=== PATIENT | male | born 1970 | race Caucasian/White ===

== ENCOUNTER 2020-02-01 10:37 | Outpatient (REF) | payer OTHER, SELFPAY ==
--- NOTE | 2020-02-01 10:41 | XR_ITS ---
EXAMINATION: XR CERVICAL SPINE CLINICAL INFORMATION: Neck pain COMPARISON: None TECHNIQUE: 3 views of the cervical spine were obtained. FINDINGS: Bone alignment is normal. No fracture or dislocation is seen. There is degenerative spondylosis from C4-C5 to C6-C7. Disc spaces are normal. Prevertebral soft tissues are normal. There is soft tissue calcification posterior to the C4 and C5 spinous processes suggestive of old trauma. XR/XR cervical spine 3V IMPRESSION: Degenerative changes.
== END 2020-02-01 10:38 | disposition home or self-care (01) ==
LOC: HO.HMGCX 10:37
PROVIDERS: PCP Nurse Practitioner Family; Visit Provider Nurse Practitioner Family
DX: M54.2 Cervicalgia (principal)
CPT/HCPCS: 72040

== ENCOUNTER 2020-03-21 15:00 | Outpatient (RCR) | payer OTHER, SELFPAY ==
--- NOTE | 2020-02-16 16:27 | MHC.PT.EP ---
[facility] [place] Office [place] Office [place] Office [address] Heidi Sears [address] [phone] F: [phone] F: [phone] F: [phone] F: [phone] Physical Therapy Plan of Care Date of Evaluation: 02/16/20 Date of Surgery: Diagnosis: This is a 49 yo RHD male presenting to skilled PT with a script for cervicalgia. Assessment: This is a 49 yo RHD male presenting to skilled PT with a script for cervicalgia. His pain began about 3 weeks ago when he woke up with symptoms (no injury noted). Since then the patient has had an increase in HAYES's (located posteriorly) and these occur daily. His pain is described as achy and is constant. His pain is located at the base of the occipitals and into the paraspinals B throughout the c-spine. His big complaints are sleeping, turning his neck and constant pain. He is able to perform all ADLs on own but is limited due to pain and ROM. Assessment demos pain up to an 8/10 and is consistent. He demos poor cervical joint mobility, cervical ROM and decreased cervical strength. He has forward head posture and rounded shoulders. Functionally, he is limited in rotating his neck and sleeping. He has very stiff posturing and is tender throughout the c-spine paraspinals, with ? cervical rotation at C3/4. He is a good candidate for skilled PT 2x/wk for 6wks based on functional limitations, age, PMHx and normal ADL Frequency and Duration: The patient will be seen 2x/wk for 6wks Short Term Goals: I in HEP Improve cervical ROM by 10 degs in all motions Fci Goals: Patient will report sleeping through the night Demos normal cervical AROM and MMT Pain improves to no more than 2/10 at the worst No TTP and good cervical joint mobility Treatment Plan: Modalities to reduce pain, spasms and effusion. Manual therapy to restore motion and function. Therapeutic exercise to improve strength and flexibility. Neuromuscular re-education for posture and balance. Therapeutic activities to return to functional activities of daily living. Please sign and return to therapist. Thank you for your referral.
--- NOTE | 2020-04-22 12:42 | MHC.PT.DC ---
[facility] [place] Office [place] Office [place] Office [address] Heidi Sears [address] [phone] F: [phone] F: [phone] F: [phone] F: [phone] Physical Therapy Discharge Report Diagnosis: This is a 49 yo RHD male presenting to skilled PT with a script for cervicalgia. Date of Surgery: Date of Evaluation: 02/16/20 Date of Discharge: 04/22/20 Treatments to Date: 6 Cancellations to Date: 0 No Shows to Date: 0 Discharge Status: Independent with HEP Discharge Summary: Patient was treated for 6 visits, he went away on vacation and did not return to therapy after this. Plan was to perform ROM measurements next session before he leaves to assess response to therapy however patient cancelled. He was educated to call our dept after he returns to continue PT however he did not. PT kept chart open for 30 days prior to DC. DC to HEP at this time. Electronically signed by: Medina Candelario, PT Please sign and return to therapist. Thank you for your referral.
== END 2020-04-22 12:43 | disposition home or self-care (01) ==
LOC: HO.PTCHIC 15:00
PROVIDERS: PCP Nurse Practitioner Family; Visit Provider Nurse Practitioner Family
DX: M54.2 Cervicalgia (principal)
CPT/HCPCS: 97012; 97014; 97110; 97140; 97161

== ENCOUNTER 2020-08-04 08:03 | Outpatient (REF) | payer OTHER, SELFPAY ==
[2020-08-04 11:15] LABS: MANUAL DIFF FLAG NO
[2020-08-04 12:03] LABS: Basophils Percent Auto 0.3 % (0-2); Eosinophils Absolute Auto 0.2 X10*3/uL (0.0-0.4); Eosinophils Percent Auto 2.9 % (0-4); Hematocrit 42.3 % (42-52); Hemoglobin 13.8 g/dl (14.0-18.0); Imm Gran Abs Auto 0.03 X10*3/uL (0.00-0.03); Imm Gran Pct Auto 0.4 % (0.0-0.4); Lymphocytes Absolute Auto 1.7 X10*3/uL (1.2-4.9); Lymphocytes Percent Auto 23.3 % (20-40); Mean Corpuscular HGB Conc 32.6 g/dl (31.0-36.0); Mean Corpuscular Hemoglobin 30.5 pg (27.0-33.0); Mean Corpuscular Volume 93.6 fL (80-98); Monocytes Absolute Auto 0.8 X10*3/uL (0.1-1.2); Monocytes Percent Auto 11.5 % (2-11); Neutrophils Absolute Auto 4.4 X10*3/uL (2.0-8.3); Neutrophils Percent Auto 61.6 % (45-73); Platelet Count 267 X10*3/uL (160-400); Red Blood Count 4.52 X10*6/uL (4.60-5.80); Red Cell Distribution Width 12.9 % (11.0-16.0); White Blood Count 7.2 X10*3/uL (4.8-10.8)
[2020-08-04 12:08] LABS: Alanine Aminotransferase 34 U/L (0-40); Albumin Level 4.3 g/dL (3.5-5.0); Alkaline Phosphatase 110 U/L (39-117); Anion Gap 12 (12-20); Aspartate Amino Transferase 17 U/L (5-37); Bilirubin Total 0.7 mg/dL (0.0-1.0); Blood Urea Nitrogen 18 mg/dL (9-16); Calcium 9.5 mg/dL (8.4-10.2); Carbon Dioxide 27 mmol/L (22-29); Chloride 108 mmol/L (96-108); Estimated Glomerular Filt Rate > 60; Glucose Fasting 81 mg/dL (60-99); Iron 78 mcg/dL (45-160); Percent Iron Saturation 28 % (15-50); Potassium 4.7 mmol/L (3.3-5.1); Sodium 142 mmol/L (135-145); Total Iron Binding Capacity 282 mcg/dL (228-428); Total Protein 6.5 g/dL (6.5-8.0); Unsaturated Iron Binding 204 ug/dL
[2020-08-04 12:10] LABS: Vitamin B12 876 pg/mL (200-900)
[2020-08-04 12:31] LABS: TSH reflex Free T4 0.54 uIU/mL (0.32-4.0)
[2020-08-04 13:42] LABS: Ferritin 202 ng/mL (20-250)
== END 2020-08-04 08:04 | disposition home or self-care (01) ==
LOC: HO.HMGCLDS 08:03
PROVIDERS: PCP Nurse Practitioner Family; Visit Provider Nurse Practitioner Family
DX: R53.83 Other fatigue (principal)
CPT/HCPCS: 36415; 80053; 82607; 82728; 83540; 84443; 85025

== ENCOUNTER 2020-08-17 12:51 | Outpatient (REF) | payer OTHER, SELFPAY ==
--- NOTE | ~2020-08-17 | MR_ITS ---
EXAMINATION: MR SHOULDER WITHOUT CONTRAST, RIGHT CLINICAL INFORMATION: Pain in right shoulder. Patient reports chronic right shoulder pain, decreased range of motion, no recent injury, and no previous surgery. COMPARISON: None. TECHNIQUE: MRI of the shoulder without contrast was performed on a high-field scanner. FINDINGS: ROTATOR CUFF: There is a small 3 mm calcification noted in the distal supraspinatus tendon, corresponding to the plain film finding. There is minor distal supraspinatus tendinosis. There may be a small focal area of mild bursal surface fraying. There is minor distal infraspinatus tendinosis. There is mild distal subscapularis tendinosis. No tears are identified. The teres minor tendon is intact. There is mild edema/trace fluid in the subacromial-subdeltoid bursa. No muscle atrophy or fatty infiltration. BICEPS: Normal. CORACOACROMIAL ARCH: The undersurface of the acromion is mildly curved, mildly laterally downsloping, with a small broad-based subacromial osteophyte. There is mild hypertrophic osteoarthritis of the acromioclavicular joint. LABRUM/CAPSULE: Normal. GLENOHUMERAL JOINT/MARROW: Normal. MR/MR shoulder RT wo con IMPRESSION: 1. Mild distal supraspinatus calcific tendinosis. Minor bursal surface fraying. Minor distal infraspinatus tendinosis and mild distal subscapularis tendinosis. No evidence of rotator cuff tear. 2. Mild subacromial-subdeltoid bursitis. 3. Mildly laterally downsloping acromion process with small broad-based subacromial osteophyte. 4. 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
== END 2020-08-17 12:52 | disposition home or self-care (01) ==
LOC: HO.MRI 12:51
PROVIDERS: Visit Provider Nurse Practitioner Family
DX: M25.511 Pain in right shoulder (principal)
CPT/HCPCS: 73221

== ENCOUNTER 2020-11-11 08:12 | Outpatient (REF) | payer OTHER, SELFPAY ==
[2020-11-11 11:06] LABS: MANUAL DIFF FLAG NO
[2020-11-11 11:12] LABS: Basophils Percent Auto 0.4 % (0-2); Eosinophils Absolute Auto 0.2 X10*3/uL (0.0-0.4); Eosinophils Percent Auto 2.5 % (0-4); Glucose Urine UA NEG (NEG); Hematocrit 44.2 % (42-52); Hemoglobin 14.3 g/dl (14.0-18.0); Imm Gran Abs Auto 0.04 X10*3/uL (0.00-0.03); Imm Gran Pct Auto 0.5 % (0.0-0.4); Leukocyte Esterase Urine NEG (NEG); Lymphocytes Percent Auto 26.4 % (20-40); Mean Corpuscular HGB Conc 32.4 g/dl (31.0-36.0); Mean Corpuscular Hemoglobin 30.8 pg (27.0-33.0); Mean Corpuscular Volume 95.3 fL (80-98); Mean Platelet Volume 11.1 fL (9.4-12.4); Monocytes Absolute Auto 0.9 X10*3/uL (0.1-1.2); Monocytes Percent Auto 12.5 % (2-11); Neutrophils Absolute Auto 4.3 X10*3/uL (2.0-8.3); Neutrophils Percent Auto 57.7 % (45-73); Nitrite Urine NEG (NEG); Platelet Count 237 X10*3/uL (160-400); Red Blood Count 4.64 X10*6/uL (4.60-5.80); UACC Culture Trigger NO; Urine Blood TRACE (NEG); Urine Ketones NEG (NEG); Urine Protein NEG (NEG-TRACE); White Blood Count 7.5 X10*3/uL (4.8-10.8)
[2020-11-11 11:13] LABS: Appearance Urine CLEAR; Color Urine YELLOW
[2020-11-11 11:24] LABS: RBC Urine 0-2 /HPF (0); WBC Urine 0 /HPF (0-4)
[2020-11-11 11:33] LABS: Alanine Aminotransferase 20 U/L (0-40); Albumin Level 4.3 g/dL (3.5-5.0); Alkaline Phosphatase 113 U/L (39-117); Anion Gap 13 (12-20); Aspartate Amino Transferase 15 U/L (5-37); Bilirubin Total 0.7 mg/dL (0.0-1.0); Blood Urea Nitrogen 14 mg/dL (9-16); Calcium 9.4 mg/dL (8.4-10.2); Carbon Dioxide 29 mmol/L (22-29); Chloride 106 mmol/L (96-108); Cholesterol 153 mg/dL; Estimated Glomerular Filt Rate > 60; Glucose Fasting 102 mg/dL (60-99); HDL Cholesterol 44 mg/dL; LDL Cholesterol Calculated 94 mg/dl; Potassium 4.8 mmol/L (3.3-5.1); Sodium 143 mmol/L (135-145); Total Protein 6.7 g/dL (6.5-8.0); Triglycerides 77 mg/dL
[2020-11-11 11:58] LABS: Prostate Specific Antigen Scr 0.34 ng/mL (<0.05-4.0); TSH reflex Free T4 0.84 uIU/mL (0.32-4.0)
[2020-11-17 17:15] LABS: Testosterone, Free 79.9 pg/mL (35.0-155.0); Testosterone, Total 506 ng/dL (250-1100)
== END 2020-11-11 08:13 | disposition home or self-care (01) ==
LOC: HO.HMGCLDS 08:12
PROVIDERS: PCP Nurse Practitioner Family; Visit Provider Nurse Practitioner Family
DX: Z00.00 Encounter for general adult medical examination without abnormal findings (principal); Z12.5 Encounter for screening for malignant neoplasm of prostate; R53.83 Other fatigue; R68.82 Decreased libido
CPT/HCPCS: 36415; 80053; 80061; 81001; 84153; 84402; 84403; 84443; 85025

== ENCOUNTER 2020-12-06 15:00 | Outpatient (RCR) | payer OTHER, SELFPAY ==
--- NOTE | 2020-10-18 19:03 | MHC.PT.EP ---
[facility] [place] [facility] [place] Office [place] Office [address] Heidi Sears [address] [phone] F: [phone] F: [phone] F: [phone] F: [phone] Physical Therapy Plan of Care Date of Evaluation: Date of Surgery: Diagnosis: R shoulder Pain Assessment: Pt is a 50 y/o male referred to PT for eval and treat of R shoulder pain who presents with signs and Sx consistent with R impingement and dysfunction resulting in decreased tolerance to perform UE fitness activities, reaching high shelves, reaching his back for hygiene and dressing, dressing pullovers, lifting and carrying objects of weight as well as inability to lie on R side secondary to decreased R shoulder AROM and strength, TTP of R anterior shoulder and biceps tendon, + impingement tests, decreased scapular posture and pain. Pt is deemed an appropriate candidate to receive skilled PT in order to address his physical limitations to improve his functional ability. Frequency and Duration: The patient will be seen 2 x/wk x 5 wks. Short Term Goals: Improve TTP of anterior R shoulder to < 2+; initial 3+ (considerable). Initiate HEP with evidence of compliance. Skilled Nursing Goals: I with HEP. Pt will be able to reach objects on high shelves with managed Sx; initial unable. Improve R shoulder flexion MMT to > 4+/5; initial 4/5 and painful. Treatment Plan: Modalities to reduce pain, spasms and effusion. Manual therapy to restore motion and function. Therapeutic exercise to improve strength and flexibility. Neuromuscular re-education for posture and balance. Therapeutic activities to return to functional activities of daily living. Electronically signed by: Homer Vasquez PT. Please sign and return to therapist. Thank you for your referral.
--- NOTE | 2020-12-08 12:01 | MHC.PT.DC ---
[facility] [place] Office [place] Office [place] Office [address] Heidi Sears 140 [facility] [phone] F: [phone] F: [phone] F: [phone] F: [phone] Physical Therapy Discharge Report Diagnosis: R shoulder Pain Date of Surgery: Date of Evaluation: 10/18/20 Date of Discharge: 12/08/20 Treatments to Date: 7 Cancellations to Date: No Shows to Date: Discharge Status: Achieved Goals Improved Function Independent with HEP Discharge Summary: Pt called to Self DC; reports he has been feeling much better, he has met his goals and has a plan for self management. Electronically signed by: Homer Vasquez PT. Please sign and return to therapist. Thank you for your referral.
== END 2020-12-08 12:02 | disposition home or self-care (01) ==
LOC: HO.PTCHIC 15:00
PROVIDERS: PCP Nurse Practitioner Family; Visit Provider Nurse Practitioner Family
DX: M25.511 Pain in right shoulder (principal)
CPT/HCPCS: 97110; 97140; 97161

== ENCOUNTER 2020-12-20 12:21 | Outpatient (REF) | payer OTHER, SELFPAY ==
[2020-12-20 13:59] LABS: Urine Cytology See Pathology rpt
[2020-12-20 14:11] LABS: Appearance Urine CLEAR; Color Urine YELLOW; Glucose Urine UA NEG (NEG); Leukocyte Esterase Urine NEG (NEG); Nitrite Urine NEG (NEG); PH 7.5 (5.0-8.0); Specific Gravity - Urine 1.015 (1.005-1.025); Urine Blood NEG (NEG); Urine Ketones NEG (NEG); Urine Protein NEG (NEG-TRACE)
[2020-12-20 14:46] LABS: RBC Urine 0 /HPF (0); Squamous Epithelial Cell Urine TRACE /LPF; WBC Urine 0 /HPF (0-4)
== END 2020-12-20 12:22 | disposition home or self-care (01) ==
LOC: HO.HMGCLDS 12:21
PROVIDERS: PCP Nurse Practitioner Family; Visit Provider Nurse Practitioner Family
DX: R31.29 Other microscopic hematuria (principal)
CPT/HCPCS: 81001; 81003; 87086; 88112

== ENCOUNTER 2021-01-19 14:47 | Outpatient (REF) | payer OTHER, SELFPAY ==
--- NOTE | ~2021-01-19 | CT_ITS ---
EXAMINATION: CT ABDOMEN AND PELVIS WITHOUT CONTRAST CLINICAL INFORMATION: Left lower quadrant pain. COMPARISON: None TECHNIQUE: Multidetector volumetric imaging was performed from the superior aspect of the liver through the pubic symphysis. Sagittal and coronal reformatted images were obtained on the technologist's workstation. This CT examination was performed using dose optimization techniques as appropriate, variously including the following: *Automated exposure control *Adjustment of mA and/or kV according to patient size (this includes techniques or standardized protocols for targeted exams where dose is matched to indication/reason for exam; i.e. extremities or head) *Use of iterative reconstruction technique DLP: 574 mGy-cm FINDINGS: LUNG BASES: The visualized lung bases are unremarkable. LIVER, GALLBLADDER, AND BILIARY TREE: The liver is normal in size, shape, and attenuation. There is a 4 mm hypodensity segment 4A close the diaphragm centrally on axial image 12/19. It is too small to correctly characterize. No additional liver lesions seen. There is no intrahepatic ductal dilatation. The gallbladder is unremarkable with no evidence of radiopaque gallstones, gallbladder wall thickening, or obvious pericholecystic inflammatory changes. PANCREAS: Unremarkable. SPLEEN: Unremarkable. ADRENAL GLANDS: Unremarkable. KIDNEYS AND URETERS: The kidneys are normal in size, shape, and attenuation. No hydronephrosis, hydroureter, or calculi seen. No perinephric stranding. There is a 1.4 cm cyst upper pole right kidney. BLADDER: Unremarkable. GASTROINTESTINAL TRACT: There is diffuse sigmoid and scattered rest of the colon diverticulosis and moderate stool. No colonic distention. The small bowel loops are normal caliber. Appendix is normal caliber. No inflammatory process of free fluid seen. The stomach appears unremarkable with recently ingested food. ABDOMINAL WALL: No significant hernia is appreciated. LYMPH NODES: There are scattered lymph nodes. VASCULAR: Unremarkable. PELVIC VISCERA: The prostate gland is normal size. No abnormal pelvic lymph nodes or inguinal hernia seen. OSSEOUS STRUCTURES: No lytic or sclerotic process seen. There are mild degenerative disc changes with vacuum disc phenomena at L5-S1 and L3-L4 disc levels with moderate ventral spondylosis. CT/CT abdomen pelvis wo con IMPRESSION: Diffuse sigmoid diverticulosis and scattered rest the colon diverticulosis with no diverticulitis.
== END 2021-01-19 14:48 | disposition home or self-care (01) ==
LOC: HO.CT 14:47
PROVIDERS: PCP Nurse Practitioner Family; Visit Provider Nurse Practitioner Family
DX: R10.32 Left lower quadrant pain (principal); R31.29 Other microscopic hematuria
CPT/HCPCS: 74176

== ENCOUNTER 2023-03-28 15:30 | Outpatient (AMB) | payer OTHER, SELFPAY ==
--- NOTE | 2023-03-28 15:35 | A.OFFPC_ITS ---
Vital Signs 03/28/23 15:38 Height 5 ft 8 in Weight 196 lb BMI 29.8 BP 140/82 H Blood Pressure Location Rt brachial Position Sitting Pulse 85 Pulse Source Pulse Oximeter Pulse Oximetry (%) 98 Oxygen Delivery Method Room Air Intake Visit Reasons: 6 month follow up Intake Note: Patient here to follow up on low back pain and sciatic nerve pain on left side. Allergies N.K.D.A Allergy (Unknown, Uncoded 03/28/23 15:39) none Medication List - Last Reconciled 03/28/23 by FRANKIE Fowler oxycodone 10 mg PO BID PRN 10 days Tobacco use date assessed: 10/01/22 Dental Screening Dental Screen Date: 03/28/23 Did you have a dental visit in the last 12 months?: Yes Did you have a dental problem in the last 6 months where you did not have access to dental care?: No Was dental information given to patient?: Patient has dentist HPI 6 month follow up HPI Details Pt c/o ongoing lower back pain with radicular symptoms down his left leg. Pt reports falling off a ladder last week and landing on his buttocks which made the pain worse (radicular symptoms worse down LLE). He had an MRI in July of 2020 which showed chronic L5-S1 level partial left laminectomy sequela with multilevel degenerative changes with L3-L4 level inferior extruded central disc herniation and L5-S1 level broad-based left paracentral disc herniation with central canal stenosis and neural foraminal narrowing. Pt has seen neurosurgery for this in the past but was not a surgical candidate. Will repeat MRI. Will also send prednisone and short duration of oxycodone. Educated pt on risk of addiction, this is not a long-term med. Pt understands that they can not drive while taking this med, share this med, and to only take as prescribed. Denies any signs of cauda equina. Pt c/o ongoing low libido and ED. He reports that he is not able to get an erection at all. Labs have been ordered to assess this, encouraged pt to have these drawn. Pt has been smoking at least a pack per day since age 13. Will refer for low-dose CT. [facility] Medical History (Updated 03/28/23 @ 16:06 by FRANKIE Fowler) Nerve root compression Chronic radicular pain of lower back Lung mass Surgical History History of lumbar discectomy Family History Father Cancer Mother HTN (hypertension) Social History Housing: House Patient Tobacco Use Status: Current everyday Tobacco user Cigarettes Per Day: 10 Years Smoked: over 30 years e-Cigarette/Vaping Use: Never Used Second Hand Smoke Exposure: No service: Yes Current occupational status: employed Cognitive needs: No Hearing needs: No Vision needs: Yes (contacts) Questionnaire PHQ-9 Over the last 2 weeks, how often have you been bothered by any of the following problems? 1. Little interest or pleasure in doing things: several days 2. Feeling down, depressed, or hopeless: not at all 3. Trouble falling or staying asleep, or sleeping too much: more than half the days 4. Feeling tired or having little energy: several days 5. Poor appetite or overeating: not at all 6. Feeling bad about yourself - or that you are a failure or have let yourself or your family down: not at all 7. Trouble concentrating on things, such as reading the newspaper or watching television: not at all 8. Moving or speaking so slowly that other people could have noticed. Or the opposite - being so fidgety or restless that you have been moving around a lot more than usual: not at all 9. Thoughts that you would be better off or of hurting yourself in some way: not at all Total score: 4 Depression Screening Interpretation: Negative Depression Screening Done: Yes 86997 - PHQ-9 Billing: Yes Source: Developed by Drs. Carlos Rizzo, Joycelyn Black, Ben Duarte and colleagues, with an educational essence from [employer]. Thrive Questionnaire Date Thrive assessed: 03/28/23 I am a: Patient What is your living situation today?: I have a steady place to live Within the past 12 months, did the food you bought not last and you didn't have the money to get more?: Never true Within the past 12 months, did you worry whether your food would run out before you got money to buy more?: Never true Do you have trouble paying for medicines?: No Do you have trouble getting transportation to medical appointments?: No Do you have trouble paying your heating and electricity bill?: No Do you have trouble taking care of your child, family member or friend?: No Do you have trouble with day-to-day activities such as bathing, preparing meals, shopping, managing finances, etc.?: No Are you currently unemployed and looking for a job?: Yes Are you interested in more education?: No AUDIT C Alcohol Use Questionnaire (AUDIT-C) 1. How often do you have a drink containing alcohol?: Never 3. How often do you have six or more drinks on one occasion?: Never Total Score: 0 Score Reviewed/Action Taken: No STEVE-7 AMB Questionnaire STEVE-7 Date STEVE - 7 assessed: 03/28/23 Feeling nervous, anxious, or on edge: 1 = Several days Not being able to stop or control worryin = Several days Worrying too much about different things: 1 = Several days Trouble relaxin = Several days Being so restless that it is hard to sit still: 1 = Several days Becoming easily annoyed or irritable: 1 = Several days Feeling afraid as if something awful might happen: 0 = Not at all Total STEVE-7 score (0-4 normal; 5-9 mild; 10-14 moderate; 15-21 severe): 6 Source: Developed by Drs. Carlos Rizzo, Joycelyn Black, Ben Duarte and colleagues, with an educational essence from [employer]. STEVE-7 Assessment Billing STEVE-7 Assessment Tool: STEVE-7 Assessment 97757 Review of Systems Const Reports as per HPI Physical exam (Primary Care) Vital Signs: Last Vital Signs Pulse 85 03/28/23 15:38 BP 140/82 H 03/28/23 15:38 Pulse Ox 98 03/28/23 15:38 Oxygen Delivery Method Room Air 03/28/23 15:38 BMI result Body Mass Index 29.8 Tobacco/Smoking Status: Tobacco use Status Tobacco use date assessed 10/01/22 03/28/23 15:36 Patient Tobacco Use Status Current everyday Tobacco 03/28/23 15:36 e-Cigarette/Vaping Use Never Used 03/28/23 15:36 PHQ-9: PHQ-9 Score PHQ-9: Total score 4 03/28/23 16:56 Depression Screening Interpretation: Negative Thrive Assessment: Date of Thrive Assessment Date Thrive assessed 03/28/23 03/28/23 16:56 Const General: cooperative Orientation/consciousness: patient oriented x3 Resp Effort & Inspection: normal respiratory effort Auscultation: wheezes scattered wheezes Cardio Rate: regular rate Rhythm: regular rhythm Heart sounds: S1 normal heart sound present and S2 normal heart sound present Back/Spine/Pelvis Other: unable to heel and toe walk, unable to get into supine position due to pain Neuro General: patient oriented x3 Extrem Other: + patellar reflexes Psych Appearance: grossly normal Mental Status: mental status grossly normal Speech and movement: Normal speech and movement present Affect: normal affect Attitude: cooperative Thought process: Normal thought process present Thought content: Normal thought content present Insight: Good insight present (Psych) Judgement: Good judgement present (Psych) Assessment and Plan Assessment & Plan (1) Chronic radicular pain of lower back: Code(s): M54.16 - Radiculopathy, lumbar region; G89.29 - Other chronic pain Plan: MRI ordered (2) Nerve root compression: Code(s): G54.9 - Nerve root and plexus disorder, unspecified Plan: MRI ordered (3) Fall: Code(s): W19.XXXA - Unspecified fall, initial encounter Plan: MRI ordered (4) Smoker: Code(s): F17.200 - Nicotine dependence, unspecified, uncomplicated Plan The patient agreed to the use of a medical investigator for this encounter. Scribed for CLIFFORD Breaux- by Staci Farr medical investigator, on 03/28/2023 at 15:50 EST. Orders: Orders MR lumbar spine wo con Today G54.9 - Nerve root and plexus disorder, unspecified, G89.29 - Other chronic pain, M54.16 - Radiculopathy, lumbar region, W19.XXXA - Unspecified fall, initial encounter Referrals Thoracic Surgery Referral F17.200 - Nicotine dependence, unspecified, uncomplicated Medications: New prednisone 50 mg PO DAILY 6 tabs 0RF Refilled oxycodone Partial Fill upon patient request. 10 mg PO BID PRN 20 tabs 0RF pain 10 days Coding Level of Care Code Est Pt Level 4 (98535) Diagnoses Chronic radicular pain of lower back M54.16; G89.29 Nerve root compression G54.9 Fall W19.XXXA Smoker F17.200 Additional Codes STEVE-7 Assessment Billing - STEVE-7 Assessment Tool: STEVE-7 Assessment 11255 ([id number])
[2023-03-28 15:38] VITALS: BP 140/82; PULSE 85; O2SAT 98; BMI 29.8
== END 2023-03-28 16:51 | disposition home or self-care (01) ==
PROVIDERS: PCP Nurse Practitioner Family; Visit Provider Nurse Practitioner Family
DX: G54.9 Nerve root and plexus disorder, unspecified (principal); W19.XXXA Unspecified fall, initial encounter; F17.210 Nicotine dependence, cigarettes, uncomplicated
CPT/HCPCS: 99214

== ENCOUNTER 2023-04-04 09:32 | Outpatient (REF) | payer OTHER, SELFPAY ==
[2023-04-04 13:35] LABS: MANUAL DIFF FLAG NO
[2023-04-04 13:40] LABS: Appearance Urine Clear; Color Urine Yellow; Glucose Urine UA Negative (Negative); Leukocyte Esterase Urine Negative (Negative); Nitrite Urine Negative (Negative); PH 5.5 (5.0-9.0); UMIC TRIGGER UACC YES; Urine Blood Small (1+) (Negative); Urine Ketones Negative (Negative); Urine Protein Negative (Neg-Trace)
[2023-04-04 13:47] LABS: Basophils Percent Auto 0.4 % (0-2); Eosinophils Absolute Auto 0.2 X10*3/uL (0.0-0.4); Eosinophils Percent Auto 2.8 % (0-4); Hematocrit 41.9 % (42.0-52.0); Hemoglobin 13.8 g/dl (14.0-18.0); Imm Gran Abs Auto 0.03 X10*3/uL (0.00-0.03); Imm Gran Pct Auto 0.4 % (0.0-0.4); Lymphocytes Absolute Auto 2.3 X10*3/uL (1.2-4.9); Lymphocytes Percent Auto 31.5 % (20-40); Mean Corpuscular HGB Conc 32.9 g/dl (31.0-36.0); Mean Corpuscular Hemoglobin 30.3 pg (27.0-33.0); Mean Corpuscular Volume 92.1 fL (80.0-98.0); Mean Platelet Volume 11.1 fL (9.4-12.4); Monocytes Absolute Auto 0.9 X10*3/uL (0.1-1.2); Monocytes Percent Auto 12.2 % (2-11); Neutrophils Absolute Auto 3.8 x10*3/uL (2.0-8.3); Neutrophils Percent Auto 52.7 % (45-73); Platelet Count 241 X10*3/uL (160-400); Red Blood Count 4.55 X10*6/uL (4.60-5.80); Red Cell Distribution Width 13.1 % (11.0-16.0); White Blood Count 7.2 X10*3/uL (4.8-10.8)
[2023-04-04 13:54] LABS: Bacteria Urine None Seen (None Seen); Hyaline Casts Urine 0-2 /LPF (0-2); RBC Urine 0-2 /HPF (0-2); Squamous Epithelial Cell Urine 0-2 /HPF (0-2); WBC Urine 0-5 /HPF (0-5)
[2023-04-04 14:17] LABS: Prostate Specific Antigen Scr 0.29 ng/mL (<0.05-4.0)
[2023-04-04 14:23] LABS: Alanine Aminotransferase 19 U/L (0-40); Alkaline Phosphatase 115 U/L (39-117); Anion Gap 8 (12-20); Aspartate Amino Transferase 15 U/L (5-37); Bilirubin Total 0.4 mg/dL (0.0-1.0); Blood Urea Nitrogen 18 mg/dL (9-16); Calcium 9.5 mg/dL (8.4-10.2); Carbon Dioxide 29 mmol/L (22-29); Chloride 108 mmol/L (96-108); Cholesterol 172 mg/dL (<200); Estimated Glomerular Filt Rate > 60; Glucose Fasting 101 mg/dL (60-99); HDL Cholesterol 50 mg/dL (>40); LDL Cholesterol Calculated 101 mg/dL (<100); Potassium 4.2 mmol/L (3.3-5.1); Sodium 141 mmol/L (135-145); TSH reflex Free T4 0.98 uIU/mL (0.32-4.0); Total Protein 6.9 g/dL (6.5-8.0); Triglycerides 106 mg/dL (<150)
[2023-04-05 09:33] LABS: Follicle Stimulating Hormone 14.6 mIU/mL (1.4-12.8); Lutenizing Hormone 10.4 mIU/mL (1.5-9.3)
[2023-04-12 13:54] LABS: Testosterone, Free 21.5 pg/mL (35.0-155.0); Testosterone, Total 155 ng/dL (250-1100)
== END 2023-04-04 09:33 | disposition home or self-care (01) ==
LOC: HO.HMGCLDS 09:32
PROVIDERS: PCP Nurse Practitioner Family; Visit Provider Nurse Practitioner Family
DX: Z00.00 Encounter for general adult medical examination without abnormal findings (principal); R68.82 Decreased libido; Z12.5 Encounter for screening for malignant neoplasm of prostate; R31.29 Other microscopic hematuria
CPT/HCPCS: 36415; 80053; 80061; 81001; 83001; 83002; 84153; 84402; 84403; 84443; 85025

== ENCOUNTER 2023-05-28 09:50 | Outpatient (REF) | payer OTHER, SELFPAY ==
[2023-05-28 16:37] LABS: Urine Cytology See Pathology rpt
== END 2023-05-28 09:51 | disposition home or self-care (01) ==
LOC: HO.LAB 09:50
PROVIDERS: PCP Nurse Practitioner Family; Visit Provider Nurse Practitioner Family
DX: N39.0 Urinary tract infection, site not specified (principal); R31.29 Other microscopic hematuria; R79.89 Other specified abnormal findings of blood chemistry; R68.82 Decreased libido; N52.9 Male erectile dysfunction, unspecified
CPT/HCPCS: 81003; 88112; 99202

== ENCOUNTER 2023-05-28 09:50 | Outpatient (AMB) | payer OTHER, SELFPAY ==
--- NOTE | 2023-05-28 10:08 | MHC.OFFVIS ---
Intake Intake Visit Reasons: hypogonadism Intake Note: New Patient presents for initial visit for Hypogonadism Urology Medications: none Blood Thinner: none Rd Lab Technician Required: No Accompanied by: Self / Same As Patient Allergies N.K.D.A Allergy (Unknown, Uncoded 05/28/23 21:35) none Medication List - Last Reconciled 05/28/23 by FRANKIE Wild oxycodone 10 mg PO BID PRN 10 days tadalafil (Cialis) 5 mg PO DAILY 30 days tadalafil (Cialis) 20 mg PO .prn 30 days HPI HPI Comments History of Present Illness Details Quincy is a pleasant 53-year-old male patient of Dr. Moe. He has a past medical history of nerve root compression, chronic radicular pain of lower back, and lung mass. He presents to the office today as a new patient for erectile dysfunction and hypogonadism. He reports having followed up with his PCP at which time labs were drawn and he was noted to have a low testosterone therefore referral to Urology was made. These results were reviewed with the patient today. FSH 03/30 14.6 LH 03/30 10.4 Total testosterone 11/26 506, 03/30 155 Free testosterone 11/26 79.9, 03/30 21.5 PSA 11/26 0.3, 03/30 0.3 When asked he reports symptoms of erectile dysfunction and fatigue started approximately 8 months ago. He does endorse to nicotine dependence. When asked he reports a previous workup for sleep apnea that was negative. He otherwise denies any bothersome urinary issues. He denies urinary urgency, urinary frequency, incontinence, nocturia, hematuria, dysuria, foul smelling urine, changes to urinary stream, flank pain, fever, and or chills. He is happy with his current voiding parameters. Discussed at length potential causes of hypogonadism and erectile dysfunction. He otherwise denies any other issues or concerns at this time. [facility]LY [facility] Medical History Nerve root compression Chronic radicular pain of lower back Lung mass Surgical History History of lumbar discectomy Family History Father Cancer Mother HTN (hypertension) Social History Housing: House Patient Tobacco Use Status: Current everyday Tobacco user Cigarettes Per Day: 10 Years Smoked: over 30 years e-Cigarette/Vaping Use: Never Used Second Hand Smoke Exposure: No service: Yes Current occupational status: employed Cognitive needs: No Hearing needs: No Vision needs: Yes (contacts) Review of Systems Const Reports as per HPI Eyes Reports no additional complaints ENT Reports no additional complaints Card Reports no additional complaints Resp Reports as per HPI GI Reports no additional complaints Reports as per HPI Musc Reports as per HPI Neuro Reports no additional complaints Psych Reports no additional complaints Endo Reports no additional complaints Corbin/Lymph Reports no additional complaints Aller/Immun Reports no additional complaints Physical Exam Const General: cooperative, comfortable, no acute distress, well developed, alert and awake Orientation/consciousness: patient oriented x3 Limitations: no limitations HEENT Head: Yes normal to inspection, Yes normocephalic and Yes atraumatic Ears: hearing grossly normal bilaterally Eyes General: appearance normal, both eyes and all related structures Neck Neck: Yes normal visual inspection and Yes trachea midline Chest Chest palpation & inspection: normal inspection of the chest Resp Effort & Inspection: normal respiratory effort and able to speak in complete sentences Cardio Rate: regular rate GI Inspection: Yes normal to inspection General: Yes no CVA tenderness Back/Spine/Pelvis Back: no CVA tenderness Skin General skin exam: no rashes or lesions noted Neuro General: patient oriented x3 Extrem General: Yes normal to inspection Psych Appearance: grossly normal and well kempt Mental Status: mental status grossly normal Speech and movement: Normal speech and movement present and Clear speech present Affect: normal affect Attitude: cooperative Thought process: Normal thought process present Thought content: Normal thought content present Insight: Fair insight present (Psych) Judgement: Fair judgement present (Psych) Results AMB Urinalysis, Automated UA Leukoctes 0 Tha/uL Last Edit by Nazia Barnes CMA on 05/28/23 10:21 UA Nitrite Negative Last Edit by Nazia Barnes CMA on 05/28/23 10:21 UA Urobilinogen 0.2 mg/dL Last Edit by Nazia Barnes CMA on 05/28/23 10:21 UA Protein 15 mg/dL Last Edit by Nazia Barnes [facility] on 05/28/23 10:21 UA pH 6.0 Last Edit by Nazia Barnes, [facility] on 05/28/23 10:21 UA Blood 25 Juan Antonio/uL Last Edit by Nazia Barnes, [facility] on 05/28/23 10:21 UA Specific [place] 1.030 Last Edit by Nazia Barnes, [facility] on 05/28/23 10:21 UA Ketone Negative Last Edit by Nazia Barnes, [facility] on 05/28/23 10:21 UA Bilirubin 0 mg/dL Last Edit by Nazia Barnes, [facility] on 05/28/23 10:21 UA Glucose 0 mg/dL Last Edit by Nazia Barnes [facility] on 05/28/23 10:21 Results Reviewed Results Reviewed: Laboratory Last Values Urine pH (Auto) 6.0 05/28/23 10:19 Specific [place] (Auto) 1.030 05/28/23 10:19 Urine Protein (Auto) 15 mg/dL 05/28/23 10:19 Glucose (UA)(Auto) 0 mg/dL 05/28/23 10:19 Urine Ketones (Auto) Negative 05/28/23 10:19 Urine Blood (Auto) 25 Juan Antonio/uL 05/28/23 10:19 Urine Nitrite (Auto) Negative 05/28/23 10:19 Urine Bilirubin (Auto) 0 mg/dL 05/28/23 10:19 Urine Urobilinogen (Auto) 0.2 mg/dL 05/28/23 10:19 Leukocyte Esterase (Auto) 0 Tha/uL 05/28/23 10:19 Assessment & Plan Assessment & Plan (1) Low testosterone: Code(s): R79.89 - Other specified abnormal findings of blood chemistry (2) Low libido: Code(s): R68.82 - Decreased libido (3) Erectile dysfunction: Code(s): N52.9 - Male erectile dysfunction, unspecified Plan In office urinalysis results reviewed with the patient today; as noted above. Recent lab results reviewed with the patient today; as noted above. Discussed at length potential causes of hypogonadism as well as erectile dysfunction. Discussed, educated, and stressed the importance of limiting/quitting nicotine dependence for overall health and well-being. Will obtain redraw of testosterone, free testosterone, LH, SHBG, FSH, estradiol, and prolactin for further assessment evaluation. Start Cialis 5 mg daily as discussed and prescribed. P.r.n. prescription provided for Cialis He denies any bothersome urinary issues and is happy with current voiding parameters. Follow-up in 1-3 months with labs to be completed prior; or sooner with any issues, concerns, and or questions. Orders: Orders AMB Urinalysis Automated Today R33.9 - Retention of urine, unspecified Prolactin Today R79.89 - Other specified abnormal findings of blood chemistry Testosterone, Free/Total Today R79.89 - Other specified abnormal findings of blood chemistry Lutenizing Hormone Today R79.89 - Other specified abnormal findings of blood chemistry Sex Hormone Binding Globulin Today R79.89 - Other specified abnormal findings of blood chemistry Follicle Stimulating Hormone Today R79.89 - Other specified abnormal findings of blood chemistry Estradiol Ultra Sensitive Today E29.1 - Testicular hypofunction, R79.89 - Other specified abnormal findings of blood chemistry Urine Cytology Today N39.0 - Urinary tract infection, site not specified, R31.29 - Other microscopic hematuria Medications: New tadalafil (Cialis) [id number] [facility] [id number] Member [id number] 5 mg PO DAILY 30 days 30 tabs 3RF R79.89 - Other specified abnormal findings of blood chemistry tadalafil (Cialis) Take one hour prior to sexual activity no more than 3 times per week [id number] [facility] [id number] Member [id number] 20 mg PO .prn 30 days 15 tabs 3RF R79.89 - Other specified abnormal findings of blood chemistry Patient Instructions: The patient had an opportunity to ask questions regarding the treatment plan. All questions were answered. Physical exam, labs, and imaging were discussed and reviewed in detail. As well as risks, benefits, and discussion of treatment choices. No major barriers to understanding were identified. The patient expressed understanding and agreement with the above treatment plan. The patient was made aware they should contact our office by phone for worsening of their current condition, the appearance of new symptoms, or with any questions or concerns. Compliance is encouraged with any medications and follow up testing that is ordered. It is a privilege to be allowed the opportunity to participate in? your urological care.? Again, if you have any questions or concerns If you have any questions or concerns please do not hesitate to contact me. The office is [phone]. This note is constructed using voice recognition software. While every effort has been made to ensure accuracy news library director errors may have been included. Yours sincerely, FRANKIE Wild Coding Level of Care Code New Pt Level 4 (48244) Diagnoses Low testosterone R79.89 Low libido R68.82 Erectile dysfunction N52.9
== END 2023-05-28 10:35 | disposition home or self-care (01) ==
PROVIDERS: PCP Nurse Practitioner Family; Visit Provider Nurse Practitioner Family
DX: R79.89 Other specified abnormal findings of blood chemistry (principal); R68.82 Decreased libido; N52.9 Male erectile dysfunction, unspecified
CPT/HCPCS: 99204

== ENCOUNTER 2023-05-31 09:42 | Outpatient (REF) | payer OTHER, SELFPAY ==
--- NOTE | ~2023-05-31 | CT_ITS ---
EXAMINATION: CT CHEST SCREENING CLINICAL INFORMATION: Nicotine dependence, cigarettes, uncomplicated. Current smoker, one pack per day, 39 pack-year history. COMPARISON: None available. TECHNIQUE: Multidetector volumetric CT imaging of the chest is performed without contrast using low dose technique. Additional 2D coronal and sagittal reformatted images and axial 3D maximum intensity projection (MIP) images are generated on the CT workstation. This CT examination was performed using dose optimization techniques as appropriate, variously including the following: *Automated exposure control *Adjustment of mA and/or kV according to patient size (this includes techniques or standardized protocols for targeted exams where dose is matched to indication/reason for exam; i.e. extremities or head) *Use of iterative reconstruction technique DLP: 51 mGy-cm FINDINGS: LUNGS: Emphysematous changes are present with bullous formation, most prominent in the apices. There is a lobular mass in the left upper lobe which measures 3.5 x 3.3 x 4.0 cm (3:10 and 7:47 along with young images). This abuts the mediastinum. Acute angles with the pleural surface are most likely indicative of pulmonary origin to this mass rather than pleural or mediastinal origin. The mass is inhomogeneous with areas of large coarse calcification, some areas measuring fluid density and some areas measuring tissue density. A hamartoma would be a consideration although malignancy must be excluded. Some other tiny pulmonary micronodules are seen, none larger than 3 mm in size, for example 3 mm right upper lobe (5:335). MEDIASTINUM: Heart size normal. No mediastinal or hilar lymphadenopathy. CORONARY ARTERY CALCIFICATION: None visualized on this study. PLEURA: There is no pleural effusion. No pleural mass or thickening. AXILLA: No lymphadenopathy. UPPER ABDOMEN: Unremarkable. OSSEOUS STRUCTURES: Unremarkable. CT/CT lung screening IMPRESSION: Suspicious lobular lung mass measuring 4 cm in size, left upper lobe. ASSESSMENT: Lung-RADS category 4B: Suspicious. RECOMMENDATION: Tissue sampling. Initial PET/CT as clinically indicated.
== END 2023-05-31 09:43 | disposition home or self-care (01) ==
LOC: HO.CT 09:42
PROVIDERS: PCP Nurse Practitioner Family; Visit Provider Nurse Practitioner Family
DX: Z12.2 Encounter for screening for malignant neoplasm of respiratory organs (principal); F17.210 Nicotine dependence, cigarettes, uncomplicated
CPT/HCPCS: 71271; G0296

== ENCOUNTER 2023-05-31 09:51 | Outpatient (AMB) | payer OTHER, SELFPAY ==
--- NOTE | 2023-05-31 08:35 | MHC.OFFVIS ---
Intake Intake Visit Reasons: LDCT SD Allergies N.K.D.A Allergy (Unknown, Uncoded 05/28/23 21:35) none HPI HPI Comments History of Present Illness Details Quincy is a pleasant 53 year old male, current smoker with a 38 PYH. Patient has been smoking since age 15 for 38 years at 1 ppd. Denies marijuana use. Denies exposure to chemicals or substances like asbestos, however in the . Denies second hand smoke exposure. Reports father, smoker, with history of lung cancer. Denies personal history of cancers. Denies chest CT in last year. Last CXR 2018 revealed left chest mass 2.7 cm x 3.3 cm, stable x 10 years Reports travel to [place] Admits testing positive for COVID. Admits receiving COVID Vaccine. Denies fever, chills, chest pain, new cough, hemoptysis or unintentional weight loss. Lung Cancer Screening Questionnaire reviewed with patient by provider. Shared Decision Making Completed. Discussed in detail with patient, the risk versus benefit of LDCT screening. Patient in agreement of proceeding with scan. [facility]LY [facility] Medical History Nerve root compression Chronic radicular pain of lower back Lung mass Surgical History History of lumbar discectomy Family History Father Cancer Mother HTN (hypertension) Social History Housing: House Patient Tobacco Use Status: Current everyday Tobacco user Cigarettes Per Day: 10 Years Smoked: over 30 years e-Cigarette/Vaping Use: Never Used Second Hand Smoke Exposure: No service: Yes Current occupational status: employed Cognitive needs: No Hearing needs: No Vision needs: Yes (contacts) Assessment & Plan Assessment & Plan (1) Nicotine dependence, cigarettes, uncomplicated: Code(s): F17.210 - Nicotine dependence, cigarettes, uncomplicated Plan Shared decision-making visit completed today in office. This patient meets criteria for LDCT for lung cancer screening purposes and is asymptomatic. Offered smoking cessation, will refer to nurse navigator. Patient has been scheduled for a low dose chest CT for screening purposes at [facility]. We discussed how the results will be obtained depending on CT findings. RADS 1 and RADS 2 will receive a letter with results and will follow up for annual LDCT. Patient informed they will be contacted at later date to schedule upcoming LDCT scan. RADS 3 and RADS 4 will receive a telephone call, or an office visit after reviewing case at our Lung Cancer Conference to determine when the next LDCT will be scheduled or further interventions that may be needed. Discussed importance of screening program and compliance with yearly LDCT scan as scheduled. Risks, benefits, and alternatives were discussed in detail and patient agrees to proceed. Risks discussed include but are not limited to: radiation exposure and possibility of additional intervention for benign disease. Benefits include detection of lung cancer at an early stage. A copy of today's visit and LDCT results will be sent to patient's PCP. Incidental findings on LDCT are PCP's responsibility. If there are incidental findings, our office will ensure that PCP office is aware of these findings. All questions were answered and patient is in agreement of plan. Orders: Referrals Nurse Navigator Referral F17.210 - Nicotine dependence, cigarettes, uncomplicated Coding Level of Care Code Lung Cancer Screening G0296 Diagnoses Nicotine dependence, cigarettes, uncomplicated F17.210
== END 2023-05-31 10:24 | disposition home or self-care (01) ==
PROVIDERS: PCP Nurse Practitioner Family; Referring Provider Nurse Practitioner Family; Visit Provider Nurse Practitioner Family
DX: F17.210 Nicotine dependence, cigarettes, uncomplicated (principal)
CPT/HCPCS: G0296

== ENCOUNTER 2023-06-24 10:40 | Outpatient (AMB) | payer OTHER, SELFPAY ==
[2023-06-24 11:02] VITALS: BP 150/81; PULSE 90; BMI 29.2
--- NOTE | 2023-06-24 11:02 | MHC.OFFVIS ---
Intake Vital Signs 06/24/23 11:02 Height 5 ft 8 in Weight 192 lb BMI 29.2 BP 150/81 H Blood Pressure Location Rt brachial Position Sitting Pulse 90 Intake Visit Reasons: Left upper lobe lung mass Intake Note: Patient referred by PCP Swapnil Moe PA-C for Lt upper lung mass. Patient c/o: reports nodule has been present since childhood. [facility] [place] 05-31-23. 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 Patient denies any respiratory issues or complaints. Patient did mentioned that he has had this lung mass/process since his youth and has been followed for this. He denies any chronic cough, shortness of breath, chest pain, wheezing. Weight, appetite, energy are all within normal limits. Patient does have a significant smoking history. He has smoked a pack per day since his used. The last 10 years he is down to 1/2 pack per day. Patient states he was an alcoholic but has resolved that issue Chart was reviewed patient evaluated [facility] Medical History Nerve root compression Chronic radicular pain of lower back Lung mass Surgical History History of lumbar discectomy Family History Father Cancer Mother HTN (hypertension) Social History Housing: House Patient Tobacco Use Status: Current everyday Tobacco user Cigarettes Per Day: 10 Years Smoked: over 30 years e-Cigarette/Vaping Use: Never Used Second Hand Smoke Exposure: No service: Yes Current occupational status: employed Cognitive needs: No Hearing needs: No Vision needs: Yes (contacts) Physical Exam Vital Signs: Last Vital Signs Pulse 90 06/24/23 11:02 BP 150/81 H 06/24/23 11:02 BMI result Body Mass Index 29.2 Neck Other: No cervical, periclavicular, or axillary adenopathy. Chest Other: Chest breath sounds bilaterally. GI Other: Abdomen is soft, benign Assessment & Plan Assessment & Plan (1) Lung mass: Code(s): R91.8 - Other nonspecific abnormal finding of lung field Plan Based on the patient's history of having this left lung lesion since his youth, and this was his 1st screening lung cancer CT, the current plan is treated conservatively. He has not wished to undergo biopsy. He will undergo CT scan follow-up in 6 months time and direct further therapy based on these results. All questions answered. He will see me after the above-mentioned study. Coding Level of Care Code New Pt Level 4 (59229) Diagnoses Lung mass R91.8
== END 2023-06-24 11:16 | disposition home or self-care (01) ==
LOC: HO.HGS 11:00
PROVIDERS: PCP Nurse Practitioner Family; Referring Provider Nurse Practitioner Family; Visit Provider Surgery
DX: R91.8 Other nonspecific abnormal finding of lung field (principal)
CPT/HCPCS: 99204

== ENCOUNTER → 2023-06-24 11:00 | Outpatient (BNVA) | payer OTHER, SELFPAY | PROVIDERS: PCP Nurse Practitioner Family; Visit Provider Surgery | DX: R91.8 Other nonspecific abnormal finding of lung field (principal) | CPT/HCPCS: 99202 ==

== ENCOUNTER 2023-06-24 14:14 | Outpatient (REF) | payer OTHER, SELFPAY ==
[2023-06-25 12:53] LABS: Sex Hormone Binding Globulin 39 nmol/L (10-50)
[2023-06-25 21:58] LABS: Follicle Stimulating Hormone 13.7 mIU/mL (1.4-12.8); Lutenizing Hormone 3.7 mIU/mL (1.5-9.3); Prolactin 5.1 ng/mL (2.0-18.0)
[2023-06-29 00:19] LABS: Estradiol Ultra Sensitive 9 pg/mL (< OR = 29)
[2023-06-29 23:24] LABS: Testosterone, Free 31.2 pg/mL (35.0-155.0); Testosterone, Total 233 ng/dL (250-1100)
== END 2023-06-24 14:15 | disposition home or self-care (01) ==
LOC: HO.HMGCLDS 14:14
PROVIDERS: PCP Nurse Practitioner Family; Visit Provider Nurse Practitioner Family
DX: R79.89 Other specified abnormal findings of blood chemistry (principal); E29.1 Testicular hypofunction
CPT/HCPCS: 36415; 82670; 83001; 83002; 84146; 84270; 84402; 84403

== ENCOUNTER 2023-06-25 15:31 | Outpatient (AMB) | payer OTHER, SELFPAY ==
[2023-06-25 15:33] VITALS: BP 132/74; PULSE 68; O2SAT 98; BMI 29.7
--- NOTE | 2023-06-25 15:33 | A.OFFPC_ITS ---
Vital Signs 06/25/23 15:33 Height 5 ft 8 in Weight 195 lb 8 oz BMI 29.7 BP 132/74 Blood Pressure Location Lt brachial Position Sitting Pulse 68 Pulse Source Pulse Oximeter Pulse Oximetry (%) 98 Oxygen Delivery Method Room Air Intake Visit Reasons: 3 month follow up Intake Note: pt is here for 3 month follow up Dental Practitioner Required: No Accompanied by: Self / Same As Patient Allergies N.K.D.A Allergy (Unknown, Uncoded 06/25/23 15:34) none Medication List - Last Reconciled 06/25/23 by CLIFFORD Fowler-LISBET tadalafil (Cialis) 5 mg PO DAILY 30 days Tobacco use date assessed: 06/25/23 Dental Screening Dental Screen Date: 06/25/23 Did you have a dental visit in the last 12 months?: Yes Did you have a dental problem in the last 6 months where you did not have access to dental care?: No Was dental information given to patient?: Patient has dentist HPI 3 month follow up HPI Details Pt reports ongoing lower back pain with intermittent radicular symptoms down his BLE (left worse than right). See previous MRI results from 2020. Pt has seen neurosurgery in the past and was not a surgical candidate. Repeat MRI has been ordered, though pt has not heard anything regarding scheduling. Will check on this. Will send oxycodone. Educated pt on risk of addiction, this is not a long-term med. Pt understands that they can not drive while taking this med, share this med, and to only take as prescribed. Denies any signs of cauda equina. Pt also reports ongoing bilat hand pain. He further describes stiffness of his hands. Most likely arthritis. Will order XRs. Recommended warm water to help with stiffness. Pt is trying to quit smoking. Will send nicotine patches, he knows to remove them at night. [facility] Medical History Nerve root compression Chronic radicular pain of lower back Surgical History Lung mass History of lumbar discectomy Family History Father Cancer Mother HTN (hypertension) Social History Housing: House Patient Tobacco Use Status: Current everyday Tobacco user Cigarettes Per Day: 10 Years Smoked: over 30 years e-Cigarette/Vaping Use: Never Used Second Hand Smoke Exposure: No service: Yes Current occupational status: employed Cognitive needs: No Hearing needs: No Vision needs: Yes (contacts) Questionnaire PHQ-9 Over the last 2 weeks, how often have you been bothered by any of the following problems? 1. Little interest or pleasure in doing things: several days 2. Feeling down, depressed, or hopeless: not at all 3. Trouble falling or staying asleep, or sleeping too much: more than half the days 4. Feeling tired or having little energy: several days 5. Poor appetite or overeating: not at all 6. Feeling bad about yourself - or that you are a failure or have let yourself or your family down: not at all 7. Trouble concentrating on things, such as reading the newspaper or watching television: not at all 8. Moving or speaking so slowly that other people could have noticed. Or the opposite - being so fidgety or restless that you have been moving around a lot more than usual: not at all 9. Thoughts that you would be better off or of hurting yourself in some way: not at all Total score: 4 Depression Screening Interpretation: Negative Depression Screening Done: Yes 83454 - PHQ-9 Billing: Yes Source: Developed by Drs. Carlos Rizzo, Joycelyn Black, Ben Duarte and colleagues, with an educational essence from [employer]. Thrive Questionnaire Date Thrive assessed: 06/25/23 I am a: Patient What is your living situation today?: I have a steady place to live Within the past 12 months, did the food you bought not last and you didn't have the money to get more?: Never true Within the past 12 months, did you worry whether your food would run out before you got money to buy more?: Never true Do you have trouble paying for medicines?: No Do you have trouble getting transportation to medical appointments?: No Do you have trouble paying your heating and electricity bill?: No Do you have trouble taking care of your child, family member or friend?: No Do you have trouble with day-to-day activities such as bathing, preparing meals, shopping, managing finances, etc.?: No Are you currently unemployed and looking for a job?: No Are you interested in more education?: No Please select the resources that you would like help with: None Currently or been in a relationship where the following occur: no concerns reported THRIVE Score: 0 AUDIT C Alcohol Use Questionnaire (AUDIT-C) 1. How often do you have a drink containing alcohol?: Never 2. How many drinks containing alcohol do you have on a typical day when you are drinking?: 1 or 2 3. How often do you have six or more drinks on one occasion?: Never Total Score: 0 Score Reviewed/Action Taken: Yes STVEE-7 AMB Questionnaire STEVE-7 Date STEVE - 7 assessed: 06/25/23 Feeling nervous, anxious, or on edge: 1 = Several days Not being able to stop or control worryin = Not at all Worrying too much about different things: 1 = Several days Trouble relaxin = Several days Being so restless that it is hard to sit still: 0 = Not at all Becoming easily annoyed or irritable: 0 = Not at all Feeling afraid as if something awful might happen: 0 = Not at all Total STEVE-7 score (0-4 normal; 5-9 mild; 10-14 moderate; 15-21 severe): 3 Source: Developed by Drs. Carlos Rizzo, Joycelyn Black, Ben Duarte and colleagues, with an educational essence from [employer]. STEVE-7 Assessment Billing STEVE-7 Assessment Tool: STEVE-7 Assessment 95583 Review of Systems Const Reports as per HPI Physical exam (Primary Care) Vital Signs: Last Vital Signs Pulse 68 06/25/23 15:33 BP 132/74 06/25/23 15:33 Pulse Ox 98 06/25/23 15:33 Oxygen Delivery Method Room Air 06/25/23 15:33 BMI result Body Mass Index 29.7 Tobacco/Smoking Status: Tobacco use Status Tobacco use date assessed 06/25/23 06/25/23 15:36 Patient Tobacco Use Status Current everyday Tobacco 06/25/23 15:36 e-Cigarette/Vaping Use Never Used 06/25/23 15:36 PHQ-9: PHQ-9 Score PHQ-9: Total score 4 06/25/23 15:47 Depression Screening Interpretation: Negative Thrive Assessment: Date of Thrive Assessment Date Thrive assessed 06/25/23 06/25/23 15:36 Currently or been in a relationship where the following occur: no concerns reported Const General: cooperative Orientation/consciousness: patient oriented x3 Resp Effort & Inspection: normal respiratory effort Auscultation: clear to auscultation bilaterally Cardio Rate: regular rate Rhythm: regular rhythm Heart sounds: S1 normal heart sound present, S2 normal heart sound present and no murmurs Back/Spine/Pelvis Other: difficult time getting into supine position for exam. Due to pain, exam stopped. LLE radiculopathy noted Neuro Other: + patellar DTRs General: patient oriented x3 Extrem Other: PIP joints swollen bilat Psych Appearance: grossly normal Mental Status: mental status grossly normal Speech and movement: Normal speech and movement present Affect: normal affect Attitude: cooperative Thought process: Normal thought process present Thought content: Normal thought content present Insight: Good insight present (Psych) Judgement: Good judgement present (Psych) Assessment and Plan Assessment & Plan (1) Bilateral hand pain: Code(s): M79.641 - Pain in right hand; M79.642 - Pain in left hand Plan: XRs ordered (2) Nerve root compression: Code(s): G54.9 - Nerve root and plexus disorder, unspecified Plan: MRI ordered (3) Chronic radicular pain of lower back: Code(s): M54.16 - Radiculopathy, lumbar region; G89.29 - Other chronic pain Plan: oxycodone sent. he knows to only use as prescribed, not to share, and not to drive or operate machinery while on medication (4) Smoker: Code(s): F17.200 - Nicotine dependence, unspecified, uncomplicated Plan: nicotine patches sent Plan The patient agreed to the use of a back office medical assistant for this encounter. Scribed for FRANKIE Breaux by Staci Farr back office medical assistant, on 06/25/2023 at 15:50 EST. Orders: Orders XR hand LT 2V Today M79.641 - Pain in right hand, M79.642 - Pain in left hand XR hand RT 2V Today M79.641 - Pain in right hand, M79.642 - Pain in left hand Medications: New nicotine 1 patch transdermal Q24H 30 days 28 ea 0RF Refilled oxycodone Partial Fill upon patient request. 10 mg PO BID 10 days PRN 20 tabs 0RF pain Coding Level of Care Code Est Pt Level 3 (27773) Diagnoses Bilateral hand pain M79.641; M79.642 Nerve root compression G54.9 Chronic radicular pain of lower back M54.16; G89.29 Smoker F17.200 Additional Codes STEVE-7 Assessment Billing - STEVE-7 Assessment Tool: STEVE-7 Assessment 67339 ([id number])
== END 2023-06-25 16:16 | disposition home or self-care (01) ==
PROVIDERS: PCP Nurse Practitioner Family; Visit Provider Nurse Practitioner Family
DX: M79.641 Pain in right hand (principal); M79.642 Pain in left hand; M54.16 Radiculopathy, lumbar region; F17.210 Nicotine dependence, cigarettes, uncomplicated
CPT/HCPCS: 99213

== ENCOUNTER 2023-06-26 09:34 | Outpatient (REF) | payer OTHER, SELFPAY ==
--- NOTE | ~2023-06-26 | XR_ITS ---
EXAM: X-RAYS BILATERAL HANDS CLINICAL INDICATION: Pain in bilateral hands. COMPARISON: None. TECHNIQUE: 3 views of each hand. FINDINGS: LEFT HAND: Moderate degenerative changes in the first carpometacarpal joint with joint space narrowing and hypertrophic change. Small rounded calcification adjacent to the fourth metacarpophalangeal joint. Mild degenerative changes in scattered IP joints. Ulnar minus variance. RIGHT HAND: Moderate degenerative changes in the first carpometacarpal joint with joint space narrowing and hypertrophic change. Mild degenerative changes in scattered IP joints of the hand. Ulnar minus variance. XR/XR hand LT min 3V IMPRESSION: 1. Moderate degenerative changes bilateral first carpometacarpal joints. 2. Mild degenerative changes scattered IP joints of the hands. 3. Small rounded calcification adjacent to the left fourth metacarpophalangeal joint.
--- NOTE | ~2023-06-26 | XR_ITS ---
EXAM: X-RAYS BILATERAL HANDS CLINICAL INDICATION: Pain in bilateral hands. COMPARISON: None. TECHNIQUE: 3 views of each hand. FINDINGS: LEFT HAND: Moderate degenerative changes in the first carpometacarpal joint with joint space narrowing and hypertrophic change. Small rounded calcification adjacent to the fourth metacarpophalangeal joint. Mild degenerative changes in scattered IP joints. Ulnar minus variance. RIGHT HAND: Moderate degenerative changes in the first carpometacarpal joint with joint space narrowing and hypertrophic change. Mild degenerative changes in scattered IP joints of the hand. Ulnar minus variance. XR/XR hand RT min 3V IMPRESSION: 1. Moderate degenerative changes bilateral first carpometacarpal joints. 2. Mild degenerative changes scattered IP joints of the hands. 3. Small rounded calcification adjacent to the left fourth metacarpophalangeal joint.
== END 2023-06-26 09:35 | disposition home or self-care (01) ==
LOC: HO.HMGCX 09:34
PROVIDERS: PCP Nurse Practitioner Family; Visit Provider Nurse Practitioner Family
DX: M79.641 Pain in right hand (principal); M79.642 Pain in left hand
CPT/HCPCS: 73130

== ENCOUNTER 2023-07-08 08:41 | Outpatient (AMB) | payer OTHER, SELFPAY ==
--- NOTE | 2023-07-08 08:45 | A.OFFVIS_ITS ---
Intake Intake Visit Reasons: 1m/labs Intake Note: Patient presents for follow up visit for Hypogonadism Urology Medications: none Blood Thinner: none Mapping Technician Required: No Accompanied by: Self / Same As Patient Allergies N.K.D.A Allergy (Unknown, Uncoded 07/08/23 11:16) none Medication List - Last Reconciled 07/08/23 by FRANKIE Wild nicotine 1 patch transdermal Q24H 30 days oxycodone 10 mg PO BID PRN 10 days tadalafil (Cialis) 5 mg PO DAILY 30 days HPI HPI Comments History of Present Illness Details Quincy is a pleasant 53-year-old male patient of Dr. Moe. He has a past medical history of nerve root compression, chronic radicular pain of lower back, and lung mass. He presents to the office today for follow-up of his erectile dysfunction and hypogonadism. Of note, patient was seen approximately 3 months ago at which time he was started on low-dose Cialis and redraw of hypogonadism labs were ordered for further assessment evaluation. These results were reviewed with the patient today. As noted and trended below. FSH 03/30 14.6, 06/29 13.7 LH 03/30 10.4, 06/29 3.7 Prolactin 06/29 5.1 SHBG 06/29 39 Total testosterone 11/26 506, 03/30 155, 06/29 233 Free testosterone 11/26 79.9, 03/30 21.5, 06/29 31.2 PSA 11/26 0.3, 03/30 0.3 In discussion with the patient today he reports he continues to have issues with obtaining and maintaining his erections. He also continues ongoing fatigue however feels this is related to his poor sleep habits. He reports having taken Cialis 5 mg as needed verses daily as prescribed. Discussed at length benefits of taking 5 mg of Cialis daily verses as needed. He reports feeling low libido and fatigue started after taking his as needed oxycodone for his ongoing back issues. Discussed at length side effects of narcotics in relation to erectile dysfunction as well as hypogonadism. He otherwise denies any bothersome urinary issues or concerns. He denies urinary urgency, urinary frequency, incontinence, nocturia, hematuria, dysuria, foul smelling urine, changes to urinary stream, flank pain, fever, and or chills. He is happy with his current voiding parameters. He discusses having had sleep apnea workup in the past in this was negative. Discussed at length potential causes of hypogonadism and erectile dysfunction. He otherwise denies any other issues or concerns at this time. [facility], [facility] Medical History Hand arthritis Nerve root compression Chronic radicular pain of lower back Surgical History Lung mass History of lumbar discectomy Family History Father Cancer Mother HTN (hypertension) Social History Housing: House Patient Tobacco Use Status: Current everyday Tobacco user Cigarettes Per Day: 10 Years Smoked: over 30 years e-Cigarette/Vaping Use: Never Used Second Hand Smoke Exposure: No service: Yes Current occupational status: employed Cognitive needs: No Hearing needs: No Vision needs: Yes (contacts) Review of Systems Const Reports as per HPI Eyes Reports no additional complaints ENT Reports no additional complaints Card Reports no additional complaints Resp Reports as per HPI GI Reports no additional complaints Reports as per HPI Musc Reports as per HPI Neuro Reports no additional complaints Psych Reports no additional complaints Endo Reports no additional complaints Corbin/Lymph Reports no additional complaints Aller/Immun Reports no additional complaints Physical Exam Const General: cooperative, comfortable, no acute distress, well developed, alert and awake Orientation/consciousness: patient oriented x3 Limitations: no limitations HEENT Head: Yes normal to inspection, Yes normocephalic and Yes atraumatic Ears: hearing grossly normal bilaterally Eyes General: appearance normal, both eyes and all related structures Neck Neck: Yes normal visual inspection and Yes trachea midline Chest Chest palpation & inspection: normal inspection of the chest Resp Effort & Inspection: normal respiratory effort and able to speak in complete sentences Cardio Rate: regular rate GI Inspection: Yes normal to inspection General: Yes no CVA tenderness Back/Spine/Pelvis Back: no CVA tenderness Skin General skin exam: no rashes or lesions noted Neuro General: patient oriented x3 Extrem General: Yes normal to inspection Psych Appearance: grossly normal and well kempt Mental Status: mental status grossly normal Speech and movement: Normal speech and movement present and Clear speech present Affect: normal affect Attitude: cooperative Thought process: Normal thought process present Thought content: Normal thought content present Insight: Fair insight present (Psych) Judgement: Fair judgement present (Psych) Results AMB Urinalysis, Automated UA Leukoctes 0 Tha/uL Last Edit by Anju Rodriguez on 07/08/23 09:03 UA Nitrite Negative Last Edit by Anju Rodriguez on 07/08/23 09:03 UA Urobilinogen 0.2 mg/dL Last Edit by Anju Rodriguez on 07/08/23 09:03 UA Protein 15 mg/dL Last Edit by Anju Rodriguez on 07/08/23 09:03 UA pH 5.5 Last Edit by Anju Rodriguez on 07/08/23 09:03 UA Blood 25 Juan Antonio/uL Last Edit by Anju Rodriguez on 07/08/23 09:03 UA Specific [place] 1.025 Last Edit by Anju Rodriguez on 07/08/23 09:03 UA Ketone Negative Last Edit by Anju Rodriguez on 07/08/23 09:03 UA Bilirubin 0 mg/dL Last Edit by Anju Rodriguez on 07/08/23 09:03 UA Glucose 0 mg/dL Last Edit by Anju Rodriguez on 07/08/23 09:03 Results Reviewed Results Reviewed: Laboratory Last Values Urine pH (Auto) 5.5 07/08/23 08:48 Specific [place] (Auto) 1.025 07/08/23 08:48 Urine Protein (Auto) 15 mg/dL 07/08/23 08:48 Glucose (UA)(Auto) 0 mg/dL 07/08/23 08:48 Urine Ketones (Auto) Negative 07/08/23 08:48 Urine Blood (Auto) 25 Juan Antonio/uL 07/08/23 08:48 Urine Nitrite (Auto) Negative 07/08/23 08:48 Urine Bilirubin (Auto) 0 mg/dL 07/08/23 08:48 Urine Urobilinogen (Auto) 0.2 mg/dL 07/08/23 08:48 Leukocyte Esterase (Auto) 0 Tha/uL 07/08/23 08:48 Assessment & Plan Assessment & Plan (1) Hypogonadism male: Code(s): E29.1 - Testicular hypofunction (2) Low testosterone: Code(s): R79.89 - Other specified abnormal findings of blood chemistry (3) Low libido: Code(s): R68.82 - Decreased libido (4) Erectile dysfunction: Code(s): N52.9 - Male erectile dysfunction, unspecified Plan In office urinalysis results reviewed with the patient today; as noted above. Recent lab results reviewed with the patient today; as noted above. Discussed at length potential causes of hypogonadism as well as erectile dysfunction. Discussed, educated, and stressed the importance of limiting/quitting nicotine dependence for overall health and well-being. Will obtain redraw of testosterone and free testosterone in 3 months Continue Cialis 5 mg daily as discussed and prescribed. P.r.n. prescription provided for Cialis. He denies any bothersome urinary issues and is happy with current voiding parameters. Follow-up in 3 months with labs to be completed prior; or sooner with any issues, concerns, and or questions. Orders: Orders AMB Urinalysis Automated Today Z13.9 - Encounter for screening, unspecified Testosterone, Free/Total 3 Months E29.1 - Testicular hypofunction Medications: New tadalafil (Cialis) [id number] [facility] [id number] Member [id number] administer approximately 30-60 min before sexual activity; do not use more than 1 dose per 24hrs 20 mg PO .PRN PRN 20 tabs 1RF sexual activity 30 days Changed From tadalafil (Cialis) [id number] [facility] [id number] Member [id number] 5 mg PO DAILY 30 days 30 tabs 3RF R79.89 - Other specified abnormal findings of blood chemistry To tadalafil (Cialis) [id number] [facility] [id number] Member [id number] 5 mg PO DAILY 90 tabs 2RF 90 days R79.89 - Other specified abnormal findings of blood chemistry Patient Instructions: The patient had an opportunity to ask questions regarding the treatment plan. All questions were answered. Physical exam, labs, and imaging were discussed and reviewed in detail. As well as risks, benefits, and discussion of treatment choices. No major barriers to understanding were identified. The patient expressed understanding and agreement with the above treatment plan. The patient was made aware they should contact our office by phone for worsening of their current condition, the appearance of new symptoms, or with any questions or concerns. Compliance is encouraged with any medications and follow up testing that is ordered. It is a privilege to be allowed the opportunity to participate in? your urological care.? Again, if you have any questions or concerns If you have any questions or concerns please do not hesitate to contact me. The office is [phone]. This note is constructed using voice recognition software. While every effort has been made to ensure accuracy food critic errors may have been included. Yours sincerely, FRANKIE Wild Coding Level of Care Code Est Pt Level 3 (51582) Diagnoses Hypogonadism male E29.1 Low testosterone R79.89 Low libido R68.82 Erectile dysfunction N52.9
== END 2023-07-08 09:31 | disposition home or self-care (01) ==
LOC: HO.HUSH 08:41
PROVIDERS: PCP Nurse Practitioner Family; Visit Provider Nurse Practitioner Family
DX: E29.1 Testicular hypofunction (principal); R79.89 Other specified abnormal findings of blood chemistry; R68.82 Decreased libido; N52.9 Male erectile dysfunction, unspecified
CPT/HCPCS: 99213

== ENCOUNTER → 2023-07-08 08:41 | Outpatient (BNVA) | payer OTHER, SELFPAY | PROVIDERS: PCP Nurse Practitioner Family; Visit Provider Nurse Practitioner Family | DX: E03.9 Hypothyroidism, unspecified (principal); E29.1 Testicular hypofunction; R79.89 Other specified abnormal findings of blood chemistry; R68.82 Decreased libido; N52.9 Male erectile dysfunction, unspecified | CPT/HCPCS: 81003; 99212 ==

== ENCOUNTER 2023-08-15 14:06 | Outpatient (REF) | payer OTHER, SELFPAY ==
--- NOTE | ~2023-08-15 | MR_ITS ---
EXAMINATION: MR LUMBAR SPINE WITHOUT CONTRAST CLINICAL INFORMATION: Chronic radicular pain with lower back nerve root compression. COMPARISON: MRI scan of the lumbar spine 12/10/2018. TECHNIQUE: MRI of the lumbar spine was obtained using routine sequences without contrast; the patient declined intravenous contrast. VERTEBRAL BODIES AND PARASPINAL STRUCTURES: There is a mild levoscoliosis in the mid lumbar spine which is unchanged. There is multilevel narrowing of intervertebral disc height which is most severe at L3-L4. There are worsening degenerative endplate contour changes with increased edematous signal and Schmorl's node compared to prior imaging. There is also narrowing of intervertebral disc height with desiccation at L2-L3 and L5-S1. Vertebral body heights are maintained, and no fractures are demonstrated. There is a hemangioma in the body of T11. Overall, marrow signal is homogenous. The visualized retroperitoneal and pelvic structures are unremarkable. There are degenerative changes of the sacroiliac joints. CONUS MEDULLARIS AND CAUDA EQUINA: Normal, terminating at the level of T12-L1. The lower thoracic spinal cord appears normal. The cauda equina nerve roots and filum terminale appear normal. SPINAL LEVELS: T11-T12: On the sagittal images, the study redemonstrates a posterior disc protrusion with some distortion the ventral thecal sac, but there is no cord compression or central stenosis. The neural foramina are patent bilaterally. L1-L2: There is mild bilateral facet arthropathy. There is a small central disc protrusion which distorts the ventral thecal sac but there is no central stenosis. The neural foramina are patent bilaterally. L2-L3: There is mild bilateral facet arthropathy there is a broad-based posterior disc protrusion which flattens the ventral thecal sac, but there is no central stenosis. The neural foramina are patent bilaterally. L3-L4: There is moderate bilateral facet arthropathy with ligamenta flava hypertrophy. There is a broad-based posterior disc protrusion with mild extrusion behind the body of L4, which distorts the ventral thecal sac and narrows the bilateral subarticular recesses. There is mild central stenosis. There are bilateral foraminal disc protrusions, more prominent on the right and there is impingement on the exiting right L3 nerve root. L4-L5: There is moderate to severe bilateral facet arthropathy with ligamenta flava hypertrophy. There is a broad-based posterior disc protrusion which flattens the ventral thecal sac and narrows the bilateral subarticular recesses, slightly increased compared to prior imaging. There is impingement on the traversing L5 nerve roots bilaterally, and there is moderate central stenosis. There is a left foraminal disc protrusion with mild impingement on the exiting left L4 nerve root. L5-S1: There is moderate to severe bilateral facet arthropathy. There is a posterior disc protrusion with an extruded component extending behind the body of S1 centrally and toward the left, but smaller compared to prior imaging. There is persistent impingement on the traversing left S1 nerve root. There is no central stenosis. There is no foraminal nerve root impingement. MR/MR lumbar spine wo con IMPRESSION: 1. At L3-L4 there is facet arthropathy and there is a broad-based posterior disc protrusion/extrusion. There is worsening of edematous endplate signal changes. There is narrowing of the bilateral subarticular recesses and there is mild central stenosis. There are bilateral foraminal disc protrusions, more prominent on the right with impingement on the exiting right L3 nerve root. 2. At L4-L5 there is facet arthropathy and there is a broad-based posterior disc protrusion. There is narrowing of the bilateral subarticular recesses, increased compared to prior imaging. There is impingement on the traversing L5 nerve roots bilaterally and there is moderate central stenosis. There is a left foraminal disc protrusion with mild impingement on the exiting left L4 nerve root. 3. At L5-S1 there is facet arthropathy. There is a posterior disc protrusion with an extruded component extending behind the body of S1, smaller compared to prior imaging. There is persistent impingement on the traversing left S1 nerve root. There is no central stenosis or foraminal nerve root impingement. 4. Spondylitic and facet arthropathic changes are also demonstrated at other levels as described above.
== END 2023-08-15 14:07 | disposition home or self-care (01) ==
LOC: HO.MRI 14:06
PROVIDERS: PCP Nurse Practitioner Family; Visit Provider Nurse Practitioner Family
DX: M54.16 Radiculopathy, lumbar region (principal); G89.29 Other chronic pain
CPT/HCPCS: 72148

== ENCOUNTER 2023-09-20 08:36 | Outpatient (REF) | payer OTHER, SELFPAY ==
--- NOTE | ~2023-09-20 | XR_ITS ---
EXAMINATION: XR SHOULDER, RIGHT CLINICAL INFORMATION: Pain in the right shoulder COMPARISON: X-rays of the right shoulder September 2018 TECHNIQUE: AP and scapular Y view of the shoulder. FINDINGS: There is mild osteoarthritis of the acromioclavicular joint. Glenohumeral joint normal. There is some amorphous calcification superior to the humeral head greater tuberosity. Remaining bones joints soft tissues unremarkable. XR/XR shoulder RT min 2V IMPRESSION: 1. Mild osteoarthritis of the acromioclavicular joint. 2. Probable Calcific tendinosis/tendinitis of the rotator cuff.
== END 2023-09-20 08:37 | disposition home or self-care (01) ==
LOC: HO.HOSX 08:36
PROVIDERS: PCP Nurse Practitioner Family; Visit Provider Physician Assistant
DX: M19.012 Primary osteoarthritis, left shoulder (principal)
CPT/HCPCS: 73030; 99202

== ENCOUNTER 2023-09-20 08:36 | Outpatient (AMB) | payer OTHER, SELFPAY ==
--- NOTE | 2023-09-20 08:37 | HO.SPINEOV ---
Intake Visit Reasons: Nerve root and plexus disorder Intake Note: Mr. Hernandez is here today c/o low back pain, would like to go over the MRI Results. Director Pharmacy Services Required: No Allergies N.K.D.A Allergy (Unknown, Uncoded 07/08/23 11:16) none Assessment & Plan Assessment & Plan (1) Right shoulder pain: Code(s): M25.511 - Pain in right shoulder Category: Medical (2) Lumbar radiculopathy: Code(s): M54.16 - Radiculopathy, lumbar region Category: Medical Plan Dear Swapnil, Thank you for referring Mrs Hernandez to our office today. 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 Mallory [facility], the last 1 in 2016 presents for evaluation of low back pain and left leg pain. It has been going on now for about a year. It has the exact same pain that he had before his 2 previous diskectomies. The pain has been getting a little better as of recent, he had a flare-up maybe a month ago or so. The pain runs down the back of his leg into his hamstring, the posterior part of his calf and into his heel. He takes an oxycodone now again throughout the day just to help him get through. He tried [id number] medications and anti-inflammatories etc. these things do not seem to do much. At this point, he has to be cautious with a lot of the physical activity that he does either at work or at home. He has restrictions at work that keep him from having to do the physical activities required by the [employer] that would require heavy lifting. He has been through physical therapy through the [place] and that ran its course without any significant improvement. Comes in today for evaluation of the back pain and left leg pain. Incidentally, he also tells me he has been having right shoulder pain after taking a motorcycle ride. A few weeks ago after riding on his Andre, he has been unable to lift his right arm up secondary to pain. PMH: He is otherwise healthy, he tells me he had a left shoulder surgery in 2 lower back surgeries. No history of cardiac events, strokes, bleeding disorders, cancer, kidney disorders, liver disorders or major abdominal surgery. Social hx: He smokes half a pack a day but no recreational drugs or significant alcohol use. Medications: Oxycodone and ibuprofen Allergies: None Physical exam: Awake alert oriented no acute distress, he has full strength of bilateral upper and lower extremities with the exception of some limitations of his right deltoid secondary to pain. Has positive impingement signs with external rotation and abduction. Reflexes are normal, no So's, no clonus. Imaging review: Lumbar MRI done at [facility] shows he has multilevel degenerative disc disease. The most collapsed disc that he has at L3-4. There is significant osteophytes and overgrowth here. There is some mild crowding of the lateral recess but no overt nerve compression. At L4-5 there is disc degeneration with crowding of the lateral recess bilaterally and facet overgrowth. At L5-S1 there is postsurgical changes in the left L5-S1 lateral recess with what looks like scar tissue around the left S1 nerve. There is a posterior disc bulge at L5-S1 which is causing some crowding of the space. This is a noncontrast study so that is somewhat limiting in terms of what we are able to see of actual compression the in this area. Impression: 53-year-old male 2 previous L5-S1 left microdiskectomies done by Dr. Mallory [facility] now presents for evaluation of what appears to be resolving flare-up of a similar S1 radiculopathy which goes down the back of his leg into his posterior calf in the back of his ankle. I reviewed all his imaging with him. Fortunately right now the pain seems to be a bit more manageable but is not completely gone away. He has taking an oxycodone occasionally throughout the day to help with the discomfort. He has been through physical therapy and at this point I do not think there is a huge role for injections. If he ends up having persistent pain over the next few months, I suspect he ultimately may end up needing a spinal fusion. Typically this is what is done when it patient has a recurrent disc for the 3rd time. I will see how he has doing in a few months and re-evaluate. Was also reporting some right shoulder pain and had positive impingement signs on 2 different examination tests so I am going to order shoulder x-ray and have him see Dr. Gonzalez. Thank you for allowing us to care for your patient. The total time spent with this visit with this patient was 45 minutes reviewing history, physical exam, lumbar imaging review, and implementation of treatment plan or further diagnostic testing Jorje Del Rio MD,PhD [facility] Orders: Orders XR shoulder RT min 2V Today M25.511 - Pain in right shoulder Referrals Orthopedics Referral M25.511 - Pain in right shoulder Coding Level of Care Code New Pt Level 4 (74901) Diagnoses Right shoulder pain M25.511 Lumbar radiculopathy M54.16
== END 2023-09-20 09:59 | disposition home or self-care (01) ==
PROVIDERS: PCP Nurse Practitioner Family; Referring Provider Nurse Practitioner Family; Visit Provider Physician Assistant
DX: M25.511 Pain in right shoulder (principal); M54.16 Radiculopathy, lumbar region
CPT/HCPCS: 99204

== ENCOUNTER 2023-10-04 14:26 | Outpatient (REF) | payer OTHER, SELFPAY ==
[2023-10-10 14:54] LABS: Testosterone, Free 15.1 pg/mL (35.0-155.0); Testosterone, Total 127 ng/dL (250-1100)
== END 2023-10-04 14:27 | disposition home or self-care (01) ==
LOC: HO.HMGCLDS 14:26
PROVIDERS: PCP Nurse Practitioner Family; Visit Provider Nurse Practitioner Family
DX: E29.1 Testicular hypofunction (principal)
CPT/HCPCS: 36415; 84402; 84403

== ENCOUNTER 2023-10-16 15:07 | Outpatient (AMB) | payer OTHER, SELFPAY ==
--- NOTE | 2023-10-16 15:07 | A.OFFVIS_ITS ---
Intake Visit Reasons: Testosterone labs follow up Intake Note: Patient presents for follow up visit for Hypogonadism and testosterone labs Urology Medications: none Blood Thinner: none Manager Primary Care Required: No Accompanied by: Self / Same As Patient Allergies N.K.D.A Allergy (Unknown, Uncoded 07/08/23 11:16) none Medication List - Last Reconciled 10/16/23 by FRANKIE Wild testosterone 2 pumps topical DAILY 30 days HPI Comments Details: Quincy is a pleasant 53-year-old male patient of Dr. Moe. He has a past medical history of nerve root compression, chronic radicular pain of lower back, and lung mass. He is being followed up on today via video telehealth for his erectile dysfunction and hypogonadism. In discussion with the patient today he continues to report ongoing fatigue. Recent hypogonadism labs reviewed with the patient today. As noted and trended below. FSH 03/30 14.6, 06/29 13.7 LH 03/30 10.4, 06/29 3.7 Prolactin 06/29 5.1 SHBG 06/29 39 Total testosterone 11/26 506, 03/30 155, 06/29 233, 09/29 127 Free testosterone 11/26 79.9, 03/30 21.5, 06/29 31.2, 09/29 51.1 PSA 11/26 0.3, 03/30 0.3 Previous attempt in low-dose Cialis to assist with borderline hypogonadism however patient did not feel any improvement in his erectile dysfunction and or hypogonadism symptoms. Discussed further treatment options of hypogonadism as well as lifestyle modifications. He also continues ongoing fatigue however feels this is related to his poor sleep habits. He reports feeling low libido and fatigue started after taking his as needed oxycodone for his ongoing back issues. Discussed at length side effects of narcotics in relation to erectile dysfunction as well as hypogonadism. He otherwise denies any bothersome urinary issues or concerns. He denies urinary urgency, urinary frequency, incontinence, nocturia, hematuria, dysuria, foul smelling urine, changes to urinary stream, flank pain, fever, and or chills. He is happy with his current voiding parameters. He discusses having had sleep apnea workup in the past in this was negative. He otherwise denies any other issues or concerns at this time. [facility] Medical History Right shoulder tendonitis Hand arthritis Nerve root compression Chronic radicular pain of lower back Surgical History Lung mass History of lumbar discectomy Family History Father Cancer Mother HTN (hypertension) Social History Housing: House Patient Tobacco Use Status: Current everyday Tobacco user Cigarettes Per Day: 10 Years Smoked: over 30 years e-Cigarette/Vaping Use: Never Used Second Hand Smoke Exposure: No service: Yes Current occupational status: employed Cognitive needs: No Hearing needs: No Vision needs: Yes (contacts) Review of Systems Const Reports as per HPI Eyes Reports no additional complaints ENT Reports no additional complaints Card Reports no additional complaints Resp Reports as per HPI GI Reports no additional complaints Reports as per HPI Musc Reports as per HPI Neuro Reports no additional complaints Psych Reports no additional complaints Endo Reports no additional complaints Corbin/Lymph Reports no additional complaints Aller/Immun Reports no additional complaints Physical Exam Const General: cooperative, healthy appearing, comfortable, no acute distress, well developed and alert Orientation/consciousness: patient oriented x3 Resp Effort & Inspection: normal respiratory effort and able to speak in complete sentences Neuro General: patient oriented x3 Psych Appearance: grossly normal and well kempt Mental Status: mental status grossly normal Speech and movement: Normal speech and movement present and Clear speech present Affect: normal affect Attitude: cooperative Thought process: Normal thought process present Thought content: Normal thought content present Insight: Fair insight present (Psych) Judgement: Fair judgement present (Psych) Telehealth Telehealth Telehealth Platform: [facility] Location of provider rendering services: practice address Location of patient: address on file Patient Identification confirmed using: Name, : Yes Telehealth method: video Patient verbally consented to treatment: Yes Patient verbally consented to billing insurance company: Yes Patient informed of any privacy concerns related to visit: Yes Minutes spent on Phone/Video with Pt.: 20 Assessment & Plan Assessment & Plan (1) Hypogonadism male: Code(s): E29.1 - Testicular hypofunction Category: Medical Plan Recent testosterone results reviewed with the patient today; as noted above. Discussed further treatment options of/for hypogonadism. Discussed potential causes of hypogonadism. Start testosterone as discussed and prescribed. Discussed at length lifestyle modifications to assist with hypogonadism as well as erectile dysfunction. All questions were answered. Patient currently denies any bothersome urinary issues or concerns. Reports be happy with current voiding parameters. Follow-up in 3 months with labs to be completed prior; or sooner with any issues, concerns, and or questions. Orders: Orders Complete Blood Count no Diff 8 Weeks E29.1 - Testicular hypofunction Prostate Specific Antigen 8 Weeks E29.1 - Testicular hypofunction Testosterone, Free/Total 8 Weeks E29.1 - Testicular hypofunction Medications: New testosterone apply 2 pumps over max area - alternate shoulders on alternate days 2 pumps topical DAILY 75 grams 1RF 30 days E29.1 - Testicular hypofunction, R79.89 - Other specified abnormal findings of blood chemistry Patient Instructions: The patient had an opportunity to ask questions regarding the treatment plan. All questions were answered. Physical exam, labs, and imaging were discussed and reviewed in detail. As well as risks, benefits, and discussion of treatment choices. No major barriers to understanding were identified. The patient expressed understanding and agreement with the above treatment plan. The patient was made aware they should contact our office by phone for worsening of their current condition, the appearance of new symptoms, or with any questions or concerns. Compliance is encouraged with any medications and follow up testing that is ordered. It is a privilege to be allowed the opportunity to participate in? your urological care.? Again, if you have any questions or concerns If you have any questions or concerns please do not hesitate to contact me. The office is [phone]. This note is constructed using voice recognition software. While every effort has been made to ensure accuracy results technician errors may have been included. Yours sincerely, FRANKIE Wild Coding Level of Care Code Tele Est Pt Level 4 (45770) Diagnoses Hypogonadism male E29.1
== END 2023-10-16 15:36 | disposition home or self-care (01) ==
LOC: HO.HUSH 15:07
PROVIDERS: PCP Nurse Practitioner Family; Referring Provider Nurse Practitioner Family; Visit Provider Nurse Practitioner Family
DX: E29.1 Testicular hypofunction (principal)
CPT/HCPCS: 99214

== ENCOUNTER → 2023-10-16 15:07 | Outpatient (BNVA) | payer OTHER, SELFPAY | PROVIDERS: PCP Nurse Practitioner Family; Visit Provider Nurse Practitioner Family ==

== ENCOUNTER 2023-10-30 13:42 | Outpatient (AMB) | payer OTHER, SELFPAY ==
[2023-10-30 13:45] VITALS: BMI 29.7
--- NOTE | 2023-10-30 13:45 | MHC.OFFVIS ---
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 He describes his pain as sharp in nature. His pain has gotten worse over the last year in spite of continued non operative treatments. Did have a cortisone injection given into his right shoulder several months ago by another provider in [place]. The injection gave him minimal relief. He has tried Tylenol and anti-inflammatory medicines which gave him only mild relief. The patient reports difficulty lifting his right hand above shoulder height. The patient states that he has undergone left shoulder surgery in the past. He denies any pain in his left shoulder. Allergies N.K.D.A Allergy (Unknown, Uncoded 10/30/23 13:45) none Medication List - Last Reconciled 10/30/23 by Cornell Gonzalez MD testosterone 2 pumps topical DAILY 30 days COUNTS INCLUDE 234 BEDS AT THE [facility] Medical History Right shoulder tendonitis Hand arthritis Nerve root compression Chronic radicular pain of lower back Surgical History Lung mass History of lumbar discectomy Family History Father Cancer Mother HTN (hypertension) Social History (Updated 10/30/23 @ 13:48 by Maine Barrett [facility] Housing: House Patient Tobacco Use Status: Current everyday Tobacco user Cigarettes Per Day: 10 Years Smoked: over 30 years e-Cigarette/Vaping Use: Never Used Second Hand Smoke Exposure: No service: Yes Current occupational status: employed Current occupation: rt handed Cognitive needs: No Hearing needs: No Vision needs: Yes (contacts) Physical Exam Vital Signs: BMI result Body Mass Index 29.7 Const Other: Well-nourished well-developed very friendly male awake alert and oriented x3 in no acute distress Extrem Other: Bilateral upper extremity examination shows good capillary refill, no skin lesions noted, normal sensation light touch Right shoulder examination shows decreased range of motion when compared to his left shoulder, 4+ out of 5 strength with supraspinatus testing, positive impingement signs, tenderness over his acromioclavicular joint, no instability Results Reviewed Results Reviewed: X-rays of the patient's right shoulder show severe acromioclavicular joint narrowing, a type 3 acromion, no acute bony abnormalities Assessment & Plan Assessment & Plan (1) Right shoulder pain: Code(s): M25.511 - Pain in right shoulder Category: Medical Plan Mr. Hernandez presents with progressively worsening right shoulder pain and weakness due to impingement syndrome and possible rotator cuff tearing. Thus, I will send the patient for an MRI of his right shoulder for further evaluation. I will see him back once the MRI is completed to discuss the findings and treatment options. Feel free to call me at any time should questions regarding his orthopedic management arise. I spent 20 minutes in reviewing the patient's records and imaging studies, seeing the patient and documenting in the medical record. Orders: Orders MR shoulder RT wo con Today M25.511 - Pain in right shoulder Coding Level of Care Code Est Pt Level 3 (93321) Diagnoses Right shoulder pain M25.511
== END 2023-10-30 14:09 | disposition home or self-care (01) ==
PROVIDERS: PCP Nurse Practitioner Family; Visit Provider Orthopaedic Surgery
DX: M25.511 Pain in right shoulder (principal)
CPT/HCPCS: 99213

== ENCOUNTER → 2023-10-30 13:42 | Outpatient (BNVA) | payer OTHER, SELFPAY | PROVIDERS: PCP Nurse Practitioner Family; Visit Provider Orthopaedic Surgery | DX: M25.511 Pain in right shoulder (principal) | CPT/HCPCS: 99212 ==

== ENCOUNTER 2023-11-18 11:07 | Outpatient (AMB) | payer OTHER, SELFPAY ==
--- NOTE | 2023-11-18 11:18 | A.SPINEOV_ITS ---
Intake Visit Reasons: 2 months f/up Intake Note: Mr. Hernandez is here for a 2month F/u. 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 I reviewed his imaging with him again, I think if we are talking strictly about treating his back pain, the L3-4 disc to me seems to be the most degenerative. Because of the 2 previous histories of diskectomies at L5-S1, there may be a component of nerve pain which may never get better, and he has had left leg pain persistent after those surgeries. The goal of surgery really would be to try to treat his back pain. Typically this would be done with lumbar fusion and we did have a brief discussion about risks, benefits and approaches. I told him the success rate for lumbar fusion 70%. I will review all his imaging again with Dr. Del Rio and get back to him with a final plan. Total amount of time spent in this visit was 20 minutes in discussion of symptoms, lumbar imaging results and subsequent plan of care Jorje Del Rio MD,PhD [facility] Coding Level of Care Code Est Pt Level 3 (84558) Diagnoses Low back pain M54.50
== END 2023-11-18 12:29 | disposition home or self-care (01) ==
PROVIDERS: PCP Nurse Practitioner Family; Visit Provider Physician Assistant
DX: M54.50 Low back pain, unspecified (principal)
CPT/HCPCS: 99213

== ENCOUNTER → 2023-11-18 11:07 | Outpatient (BNVA) | payer OTHER, SELFPAY | PROVIDERS: PCP Nurse Practitioner Family; Visit Provider Physician Assistant | DX: M54.50 Low back pain, unspecified (principal) | CPT/HCPCS: 99212 ==

== ENCOUNTER 2023-12-04 09:08 | Outpatient (AMB) | payer OTHER, SELFPAY ==
[2023-12-04 09:09] VITALS: BMI 29.6
--- NOTE | 2023-12-04 09:09 | MHC.OFFVIS ---
Vital Signs 12/04/23 09:09 Height 5 ft 8 in Weight 195 lb BMI 29.6 Intake Visit Reasons: OV - Review Rt Shoulder MRI Intake Note: Quincy is a 53 year old right hand dominant male presents himself to review his MRI. Patient describes his right shoulder pain as sharp in nature. He did undergo left shoulder surgery in 2014. He denies any pain in his left shoulder. Right shoulder pain has gotten worse over the last few years in spite of continued non operative treatments. He reports mild weakness when lifting his right hand above shoulder height. Has done physical therapy which aggravated his pain. He has failed the last 6 weeks of conservative treatment. He has had cortisone injections in the past which gave him no relief. He has also tried Tylenol and anti-inflammatory medicines which gave him minimal relief. Allergies No Known Allergies Allergy (Verified 12/04/23 09:10) Medication List - Last Reconciled 12/04/23 by Cornell Gonzalez MD testosterone 2 pumps topical DAILY 30 days [facility] Medical History Smoker Arthritis Right arm numbness Bursitis and tendinitis of shoulder region Rotator cuff tear Right shoulder tendonitis Hand arthritis Nerve root compression Chronic radicular pain of lower back Surgical History Hx of colonoscopy S/P left rotator cuff repair (~2014) History of lumbar discectomy Lung mass (~1976) Family History Father Cancer Mother HTN (hypertension) Social History Housing: House Are you a primary healthcare science specialist to a significant other at home: No Do you presently have visiting nurse or other home services: No Patient Tobacco Use Status: Current everyday Tobacco user Tobacco use type: Cigarette Cigarettes Per Day: 15 Years Smoked: over 30 years e-Cigarette/Vaping Use: Never Used Second Hand Smoke Exposure: No service: Yes Current occupational status: employed Current occupation: rt handed Cognitive needs: No Hearing needs: No Vision needs: Yes (contacts) Physical Exam Vital Signs: BMI result Body Mass Index 29.6 Const Other: Well-nourished well-developed very friendly male awake alert and oriented x3 in no acute distress Extrem Other: Bilateral upper extremity examination shows good capillary refill, no skin lesions noted, normal sensation light touch Right shoulder examination shows almost full range of motion when compared to his left shoulder, 4+ out of 5 strength with supraspinatus testing, positive impingement signs, tenderness over his acromioclavicular joint, no instability Results Reviewed Results Reviewed: MRI of the patient's right shoulder show severe acromioclavicular joint narrowing, a type 3 acromion, signal change within the supraspinatus tendon due to rotator cuff tendinosis versus partial-thickness tearing Assessment & Plan Assessment & Plan (1) Impingement of right shoulder: Code(s): M25.811 - Other specified joint disorders, right shoulder Category: Medical Plan Mr. Hernandez presents with progressively worsening right shoulder pain due to impingement syndrome and acromioclavicular joint arthritis. I had a lengthy discussion with the patient regarding the treatment options. At this point the patient appears to be failing continued non operative treatments. The risks and benefits of right shoulder surgery were discussed at length with the patient. The patient is interested in proceeding with surgery later this year. He will contact my office to pick a surgery date when he is ready to do so. Surgery will most likely involve right shoulder diagnostic arthroscopy with distal clavicle excision and acromioplasty. He will continue with his range of motion exercises in the meantime. Feel free to call me at any time should questions regarding his orthopedic management arise. I spent 20 minutes in reviewing the patient's records and imaging studies, seeing the patient and documenting in the medical record. Coding Level of Care Code Est Pt Level 3 (32431) Diagnoses Impingement of right shoulder M25.811
== END 2023-12-04 09:45 | disposition home or self-care (01) ==
PROVIDERS: PCP Nurse Practitioner Family; Visit Provider Orthopaedic Surgery
DX: M25.811 Other specified joint disorders, right shoulder (principal)
CPT/HCPCS: 99213

== ENCOUNTER → 2023-12-04 09:08 | Outpatient (BNVA) | payer OTHER, SELFPAY | PROVIDERS: PCP Nurse Practitioner Family; Visit Provider Orthopaedic Surgery | DX: M25.811 Other specified joint disorders, right shoulder (principal) | CPT/HCPCS: 99212 ==

== ENCOUNTER 2023-12-06 10:06 | Outpatient (AMB) | payer OTHER, SELFPAY ==
--- NOTE | 2023-12-06 10:10 | A.SPINEOV_ITS ---
Intake Visit Reasons: Discuss surgry Intake Note: Mr. Hernandez is here today to discuss surgery. 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 He is scheduled to undergo an oblique lumbar interbody fusion L3-4 on 12/10/2023 for intractable low back pain. We went over the procedure, complications and expected postoperative course. I also wrote him a letter that he will be out of work for approximately 3 months. All questions were answered. I spent 20 minutes in his consult. Mitch Del Rio MD, PhD Spine Fellowship Trained Neurosurgeon Director, [facility] Coding Level of Care Code Est Pt Level 3 (40663) Diagnoses Low back pain M54.50
== END 2023-12-06 10:40 | disposition home or self-care (01) ==
PROVIDERS: PCP Nurse Practitioner Family; Visit Provider Neurological Surgery
DX: M54.50 Low back pain, unspecified (principal)
CPT/HCPCS: 99213

== ENCOUNTER → 2023-12-06 10:06 | Outpatient (BNVA) | payer OTHER, SELFPAY | PROVIDERS: PCP Nurse Practitioner Family; Visit Provider Neurological Surgery | DX: M54.50 Low back pain, unspecified (principal) | CPT/HCPCS: 99212 ==

== ENCOUNTER 2023-12-10 06:00 | Inpatient (IN) | payer OTHER, SELFPAY ==
--- NOTE | 2023-11-26 | ECG_ITS ---
Test Reason : PRE OP Blood Pressure : / mmHG Vent. Rate : 073 BPM Atrial Rate : 073 BPM P-R Int : 166 ms QRS Dur : 100 ms QT Int : 388 ms P-R-T Axes : 054 -23 012 degrees QTc Int : 427 ms Normal sinus rhythm Minimal voltage criteria for LVH, may be normal variant ( R in aVL ) Borderline ECG No previous ECGs available Referred By: Clau Dawson Electronically Signed By:CHRISTIAN TOLLIVER
[2023-11-26 09:55] VITALS: BP 158/77; PULSE 80; RESP 16; O2SAT 98; BMI 28.5
[2023-11-26 11:37] LABS: Hemoglobin 13.7 g/dl (14.0-18.0); Mean Corpuscular HGB Conc 32.6 g/dl (31.0-36.0); Mean Corpuscular Hemoglobin 30.4 pg (27.0-33.0); Mean Corpuscular Volume 93.1 fL (80.0-98.0); Mean Platelet Volume 10.5 fL (9.4-12.4); Platelet Count 233 X10*3/uL (160-400); Red Blood Count 4.51 X10*6/uL (4.60-5.80); Red Cell Distribution Width 13.2 % (11.0-16.0); White Blood Count 9.7 X10*3/uL (4.8-10.8)
[2023-11-26 12:12] LABS: Anion Gap 12 (12-20); Blood Urea Nitrogen 18 mg/dL (9-16); Calcium 9.6 mg/dL (8.4-10.2); Carbon Dioxide 28 mmol/L (22-29); Chloride 107 mmol/L (96-108); Creatinine Clr Calc Pharmacy 112.1; Estimated Glomerular Filt Rate > 60; Glucose Random 99 mg/dL (60-115); Potassium 4.9 mmol/L (3.3-5.1); Sodium 142 mmol/L (135-145)
[2023-12-10] VITALS (12 sets, daily range): BP systolic 127–160; BP diastolic 55–91; PULSE 69–94; RESP 12–18; TEMP 36.1–36.8; O2SAT 94–100; BMI 28.8
--- NOTE | ~2023-12-10 | FL_ITS ---
EXAMINATION: FLUOROSCOPY GUIDANCE FOR NEEDLE PLACEMENT CLINICAL INFORMATION: Status post L3-L4 OLIF. COMPARISON: MR lumbar spine 08/15/2023. TECHNIQUE: Fluoroscopy and a single film was obtained. FINDINGS: Posterior fixation with pedicular screws present at L3-L4 with an interbody device present at that level as well. FLUOROSCOPY TIME: 1 minute 6 seconds. DOSE AREA PRODUCT: 10.48 uGy-m2 (microgray-meter squared). FL/FL guidance in OR IMPRESSION: L3-L4 posterior fixation with pedicular screws and interbody device present. Electronically signed by: Karthik Vasquez MD 12/11/2023 06:22 PM EDT
--- OUTSIDE RECORDS SUMMARY | 2023-12-10 06:07 | XMS_ITS | Continuity of Care Document ---
Author Organization [facility] Address [address] [place] [address]- Care Team Providers Care Underwriting Consultant Name Role Phone Swapnil Moe NP Primary Care Physician Encounter [facility] Date(s): 03/09/22 - 03/16/22 [facility] [address], [place] [address] Attending Physician: Gabriel Randolph DO Referring Physician: Swapnil Moe NP Allergies, Adverse Reactions, Alerts No Known Medication Allergies Medications Naproxen By Mouth, 0 Refills, Maintenance, 12/14/13 16:41:45 Start Date: 12/14/13 Status: Ordered Vital Signs Most recent to oldest [Reference Range]: 1 Oxygen Saturation [94-100 %] 96 % (03/09/22 12:12 PM) Pulse Rate [55-90 bpm] 91 bpm *H* (03/09/22 12:12 PM) Blood Pressure [90-138/55-84 mm Hg] 129/ 85mm Hg (03/09/22 12:12 PM) Temperature [96.8-100.4 DegF] 97.8 DegF (03/09/22 12:12 PM) Mode of Delivery (Oxygen) Room air (03/09/22 12:12 PM) Blood pressure sites Arm, right (03/09/22 12:12 PM) Temperature Route Temporal (03/09/22 12:12 PM) Note * Katalina Rodriguez: PERFORM, SIGN, VERIFY Event Display: Patient Education/Instruction Authored Date: [id number] [facility] *[facility] Care Clinical Summary Name JERAMIE NORMAN Age 52 Years 1970 PCP Swapnil Moe NP PCP Visit Date 03/09/2022 09:55:00 Additional Instructions: Scheduled Appointments?? Future Appointments ?No Future Appointments Scheduled Follow-Up Instructions ?? Diagnosis Medications: Please continue your medications until treatment is completed or stopped by your provider. Discuss any questions related to medications with your provider. Medications to Continue with No Changes These medications were not printed or sent to your pharmacy Naproxen Oral. Next Dose: Allergy Info:?? No Known Medication Allergies Medications Given This Visit Future Orders ?No future orders Vital Signs Height Weight BMI Blood Pressure 129 mm Hg/85 mm Hg Temperature 97.8 DegF Pulse Rate 91 bpm Respiratory Rate 02 Sat Mode of Delivery 96 %/Room air You can now view a summary of your hospital visit from the comfort of your home through a free online portal called [employer]. [employer] is a website that allows you to securely view your medical information including discharge summary, medications and follow-up visits. ??You can alsosend a secure electronic message to your doctor???s office to request appointments, renew medications or just ask a question. You can enroll at [email or web address] or register during your next office visit. Disclaimer:?? The information provided is of a general nature and is intended to be used in conjunction with the recommendations and advice of your health care practitioner. ??Every effort has been made to ensure that the information provided is accurate and complete at the time it is provided to you however, as your needs change, or, as new ??information becomes available, different or additional instructions may be required. If you have questions, please consult with your primary care provider or pharmacist, as appropriate. ??This information is not intended to serve as substitution for assessment and evaluation by a qualified health care provider. If you do not have a primary care provider, you may find a [facility] provider by calling [facility] at [phone]. For information about the plan of care including goals and instructions for your diagnosis, please see the patient education orders section of this document. Patient Education Materials?? The content of this educational material or handout may have been modified, supplemented, or adapted from its original content and format to support your individualized medical care. Patient Care team information Care Team Personnel Name: Abhi VASQUEZ , Swapnil Case Position: Reference Physician Member Role: PCP Address: Address: [address] [place] [address]- Care Team Related Persons Name: MIKE PATEL Address: home [address] [place] [address] Name: MALCOLM NORMAN Address: home [address] [place] [address] Name: CATRACHITO SMILEY
--- OUTSIDE RECORDS SUMMARY | 2023-12-10 06:07 | XMS_ITS | Continuity of Care Document ---
Author Organization [facility] Address [address] [place] [address]- Care Team Providers Care Tower Watchman Name Role Phone Swapnil Moe NP Primary Care Physician [place] [facility] [place]/22 [facility] [address] [place], [place] [address] Attending Physician: Eusebio Elaine Admitting Physician: Eusebio Elaine Referring Physician: AdmtrEusebio Allergies, Adverse Reactions, Alerts No Known Medication Allergies Medications Naproxen By Mouth, 0 Refills, Maintenance, 12/14/13 16:41:45 Start Date: 12/14/13 Status: Ordered Patient Care team information Care Team Personnel Name: Swapnil Moe NP Position: Reference Physician Member Role: PCP Address: Address: [address] [place] [id number] Care Team Related Persons Name: MIKE PATEL Address: [address] [place] [address] Name: MALCOLM NORMAN Address: [address] [place] [address] Name: CATRACHITO SMILEY
[2023-12-10] MEDS: Gabapentin 300 MG CAPSULE PO (06:44)
[2023-12-10] MEDS: methocarbamoL 750 MG TABLET PO (06:44)
--- NOTE | 2023-12-10 07:00 | HO.ANESPROP2 ---
Documented by User: Clau Dawson NP 12/03/23 13:25 HPI - Anesthesia Eval Consult details Narrative: 53yo M for L3-4 Oblique Lumbar Interbody Fusion, 12/10/23 No recent illness No CP or SOB Smoker Left upper lobe lung mass: observation only, routine CTs. Noted incidentally as child. Documented in [facility] as far back as 2008. PMF Active Problems Active Problems: All Active Problems Lumbar radiculopathy (Acute) Hypogonadism male (Acute) Bilateral hand pain (Acute) Nicotine dependence, cigarettes, uncomplicated (Acute) Erectile dysfunction (Acute) Low testosterone (Acute) Anemia (Acute) Fall (Acute) Low libido (Acute) Physical exam (Acute) Low back pain (Acute) Anxiety (Acute) Screening PSA (prostate specific antigen) (Acute) Fatigue (Acute) Smoker (Acute) Nicotine abuse (Acute) LLQ pain (Acute) Hematuria, microscopic (Acute) Diarrhea (Acute) Insomnia (Acute) Fatigue (Acute) Right shoulder pain (Acute) Cervical pain (neck) (Acute) Headache, occipital (Acute) Lung mass (Acute ~1976) Nerve root compression (Acute) Chronic radicular pain of lower back (Acute) Past Medical History Medical History (Updated 12/04/23 @ 09:52 by Cornell Gonzalez MD) Smoker Arthritis Right arm numbness Bursitis and tendinitis of shoulder region Rotator cuff tear Right shoulder tendonitis Hand arthritis Nerve root compression Chronic radicular pain of lower back Family History Family History Father Cancer Mother HTN (hypertension) Family history of problems with anesthesia: No Surgical History Surgical History (Updated 12/10/23 @ 06:24 by Corin San RN) Hx of colonoscopy S/P left rotator cuff repair (~2014) History of lumbar discectomy Lung mass (~1976) History of Problems with Anesthesia: No Social History Social History Housing: House Are you a primary ambulatory care nurse to a significant other at home: No Do you presently have visiting nurse or other home services: No Patient Tobacco Use Status: Current everyday Tobacco user Tobacco use type: Cigarette Cigarettes Per Day: 15 Years Smoked: over 30 years Smoked in Last 30 Days: Yes e-Cigarette/Vaping Use: Never Used Patient Interested in Nicotine Replacement: Yes Second Hand Smoke Exposure: No Use of substances other than those prescribed or required for medical reasons: No Have you been hit, kicked, punched, or otherwise hurt by someone within the past year? If so, by whom?: No Are you DNR?: No Advance Directives: No Advance Directives Information Provided: Yes Advance Directives on File: No Recently lost weight without trying: No Nutrition Risks: No Nutritional Risk Poor oral hygiene: No (permanent bridges upper and lower) service: Yes Current occupational status: employed Current occupation: rt handed Cognitive needs: No Hearing needs: No Vision needs: Yes (contacts) Meds Allergies Allergy/AdvReac Type Severity Reaction Status Date / Time No Known Allergies Allergy Verified 12/10/23 06:24 Exam Height,Weight and Vital Signs: Height 5 ft 8 in Weight 85.094 kg Last Vital Signs Pulse 80 11/26/23 09:55 Resp 16 11/26/23 09:55 BP 158/77 H 11/26/23 09:55 Pulse Ox 98 11/26/23 09:55 O2 Del Method Room Air 11/26/23 09:55 Pertinent Lab Results Pertinent Lab Results: Lab Results 11/26/23 11/26/23 Range/Units 10:52 11:00 WBC 9.7 (4.8-10.8) X10*3/uL RBC 4.51 L (4.60-5.80) X10*6/uL Hgb 13.7 L (14.0-18.0) g/dl Hct 42.0 (42.0-52.0) % MCV 93.1 (80.0-98.0) fL MCH 30.4 (27.0-33.0) pg MCHC 32.6 (31.0-36.0) g/dl RDW 13.2 (11.0-16.0) % Plt Count 233 (160-400) X10*3/uL MPV 10.5 (9.4-12.4) fL Absolute Nucleated RBC 0.000 (0.0-0.012) X10*3/uL Nucleated RBC % (auto) 0.0 (0.0-0.2) /100WBC Sodium 142 (135-145) mmol/L Potassium 4.9 (3.3-5.1) mmol/L Chloride 107 (96-108) mmol/L Carbon Dioxide 28 (22-29) mmol/L Anion Gap 12 (12-20) BUN 18 H (9-16) mg/dL Creatinine 0.79 (0.5-1.4) mg/dL Estim Creat Clear Calc 112.1 Estimated GFR > 60 Random Glucose 99 (60-115) mg/dL Calcium 9.6 (8.4-10.2) mg/dL Blood Type A Positive Antibody Screen NEGATIVE Narrative Narrative: EKG 11/2023 Vent. Rate : 073 BPM Atrial Rate : 073 BPM P-R Int : 166 ms QRS Dur : 100 ms QT Int : 388 ms P-R-T Axes : 054 -23 012 degrees QTc Int : 427 ms Normal sinus rhythm Minimal voltage criteria for LVH, may be normal variant ( R in aVL ) Borderline ECG No previous ECGs available CT lung screening 05/2023 IMPRESSION: Suspicious lobular lung mass measuring 4 cm in size, left upper lobe. Airway Mallampati Class: I TM Dist: >3cm Neck ROM: Limited (cervical disc bulging) Loose/Missing/Broken Teeth: Yes (Upper and lower permanent bridges) Heart: RRR Lungs: CTAB Assessment and Plan Assessment Anesthesia Assessment: Anesthesia Plan Discussed, Smoking Cess. Discussed and PAT Visit Final Anesthetic Review Family History of Problems with Anesthesia: No History of Problems with Anesthesia: No Documented by User: Amy Gallardo DO 12/10/23 07:16 [facility] Past Medical History Medical History (Updated 12/04/23 @ 09:52 by Cornell Gonzalez MD) Smoker Arthritis Right arm numbness Bursitis and tendinitis of shoulder region Rotator cuff tear Right shoulder tendonitis Hand arthritis Nerve root compression Chronic radicular pain of lower back Family History Family History Father Cancer Mother HTN (hypertension) Family history of problems with anesthesia: No Surgical History Surgical History (Updated 09/03/24 @ 06:24 by Corin San RN) Hx of colonoscopy S/P left rotator cuff repair (~2014) History of lumbar discectomy Lung mass (~1976) History of Problems with Anesthesia: No Social History Social History Housing: House Are you a primary ambulatory care nurse to a significant other at home: No Do you presently have visiting nurse or other home services: No Patient Tobacco Use Status: Current everyday Tobacco user Tobacco use type: Cigarette Cigarettes Per Day: 15 Years Smoked: over 30 years Smoked in Last 30 Days: Yes e-Cigarette/Vaping Use: Never Used Patient Interested in Nicotine Replacement: Yes Second Hand Smoke Exposure: No Use of substances other than those prescribed or required for medical reasons: No Have you been hit, kicked, punched, or otherwise hurt by someone within the past year? If so, by whom?: No Are you DNR?: No Advance Directives: No Advance Directives Information Provided: Yes Advance Directives on File: No Recently lost weight without trying: No Nutrition Risks: No Nutritional Risk Poor oral hygiene: No (permanent bridges upper and lower) service: Yes Current occupational status: employed Current occupation: rt handed Cognitive needs: No Hearing needs: No Vision needs: Yes (contacts) Meds Allergies Allergy/AdvReac Type Severity Reaction Status Date / Time No Known Allergies Allergy Verified 12/10/23 06:24 Exam Exam Date and Time: 12/10/23 0700 Height,Weight and Vital Signs: Height 5 ft 8 in Weight 85.094 kg Last Vital Signs Pulse 80 11/26/23 09:55 Resp 16 11/26/23 09:55 BP 158/77 H 11/26/23 09:55 Pulse Ox 98 11/26/23 09:55 O2 Del Method Room Air 11/26/23 09:55 Height 5 ft 8 in Weight 85.91 kg Vital Signs Pulse Rate 80 11/26/23 09:55 Respiratory Rate 16 11/26/23 09:55 Blood Pressure 158/77 H 11/26/23 09:55 Pulse Oximetry 98 11/26/23 09:55 Oxygen Delivery Method Room Air 11/26/23 09:55 Temperature 97.8 F 12/10/23 06:28 Pulse Rate 70 12/10/23 06:28 Respiratory Rate 16 12/10/23 06:28 Blood Pressure 143/64 H 12/10/23 06:28 Pulse Oximetry 99 12/10/23 06:28 Oxygen Delivery Method Room Air 12/10/23 06:28 Airway Mallampati Class: I TM Dist: >3cm Neck ROM: Limited (cervical disc bulging) Loose/Missing/Broken Teeth: Yes (Upper and lower permanent bridges) Heart: S1S2 Assessment and Plan Assessment Anesthesia Assessment: Anesthesia Plan Discussed and Chart Reviewed Final Anesthetic Review Family History of Problems with Anesthesia: No History of Problems with Anesthesia: No NPO: Yes ASA Class: II Final Preanesthetic Review: No Changes in Pt Med Stat, Meds/Allgs Chart Reviewed, Consent Obtained/Reviewed and Anes Risks/Benef Reviewed Patient Risk: Low Procedure Risk: Intermediate Anesthetic Plan Anesthetic Plan: GA and Agree w/ Assess. and Plan Disposition: Standard PACU
[2023-12-10] MEDS: Lactated Ringers 1,000 ML 100 ML IVCONT (07:18)
--- NOTE | 2023-12-10 07:27 | MHC.SHP ---
Pre-Procedural Eval Section A - 24 Hr Update-Section A only Date of Service: 12/10/23 The patient is an INPATIENT: No Changes since office visit: No Cold of Flu in the past 2 weeks, No New Medical Problems, No Changes in Medication and No Patient answered all questions The patient has been examined within 24 hours of the surgical procedure. The History & Physical has been completed within 30 days and I have reviewed it.: No Section B - Complete if H&P > 30 days Chief Complaint: S/P L3-4 OLIF Allergies: Allergies Allergy/AdvReac Type Severity Reaction Status Date / Time No Known Allergies Allergy Verified 12/10/23 06:24 Review of Systems Sugical H&P ROS: Negative: Constitution, Cardiovascular, Respiratory, Neurological, Psychiatric, Hem-Onc, Allergic/Immunologic, Gastrointestinal, Genitourinary, Musculoskeletal, Integumentary, Endocrine and Eyes/Ears/Nose/Throat Exam Surgical H&P Exam: Normal: HEENT, Normal: Heart, Normal: Lungs, Normal: Extremities, Normal: Abdomen, Normal: Skin and Normal: Neurological (awake,alert,oriented x 3 ) Plan Diagnosis/Plan: Unchanged L3-4 oblique lumbar interbody fusion Time Spent With Patient Time: Total time managing care of this patient today _5___ minutes.
--- NOTE | 2023-12-10 07:30 | PC.NURSE ---
Patient arrived to [facility] preop. Drank water this morning, last sip at 5am. Per him, About a half bottle of water . Dr. Gallardo made aware, Delilah SINGH made aware. Okay to proceed with surgery at this time.
--- NOTE | 2023-12-10 09:21 | W.PM.OPN ---
Operative Note Operative Note Date of Service: 12/10/23 Narrative: Preop Diagnosis: 1.) Intractable low back pain 2.) Lumbar degenerative disc disease L3-4 Procedure: 1) L3-4 discectomy, arthrodesis and implantation cage through an anterolateral, retroperitoneal approach 2) L3-4 posterior instrumented fusion 3) allograft 4) Injection of 10 cc of Exparel at the bilateral L4 transverse process for a muscular erector spinae block and additional Exparel in paravertebral tissue for postop management Consent Informed Consent was obtained for this operation. I have explained the nature, purpose and benefits of the operation. I have discussed the risks and benefit of the operation including possible complications or adverse events with patient/family. Alternative(s) were discussed with the patient with their relative benefits and risks as well as the consequences of not accepting the operation were included in obtaining consent. Surgeon: BRYCE HANNA MD, PHD Procedure Assisted By: ej Rivera Description of Procedure Patient is suffering intractable low back pain. MRI shows lumbar degenerative disc disease L3-4. The patient was offered an oblique lumbar interbody fusion L3-4. The procedure complications were explained. The patient was consented. The patient was brought to the operating room and endotracheally intubated. The patient was turned in a lateral position with the left side up. Prep and drape was done followed by timeout. A small incision was made in the left lower abdominal quadrant. The muscle fascia was opened after which the 3 muscle layer was split to enter the retroperitoneal space. Dilators were docked in the anterior one third of the L3-4 disc space followed by a retractor. The retractor was opened. The L3-4 disc space was exposed. An annulotomy was done after which an elevator Horn was used to release the disc material from its endplates and to perforate the contralateral side. A partial discectomy was done. An 8 mm height trial implant was inserted. The discectomy was completed. The endplates were prepared. An 10 x 50 mm with 0 degree lordosis CTL cage filled with allograft was inserted into the disc space under fluoroscopic guidance. This resulted in increase in disc height and foraminal height. The retractor was removed. Hemostasis was done. The incision was closed in 2 layers. Steri-Strips used to approximate incision. An OpSite with Tegaderm was used to cover the incision. This marked first part of the procedure. The patient was turned prone on the Pernell spine table. 2C arms were installed for fluoroscopy. Prep and drape was done followed by a second timeout. 2 paramedian incisions were made lateral from the L3-4 pedicle. The muscle fascia was opened after which the muscle layer was split bluntly to expose the posterolateral gutter. The following steps were taken. A pediguard tap was used to create a transpedicular trajectory into the vertebral body. A K wire was placed. A specially designed instrument was advanced over the K wire to decorticate the posterolateral gutter in preparation for the posterolateral fusion. A pedicle screw was advanced over the K wire and the K wire was removed. The steps were done for the bilateral L3-4 pedicles. A total of 4 screws were placed with a diameter of 6.5 x 45 mm. Pedicle screws were connected with 45 mm miguel angel bilaterally and locked down with locking caps. The extension towers were removed. The posterolateral gutter was filled with allograft to complete the posterolateral L3-4 fusion Hemostasis was done and the incision was closed in 2 layers. Steri-Strips were used to approximate the incision. An OpSite were taken and was used to cover the incision. All sponge and needle counts were correct. Patient was extubated and transferred in stable is to recovery room. Anesthesia: General Estimated Blood Loss (ml): 30 mL Duration of Surgery: 1 hour and 40 minutes Complications: None Postoperative Plan: Admit to inpatient for observation
[2023-12-10] MEDS: Ketorolac Tromethamine 15 MG/ML VIAL IVPUSH ×3 (11:38→21:13)
[2023-12-10] MEDS: Acetaminophen 1,000 MG/100 ML PIGGYBACK 400 MG IV ×3 (11:42→21:13)
--- NOTE | 2023-12-10 12:30 | PHA.MEDREC ---
Pharmacy Consult ? Medication Reconciliation Pharmacy has completed the medication reconciliation. Spoke to patient at bedside, he confirmed that all he takes at home is the testosterone gel.
[2023-12-10] MEDS: 0.9 % Sodium Chloride 1,000 ML 75 ML IVCONT (13:56)
[2023-12-10] MEDS: HYDROmorphone HCl 1 MG/ML SYRINGE IVPUSH ×2 (13:56→17:37)
[2023-12-10] MEDS: Flu Vacc TS2024-25(6mos up)/PF 0.5 ML SYRINGE IM (14:22)
[2023-12-10] MEDS: ceFAZolin Sodium/Dextrose,Iso 2 GM/50 ML PIGGYBACK IV ×2 (14:24→19:50)
[2023-12-10] MEDS: oxyCODONE HCl Immed Release 5 MG TABLET 10 MG PO (19:58)
[2023-12-10] MEDS: Docusate Sodium 100 MG CAPSULE PO (19:58)
[2023-12-11] MEDS: ceFAZolin Sodium/Dextrose,Iso 2 GM/50 ML PIGGYBACK IV (01:15)
[2023-12-11] MEDS: Ketorolac Tromethamine 15 MG/ML VIAL IVPUSH (03:08)
[2023-12-11 03:09] VITALS: BP 144/67; PULSE 74; RESP 18; TEMP 36.4; O2SAT 97
[2023-12-11] MEDS: Acetaminophen 1,000 MG/100 ML PIGGYBACK 400 MG IV (03:09)
[2023-12-11] MEDS: 0.9 % Sodium Chloride 1,000 ML 75 ML IVCONT (05:51)
[2023-12-11] MEDS: oxyCODONE HCl Immed Release 5 MG TABLET 10 MG PO (05:56)
--- NOTE | 2023-12-11 07:17 | P.DS_ITS ---
DS: Providers Provider Date of Service: 12/11/23 Date of admission: 12/10/23 06:00 Primary care physician: FRANKIE Chirinos DS: Summary Time Attestation Discharge Coordination Time (in mins): 15 Quality: Safe Use of Opioids Does Pt have an Active Cancer Diagnosis on the Problem List?: No Quality: Stroke Does the patient have a stroke diagnosis?: No Physical Exam Vital Signs: Vital Signs: Last Vital Signs Temp 97.5 F 12/11/23 03:09 Pulse 74 12/11/23 03:09 Resp 18 12/11/23 03:09 BP 144/67 H 12/11/23 03:09 Pulse Ox 97 12/11/23 03:09 O2 Del Method Room Air 12/11/23 03:09 O2 Flow Rate 2 12/10/23 11:32 BMI result Body Mass Index 28.8 Discharge Plan Discharge Anticipated Discharge Date/Time: 12/11/23 07:29 Patient Disposition: Home, Self-Care Discharge Diagnosis: S/P L3-4 OLIF Referrals: Swapnil Moe FNP-BC [Primary Care Provider] - 1 Week Discharge Medications: New oxycodone 5 mg tablet 5 mg PO Q6H PRN (Reason: severe pain (scale score 7-10)) Qty: 30 0RF Rx Instructions: Partial Fill upon patient request. Continued testosterone 20.25 mg/1.25 gram (1.62 %) gel in metered-dose pump 2 pump topical DAILY 30 Days Qty: 75 1RF Rx Instructions: apply 2 pumps over max area - alternate shoulders on alternate days Discharge Orders: Discharge Order (Routine); Ordered 12/11/23 Ordered By: Max Hayes Diet: Advance to usual diet Activity on Discharge: As tolerated Stand Alone Forms: Patient Portal Discharge page Print Language: Occitan Activity Restrictions/Additional Instructions: After your spinal surgery we ask you to observe the following restrictions/guidelines: Activity: With lumbar fusion surgery it is normal to have days in the first couple of weeks where you have increased leg pain. This usually lasts 1-2 days and self resolves with the continuation of medication. Attempt to stay mobile and continue activity as tolerated. It is normal to feel some discomfort as you increase your activity, but that will improve with time. We ask you avoid heavy lifting or activities that cause pain. As a general rule, 8lbs is a safe limit for lifting right after surgery. Walk as much as you feel comfortable but not to exhaustion. You will feel extra tired the first few days after surgery. Stay well hydrated. It is OK to walk up and down stairs You may return to driving when you are off narcotics (such as vicodin, oxycodone, dilaudid, etc), and you are back to normal functional capacity. If you have any concerns please check with office before driving. Return to work is specific to each patient and each surgery, so please speak with your doctor/PA at first follow up. Please bring paperwork such as FMLA at that time if you need it filled out. Medications: It is recommended that you take Tylenol 500 mg every 4 hours for the 1st week postoperatively, ?alongside ibuprofen 600 mg every 8 hours. We will also be prescribing gabapentin 300 mg to be taken every 8 hours for the 1st month postoperatively. We will give you a short supply of narcotics after surgery (usually one weeks worth). ??Please use this for breakthrough pain that is refractory to the Tylenol ibuprofen and gabapentin. If you need more please call the office but do not use more than prescribed. You will need to give our office 48 hours notice if you need narcotics refilled and we do not fill narcotics on weekends or evenings. If you are on a narcotic, it is a good idea to take a stool softener such as colace or senna to avoid constipation If you take blood thinner such as aspirin, Plavix, Coumadin, Effient, Eliquis etc for conditions such as Afib, DVT, Pulmonary embolus, coronary disease, stents etc please speak with your surgeon about specific details as to when you can resume these medications. You can resume NSAIDs on post op day 1 (eg: Motrin, Naproxen, etc). Follow up: Please call the office, , after surgery to arrange a 3 week follow up for wound check. Wound Care: You may remove your dressing on the first day after surgery. ?You may ?leave open to air. Please do not remove the steri strips underneath. they will fall off on their own in one week. IT IS NORMAL FOR THE WOUND TO OOZE OR BE BLOODY FOR A FEW DAYS AFTER SURGERY. ?IF THIS HAPPENS JUST PLACE NEW DRESSING OVER IT TO AVOID STAINING CLOTHES. You may shower on post op day # 1 We ask that you do not let the water soak the wound. If it does get wet, just towel dry lightly. Please do not scrub your incision or place any type of chemical/ointment on the wound. No tub baths, pools or jacuzzis for one month. If you have any leaking or redness from your wound, or fevers, please call office Care Plan Goals: Returned to normal activity as tolerated Health Concerns: None Plan of Treatment: Follow-up in clinic in 2-3 weeks Assessment: POD: 1 Procedure: L3-4 SHANE Mathew was seen sitting upright in bed this morning on 3 . Patient reports he is up walking around is otherwise doing well. He feels his symptoms are much better than pre-operatively. He still reports mild pain in his bilateral anterior thighs, with good relief with pain medication. He is voiding well, tolerating diet. Afebrile, vital signs stable. Full strength 5/5 LEs. Back dressings have some staining without signs of hematoma. No active sanguineous drainage. Area is dry. Plan: Patient meets criteria to be medically discharged home. I sent in a prescription for oxycodone to the pharmacy here at [facility]. He was seen at bedside with Dr. Del Rio. Max Del Rio MD,PhD [facility]
[2023-12-11 08:00] VITALS: BP 147/70; PULSE 63; RESP 14; TEMP 36.1; O2SAT 98
--- NOTE | 2023-12-11 09:12 | MHC.CM.PN ---
PT LEFT WITHOUT CM ASSESSMENT OR DELIVERY OF FORM.
== END 2023-12-11 09:11 | disposition home or self-care (01) | DRG 460 ==
LOC: HO.SSSA 06:05 → HO.S3 10:06
PROVIDERS: Nurse Practitioner; Admitting Provider Neurological Surgery; PCP Nurse Practitioner Family; Visit Provider Neurological Surgery
PROC: 0SG00A0 Fusion of Lumbar Vertebral Joint with Interbody Fusion Device, Anterior Approach, Anterior Column, Open Approach (ICD-10-PCS; principal; 2023-12-10 07:30)
DX: M51.36 Other intervertebral disc degeneration, lumbar region (principal); Z23 Encounter for immunization; Z79.890 Hormone replacement therapy
CPT/HCPCS: 36415; 80048; 85027; 86850; 86900; 86901; 90656; 93005; 97116; 97161; C1713; C1889; C9290; J0131; J0665; J0690; J1100; J1170; J1596; J1885; J2250; J2405; J2704; J3010; L8699

== ENCOUNTER → 2023-12-10 06:00 | Outpatient (BNV) | payer OTHER, SELFPAY | PROVIDERS: Admitting Provider Neurological Surgery; PCP Nurse Practitioner Family; Visit Provider Neurological Surgery | DX: M54.16 Radiculopathy, lumbar region (principal); M54.50 Low back pain, unspecified | CPT/HCPCS: 20930; 22558; 22612; 22840; 22853; 99499 ==

== ENCOUNTER 2023-12-26 15:18 | Outpatient (AMB) | payer OTHER, SELFPAY ==
--- NOTE | 2023-12-26 15:22 | A.SPINEOV_ITS ---
Intake Visit Reasons: severe pain after sx Intake Note: Mr. Hernandez is here today c/o severe pain after surgery. System Administrator Required: No Allergies No Known Allergies Allergy (Verified 12/10/23 06:24) Assessment & Plan Assessment & Plan (1) S/P spinal fusion: Code(s): Z98.1 - Arthrodesis status Category: Medical Plan Procedure: L3-4 OLIF POD: 16 HPI: Quincy is a pleasant 53-year-old male who comes in today as an acute patient visit after I added him on to my schedule today due to his repeated hospital evaluation for his continued pain. Importantly reports no pain until about 1 week out from surgery. He states that he has been evaluated x2 at [facility] for shooting radicular pain in his right lower extremity. When describing the pain he runs his hand from his internal groin across his internal thigh terminating near the knee he also reports intermittent shooting pains down his leg past the knee they are less severe in nature and terminate near the base of his lateral ankle. Unfortunately, the patient has not as of yet utilize the steroid Dosepak that I sent in for him. He feels none of the narcotic prescriptions have been helpful either. Fortunately, he reports little to no back pain. EXAM: The patient maintains 5/5 strength in his bilateral lower extremities. His reflexes in the lower extremities are intact. No new numbness/tingling/weakness. The patient's posterior incision sites and anterior lateral incision site are closed and well healing with no signs of drainage. IMAGING: CT scan of the lumbar spine completed at [facility] shows stable placement of the surgical construct with no changes of instrumentation since fluoroscopy. There is evidence of an anterior osteophyte that was disrupted via cage placement, but this is notably not near either exiting nerve root. The foramen appear patent. PLAN: The patient was evaluated alongside ONEIL Richardson today, who will be in clinic with Dr. Del Rio tomorrow. He will review this patient's imaging and presentation with the attending neurosurgeon. For the time being I have prescribed a Medrol Dosepak, course of gabapentin, and Dilaudid for the patient. He was encouraged to utilize these medications. In addition to this I have ordered him a set of flexion/extension x-rays to be completed tomorrow. Max Del Rio MD,PhD [facility] Medications: New gabapentin 300 mg PO TID 30 caps 0RF nerve pain Coding Level of Care Code Global (71874) Diagnoses S/P spinal fusion Z98.1
== END 2023-12-26 15:57 | disposition home or self-care (01) ==
PROVIDERS: PCP Nurse Practitioner Family; Visit Provider Physician Assistant
DX: Z98.1 Arthrodesis status (principal)
CPT/HCPCS: 99024

== ENCOUNTER → 2023-12-26 15:18 | Outpatient (BNVA) | payer OTHER, SELFPAY | PROVIDERS: PCP Nurse Practitioner Family; Visit Provider Physician Assistant | DX: Z47.89 Encounter for other orthopedic aftercare (principal); Z98.1 Arthrodesis status | CPT/HCPCS: 99212 ==

== ENCOUNTER 2023-12-27 10:02 | Outpatient (REF) | payer OTHER, SELFPAY ==
--- NOTE | ~2023-12-27 | XR_ITS ---
EXAMINATION: XR LUMBOSACRAL SPINE CLINICAL INFORMATION: Z98.1 - Arthrodesis status COMPARISON: None available. TECHNIQUE: 4 views of the lumbar spine, inclusive of flexion and extension views, were obtained. FINDINGS: There is normal bony mineralization. There is no fracture, compression deformity, or suspicious focal bony abnormality. No scoliosis. Normal lordosis. There has been dorsal estimated fusion of L3-4 with pedicular screws, discectomy and displacement of disc prosthesis. Hardware is intact. No periprosthetic abnormality or lucencies. No complication evident. Neutral lateral demonstrates a minimal, 2 mm degenerative type retrolisthesis L3 on L4. This remained static in flexion and extension. No additional subluxations. Mild to moderate degenerative disc changes are present at the nonoperative levels. Minimal aortic calcification in the soft tissues. No additional soft tissue abnormality. XR/XR lumbar spine 4V min IMPRESSION: 1. No acute findings lumbar spine. 2. Posterior instrumented fusion and discectomy L3-4 without complication. 3. No evidence of instability. Electronically signed by: Srinivas Bee MD 03/08/2024 09:26 PM EST
== END 2023-12-27 10:03 | disposition home or self-care (01) ==
LOC: HO.XRAY 10:02
PROVIDERS: PCP Nurse Practitioner Family; Visit Provider Neurological Surgery
DX: Z98.1 Arthrodesis status (principal)
CPT/HCPCS: 72110

== ENCOUNTER → 2023-12-27 10:06 | Outpatient (BNV) | payer OTHER, SELFPAY | PROVIDERS: PCP Nurse Practitioner Family; Visit Provider Radiology Diagnostic Radiology | DX: Z98.1 Arthrodesis status (principal) | CPT/HCPCS: 72110 ==

== ENCOUNTER 2023-12-28 07:33 | Emergency (ER) | payer OTHER, SELFPAY ==
[2023-12-28 07:56] VITALS: BP 152/65; PULSE 73; RESP 18; TEMP 36.6; O2SAT 96; BMI 27.5
--- NOTE | 2023-12-28 09:44 | ED.GENADULT ---
HPI - General Adult General Chief complaint: Extremity Problem Stated complaint: R leg pain, recent back surgery Time Seen by Provider: 12/28/23 09:19 Source: patient and family Mode of arrival: ambulatory Limitations: no limitations History of Present Illness ED Provider: DR. Boo HPI narrative: 53-year-old male s/p L3 -for microdiskectomy with fusion done on 12/10/2023, patient is been complaining of shooting pain to the right lower extremity since after the surgery pain is starting in her right groin area going to the right thigh and lower leg, patient has no back pain, seen and evaluated several times for same pain after surgery still complaining of shooting pain in the right lower extremity with no improvement. No fever, no chills, no back pain, no weakness, no numbness. Patient is not taking pain medication at home For his symptoms. Related Data Previous Rx's ?Medication ?Instructions ?Recorded testosterone 2 pump topical DAILY 30 days #75 10/16/23 grams methocarbamol 750 mg tablet 750 mg PO Q8H muscle spasms #30 12/17/23 tabs acetaminophen 500 mg tablet 1,000 mg (2 x 500 mg) PO Q8H PRN 12/24/23 pain #42 tabs hydromorphone 2 mg tablet 2 mg PO Q4-6H PRN severe pain 12/24/23 (scale score 7-10) #30 tabs methylprednisolone 4 mg tablets in See Rx Instructions PO PER PKG DIR 12/24/23 a dose pack (Medrol (Rosalio)) #21 ea gabapentin 300 mg capsule 300 mg PO TID nerve pain #30 caps 12/26/23 oxycodone 5 mg tablet 5 mg PO Q8H PRN pain #7 tabs 12/28/23 Allergies Allergy/AdvReac Type Severity Reaction Status Date / Time No Known Allergies Allergy Verified 12/28/23 08:02 Review of Systems Review of Systems: All other systems are reviewed and are negative Constitutional: Reports as per HPI and Reports no additional constitutional complaints Eyes: Reports as per HPI and Reports no additional eye complaints Reports system reviewed and no additional complaints, except as documented Cardiovascular: Reports as per HPI and Reports no additional cardiovascular complaints Respiratory: Reports as per HPI and Reports no additional respiratory complaints Gastrointestinal: Reports as per HPI and Reports no additional gastrointestinal complaints Genitourinary: Reports no additional female genitourinary complaints Musculoskeletal: Reports no additional musculoskeletal complaints Skin/Breast: Reports system reviewed and no additional complaints, except as docu Psychiatric: Reports no additional psychiatric complaints Endocrine: Reports no additional endocrine complaints Hematologic/Lymphatic: Reports no additional hematologic/lymphatic complaints Allergic/Immunologic: Reports no additional allergic/immunologic complaints Reports system reviewed and no additional complaints, except as documented and Reports Abnormal speech present [facility] Past Medical History Medical History Smoker Arthritis Right arm numbness Bursitis and tendinitis of shoulder region Rotator cuff tear Right shoulder tendonitis Hand arthritis Nerve root compression Chronic radicular pain of lower back Surgical History Hx of colonoscopy S/P left rotator cuff repair (~2014) History of lumbar discectomy Lung mass (~1976) Family History Family History Father Cancer Mother HTN (hypertension) Social History Social History Household Members: Spouse Housing: House Are you a primary youth care worker to a significant other at home: No Do you presently have visiting nurse or other home services: No Patient Tobacco Use Status: Current everyday Tobacco user Tobacco use type: Cigarette Cigarettes Per Day: 15 Years Smoked: over 30 years e-Cigarette/Vaping Use: Never Used Second Hand Smoke Exposure: Yes Advance Directives: No service: Yes Current occupational status: employed Current occupation: rt handed Cognitive needs: No Hearing needs: No Vision needs: Yes (contacts) Physical Exam ED Vital Signs: Vital Signs - 24 hr 12/28/23 07:56 12/28/23 10:04 12/28/23 11:27 Temperature 97.9 F Pulse Rate 73 Respiratory Rate 18 20 16 Blood Pressure 152/65 H Pulse Oximetry 96 Oxygen Delivery Method Room Air 12/28/23 13:20 Temperature 98.4 F Pulse Rate 63 Respiratory Rate 18 Blood Pressure 148/68 H Pulse Oximetry 98 Oxygen Delivery Method Room Air BMI result Body Mass Index 27.5 Vital signs have been reviewed and appear to be correct. Blood pressure elevated. Heart rate normal. Respiratory rate normal. Temperature normal. Oxygen saturation normal. Appearance: Alert. Oriented X3. No acute distress. Head: Normal external exam. Normocephalic. Atraumatic. No Sylvester signs noted. No raccoon eyes noted Eyes: PERRLA. EOMI. Conjunctiva and sclera normal. Eyelids normal. ENT: TM's Normal. Pharynx normal. Uvula midline. Moist mucous membranes. No trismus noted. No drooling noted. No muffled voice noted. Neck: Normal inspection. Neck supple. FROM. No adenopathy. Thyroid Normal. No meningeal signs. No neck mass noted. CVS: Normal heart rate and rhythm. Heart sound normal. No murmurs noted. Pulses normal throughout. Respiratory: No respiratory distress. Painless inspiration. Breath sounds normal. No wheezes/rales/rhonchi noted. Chest nontender. No accessory muscle usage noted or decreased air movement noted. Abdomen: Soft and nontender. Bowel sounds normal in all 4 quadrants. No distention noted. No organomegaly noted. No visible injury noted. Back: No CVA tenderness. Full range of motion noted. Skin: Skin warm and dry. Normal skin color. Normal skin turgor. No rashes/lesions/lacerations noted. Extremities: No lower extremity edema. Extremities exhibit normal range of motion. Extremities nontender. Neuro: Oriented X 3. Cranial nerve exam: II-XII are grossly intact No motor deficit. No sensory deficit. Reflexes normal. Course Reevaluation(s) Reevaluation #1: Post surgical right lower extremity shooting pain, no neurological deficit, UA is unremarkable, patient feels better with morphine IV/ Toradol. Will prescribe oxycodone for postsurgical pain and follow-up was Dr. Richardson the surgeon. Time: 14:26 Medications Administered Discontinued Medications Generic Name Dose Route Start Last Admin Trade Name Freq PRN Reason Stop Dose Admin Ketorolac Tromethamine 15 mg 12/28/23 09:35 12/28/23 10:06 Ketorolac Tromethamine 15 Mg/Ml Vial IVPUSH 12/28/23 09:36 15 mg ONCE ONE Administration Morphine Sulfate 2 mg 12/28/23 09:35 12/28/23 10:04 Morphine Sulfate 2 Mg/Ml Cartridge IVPUSH 12/28/23 09:36 2 mg ONCE ONE Administration Protocol Medical Decision Making Differential Diagnosis Differential Diagnoses: The differential diagnosis associated with the presentation includes ( post surgical pain, lumbar radiculopathy.) Admission/Observation Consideration of admission/observation: Escalation of care including admission/observation considered Lab Data MDM Lab Attestation statement: I reviewed the patient's lab results. Labs: Lab Results 12/28/23 Range/Units 10:11 Urine Color Yellow Urine Appearance Clear Urine pH 7.0 (5.0-9.0) Ur Specific [place] <= 1.005 (1.005-1.025) Urine Protein Negative (Neg-Trace) mg/dL Urine Glucose (UA) Negative (Negative) mg/dL Urine Ketones Negative (Negative) mg/dL Urine Blood Trace H (Negative) Urine Nitrite Negative (Negative) Ur Leukocyte Esterase Negative (Negative) Urine RBC 0-2 (0-2) /HPF Urine WBC 0-5 (0-5) /HPF Ur Squamous Epith Cells 0-2 (0-2) /HPF Urine Bacteria None Seen (None Seen) Hyaline Casts 0-2 (0-2) /LPF Discharge Plan Discharge Clinical Impression: Postoperative pain of extremity Patient Disposition: Home, Self-Care Instructions: Leg Pain (ED) Prescriptions: New oxycodone 5 mg tablet 5 mg PO Q8H PRN (Reason: pain) Qty: 7 0RF Rx Instructions: Partial Fill upon patient request. No Action methocarbamol 750 mg tablet 750 mg PO Q8H Qty: 30 0RF hydromorphone 2 mg tablet 2 mg PO Q4-6H PRN (Reason: severe pain (scale score 7-10)) Qty: 30 0RF Rx Instructions: Partial Fill upon patient request. methylprednisolone [Medrol (Rosalio)] 4 mg tablets,dose pack See Rx Instructions PO PER PKG DIR Qty: 21 0RF Rx Instructions: PO PER PKG DIR acetaminophen 500 mg tablet 1,000 mg PO Q8H PRN (Reason: pain) Qty: 42 2RF testosterone 20.25 mg/1.25 gram (1.62 %) gel in metered-dose pump 2 pump topical DAILY 30 Days Qty: 75 1RF Rx Instructions: apply 2 pumps over max area - alternate shoulders on alternate days gabapentin 300 mg capsule 300 mg PO TID Qty: 30 0RF Referrals: Jorje Richardson PA [Physician Chocolate Finisher Operator] - Print Language: Nigerian
[2023-12-28 10:04] VITALS: RESP 20
[2023-12-28] MEDS: Morphine Sulfate 2 MG/ML CARTRIDGE IVPUSH (10:04)
[2023-12-28] MEDS: Ketorolac Tromethamine 15 MG/ML VIAL IVPUSH (10:06)
[2023-12-28 10:17] LABS: Appearance Urine Clear; Color Urine Yellow; Glucose Urine UA Negative (Negative); Leukocyte Esterase Urine Negative (Negative); Nitrite Urine Negative (Negative); Specific Gravity - Urine <= 1.005 (1.005-1.025); UMIC TRIGGER UACC YES; Urine Blood Trace (Negative); Urine Ketones Negative (Negative); Urine Protein Negative (Neg-Trace)
[2023-12-28 11:27] VITALS: RESP 16
[2023-12-28 11:27] LABS: Bacteria Urine None Seen (None Seen); Hyaline Casts Urine 0-2 /LPF (0-2); RBC Urine 0-2 /HPF (0-2); Squamous Epithelial Cell Urine 0-2 /HPF (0-2); WBC Urine 0-5 /HPF (0-5)
[2023-12-28 13:20] VITALS: BP 148/68; PULSE 63; RESP 18; TEMP 36.9; O2SAT 98
[2023-12-28 14:43] VITALS: BP 140/60; PULSE 63; RESP 18; TEMP 36.9; O2SAT 98
== END 2023-12-28 14:43 | disposition home or self-care (01) ==
PROVIDERS: Emergency Provider Emergency Medicine; PCP Nurse Practitioner Family
DX: G89.18 Other acute postprocedural pain (principal); M79.604 Pain in right leg; R10.30 Lower abdominal pain, unspecified; Z79.899 Other long term (current) drug therapy
CPT/HCPCS: 81001; 96374; 96375; 99284; J1885; J2270

== ENCOUNTER 2023-12-30 08:46 | Outpatient (AMB) | payer OTHER, SELFPAY ==
--- NOTE | 2023-12-30 09:01 | A.SPINEOV_ITS ---
Intake Visit Reasons: 1st post op Intake Note: Mr. Hernandez is here today for his 1st post-op visit. Mussel Opener Required: No Allergies No Known Allergies Allergy (Verified 12/28/23 08:02) Assessment & Plan Assessment & Plan (1) S/P spinal fusion: Code(s): Z98.1 - Arthrodesis status Category: Surgical Plan Quincy is a pleasant 53-year-old male who comes in today for a subsequent follow-up after a L3-4 lumbar fusion completed on 12/10/2023. Unfortunately, Quincy continues to report a right-sided lumbar radiculopathy. He states that his pain continues to originate in his groin and shoot toward the medial knee. He reports the pain is extremely difficult to cope with, and has caused him to sleep very little at night. He again saw emergency services over the weekend on Saturday. During this visit he brought in paperwork from the [employer] requesting restrictions for his activity. I filled out this paperwork stating that he is unable to complete any basic duties that require physical effort or mobility as he is very obviously still in the acute postoperative phase. The arm he needed a tentative / estimated return to duty date regardless of the patient's current status, so I filled it out for 04/08/2024. This patient's case, imaging, and clinical presentation have been discussed with the attending neurosurgeon Dr. Del Rio who is aware of the current situation as it is. I will be sending the patient for a repeat lumbar MRI to ensure there is no new nerve impingement secondary to the surgery. I ordered it urgently as the patient has been to the ED multiple times now, and presents in quite a bit of obvious distress. We can not allow him to continue the way he currently is without ensuring that there is no acute nerve impingement causing his symptoms. I will follow up with him with all deliberate speed as soon as the MRI is complete. Max Del Rio MD,PhD [facility] Orders: Orders MR lumbar spine wo con Today Z98.1 - Arthrodesis status Coding Level of Care Code Global (31298) Diagnoses S/P spinal fusion Z98.1
== END 2023-12-30 09:44 | disposition home or self-care (01) ==
PROVIDERS: PCP Nurse Practitioner Family; Visit Provider Physician Assistant
DX: Z98.1 Arthrodesis status (principal)
CPT/HCPCS: 99024

== ENCOUNTER → 2023-12-30 08:46 | Outpatient (BNVA) | payer OTHER, SELFPAY | PROVIDERS: PCP Nurse Practitioner Family; Visit Provider Physician Assistant | DX: M54.16 Radiculopathy, lumbar region (principal); Z47.89 Encounter for other orthopedic aftercare; Z98.1 Arthrodesis status | CPT/HCPCS: 99212 ==

== ENCOUNTER 2024-01-01 14:49 | Outpatient (REF) | payer OTHER, SELFPAY ==
--- NOTE | ~2024-01-01 | MR_ITS ---
MR LUMBAR SPINE WITHOUT AND WITH IV CONTRAST CLINICAL INFORMATION: Arthrodesis status. COMPARISON: Lumbar spine MRI August 15, 2023. TECHNIQUE: MRI of the lumbar spine was obtained using routine sequences with and without contrast. Intravenous contrast: Gadavist 8.5 mL FINDINGS: Recent postoperative changes following posterior instrumented lumbar interbody fusion at L3-L4. There are T2 signal changes and there is enhancement involving the opposing L3-L4 endplates, nonspecific in the immediate postsurgical setting which may be reactive but should be correlated for clinical signs to exclude infection. There is no additional bone marrow edema and there is no additional pathologic intraosseous enhancement. Small intraosseous hemangioma within the T11 vertebral body. No pathologic intrathecal enhancement. L1-L2: Small shallow disc protrusion minimally indents the ventral thecal sac. There is no significant central canal stenosis and there is no foraminal stenosis. L2-L3: There is a diffuse annular disc bulge and there is mild bilateral facet arthropathy. No central canal stenosis. There is mild foraminal encroachment bilaterally. L3-L4: Postoperative changes following posterior instrumented lumbar interbody fusion. Postoperative decompression of the central canal and neural foramen. L4-L5: Diffuse annular disc bulge and moderate bilateral facet arthropathy and ligamentum flavum thickening. Findings in concert result in mild central canal stenosis and moderate left-sided foraminal stenosis with mild mass effect on the exiting left L4 nerve root that is unchanged. L5-S1: Shallow central disc protrusion and bilateral facet arthropathy results in left greater than right subarticular zone stenosis with mass effect on the traversing left S1 nerve root. Disc osteophyte and facet arthropathy result in mild bilateral foraminal encroachment and left greater than right lateral disc osteophyte protrusions result in mass effect on the extraforaminal L5 nerve roots. MR/MR lumbar spine wo/w con IMPRESSION: * Recent postoperative changes following posterior instrumented lumbar interbody fusion at L3-L4. There are T2 signal changes and there is enhancement involving the opposing L3-L4 endplates, nonspecific in the immediate postsurgical setting which may be reactive but should be correlated for clinical signs to exclude infection which could appear similar. * At L4-L5, multifactorial degenerative changes result in similar mild central canal stenosis and moderate left-sided foraminal stenosis with mild mass effect on the exiting left L4 nerve root that is unchanged. * At L5-S1, a shallow central disc protrusion results in similar left greater than right subarticular zone stenosis with mass effect on the traversing left S1 nerve root. Left greater than right lateral disc osteophyte protrusions result in mass effect on the extraforaminal L5 nerve roots bilaterally. Electronically signed by: Tyson Singh MD 01/01/2024 04:55 PM EDT
[2024-01-01] MEDS: gadobutroL 7.5 ML VIAL IVPUSH (15:34)
== END 2024-01-01 14:50 | disposition home or self-care (01) ==
LOC: HO.MRI 14:49
PROVIDERS: PCP Nurse Practitioner Family; Visit Provider Physician Assistant
DX: Z98.1 Arthrodesis status (principal)
CPT/HCPCS: 72158; A9585

== ENCOUNTER 2024-01-24 07:04 | Outpatient (REF) | payer OTHER, SELFPAY ==
--- NOTE | ~2024-01-24 | CT_ITS ---
EXAMINATION: CT chest without contrast high resolution protocol. CLINICAL INFORMATION: Current smoker, 1 pack per day, 39 pack-year history. CT lung screening dated May 31, 2023, demonstrated a 4 cm lesion, left upper lobe. COMPARISON: Correlated to CT lung screening dated May 31, 2023. TECHNIQUE: Multidetector volumetric imaging was performed from the thoracic inlet to the upper abdomen. Sagittal and coronal reformatted images were acquired on the technologist's workstation. Soft tissue and lung algorithm obtained. No IV contrast. This CT examination was performed using dose optimization technique as appropriate, variously including the following: Automatic exposure control Adjustment of MA and/or KV according to patient size. Use of interactive reconstruction technique. DLP: 218 mgy-cm. FINDINGS: Submitted for interpretation on February 19, 2024. There is a 3.6 x 3.3 x 4.2 cm lobulated partially calcified mixed density mass in the anterior medial left upper hemithorax probably in the pleura/intrathoracic extra pleura compartment versus lung parenchyma, lung apex. Paraseptal emphysematous changes, upper lobes. No bronchiectasis. No honeycombing. No pleural effusion. No pneumothorax. Respiratory airways patent. Nonspecific prominent, 1.5 cm mediastinal lymph nodes in the precarinal. No pericardial effusion. Calcified plaques in the thoracic aortic arch. No aneurysm, thoracic aorta. Multilevel thoracic spondylosis without acute fracture or listhesis. No gross lytic or blastic lesions. Prominent breast tissue bilaterally. Focal hypodensity in the upper pole right kidney. CT/CT chest wo con - High Res IMPRESSION: 3.6 x 3.3 x 4.2 cm partially calcified lobulated lesion, anterior medial left upper hemithorax. Consider primary versus metastatic disease. Precarinal lymphadenopathy. Probable gynecomastia, bilaterally. Electronically signed by: Aries Roadrte MD 02/19/2024 11:31 AM EST
== END 2024-01-24 07:05 | disposition home or self-care (01) ==
LOC: HO.CT 07:04
PROVIDERS: PCP Nurse Practitioner Family; Visit Provider Surgery
DX: R91.8 Other nonspecific abnormal finding of lung field (principal)
CPT/HCPCS: 71250

== ENCOUNTER → 2024-01-24 07:06 | Outpatient (BNV) | payer OTHER, SELFPAY | PROVIDERS: PCP Nurse Practitioner Family; Visit Provider Radiology Diagnostic Radiology | DX: R91.8 Other nonspecific abnormal finding of lung field (principal) | CPT/HCPCS: 71250 ==

== ENCOUNTER 2024-01-29 08:46 | Outpatient (AMB) | payer OTHER, SELFPAY ==
[2024-01-29 08:56] VITALS: BP 136/72; PULSE 66; O2SAT 97; BMI 28.1
--- NOTE | 2024-01-29 08:56 | A.OFFPC_ITS ---
Vital Signs 01/29/24 08:56 Height 5 ft 8 in Weight 185 lb BMI 28.1 BP 136/72 Blood Pressure Location Rt brachial Position Sitting Pulse 66 Pulse Source Pulse Oximeter Pulse Oximetry (%) 97 Intake Visit Reasons: annual PE Intake Note: pt is here for annual exam Price Changer Required: No Accompanied by: Self / Same As Patient Allergies No Known Allergies Allergy (Verified 01/29/24 11:20) Medication List - Last Reconciled 01/29/24 by FRANKIE Fowler acetaminophen 1,000 mg (2 x 500 mg) PO Q8H PRN nicotine (Nicoderm CQ) oxycodone 5 mg PO Q6H PRN testosterone 2 pumps topical DAILY 30 days Tobacco use date assessed: 06/25/23 Dental Screening Dental Screen Date: 06/25/23 HPI annual PE HPI Details Pt is here for a PE. Will order labs. Due for colon screen. PSA is up to date, sees urology (low T). Pt is following up with the spine center due to lower back pain and recent spinal fusion on 12/09. Pt reports that the first 8 days after surgery he had severe pain (several ER visits). He is still experiencing lower back pain with radicular symptoms down his RLE. Will continue pt's oxycodone. Educated pt on risk of addiction, this is not a long-term med. Pt understands that they can not drive while taking this med, share this med, and to only take as prescribed. Pt still gets LDCTs, smoker. [facility] Medical History Smoker Arthritis Right arm numbness Bursitis and tendinitis of shoulder region Rotator cuff tear Right shoulder tendonitis Hand arthritis Nerve root compression Chronic radicular pain of lower back Surgical History History of spinal surgery (12/10/23) Hx of colonoscopy S/P left rotator cuff repair (~2014) History of lumbar discectomy Lung mass (~1976) Family History Father Cancer Mother HTN (hypertension) Social History Household Members: Spouse Housing: House Are you a primary health care assistant to a significant other at home: No Do you presently have visiting nurse or other home services: No Patient Tobacco Use Status: Current everyday Tobacco user Tobacco use type: Cigarette Cigarettes Per Day: 10 Years Smoked: over 30 years e-Cigarette/Vaping Use: Never Used Second Hand Smoke Exposure: Yes service: Yes Current occupational status: employed Current occupation: rt handed Cognitive needs: No Hearing needs: No Vision needs: Yes (contacts) Questionnaire PHQ-9 Over the last 2 weeks, how often have you been bothered by any of the following problems? 1. Little interest or pleasure in doing things: not at all 2. Feeling down, depressed, or hopeless: not at all 3. Trouble falling or staying asleep, or sleeping too much: several days 4. Feeling tired or having little energy: several days 5. Poor appetite or overeating: several days 6. Feeling bad about yourself - or that you are a failure or have let yourself or your family down: not at all 7. Trouble concentrating on things, such as reading the newspaper or watching television: not at all 8. Moving or speaking so slowly that other people could have noticed. Or the opposite - being so fidgety or restless that you have been moving around a lot more than usual: not at all 9. Thoughts that you would be better off or of hurting yourself in some way: not at all Total score: 3 Depression Screening Interpretation: Negative Depression Screening Done: Yes 97187 - PHQ-9 Billing: Yes Source: Developed by Drs. Carlos Rizzo, Joycelyn Black, Ben Duarte and colleagues, with an educational essence from [employer]. Thrive Questionnaire Date Thrive assessed: 01/29/24 I am a: Patient What is your living situation today?: I have a steady place to live Within the past 12 months, did the food you bought not last and you didn't have the money to get more?: Never true Within the past 12 months, did you worry whether your food would run out before you got money to buy more?: Never true Do you have trouble paying for medicines?: No Do you have trouble getting transportation to medical appointments?: No Do you have trouble paying your heating and electricity bill?: No Do you have trouble taking care of your child, family member or friend?: No Do you have trouble with day-to-day activities such as bathing, preparing meals, shopping, managing finances, etc.?: No Are you currently unemployed and looking for a job?: No Are you interested in more education?: No Please select the resources that you would like help with: None Currently or been in a relationship where the following occur: No concerns reported THRIVE Score: 0 AUDIT C Alcohol Use Questionnaire (AUDIT-C) 1. How often do you have a drink containing alcohol?: Never 3. How often do you have six or more drinks on one occasion?: Never Total Score: 0 Score Reviewed/Action Taken: Yes STEVE-7 AMB Questionnaire STEVE-7 Date STEVE - 7 assessed: 01/29/24 Feeling nervous, anxious, or on edge: 1 = Several days Not being able to stop or control worryin = Not at all Worrying too much about different things: 1 = Several days Trouble relaxin = Several days Being so restless that it is hard to sit still: 0 = Not at all Becoming easily annoyed or irritable: 1 = Several days Feeling afraid as if something awful might happen: 0 = Not at all Total STEVE-7 score (0-4 normal; 5-9 mild; 10-14 moderate; 15-21 severe): 4 Source: Developed by Drs. Carlos Rizzo, Joycelyn Black, Ben Duarte and colleagues, with an educational essence from [employer]. STEVE-7 Assessment Billing STEVE-7 Assessment Tool: STEVE-7 Assessment 02494 Review of Systems Const Denies chills and Denies fever(s) Eyes Denies blurry vision ENT Denies vertigo, Denies dizziness and Denies sore throat Card Denies chest pain at rest, Denies chest pain with activity, Denies diaphoresis, Denies dyspnea and Denies dyspnea on exertion Resp Denies cough, Denies dyspnea, Denies dyspnea on exertion and Denies wheezing GI Denies abdominal pain, Denies melena, Denies hematochezia, Denies constipation, Denies diarrhea and Denies loose stools Denies hematuria Musc Reports numbness (RLE) and Reports tingling (RLE) Skin/Breast Denies lesions Neuro Denies vertigo, Denies dizziness, Reports numbness (RLE) and Reports tingling (RLE) Psych Denies anxiety, Denies depression, Denies homicidal ideation, Denies suicidal ideation and Denies other (substance abuse) Aller/Immun Denies wheezing Physical exam (Primary Care) Vital Signs: Last Vital Signs Pulse 66 01/29/24 08:56 BP 136/72 01/29/24 08:56 Pulse Ox 97 01/29/24 08:56 BMI result Body Mass Index 28.1 Tobacco/Smoking Status: Tobacco use Status Tobacco use date assessed 06/25/23 01/29/24 08:57 Patient Tobacco Use Status Current everyday Tobacco 01/29/24 08:57 Tobacco use type Cigarette 01/29/24 08:57 e-Cigarette/Vaping Use Never Used 01/29/24 08:57 PHQ-9: PHQ-9 Score PHQ-9: Total score 3 01/29/24 09:29 Depression Screening Interpretation: Negative Thrive Assessment: Date of Thrive Assessment Date Thrive assessed 01/29/24 01/29/24 08:57 Currently or been in a relationship where the following occur: No concerns reported Const Other: limping gait General: cooperative Nutritional Appearance: well nourished Orientation/consciousness: patient oriented x3 HENMT Head: Yes normal to inspection, Yes normocephalic and Yes atraumatic Ears: TM's normal bilaterally Eyes General: appearance normal, both eyes and all related structures Alignment and Position: alignment normal and position normal Neck Neck: Yes normal visual inspection, Yes no lymphadenopathy and Yes supple Resp Other: faint expiratory wheezes Effort & Inspection: normal respiratory effort Cardio Rate: regular rate Rhythm: regular rhythm Heart sounds: S1 normal heart sound present, S2 normal heart sound present and no murmurs GI Palpation (GI): Soft to palpation and nontender Auscultation: normal bowel sounds Male General Exam: Yes normal external exam Penis: normal penis Scrotum: scrotum normal, testes descended bilaterally and no inguinal hernias Testes: no testicular mass Skin Rashes: no rashes Neuro General: patient oriented x3, moves all extremities, no focal motor deficits and deep tendon reflexes 2+ bilaterally Romberg Test: Negative Extrem Other: tenderness with palpation of anterior RLE (thigh region) Psych Appearance: grossly normal Mental Status: mental status grossly normal Speech and movement: Normal speech and movement present Affect: normal affect Attitude: cooperative Thought process: Normal thought process present Thought content: Normal thought content present Insight: Good insight present (Psych) Judgement: Good judgement present (Psych) Coding Level of Care Code Est Pt Prev Care 40-64y(46095) Diagnoses Encounter for routine adult physical exam with abnormal findings Z00. Lumbar radiculopathy M54.16 Additional Codes STEVE-7 Assessment Billing - STEVE-7 Assessment Tool: STEVE-7 Assessment 85433 ([id number]) Assessment & Plan Assessment & Plan (1) Encounter for routine adult physical exam with abnormal findings: Code(s): Z00. - Encounter for general adult medical examination with abnormal findings Category: Medical Plan: Labs ordered (2) Lumbar radiculopathy: Code(s): M54.16 - Radiculopathy, lumbar region Category: Medical Plan: seen at spine center Plan The patient agreed to the use of a clinical medical transcriptionist for this encounter. Scribed for FRANKIE Breaux by Staci Farr clinical medical transcriptionist, on 01/29/2024 at 09:25 EST. Orders: Orders Complete Blood Count Auto Diff Today Z00.01 - Encounter for general adult medical examination with abnormal findings TSH reflex Free T4 Today Z00.01 - Encounter for general adult medical examination with abnormal findings UA CC w/rflx Micro + Cult Today Z00.01 - Encounter for general adult medical examination with abnormal findings Lipid Panel Today Z00.01 - Encounter for general adult medical examination with abnormal findings Comprehensive Balsam. Panel Fast Today Z00.01 - Encounter for general adult medical examination with abnormal findings Medications: Refilled oxycodone Partial Fill upon patient request. 5 mg PO Q6H PRN 30 tabs 0RF severe pain (scale score 7-10)
== END 2024-01-29 11:33 | disposition home or self-care (01) ==
PROVIDERS: PCP Nurse Practitioner Family; Visit Provider Nurse Practitioner Family
DX: Z00.01 Encounter for general adult medical examination with abnormal findings (principal); M54.16 Radiculopathy, lumbar region

== ENCOUNTER → 2024-01-29 08:46 | Outpatient (BNVA) | payer OTHER, SELFPAY | PROVIDERS: PCP Nurse Practitioner Family; Visit Provider Nurse Practitioner Family | DX: Z00.01 Encounter for general adult medical examination with abnormal findings (principal); M54.16 Radiculopathy, lumbar region | CPT/HCPCS: 96127; 99396 ==

== ENCOUNTER 2024-02-07 07:22 | Day surgery (SDC) | payer OTHER, SELFPAY ==
[2024-01-27 13:23] VITALS: BMI 28.0
[2024-02-07] VITALS (8 sets, daily range): BP systolic 122–155; BP diastolic 55–71; PULSE 59–83; RESP 16–18; TEMP 36.2–36.6; O2SAT 95–99; BMI 27.7
[2024-02-07] MEDS: Lactated Ringers 1,000 ML 80 ML IVCONT (08:05)
--- NOTE | 2024-02-07 08:43 | HO.ANESPROP2 ---
HPI - Anesthesia Eval Consult details Narrative: shoulder repair PMFSH Active Problems Active Problems: All Active Problems Encounter for routine adult physical exam with abnormal findings (Acute) Status post lumbar and lumbosacral fusion by anterior technique (Acute) S/P spinal fusion (Acute) Impingement of right shoulder (Acute) Lumbar radiculopathy (Acute) Hypogonadism male (Acute) Bilateral hand pain (Acute) Nicotine dependence, cigarettes, uncomplicated (Acute) Erectile dysfunction (Acute) Low testosterone (Acute) Anemia (Acute) Fall (Acute) Low libido (Acute) Physical exam (Acute) Low back pain (Acute) Anxiety (Acute) Screening PSA (prostate specific antigen) (Acute) Fatigue (Acute) Smoker (Acute) Nicotine abuse (Acute) LLQ pain (Acute) Hematuria, microscopic (Acute) Diarrhea (Acute) Insomnia (Acute) Fatigue (Acute) Right shoulder pain (Acute) Cervical pain (neck) (Acute) Headache, occipital (Acute) Lung mass (Acute ~1976) Nerve root compression (Acute) Chronic radicular pain of lower back (Acute) Past Medical History Medical History Smoker Arthritis Right arm numbness Bursitis and tendinitis of shoulder region Rotator cuff tear Right shoulder tendonitis Hand arthritis Nerve root compression Chronic radicular pain of lower back Family History Family History Father Cancer Mother HTN (hypertension) Family history of problems with anesthesia: No Surgical History Surgical History History of spinal surgery (12/10/23) Hx of colonoscopy S/P left rotator cuff repair (~2014) History of lumbar discectomy Lung mass (~1976) History of Problems with Anesthesia: No Social History Social History Household Members: Spouse Housing: House Are you a primary customer care professional to a significant other at home: No Do you presently have visiting nurse or other home services: No Patient Tobacco Use Status: Current everyday Tobacco user Tobacco use type: Cigarette Cigarettes Per Day: 10 Years Smoked: over 30 years Smoked in Last 30 Days: Yes e-Cigarette/Vaping Use: Never Used Second Hand Smoke Exposure: Yes Use of substances other than those prescribed or required for medical reasons: No Have you been hit, kicked, punched, or otherwise hurt by someone within the past year? If so, by whom?: No Are you DNR?: No Advance Directives: No Advance Directives Information Provided: Yes Advance Directives on File: No Recently lost weight without trying: Yes How much weight loss: 14-23 pounds Eating poorly because of decreased appetite: Yes Nutrition screen score: 5 Nutrition Risks: No Nutritional Risk service: Yes Current occupational status: employed Current occupation: rt handed Cognitive needs: No Hearing needs: No Vision needs: Yes (contacts) Meds Allergies Allergy/AdvReac Type Severity Reaction Status Date / Time No Known Allergies Allergy Verified 02/07/24 07:33 Active Medications: Current Medications Lactated Ringer's (Lr) 1,000 mls @ 80 mls/hr IVCONT .[id number] NANETTE Last Admin: 02/07/24 08:05 Dose: 80 mls/hr Home Medications ?Medication ?Instructions ?Recorded ?Confirmed ?Last Taken ?Type nicotine 7 mg/24 hr daily 1 patch transdermal NEEDED PRN 01/27/24 02/07/24 Unknown History transdermal patch (Nicoderm CQ) Smoking Cessation Exam Height,Weight and Vital Signs: Height 5 ft 8 in Weight 82.554 kg Last Vital Signs Temp 97.9 F 02/07/24 07:40 Pulse 70 02/07/24 07:40 Resp 16 02/07/24 07:40 BP 128/60 02/07/24 07:40 Pulse Ox 97 02/07/24 07:40 O2 Del Method Room Air 02/07/24 07:40 Airway Mallampati Class: III (atraumatic proview intubation for back surgery) TM Dist: >3cm Neck ROM: Full Heart: rrr Lungs: cta Assessment and Plan Assessment Anesthesia Assessment: Anesthesia Plan Discussed Final Anesthetic Review Family History of Problems with Anesthesia: No History of Problems with Anesthesia: No NPO: Yes ASA Class: III Final Preanesthetic Review: No Changes in Pt Med Stat, Meds/Allgs Chart Reviewed, Consent Obtained/Reviewed and Anes Risks/Benef Reviewed Patient Risk: Intermediate Procedure Risk: Intermediate Anesthetic Plan Anesthetic Plan: GA and Regional Block Disposition: Standard PACU
[2024-02-07] MEDS: Albuterol Sulfate (0.083%) 2.5 MG/3 ML VIAL.NEB INHALE (08:50)
[2024-02-07] MEDS: cefTRIAXone sodium 1 GM VIAL IVPUSH (11:55)
--- NOTE | 2024-02-07 12:00 | P.BOP_ITS ---
Brief Operative Note Date of Service: 02/07/24 Pre-op diagnosis: Right shoulder impingement syndrome, right shoulder acromioclavicular joint arthritis, right shoulder adhesive capsulitis Post-op diagnosis: same Procedure: Right shoulder diagnostic arthroscopy with right shoulder arthroscopic distal clavicle excision, right shoulder arthroscopic acromioplasty, right shoulder arthroscopic anterior capsular release, right shoulder manipulation under anesthesia Implants: none Surgeon: Cornell Gonzalez MD Anesthesia: GETA and regional Was an Residential Assistant used for this Procedure?: No Estimated blood loss (mL): 10 Pathology: none sent Condition: stable Disposition: PACU
--- NOTE | 2024-02-07 12:01 | P.OP_ITS ---
Operative Note Operative Note Date of Service: 02/07/24 Narrative: After the patient was identified as Quincy Hernandez and his right shoulder was initialed by myself the patient was brought to the holding area where a right shoulder interscalene regional block was performed by the anesthesiologist in routine fashion. The patient was then brought to the operating room where general anesthesia was induced by the anesthesiologist in routine fashion. The patient was given 2 g of IV Ancef preoperatively for infection prophylaxis. Examination under anesthesia of the patient's right shoulder showed decreased passive range of motion when compared to the left shoulder. The patient's right shoulder had passive forward flexion to 140 degrees compared to 170 degrees, external rotation to 40 degrees compared to 60 degrees, and internal rotation to 50 degrees compared to 60 degrees. The patient was gently positioned in the beach chair position with all bony prominences well padded. The patient's right shoulder region and upper extremity were prepped and draped in sterile fashion. A formal time-out was completed. A #11 scalpel blade was used to make a posterior portal 2 cm inferior and 1 cm medial to the posterolateral corner of the acromion. Blunt trocar technique was used to enter the glenohumeral joint in routine fashion. An anterior portal was made just lateral to the coracoid process after proper positioning was confirmed using a spinal needle. Diagnostic arthroscopy showed minimal degenerative changes of the glenoid and humeral head articular surfaces. There was no evidence of rotator cuff tearing. There was no evidence of injury to the biceps tendon or its insertion onto the glenoid. There was inflammation of the anterior joint capsule consistent with adhesive capsulitis. The ArthroCare Wand was then used to perform an anterior capsular release between the inferior border of the biceps tendon and the superior border of the subscapularis tendon. The arthroscope was then placed from the posterior portal into the subacromial space. A lateral portal was made 2 fingerbreadths lateral to the anterior lateral corner of the acromion. The ArthroCare Wand was used to ablate soft tissues along the undersurface of the acromion as well as to excise the coracoacromial ligament. There was a sharp spur along the undersurface of the acromion which was removed using the hooded bur. The arthroscope was then placed into the lateral portal and the acr omioplasty was completed with the bur in the posterior portal using the posterior aspect of the acromion as a cutting block. The ArthroCare Wand was then brought in through the anterior portal and was used to ablate soft tissues along the acromioclavicular joint and distal clavicle. The posterior and superior ligamentous structures were left intact. A distal clavicle excision of 8 mm was performed using the fluted bur. Any remaining bursal tissue was removed using the arthroscopic shaver. The subacromial space was irrigated and then drained. All arthroscopic instruments were removed. A gentle manipulation under anesthesia was then performed. Full passive range of motion was easily attained. The 3 portals were closed with 3-0 nylon interrupted suture. The subacromial space was injected with Marcaine. Dry sterile dressing was placed over all incisions. The patient's right upper extremity was placed into a sling. The patient was awoken and extubated in the operating room. The patient was transferred to the recovery room in stable condition.
== END 2024-02-07 12:55 | disposition home or self-care (01) ==
PROVIDERS: PCP Nurse Practitioner Family; Visit Provider Orthopaedic Surgery
PROC: (CPT 29805; principal; 2024-02-07 09:30)
DX: M75.41 Impingement syndrome of right shoulder (principal); M75.01 Adhesive capsulitis of right shoulder; M19.011 Primary osteoarthritis, right shoulder; G54.9 Nerve root and plexus disorder, unspecified; R20.0 Anesthesia of skin; Z79.899 Other long term (current) drug therapy; F17.210 Nicotine dependence, cigarettes, uncomplicated; Z98.890 Other specified postprocedural states
CPT/HCPCS: 29824; 29825; 29826; 94640; J0131; J0171; J0665; J0690; J0696; J1100; J1596; J1885; J2003; J2250; J2371; J2405; J2704; J2710; J2795; J3010

== ENCOUNTER → 2024-02-07 07:22 | Outpatient (BNV) | payer OTHER, SELFPAY | PROVIDERS: PCP Nurse Practitioner Family; Visit Provider Orthopaedic Surgery | DX: M75.41 Impingement syndrome of right shoulder (principal); M19.011 Primary osteoarthritis, right shoulder; M75.01 Adhesive capsulitis of right shoulder | CPT/HCPCS: 29824; 29826 ==

== ENCOUNTER 2024-02-14 14:06 | Outpatient (AMB) | payer OTHER, SELFPAY ==
--- NOTE | 2024-02-14 14:38 | HO.SPINEOV ---
Intake Visit Reasons: follow up Intake Note: Mr. Hernandez is here today for a F/u. Recreation Director Required: No Allergies No Known Allergies Allergy (Verified 02/07/24 07:33) Assessment & Plan Assessment & Plan (1) S/P spinal fusion: Code(s): Z98.1 - Arthrodesis status Category: Surgical Plan Mr Hernandez is now about 2 months out from his lumbar fusion. The back pain is significantly better than was before surgery. He is still dealing with the pain in the anterior thigh that does not seem to have gotten all that better. It started about a week after surgery in his been persistent. It is a very hypersensitive disc anesthesia type pain that is uncomfortable just evening having something rub up against it. We have never exactly been able to establish a source of this. He has postoperative MRI showed no residual nerve compression. There was concern that maybe there was some irritation of the bone from implantation of the cage which may have caused some local irritation lungs some part of the lumbar plexus which might explain it. We are not sure if this is 100% the source but we did see some signs that the bone was disrupted on the contralateral side of the cage. Nonetheless, this should be healed up by now. We will check a set of x-rays just to make sure the cases not settle in an awkward way. I refilled his oxycodone for 1 last time. I will call him with the results of the x-rays. Jorje Del Rio MD, PhD [facility] Orders: Orders XR lumbar spine 4V min Today Z98.1 - Arthrodesis status Medications: Refilled oxycodone Partial Fill upon patient request. 5 mg PO Q6H PRN 30 tabs 0RF severe pain (scale score 7-10) Coding Level of Care Code Global (99411) Diagnoses S/P spinal fusion Z98.1
== END 2024-02-14 15:16 | disposition home or self-care (01) ==
PROVIDERS: PCP Nurse Practitioner Family; Visit Provider Physician Assistant
DX: Z98.1 Arthrodesis status (principal)
CPT/HCPCS: 99024

== ENCOUNTER 2024-02-14 14:06 | Outpatient (REF) | payer OTHER, SELFPAY | END 2024-02-14 14:07 | disposition home or self-care (01) | LOC: HO.HOSX 14:06 | PROVIDERS: PCP Nurse Practitioner Family; Visit Provider Physician Assistant | DX: Z98.1 Arthrodesis status (principal) | CPT/HCPCS: 72110; 99212 ==

== ENCOUNTER 2024-02-20 13:41 | Outpatient (AMB) | payer OTHER, SELFPAY ==
[2024-02-20 13:49] VITALS: BMI 28.0
--- NOTE | 2024-02-20 13:49 | MHC.OFFVIS ---
Vital Signs 02/20/24 13:49 Height 5 ft 8 in Weight 184 lb BMI 28.0 Intake Visit Reasons: PO RT shoulder 02/07/24 Intake Note: Quincy is a 53 year old male who presents today post operatively s/p right shoulder 02/07/24. Patient reports mild pain. He continues with his home stretching program. He does take oxycodone as needed for his discomfort. He denies any fevers or chills. Allergies No Known Allergies Allergy (Verified 02/20/24 13:50) Medication List - Last Reconciled 02/20/24 by Cornell Gonzalez MD acetaminophen 1,000 mg (2 x 500 mg) PO Q8H PRN nicotine (Nicoderm CQ) 1 patch transdermal NEEDED PRN oxycodone 10 mg (2 x 5 mg) PO Q4H PRN oxycodone 5 mg PO Q6H PRN PFSH Medical History Smoker Arthritis Right arm numbness Bursitis and tendinitis of shoulder region Rotator cuff tear Right shoulder tendonitis Hand arthritis Nerve root compression Chronic radicular pain of lower back Surgical History History of spinal surgery (12/10/23) Hx of colonoscopy S/P left rotator cuff repair (~2014) History of lumbar discectomy Lung mass (~1976) Family History Father Cancer Mother HTN (hypertension) Social History Household Members: Spouse Housing: House Are you a primary child care teacher to a significant other at home: No Do you presently have visiting nurse or other home services: No Patient Tobacco Use Status: Current everyday Tobacco user Tobacco use type: Cigarette Cigarettes Per Day: 10 Years Smoked: over 30 years e-Cigarette/Vaping Use: Never Used Second Hand Smoke Exposure: Yes service: Yes Current occupational status: employed Current occupation: rt handed Cognitive needs: No Hearing needs: No Vision needs: Yes (contacts) Physical Exam Vital Signs: BMI result Body Mass Index 28.0 Extrem Other: Right shoulder examination shows that the surgical incisions are well healed, no erythema, mild discomfort with range of motion, no instability Assessment & Plan Assessment & Plan (1) Right shoulder pain: Code(s): M25.511 - Pain in right shoulder Category: Medical Plan Mr. Hernandez is doing very well after undergoing right shoulder arthroscopic surgery on 02/07/2024. His sutures were removed and Steri-Strips placed over his incisions. He will continue with his home stretching program. I did refill his prescription for oxycodone. Will contact me prior to his follow-up appointment in 6 weeks should any questions or concerns arise. Feel free to call me at any time should questions regarding his orthopedic management arise. Medications: Changed From oxycodone Partial Fill upon patient request. Take 1-2 tabs every 4 hours as needed for pain after your right shoulder surgery. 10 mg (2 x 5 mg) PO Q4H PRN 40 tabs 0RF pain To oxycodone Partial Fill upon patient request. 5 mg PO Q4H PRN 40 tabs 0RF pain Coding Level of Care Code Global (65016) Diagnoses Right shoulder pain M25.511
== END 2024-02-20 14:05 | disposition home or self-care (01) ==
PROVIDERS: PCP Nurse Practitioner Family; Visit Provider Orthopaedic Surgery
DX: M25.511 Pain in right shoulder (principal)
CPT/HCPCS: 99024

== ENCOUNTER → 2024-02-20 13:41 | Outpatient (BNVA) | payer OTHER, SELFPAY | PROVIDERS: PCP Nurse Practitioner Family; Visit Provider Orthopaedic Surgery | DX: M25.511 Pain in right shoulder (principal); Z91.85 Personal history of military service | CPT/HCPCS: 99212 ==

== ENCOUNTER 2024-03-23 14:20 | Outpatient (REF) | payer OTHER, SELFPAY ==
[2024-03-23 16:33] LABS: Hematocrit 40.4 % (42.0-52.0); Hemoglobin 13.4 g/dl (14.0-18.0); Mean Corpuscular HGB Conc 33.2 g/dl (31.0-36.0); Mean Corpuscular Hemoglobin 30.2 pg (27.0-33.0); Mean Corpuscular Volume 91.2 fL (80.0-98.0); Mean Platelet Volume 11.1 fL (9.4-12.4); Platelet Count 236 X10*3/uL (160-400); Red Blood Count 4.43 X10*6/uL (4.60-5.80); Red Cell Distribution Width 12.9 % (11.0-16.0); White Blood Count 8.4 X10*3/uL (4.8-10.8)
[2024-03-23 17:13] LABS: Prostate Specific Antigen 0.28 ng/mL (<0.05-4.0)
[2024-03-28 16:22] LABS: Testosterone, Free 22.4 pg/mL (35.0-155.0); Testosterone, Total 246 ng/dL (250-1100)
== END 2024-03-23 14:21 | disposition home or self-care (01) ==
LOC: HO.HMGCLDS 14:20
PROVIDERS: PCP Nurse Practitioner Family; Visit Provider Nurse Practitioner Family
DX: E29.1 Testicular hypofunction (principal); Z12.5 Encounter for screening for malignant neoplasm of prostate
CPT/HCPCS: 36415; 84153; 84402; 84403; 85027

== ENCOUNTER 2024-04-02 13:31 | Outpatient (AMB) | payer OTHER, SELFPAY ==
--- OUTSIDE RECORDS SUMMARY | 2024-04-02 13:32 | XMS_ITS | Continuity of Care Document ---
Author Name [facility] Organization [facility] Care Team Providers Care Animal Care Technician Name Role Phone [facility] Unavailable Unavailable Problems Combined list of problems from Department of Defense and Veterans Affairs facilities. It does not include entries that were removed or entered in error. 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 [facility] refractive error Active Condition [facility] visit for: preoperative exam Active Condition DoD nicotine dependence Active Condition DoD dermatophytosis tinea manuum Active Condition DoD Macules And Papules Inactive Condition DoD Blood Pressure Isolated Elevated Active Condition [facility] visit for: services physical pre-deployment Inactive Condition DoD joint pain, localized in the knee Inactive Condition DoD marital problem Active Condition [facility] Occupational Therapy Inactive Condition DoD sleep disturbances Inactive Condition s leep disturbances DoD insomnia Active Condition DoD no psychiatric diagnosis on axis II Active Condition DoD occupational problem Active Condition DoD partner relational problem Inactive Condition 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 Medication Details Route Status Patient Instructions Prescription Expires Prescription Number Last Dispense Date Ordering Provider Order Date Order Qty Source IBUPROFEN (ibuprofen) , 600 MG, TABLET, ORAL, [facility], 500 ea. BOTTLE Active [id number] 2023 30 Pharmac y Data Transac tion Service Facilit y OXYCODONE HCL (oxycodone HCl), 10 MG, TABLET, ORAL, [employer], 100 ea. BOTTLE Active [id number] 05/21/ 2024 20 Pharmac y Data Transac tion Service Facilit y OXYCODONE HCL (oxycodone HCl), 10 MG, TABLET, ORAL, [employer], 100 ea. BOTTLE Active [id number] 2023 20 Pharmac y Data Transac tion Service Facilit y OXYCODONE HCL (oxycodone HCl), 10 MG, TABLET, ORAL, [employer], 100 ea. BOTTLE Active [id number] 2023 20 Pharmac y Data Transac tion Service Facilit y OXYCODONE HCL (oxycodone HCl), 10 MG, TABLET, ORAL, [employer], 100 ea. BOTTLE Active [id number] 2022 20 Pharmac y Data Transac tion Service Facilit y OXYCODONE-A CETAMINOPHE N (OXYCODONE HCL/ACETAMI NOPHEN), 5MG-325MG, TABLET, ORAL, [employer], 500 ea. BOTTLE Active [id number] 2023 12 Pharmac y Data Transac tion Service Facilit y PREDNISONE (PREDNISONE ), 50MG, TABLET, ORAL, [facility] 100 ea. BOTTLE Active [id number] 2022 6 Pharmac y Data Transac tion Service Facilit y Allergies, Adverse Reactions, Alerts Combined list of allergies from Department of Defense and Veterans Affairs facilities. It does not include entries that were removed or entered in error. Substance Category Reaction Severity Reaction type Status Date Reported Comments Source VACCINES {Cla } Drug allergy (disorder) Swelling of arm active 5 [employer] VACCINES {Cla } Propensity to adverse reactions to drug Swelling of arm Active 5 Chickenpox vaccine Ambulatory Pharmacy Immunizations Combined list of available immunizations from the Department of Defense and Veterans Affairs facilities. Immunization Series Date Given Administered By Site Reaction Lot Number CVX Code Drug State Inspector Status Comments Source influenza, injectable, quadrivalent- pf 2021 [id number] [employer] ne complet ed influenza , injectabl e, quadrival ent-pf 02/14/22 Given Ambulat ory Pharmac y COVID Vaccine Moderna 2020 [id number] complet ed COVID Vaccine Moderna 07/16/20 Given Ambulat ory Pharmac y COVID Vaccine Moderna 2020 [id number] 207 complet ed COVID Vaccine Moderna 06/18/20 Given Ambulat ory Pharmac y influenza, injectable, quadrivalent- pf 2019 [id number] 150 Seq[employer] complet ed influenza , injectabl e, quadrival ent-pf 01/24/20 Given Ambulat ory Pharmac y influenza, injectable, quadrivalent- pf 2017 150 [employer] complet ed influenza , injectabl e, quadrival ent-pf 01/31/18 Given Ambulat ory Pharmac y influenza, injectable, quadrivalent- pf 2017 150 complet ed influenza , injectabl e, quadrival ent-pf 01/31/18 Given Ambulat ory Pharmac y Influenza, injectable, quadrivalent, preservative free 0 2017 150 (MVX) complet ed Influenza , injectabl e, quadrival ent, preservat khoa free DoD influenza, seasonal, injectable-pf 2017 [id number] [employer] complet ed influenza , seasonal, injectabl e-pf 01/25/18 Given Ambulat ory Pharmac y influenza, seasonal, injectable-pf 2017 [id number] 140 [employer] complet ed influenza , seasonal, injectabl e-pf 01/25/18 Given Ambulat ory Pharmac y Influenza, seasonal, injectable, preservative free 1 2017 [id number] 140 Se[employer]irus (SEQ) comple t ed Influenza , seasonal, injectabl e, preservat khoa free DoD influenza, seasonal, injectable-pf 2016 [id number] 140 [employer] complet ed influenza , seasonal, injectabl e-pf 03/13/17 Given Ambulat ory Pharmac y Influenza, inj, MDCK, quadrivalent- pf 2016 171 complet ed Influenza , inj, MDCK, quadrival ent-pf 03/13/17 Given Ambulat ory Pharmac y Influenza, injectable, MDCK, preservative free, quadrivalent 2016 [id number], () Not Given Influenza , injectabl e, MDCK, preservat khoa free, quadrival ent DoD Influenza, seasonal, injectable, preservative free 1 2016 [id number] 140 Se[employer]irus (SEQ) comple t ed Influenza , seasonal, injectabl e, preservat khoa free DoD influenza, seasonal, injectable 2015 [id number] 141 GlaxoSmithKli ne complet ed influenza , seasonal, injectabl e 01/10/16 Given Ambulat ory Pharmac y influenza, seasonal, injectable 2015 [id number] 141 GlaxoSmithKli ne complet ed influenza , seasonal, injectabl e 01/10/16 Given Ambulat ory Pharmac y Influenza, seasonal, injectable 1 2015 [id number] 141 Smithine (SKB) complet ed Influenza , seasonal, injectabl e DoD influenza, seasonal, injectable-pf 2014 [id number] 140 CSL Behring complet ed influenza , seasonal, injectabl e-pf 12/19/14 Given Ambulat ory Pharmac y influenza, seasonal, injectable-pf 2014 [id number] 140 C[employer]ring complet ed influenza , seasonal, injectabl e-pf 12/19/14 Given Ambulat ory Pharmac y Influenza, seasonal, injectable, preservative free 1 2014 [id number] 140 [employer] (CSL) complet ed Influenza , seasonal, injectabl e, preservat khoa free DoD varicella virus vaccine 2 2014 UNK 21 Unknown (UNK) Not Given varicella virus vaccine DoD influenza, seasonal, injectable-pf 2013 [id number] 140 GlaxoSmithKli ne complet ed influenza , seasonal, injectabl e-pf 01/05/14 Given Ambulat ory Pharmac y influenza, seasonal, injectable-pf 2013 [id number] 140 GlaxoSmithKli ne complet ed influenza , seasonal, injectabl e-pf 01/05/14 Given Ambulat ory Pharmac y Influenza, seasonal, injectable, preservative free 1 2013 [id number] 140 Smithine (SKB) complet ed Influenza , seasonal, injectabl e, preservat khoa free DoD varicella virus vaccine 2013 [id number] Merck & Company Inc complet ed varicella virus vaccine 06/04/13 Given Ambulat ory Pharmac y varicella virus vaccine 1 2013 [id number] 21 Merck (MSD) complet ed varicella virus vaccine DoD influenza, seasonal, injectable-pf 2012 [id number] 140 [employer] comple t ed influenza , seasonal, injectabl e-pf 02/07/13 Given Ambulat ory Pharmac y influenza, seasonal, injectable-pf 2012 [id number] 140 [employer] comple t ed influenza , seasonal, injectabl e-pf 02/07/13 Given Ambulat ory Pharmac y Influenza, seasonal, injectable, preservative free 1 2012 [id number] 140 [employer] (MED) complet ed Influenza , seasonal, injectabl e, preservat khoa free DoD influenza, seasonal, injectable-pf 2011 [id number] 140 Unknown complet ed influenza , seasonal, injectabl e-pf 01/24/12 Given Ambulat ory Pharmac y Influenza, seasonal, injectable, preservative free 1 2011 [id number] 140 Unknown (UNK) comple t ed Influenza , seasonal, injectabl e, preservat khoa free DoD influenza, seasonal, injectable 2010 [id number] 141 CSL Behring complet ed influenza , seasonal, injectabl e 02/02/11 Given Ambulat ory Pharmac y tuberculin purified protein derivative 2010 [id number] complet ed tuberculi n purified protein derivativ e 02/02/11 Given Ambulat ory Pharmac y influenza, seasonal, injectable 2010 [id number] [id number] 141 CSL Behring complet ed influenza , seasonal, injectabl e 02/02/11 Given Ambulat ory Pharmac y Influenza, seasonal, injectable 1 2010 [id number] 141 [employer] (CSL) complet ed Influenza , seasonal, injectabl e DoD rabies vaccine, IM 2010 [id number] 175 Novartis Pharmaceutica ls complet ed rabies vaccine, IM 11/25/10 Given Ambulat ory Pharmac y rabies vaccine, IM 2010 [id number] 175 Novartis Pharmaceutica ls complet ed rabies vaccine, IM 11/25/10 Given Ambulat ory Pharmac y rabies vaccine, for intramuscular injection RETIRED CODE 5 2010 [id number] 18 Novartis Pharmaceutica l Kofi. (NOV) complet ed rabies vaccine, for intramusc ular injection RETIRED CODE DoD rabies vaccine, IM 2010 [id number] 175 Novartis Pharmaceutica ls complet ed rabies vaccine, IM 11/04/10 Given Ambulat ory Pharmac y rabies vaccine, IM 2010 [id number] 175 Novartis Pharmaceut[employer] ls complet ed rabies vaccine, IM 11/04/10 Given Ambulat ory Pharmac y rabies vaccine, for intramuscular injection RETIRED CODE 4 2010 [id number] 18 Novartis Pharmaceutica l Kofi. (FEB) complet ed rabies vaccine, for intramusc ular injection RETIRED CODE DoD rabies vaccine, IM 2010 [id number] 175 Novartis Pharmaceutica ls complet ed rabies vaccine, IM 10/28/10 Given Ambulat ory Pharmac y rabies vaccine, for intramuscular injection RETIRED CODE 3 2010 [id number] 18 Novartis Pharmaceutica l Kofi. (FEB) complet ed rabies vaccine, for intramusc ular injection RETIRED CODE DoD anthrax vaccine 2010 [id number] 24 [employer] complet ed anthrax vaccine 09/20/10 Given Ambulat ory Pharmac y anthrax vaccine 2010 [id number] 24 [employer] complet ed anthrax vaccine 09/20/10 Given Ambulat ory Pharmac y anthrax vaccine 3 2010 [id number] 24 [employer] Cologne (MIP) complet ed anthrax vaccine DoD rabies vaccine, IM 2010 [id number] 175 complet ed rabies vaccine, IM 06/13/10 Given Ambulat ory Pharmac y rabies vaccine, IM 2010 [id number] 175 complet ed rabies vaccine, IM 06/13/10 Given Ambulat ory Pharmac y rabies vaccine, for intramuscular injection RETIRED CODE 2 2010 [id number] 18 Aviron (ROQUE) complet ed rabies vaccine, for intramusc ular injection RETIRED CODE DoD yellow fever vaccine 2010 [id number] 37 complet ed yellow fever vaccine 06/05/10 Given Ambulat ory Pharmac y rabies vaccine, IM 2010 [id number] 175 Novartis Pharmaceutica ls complet ed rabies vaccine, IM 06/05/10 Given Ambulat ory Pharmac y measles/mumps /rubella virus vaccine 2010 UNK 03 Unknown complet ed measles/m umps/rube lla virus vaccine 06/05/10 Given Ambulat ory Pharmac y yellow fever vaccine 2010 [id number] 37 complet ed yellow fever vaccine 06/05/10 Given Ambulat ory Pharmac y rabies vaccine, IM 2010 [id number] 175 Novartis Pharmaceutica ls complet ed rabies vaccine, IM 06/05/10 Given Ambulat ory Pharmac y measles, mumps and rubella virus vaccine 2 2010 UNK 03 Unknown (UNK) comple t ed measles, mumps and rubella virus vaccine DoD rabies vaccine, for intramuscular injection RETIRED CODE 1 2010 [id number] 18 Novartis Bharat Matrimony. (NOV) complet ed rabies vaccine, for intramusc ular injection RETIRED CODE DoD yellow fever vaccine 1 2010 [id number] 37 Aviron (ROQUE) complet ed yellow fever vaccine DoD anthrax vaccine 2010 [id number] [employer] complet ed anthrax vaccine 05/01/10 Given Ambulat ory Pharmac y anthrax vaccine 2010 [id number] 24 [employer] complet ed anthrax vaccine 05/01/10 Given Ambulat ory Pharmac y anthrax vaccine 2 2010 [id number] 24 [employer] (MIP) complet ed anthrax vaccine DoD anthrax vaccine 2009 [id number] 24 [employer] complet ed anthrax vaccine 03/21/10 Given Ambulat ory Pharmac y tuberculin purified protein derivative 2009 [id number] 96 complet ed tuberculi n purified protein derivativ e 03/21/10 Given Ambulat ory Pharmac y tetanus, diphtheria, acellular pertu is 2009 [id number] 115 GlaxoSmithKli ne complet ed tetanus, diphtheri a, acellular pertussis 03/21/10 Given Ambulat ory Pharmac y typhoid Vi capsular polysaccharid e vac 2009 [id number] 101 Unknown complet ed typhoid Vi capsular polysacch aride vac 03/21/10 Given Ambulat ory Pharmac y anthrax vaccine 2009 [id number] [employer] complet ed anthrax vaccine 03/21/10 Given Ambulat ory Pharmac y tetanus, diphtheria, acellular pertu is 2009 [id number] 115 GlaxoSmithKli ne complet ed tetanus, diphtheri a, acellular pertussis 03/21/10 Given Ambulat ory Pharmac y typhoid Vi capsular polysaccharid e vac 2009 [id number] 101 Unknown complet ed typhoid Vi capsular polysacch aride vac 03/21/10 Given Ambulat ory Pharmac y anthrax vaccine 1 2009 [id number] [employer] (MIP) complet ed anthrax vaccine DoD typhoid Vi capsular polysaccharid e vaccine 1 2009 [id number] 101 Unknown (UNK) comple t ed typhoid Vi capsular polysacch aride vaccine DoD tetanus toxoid, reduced diphtheria toxoid, and acellular pertu is vaccine, adsorbed 1 2009 [id number] [place] [address] (SKB) complet ed tetanus toxoid, reduced diphtheri a toxoid, and acellular pertussis vaccine, adsorbed DoD influenza virus vaccine,split 2009 [id number] 15 Unknown complet ed influenza virus vaccine,s plit 03/17/10 Given Ambulat ory Pharmac y influenza virus vaccine,split 2009 [id number] 15 Unknown complet ed influenza virus vaccine,s plit 03/17/10 Given Ambulat ory Pharmac y influenza virus vaccine, split virus (incl. purified surface antigen)-reti red CODE 1 2009 [id number] 15 Unknown (UNK) comple t ed influenza virus vaccine, split virus (incl. purified surface antigen)- retired CODE DoD influenza virus vaccine,split 2008 [id number] 15 Unknown complet ed influenza virus vaccine,s plit 03/12/09 Given Ambulat ory Pharmac y influenza virus vaccine, split virus (incl. purified surface antigen)-reti red CODE 1 2008 [id number] 15 Unknown (UNK) complet ed influenza virus vaccine, split virus (incl. purified surface antigen)- retired CODE DoD influenza virus vaccine,split 2008 [id number] 15 Unknown complet ed influenza virus vaccine,s plit 04/18/08 Given Ambulat ory Pharmac y hepatitis A adult vaccine 2008 [id number] 52 GlaxoSmithKli ne complet ed hepatitis A adult vaccine 04/18/08 Given Ambulat ory Pharmac y influenza virus vaccine,split 2008 [id number] 1A 15 Unknown complet ed influenza virus vaccine,s plit 04/18/08 Given Ambulat ory Pharmac y hepatitis A adult vaccine 2008 [id number] 52 GlaxoSmithKli ne complet ed hepatitis A adult vaccine 04/18/08 Given Ambulat ory Pharmac y influenza virus vaccine, split virus (incl. purified surface antigen)-reti red CODE 1 2008 [id number] 1A 15 Unknown (UNK) complet ed influenza virus vaccine, split virus (incl. purified surface antigen)- retired CODE DoD hepatitis A vaccine, adult dosage 2 2008 [id number] SmithKline (SKB) complet ed hepatitis A vaccine, adult dosage DoD influenza virus vaccine, live 2005 [id number] 111 Unknown complet ed influenza virus vaccine, live 03/09/06 Given Ambulat ory Pharmac y influenza virus vaccine, live 2005 [id number] 111 Unknown complet ed influenza virus vaccine, live 03/09/06 Given Ambulat ory Pharmac y influenza virus vaccine, live, attenuated, for intranasal use 1 2005 [id number] 111 Unknown (UNK) comple t ed influenza virus vaccine, live, attenuate d, for intranasa l use DoD influenza virus vaccine,split 2001 UNK 15 sanofi pasteur complet ed influenza virus vaccine,s plit 02/23/02 Given Ambulat ory Pharmac y tetanus-dipht h toxoids (Td) adult/adol 2001 UNK 09 Unknown complet ed tetanus-d iphth toxoids (Td) adult/ado l 02/23/02 Given Ambulat ory Pharmac y measles/mumps /rubella virus vaccine 2001 UNK 03 Unknown complet ed measles/m umps/rube lla virus vaccine 02/23/02 Given Ambulat ory Pharmac y tetanus-dipht h toxoids (Td) adult/adol 2001 UNK 09 Unknown complet ed tetanus-d iphth toxoids (Td) adult/ado l 02/23/02 Given Ambulat ory Pharmac y measles/mumps /rubella virus vaccine 2001 UNK 03 Unknown complet ed measles/m umps/rube lla virus vaccine 02/23/02 Given Ambulat ory Pharmac y influenza virus vaccine,split 2001 UNK 15 sanofi pasteur complet ed influenza virus vaccine,s plit 02/23/02 Given Ambulat ory Pharmac y hepatitis A adult vaccine 2001 UNK 52 Unknown complet ed hepatitis A adult vaccine 02/23/02 Given Ambulat ory Pharmac y measles, mumps and rubella virus vaccine 0 2001 UNK 03 Unknown (UNK) comple t ed measles, mumps and rubella virus vaccine DoD tetanus and diphtheria toxoids, adsorbed, preservative free, for adult use (2 Lf of tetanus toxoid and 2 Lf of diphtheria toxoid) 0 2001 UNK 09 Unknown (UNK) comple t ed tetanus and diphtheri a toxoids, adsorbed, preservat khoa free, for adult use (2 Lf of tetanus toxoid and 2 Lf of diphtheri a toxoid) DoD influenza virus vaccine, split virus (incl. purified surface antigen)-reti red CODE 0 2001 UNK 15 Sanofi Pasteur ([facility]) complet ed influenza virus vaccine, split virus (incl. purified surface antigen)- retired CODE DoD hepatitis A vaccine, adult dosage 1 2001 UNK 52 Unknown (UNK) comple t ed hepatitis A vaccine, adult dosage DoD HepB, Adult 1996 UNK 43 Unknown complet ed HepB, Adult 11/24/96 Given Ambulat ory Pharmac y HepB, Adult 1996 UNK 43 Unknown complet ed HepB, Adult 11/24/96 Given Ambulat ory Pharmac y hepatitis B vaccine, adult dosage 3 1996 UNK 43 Unknown (UNK) comple t ed hepatitis B vaccine, adult dosage DoD HepB, Adult 1996 UNK 43 Unknown complet ed HepB, Adult 11/23/96 Given Ambulat ory Pharmac y HepB, Adult 1996 UNK 43 Unknown complet ed HepB, Adult 11/23/96 Given Ambulat ory Pharmac y hepatitis B vaccine, adult dosage 3 1996 UNK 43 Unknown (UNK) comple t ed hepatitis B vaccine, adult dosage DoD HepB, Adult 1996 UNK 43 Unknown complet ed HepB, Adult 06/18/96 Given Ambulat ory Pharmac y hepatitis B vaccine, adult dosage 2 1996 UNK 43 Unknown (UNK) comple t ed hepatitis B vaccine, adult dosage DoD HepB, Adult 1996 UNK 43 Unknown complet ed HepB, Adult 05/22/96 Given Ambulat ory Pharmac y HepB, Adult 1996 UNK 43 Unknown complet ed HepB, Adult 05/22/96 Given Ambulat ory Pharmac y hepatitis B vaccine, adult dosage 1 1996 UNK 43 Unknown (UNK) comple t ed hepatitis B vaccine, adult dosage DoD yellow fever vaccine 1995 UNK 37 Unknown complet ed yellow fever vaccine 08/24/95 Given Ambulat ory Pharmac y yellow fever vaccine 1995 UNK 37 Unknown complet ed yellow fever vaccine 08/24/95 Given Ambulat ory Pharmac y yellow fever vaccine 0 1995 UNK 37 Unknown (UNK) comple t ed yellow fever vaccine DoD measles and rubella virus vaccine 1987 UNK 04 Unknown complet ed measles and rubella virus vaccine 11/16/87 Given Ambulat ory Pharmac y poliovirus vaccine, live, oral 1987 UNK 02 Unknown complet ed polioviru s vaccine, live, oral 11/16/87 Given Ambulat ory Pharmac y measles and rubella virus vaccine 1987 UNK 04 Unknown complet ed measles and rubella virus vaccine 11/16/87 Given Ambulat ory Pharmac y poliovirus vaccine, live, oral 1987 UNK 02 Unknown complet ed polioviru s vaccine, live, oral 11/16/87 Given Ambulat ory Pharmac y trivalent poliovirus vaccine, live, oral 0 1987 UNK 02 Unknown (UNK) comple t ed trivalent polioviru s vaccine, live, oral DoD measles and rubella virus vaccine 0 1987 UNK 04 Unknown (UNK) comple t ed measles and rubella virus vaccine DoD Vital Signs Combined list of inpatient and outpatient Vital Signs from Department of Defense and Veterans Affairs, ranging from 12 months to all on record, depending upon the facility. Vital Sign Value Date Comments Source No data available for this section Ambulatory Pharmacy Encounters Combined list of: 1) Encounters from Department of Veterans Affairs facilities going back up to thelast 18 months. 2) Encounters from the Department of Defense facilities going back up to 280 months. Location Location Details Encounter Type Encounter Number Reason For Visit Attending Provider ADM Date DC Date Status Disposition Source [facility] Fidel Hawley(Hear ing Conservat ion [facility]) OUTPATIENT [id number] ARI Rubio 03/21 Released w/o Limitations [facility] Colquitt(He aring Conserv ation [facility]) [facility] [place](Sharonda gency Room) OUTPATIENT [id number] CATRACHITO CONNER 05/14 Released w/o Limitations [facility] [place](Em ergency Room) [facility] OUTPATIENT [id number] 10/31 Released w/o Limitations Theater Fac[facility] OUTPATIENT [id number] 11/16 Released w/o Limitations Theater [facility] OUTPATIENT [id number] 12/01 Released w/o Limitations Theater Facilit y [facility] [place]([facility] Hearing [facility]) OUTPATIENT [id number] RAQUELOB WHITE-FONT JOE BISWAS 02/02 Released w/o Limitations [facility] [place](SR P Hearing Program ) [facility](Merino scom COUNT INCLUDES THE [facility] Team B[facility] OUTPATIENT [id number] [facility] CARLOS JOHRYN 03/12 Released w/o Limitations [facility](H anscom COUNT INCLUDES THE [facility] Team B) [place] OUTPATIENT [id number] INITIAL EVAL BELINDA JUDGE 08/04 [place]ased w[place]o Limitations [place] [facility]) [place]IENT [id number] BELINDA PARSONS 08/13 Sick [place] Home/Qu[place] [facility] [facility] OUTPATIENT [id number] Notes Entered by: LISS JOLLEY 14 Aug 2012 0727 ------- ------- ------- ------- -- 1 DAY POST-OP BELINDA JUDGE 08/14 [place]ased w[place]o Limitations [place]IENT [id number] WEEK POP BELINDA JUDGE 08/21 Released w/o Limitations [place] [facility] OUT[place]IENT [id number] 1 MO POP BELINDA JUDGE 09/09 [place]ased w/o Limitations [place] [facility] OUT[place]IENT [id number] 3 mo POP LASIK OU by DR Judge on 13 AUG 2012 BELINDA JUDGE 11/25 [place]ased w/o Limitations [place] [facility] OUTPATIENT [id number] 5 Mon POP LASIK OU BY DR JUDGE ON 13 AUG 2012 BELINDA JUDGE 01/13 [place]ased w/o Limitations [place] [facility] Team A) OUTPATIENT [id number] (resche duled) [facility]. Pt will bring current paperwo rk. ALLISON ASHER 05/28 Released w/o Limitations [facility] Medical [facility] Team A) [facility] Medical [facility] Team A) TELE CONSULT [id number] Notes Entered by: KIAN SANTIAGO 17 Jun 2013 1410 ------- ------- ------- ------- -- Lab Results DAYRON SHIPMAN 06/17 [facility] Team A) [facility] [facility] Team A) OUTPATIENT [id number] [facility] 04-29-14 ALLISON ASHER 05/19 Released w/o Limitations [address] [place] [address]([facility] Team A) [place]([facility] M01A Red T[facility]) OUTPATIENT [id number] profile needed ROBERT VIVEROS 01/23 Released w/o Limitations [place]([facility] M01[facility] Red Tm) [facility] Medical [facility](a ring Conservat ion) OUTPATIENT [id number] audioKAVITA Waters am 10/29 Released w/o Limitations [facility] ation) [place], [place]([facility] F02B [facility]) TELE CONSULT [id number] 4 Notes Entered by: JAYLA YARBROUGH 26 Feb 2019 1533 ------- ------- ------- ------- -- TPR Poly-Ph armacy 19.09 Cohort #5 VERONICA FREGOSO 02/26 [place], [place]([facility] F02B [facility]) Ambulator y Pharmacy Lifetime Pharmacy [id number] 168 06/27 Ambulat ory Pharmac y No Facility Access History [id number] 06/27 No Facilit y Access Procedures Combined list of: 1) Procedures from Department of Veterans Affairs facilities going back up to thelast 18 months, not all VA non-surgical procedures are included; 2) All procedures from the Department of Defense facilities. Procedure Procedure Type Code Date Perfomer Comments Sourc e No data available for this section Ambulato ry Pharmacy Threshold Audiogram (Pure Tone) Automated Threshold Audiogram (Pure Tone) Automated [id number] 018 KAVITA NUGENT [facility] Electrocardiogram Electrocardiogram 13753 05/26 015 ALLISON ASHER Determination Of Refractive State Determination Of Refractive State 50560 013 BELINDA JUDGE Ophthalmological Prior Patient Start Comprehensive Care Ophthalmological Prior Patient Start Comprehensive Care 58270 013 BELINDA JUDGE Determination Of Refractive State Determination Of Refractive State 15344 013 BELINDA JUDGE Ophthalmological Prior Patient Start Comprehensive Care Ophthalmological Prior Patient Start Comprehensive Care 68478 013 BELINDA JUDGE Postoperative Visit, Without Charge Postoperative Visit, Without Charge 27273 013 BELINDA JUDGE Postoperative Visit, Without Charge Postoperative Visit, Without Charge 73172 013 BELINDA JUDGE Postoperative Visit, Without Charge Postoperative Visit, Without Charge 26156 013 BELINDA JUDGE Laser in situ keratomileusis (LASIK) 013 BELINDA JUDGE Corneal Pachymetry Both Eyes Corneal Pachymetry Both Eyes 25629 BELINDA JUDGE Computerized Corneal Topography Computerized Corneal Topography 91797 013 BELINDA JUDGE [facility] Determination Of Refractive State Determination Of Refractive State 77949 013 BELINDA JUDGE [facility] Ophthalmological New Patient Start Comprehensive Care Ophthalmological New Patient Start Comprehensive Care 77710 013 BELINDA JUDGE [facility] Electrocardiogram Electrocardiogram 06164 03/12 012 CARLOS JO [facility] Screening Test Of Visual Acuity, Quantitative, Bilateral Screening Test Of Visual Acuity, Quantitative, Bilateral 10799 012 CARLOS JO [facility] Audiometry Group Testing Audiometry Group Testing 15013 011 WHITE-SEYMOUR MEHNAZ, LATORI REBECCA [facility] Clinical Social Work Individual Outpatient Counseling 30 Minutes Clinical Social Work Individual Outpatient Counseling 30 Minutes 42759 011 Theater Provider [facility] Audiometry Group Testing Audiometry Group Testing 47015 010 ARI SHELL [facility] Social History Combined list of available smoking, tobacco, and other social history from Department of Defense and Veterans Affairs facilities. Social History Type Response Date Comment Sourc e Tobacco smoking status NHIS CURRENT SMOKER 12/12/2011 pack or less a day [facility] [place] [facility] This section is an empty social history section. [facility] Assessment and Plan Combined list of future care activities from Department of Defense and Veterans Affairs facilities (e.g., assessment and plan notes, appointments, orders, and referrals). Additional future care activities may be listed in the Plan of Care section. Result Assessment and Plan Date Source Assessment and Plan No data available for this section 04/02/2024 Ambulatory Pharmacy Functional Status Combined list of recent functional and cognitive assessments recorded at Department of Defense and Veterans Affairs (MS).VA Functional Vinton Measurement (FIM) Scale: 1 = Total Assistance (Subject = 0% +), 2 = Maximal Assistance (Subject = 25% +), 3 = Moderate Assistance (Subject = 50% +), 4 = Minimal Assistance (Subject = 75% +), 5 = Supervision, 6 = Modified Vinton (Device), 7 = Complete Vinton (Timely, Safely). Assessment Date/Time Source Assessment Type Assessment Skill Assessment Score Assessment Details No data available for this section
--- NOTE | 2024-04-02 13:43 | A.OFFVIS_ITS ---
Intake Visit Reasons: PO RT shoulder 02/07/24 DR Patel Note: Quincy is a 54 year old male who presents with complaints of moderate discomfort in his right shoulder after undergoing right shoulder arthroscopic surgery on 02/07/2024. He continues with his home physical therapy exercises. Denies any fevers or chills. He does take oxycodone which gives him fairly good relief. Allergies No Known Allergies Allergy (Verified 04/02/24 13:48) Medication List - Last Reconciled 04/02/24 by Cornell Gonzalez MD acetaminophen 1,000 mg (2 x 500 mg) PO Q8H PRN nicotine (Nicoderm CQ) 1 patch transdermal NEEDED PRN oxycodone 5 mg PO Q4H PRN oxycodone 5 mg PO Q8H PRN PFSH Medical History Smoker Arthritis Right arm numbness Bursitis and tendinitis of shoulder region Rotator cuff tear Right shoulder tendonitis Hand arthritis Nerve root compression Chronic radicular pain of lower back Surgical History (Updated 02/23/24 @ 19:29 by Swapnil Moe, [facility]) History of arthroscopic surgery of shoulder History of spinal surgery (12/10/23) Hx of colonoscopy S/P left rotator cuff repair (~2014) History of lumbar discectomy Lung mass (~1976) Family History Father Cancer Mother HTN (hypertension) Social History Household Members: Spouse Housing: House Are you a primary healthcare risk control consultant to a significant other at home: No Do you presently have visiting nurse or other home services: No Patient Tobacco Use Status: Current everyday Tobacco user Tobacco use type: Cigarette Cigarettes Per Day: 10 Years Smoked: over 30 years e-Cigarette/Vaping Use: Never Used Second Hand Smoke Exposure: Yes service: Yes Current occupational status: employed Current occupation: rt handed Cognitive needs: No Hearing needs: No Vision needs: Yes (contacts) Physical Exam Extrem Other: Right shoulder examination shows that the surgical incisions are well healed, no erythema, slightly decreased range of motion when compared to his left shoulder, 4+ out of 5 strength with supraspinatus testing, mild to moderate pain with range of motion, no instability Assessment & Plan Assessment & Plan (1) Right shoulder pain: Code(s): M25.511 - Pain in right shoulder Category: Medical Plan Mr. Hernandez continues to do fairly well after undergoing right shoulder arthroscopic surgery on 02/07/2024. I did refill his prescription for oxycodone. He will continue with his physical therapy exercises. The do's and don'ts of lifting were discussed at length with the patient. 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 I will re-evaluate him in 2 months' time. Feel free to call me at any time should questions regarding his orthopedic management arise. Medications: Refilled oxycodone Partial Fill upon patient request. 5 mg PO Q8H PRN 30 tabs 0RF severe pain (scale score 7-10) Coding Level of Care Code Global (25418) Diagnoses Right shoulder pain M25.511
== END 2024-04-02 14:04 | disposition home or self-care (01) ==
PROVIDERS: PCP Nurse Practitioner Family; Visit Provider Orthopaedic Surgery
DX: M25.511 Pain in right shoulder (principal)
CPT/HCPCS: 99024

== ENCOUNTER → 2024-04-02 13:31 | Outpatient (BNVA) | payer OTHER, SELFPAY | PROVIDERS: PCP Nurse Practitioner Family; Visit Provider Orthopaedic Surgery | DX: M25.511 Pain in right shoulder (principal); Z47.89 Encounter for other orthopedic aftercare; Z98.890 Other specified postprocedural states; Z79.891 Long term (current) use of opiate analgesic | CPT/HCPCS: 99212 ==

== ENCOUNTER 2024-05-04 07:27 | Outpatient (AMB) | payer OTHER, SELFPAY ==
--- OUTSIDE RECORDS SUMMARY | 2024-05-04 07:29 | XMS_ITS | Clinical Summary ---
Author Organization [facility] Address [address] [place] [address] Care Team Providers Care Supervising Producer Name Role Phone Evelina Zuniga MD Primary Care Provider Social History Tobacco Use Types Packs/Day Years Used Date Smoking Tobacco: Never Assessed Sex and Gender Information Value Date Recorded Sex Assigned at Not on file Gender Identity Not on file Sexual Orientation Not on file Last Filed Vital Signs Vital Sign Reading Time Taken Comments Blood Pressure - - Pulse - - Temperature - - Respiratory Rate - - Oxygen Saturation - - Inhaled Oxygen Concentration - - Weight 86.6 kg (191 lb) 10/18/2023 9:33 AM EDT Height 172.7 cm (5' 8 ) 10/18/2023 9:33 AM EDT Body Mass Index 29.04 10/18/2023 9:33 AM EDT Plan of Treatment Health Maintenance Due Date Last Done Comments Hepatitis B Vaccines (1 of 3 - 19+ 3-dose series) 02/26/1987 Zoster Vaccines (1 of 2) 02/26/2018 COVID-19 Vaccine (2023-2 5 season) 2023 Influenza Vaccine (#1) 2023 8, 03/13/2017, 01/10/2016 Cholesterol Screening (Lipid Panel) 01/16/2024 Colorectal Cancer Screening: Colonoscopy 01/16/2024 Depression Screening 01/16/2024 HIV Screening 01/16/2024 Hepatitis C Screening 01/16/2024 Social Influencers of Health Screening 01/16/2024 DTaP,Tdap,and Td Vaccines (2 - Td or Tdap) 09/19/2025 09/20/2015 HIB Vaccines Aged Out No longer eligi ble based on patient's age to complete this topic HPV Vaccines Aged Out No longer eligi ble based on patient's age to complete this topic Hepatitis A Vaccines Aged Out No long er eligible based on patient's age to complete this topic IPV Vaccines Aged Out No longer eligi ble based on patient's age to complete this topic MMR Vaccines Aged Out No longer eligi ble based on patient's age to complete this topic Meningococcal ACWY Vaccine Aged Out N o longer eligible based on patient's age to complete this topic Pneumococcal Vaccine: Pediatrics (0 to 5 Years) and At-Risk Patients (6 to 64 Years) Aged Out No longer eligible b ased on patient's age to complete this topic RSV Immunization Patients Under 20 months Aged Out No longer eligible b ased on patient's age to complete this topic Varicella Vaccines Aged Out No longer eligible based on patient's age to complete this topic Care Teams Supervising Producer Relationship Specialty Start Date End Date Evelina Zuniga MD [address] [place] [address] PCP - General Internal Medicine 09/19/17
--- OUTSIDE RECORDS SUMMARY | 2024-05-04 07:29 | XMS_ITS | Continuity of Care Document ---
Author Organization [facility] Address [address] [place] [address]- Care Team Providers Care Parking Control Officer Name Role Phone Abhi VASQUEZ, Swapnil Case [id number]): [facility] - 04/22/24 [facility] [address] [place] [address]- Encounter Diagnosis Rib pain on left side(Discharge Diagnosis) - 04/15/24 Attending Physician: Luis Angel Jacques NP Referring Physician: Swapnil Moe NP Encounter Type: Office Visit Allergies, Adverse Reactions, Alerts No Known Medication Allergies Medications amoxicillin-clavulanate 875 mg-125 mg oral tablet 1 tablet, By Mouth, Every 12 hours, for 10 days, # 20 tablet, 0 Refills, Acute 04/25/24 3:29:00 PM EST, 04/15/24 3:29:00 PM EST, Tablet, [id number], Partial fill upon patient request ifthe prescription is for a schedule II opioid drug. Start Date: 04/15/24 Stop Date: 04/25/24 Status: Ordered Quantity: 20.0 Unit: tablet Repeat number: 1 Naproxen By Mouth, 0 Refills, Maintenance, 12/14/13 4:41:45 PM EDT Start Date: 12/14/13 Status: Ordered Repeat number: 1 oxyCODONE 10 mg oral tablet 1 tablet = 10 mg, By Mouth, Every 4 hours, PRN as needed for pain, 0 Refills, Maintenance, 04/15/24 1:31:00 PM EST, Tablet, Partial fill upon patient request if the prescription is for a schedule II opioid drug. Start Date: 04/15/24 Status: Ordered Repeat number: 1 Problem List Diagnosis Diagnosis Type Effective Dates Health Status Cl inical Service Informant Rib pain on left side Discharge Diagnosis 04/15/24 Vital Signs Most recent to oldest [Reference Range]: 1 Oxygen Saturation [94-100 %] 95 % (04/15/24 1:28 PM) Pulse Rate [55-90 bpm] 77 bpm (04/15/24 1:28 PM) Blood Pressure [90-138/55-84 mm Hg] 139/ 66mm Hg *H* (04/15/24 1:28 PM) Respiratory Rate [16-30 br/min] 16 br/mi n (04/15/24 1:28 PM) Temperature [96.8-100.4 DegF] 98.3 DegF (04/15/24 1:28 PM) Temperature Route Oral (04/15/24 1:28 PM) Patient Care team information Care Team Personnel Name: Abhi VASQUEZ , Swapnil Case Position: Reference Physician Member Role: PCP Address: [address] [place] [address] Telecom: Care Team Related Persons Name: MIKE PATEL Name: MALCOLM NORMAN Name: CATRACHITO SMILEY Insurance Providers Guarantor name: JERAMIE NORMAN Health Plan Information #: 1 Payer: [employer]IME Member Number: [id number] Policy Number: NA Group Number: NA Health Plan Information #: 2 Payer: [employer] Member Number: [id number] Policy Number: NA Group Number: [id number]
--- NOTE | 2024-05-04 08:01 | A.OFFVIS_ITS ---
Intake Visit Reasons: lab follow up Intake Note: Patient presents for follow up visit for Hypogonadism Urology Medications: none Blood Thinner: none * testosterone: 246 * free testosterone: 22.4 * PSA: 0.28 Nutrition Program Instructor Required: No Accompanied by: Self / Same As Patient Allergies No Known Allergies Allergy (Verified 05/04/24 09:38) Medication List - Last Reconciled 05/04/24 by FRANKIE Wild nicotine (Nicoderm CQ) 1 patch transdermal NEEDED PRN oxycodone 5 mg PO Q12H PRN oxycodone 5 mg PO Q4H PRN HPI Comments Details: Quincy is a 54-year-old male patient of Dr. Moe. He has a past medical history of nerve root compression, chronic radicular pain of lower back, and lung mass. He presents to the office today for follow-up of his erectile dysfunction and hypogonadism. In discussion with the patient today he reports since his last office visit 6 months ago he has since had a lumbar fusion with our spine Center here at [facility] as well as right shoulder arthroscopy here at [facility] as well. He reports having started testosterone gel as prescribed however after 1 month of therapy did not feel this was helping him therefore he discontinued the medication. We discussed importance of taking medications as prescribed. He continues to report fatigue, ED, and low libido. Testosterone results were reviewed with the patient today as noted and trended below. FSH: 03/30 14.6, 06/29 13.7 LH: 03/30 10.4, 06/29 3.7 Prolactin: 06/29 5.1 SHB/24 39 Total testosterone: 11/26 506, 03/30 155, 06/29 233, 09/29 127, 03/31 246 Free testosterone: 11/26 79.9, 03/30 21.5, 06/29 31.2, 09/29 51.1, 03/31 22.4 PSA: 11/26 0.3, 03/30 0.3, 03/31 0.3 Hemoglobin/hematocrit: 03/31 13.4/40.4 Previous attempt in low-dose Cialis to assist with borderline hypogonadism however patient did not feel any improvement in his erectile dysfunction and or hypogonadism symptoms. Discussed further treatment options of hypogonadism as well as lifestyle modifications. He reports feeling low libido and fatigue st arted after taking his as needed oxycodone for his ongoing back issues. He reports despite surgical interventions for his shoulder and ongoing back pain he continues to experience therefore he continues to take p.r.n. pain medication. We discussed at length side effects of narcotics in relation to erectile dysfunction as well as hypogonadism. He otherwise denies any bothersome urinary issues or concerns. He denies urinary urgency, urinary frequency, incontinence, nocturia, hematuria, dysuria, foul smelling urine, changes to urinary stream, flank pain, fever, and or chills. He is happy with his current voiding parameters. He discusses having had sleep apnea workup in the past in this was negative. We discussed at length importance of taking medication as prescribed as well as further treatment options and risks and benefits of these treatment options. In office urinalysis results reviewed with the patient today. He otherwise denies any other issues or concerns at this time. [facility] Medical History Smoker Arthritis Right arm numbness Bursitis and tendinitis of shoulder region Rotator cuff tear Right shoulder tendonitis Hand arthritis Nerve root compression Chronic radicular pain of lower back Surgical History History of arthroscopic surgery of shoulder History of spinal surgery (12/10/23) Hx of colonoscopy S/P left rotator cuff repair (~2014) History of lumbar discectomy Lung mass (~1976) Family History Father Cancer Mother HTN (hypertension) Social History Household Members: Spouse Housing: House Are you a primary hourly caregiver to a significant other at home: No Do you presently have visiting nurse or other home services: No Patient Tobacco Use Status: Current everyday Tobacco user Tobacco use type: Cigarette Cigarettes Per Day: 10 Years Smoked: over 30 years e-Cigarette/Vaping Use: Never Used Second Hand Smoke Exposure: Yes service: Yes Current occupational status: employed Current occupation: rt handed Cognitive needs: No Hearing needs: No Vision needs: Yes (contacts) Review of Systems Const Reports as per HPI Eyes Reports no additional complaints ENT Reports no additional complaints Card Reports no additional complaints Resp Reports as per HPI GI Reports no additional complaints Reports as per HPI Musc Reports as per HPI Neuro Reports no additional complaints Psych Reports no additional complaints Endo Reports no additional complaints Corbin/Lymph Reports no additional complaints Aller/Immun Reports no additional complaints Physical Exam Const General: cooperative, healthy appearing, comfortable, no acute distress, well developed, alert and awake Orientation/consciousness: patient oriented x3 Limitations: no limitations HEENT Head: Yes normal to inspection, Yes normocephalic and Yes atraumatic Ears: hearing grossly normal bilaterally Eyes General: appearance normal, both eyes and all related structures Neck Neck: Yes normal visual inspection and Yes trachea midline Chest Chest palpation & inspection: normal inspection of the chest Resp Effort & Inspection: normal respiratory effort and able to speak in complete sentences Cardio Rate: regular rate GI Inspection: Yes normal to inspection General: Yes no CVA tenderness Back/Spine/Pelvis Back: no CVA tenderness Skin General skin exam: no rashes or lesions noted Neuro General: patient oriented x3 Extrem General: Yes normal to inspection Psych Appearance: grossly normal and well kempt Mental Status: mental status grossly normal Speech and movement: Normal speech and movement present and Clear speech present Affect: normal affect Attitude: cooperative Thought process: Normal thought process present Thought content: Normal thought content present Insight: Fair insight present (Psych) Judgement: Fair judgement present (Psych) Results AMB Urinalysis, Automated UA Leukoctes 0 Tha/uL Last Edit by Oceen on 05/04/24 08:11 UA Nitrite Last Edit by Oceen on 05/04/24 08:11 UA Urobilinogen 0.2 mg/dL Last Edit by [employer] on 05/04/24 08:11 UA Protein 15 mg/dL Last Edit by [employer] on 05/04/24 08:11 UA pH 6.0 Last Edit by [employer] on 05/04/24 08:11 UA Blood 25 Juan Antonio/uL Last Edit by Ajnu Selbyisaiah on 05/04/24 08:11 UA Specific Carlisle 1.030 Last Edit by Anju Selbyisaiah on 05/04/24 08:11 UA Ketone Last Edit by Anju Selbyisaiah on 05/04/24 08:11 UA Bilirubin 0 mg/dL Last Edit by Anju Selbyisaiah on 05/04/24 08:11 UA Glucose 0 mg/dL Last Edit by Anju Selbyisaiah on 05/04/24 08:11 Results Reviewed Results Reviewed: Laboratory Last Values Urine pH (Auto) 6.0 05/04/24 08:10 Specific Carlisle (Auto) 1.030 05/04/24 08:10 Urine Protein (Auto) 15 mg/dL 05/04/24 08:10 Glucose (UA)(Auto) 0 mg/dL 05/04/24 08:10 Urine Blood (Auto) 25 Juan Antonio/uL 05/04/24 08:10 Urine Bilirubin (Auto) 0 mg/dL 05/04/24 08:10 Urine Urobilinogen (Auto) 0.2 mg/dL 05/04/24 08:10 Leukocyte Esterase (Auto) 0 Tha/uL 05/04/24 08:10 Assessment & Plan Assessment & Plan (1) Hypogonadism male: Code(s): E29.1 - Testicular hypofunction Category: Medical Plan Recent testosterone results reviewed with the patient today; as noted above. Discussed further treatment options of/for hypogonadism. Discussed potential causes of hypogonadism. Re-Start testosterone as discussed and prescribed. Discussed at length lifestyle modifications to assist with hypogonadism as well as erectile dysfunction. All questions were answered. Patient currently denies any bothersome urinary issues or concerns. Reports be happy with current voiding parameters. Follow-up in 3 months with labs to be completed prior; or sooner with any issues, concerns, and or questions. Orders: Orders Testosterone, Free/Total 3 Months E29.1 - Testicular hypofunction AMB Urinalysis Automated Today Z13.9 - Encounter for screening, unspecified Prostate Specific Antigen 3 Months E29.1 - Testicular hypofunction Complete Blood Count no Diff 3 Months E29.1 - Testicular hypofunction Medications: Refilled testosterone apply 2 pumps over max area - alternate shoulders on alternate days 2 pumps topical DAILY 30 days 75 grams 3RF E29.1 - Testicular hypofunction, R79.89 - Other specified abnormal findings of blood chemistry Patient Instructions: The patient had an opportunity to ask questions regarding the treatment plan. All questions were answered. Physical exam, labs, and imaging were discussed and reviewed in detail. As well as risks, benefits, and discussion of treatment choices. No major barriers to understanding were identified. The patient expressed understanding and agreement with the above treatment plan. The patient was made aware they should contact our office by phone for worsening of their current condition, the appearance of new symptoms, or with any questions or concerns. Compliance is encouraged with any medications and follow up testing that is ordered. It is a privilege to be allowed the opportunity to participate in? your urological care.? Again, if you have any questions or concerns If you have any questions or concerns please do not hesitate to contact me. The office is [phone]. This note is constructed using voice recognition software. While every effort has been made to ensure accuracy virtualization engineer errors may have been included. Yours sincerely, FRANKIE Wild Coding Level of Care Code Est Pt Level 3 (84208) Diagnoses Hypogonadism male E29.1
== END 2024-05-04 08:23 | disposition home or self-care (01) ==
PROVIDERS: PCP Nurse Practitioner Family; Visit Provider Nurse Practitioner Family
DX: Z13.9 Encounter for screening, unspecified (principal); E29.1 Testicular hypofunction
CPT/HCPCS: 99213

== ENCOUNTER → 2024-05-04 07:27 | Outpatient (BNVA) | payer OTHER, SELFPAY | PROVIDERS: PCP Nurse Practitioner Family; Visit Provider Nurse Practitioner Family | DX: E29.1 Testicular hypofunction (principal); Z79.891 Long term (current) use of opiate analgesic | CPT/HCPCS: 81003; 99212 ==

== ENCOUNTER 2024-06-03 13:23 | Outpatient (AMB) | payer OTHER, SELFPAY ==
[2024-06-03 13:43] VITALS: BMI 28.0
--- NOTE | 2024-06-03 13:43 | MHC.OFFVIS ---
Vital Signs 06/03/24 13:43 Height 5 ft 8 in Weight 184 lb BMI 28.0 Intake Visit Reasons: OV RT shoulder 02/07/24 Intake Note: Quincy is a 54 year old male who presents with complaints of intermittent discomfort in his right shoulder after undergoing right shoulder arthroscopic surgery on 02/07/2024. He continues with his home stretching program. He denies any fevers or chills. Allergies No Known Allergies Allergy (Verified 06/03/24 13:43) Medication List - Last Reconciled 06/03/24 by Cornell Gonzalez MD nicotine (Nicoderm CQ) 1 patch transdermal NEEDED PRN oxycodone 5 mg PO Q12H PRN testosterone 2 pumps topical DAILY 30 days PFSH Medical History Smoker Arthritis Right arm numbness Bursitis and tendinitis of shoulder region Rotator cuff tear Right shoulder tendonitis Hand arthritis Nerve root compression Chronic radicular pain of lower back Surgical History History of arthroscopic surgery of shoulder History of spinal surgery (12/10/23) Hx of colonoscopy S/P left rotator cuff repair (~2014) History of lumbar discectomy Lung mass (~1976) Family History Father Cancer Mother HTN (hypertension) Social History Household Members: Spouse Housing: House Are you a primary home visit field care manager to a significant other at home: No Do you presently have visiting nurse or other home services: No Patient Tobacco Use Status: Current everyday Tobacco user Tobacco use type: Cigarette Cigarettes Per Day: 10 Years Smoked: over 30 years e-Cigarette/Vaping Use: Never Used Second Hand Smoke Exposure: Yes service: Yes Current occupational status: employed Current occupation: rt handed Cognitive needs: No Hearing needs: No Vision needs: Yes (contacts) Physical Exam Vital Signs: BMI result Body Mass Index 28.0 Extrem Other: Right shoulder examination shows full range of motion when compared to his left shoulder, minimal discomfort with range of motion, 4+ out of 5 strength with supraspinatus testing, no instability Assessment & Plan Assessment & Plan (1) Right shoulder pain: Code(s): M25.511 - Pain in right shoulder Category: Medical Plan Mr. Hernandez continues to do well after undergoing right shoulder arthroscopic surgery on 02/07/2024. He will continue with his range of motion exercises to prevent stiffness. The do's and don'ts of lifting were discussed at length with the patient. Will contact me prior to his follow-up appointment in 3 months should any questions or concerns arise. I spent 22 minutes in reviewing the patient's records and imaging studies, seeing the patient and documenting in the medical record. Medications: Changed From oxycodone Partial Fill upon patient request. 5 mg PO Q12H PRN 25 tabs 0RF pain To oxycodone Partial Fill upon patient request. 5 mg PO Q24H PRN 20 tabs 0RF pain Coding Level of Care Code Est Pt Level 3 (55027) Complex EM visit Add On G2211 Diagnoses Right shoulder pain M25.511
--- OUTSIDE RECORDS SUMMARY | 2024-06-03 16:25 | XMS_ITS | Clinical Summary ---
Author Organization [facility] [place] [address] Care Team Providers Care Flat Breakdown Processor Name Role Phone Evelina Zuniga MD Primary Care Provider Social History Tobacco Use Types Packs/Day Years Used Date Smoking Tobacco: Never Assessed Sex and Gender Information Value Date Recorded Sex Assigned at Not on file Legal Sex Male 11:36 PM EST Gender Identity Not on file Sexual Orientation [...] of 3 - 19+ 3-dose series) 02/26/1987 Pneumococcal Vaccine: 50+ Years (1 of 1 - PCV) 02/26/2018 Zoster Vaccines (1 of 2) 02/26/2018 COVID-19 Vaccine ( - 2023-2 5 season) 2023 Influenza Vaccine (#1) 2023 [...] patient's age to complete this topic Meningococcal B Vacine Aged Out No lo nger eligible based on patient's age to complete [...] age to complete this topic Care Teams Flat Breakdown Processor Relationship Specialty Start Date End Date Evelina Zuniga MD [address] [place] [address] PCP - General Internal Medicine 09/19/17
== END 2024-06-03 14:11 | disposition home or self-care (01) ==
PROVIDERS: PCP Nurse Practitioner Family; Visit Provider Orthopaedic Surgery
DX: M25.511 Pain in right shoulder (principal)
CPT/HCPCS: 99213; G2211

== ENCOUNTER → 2024-06-03 13:23 | Outpatient (BNVA) | payer OTHER, SELFPAY | PROVIDERS: PCP Nurse Practitioner Family; Visit Provider Orthopaedic Surgery | DX: M25.511 Pain in right shoulder (principal); Z79.891 Long term (current) use of opiate analgesic | CPT/HCPCS: 99212 ==

== ENCOUNTER 2024-06-08 14:22 | Outpatient (AMB) | payer OTHER, SELFPAY ==
--- NOTE | 2024-06-08 14:23 | AM.OFFVISNUR ---
Intake Visit Reasons: tdap Allergies No Known Allergies Allergy (Verified 06/03/24 13:43) Immunizations Boostrix Tdap 2.5 Lf unit-8 mcg-5 Lf/0.5 mL intramuscular syringe Performing Provider: FRANKIE Fowler [place] [facility] [place] [facility] Administered by: SAMI Cuenca on 06/08/24 14:23 Dose Route Admin Location Dispensed Lot Number Expiration Date [facility] [place]NOTE 2[place] Fulfillment Specialist 0.5 mL IM Left Deltoid 0.5 mL [id number] 06/24/26 63819-051-11 [employer] VIS Given Date VIS Provided VIS Publication Date 06/08/24 Single Vaccine 20 Eligibility Eligibility Date Funding Source Not [facility] Eligible 06/08/24 Private Assessment & Plan Assessment & Plan Orders: Orders TDaP Immunization Today Z23 - Encounter for immunization Medications: New Boostrix Tdap (diphth,pertus(acell),tetanus) 0.5 mL IM ONCE 0.5 mL 0RF NS Z23 - Encounter for immunization Coding
--- OUTSIDE RECORDS SUMMARY | 2024-06-08 17:07 | XMS_ITS | Clinical Summary ---
Author Organization [employer] [facility] [place] [address] Care Team Providers Care Community Case Manager Name Role Phone Evelina Zuniga MD Primary Care Provider [phone] Social History Tobacco Use Types Packs/Day Years [...] age to complete this topic Care Teams Community Case Manager Relationship Specialty Start Date End Date Evelina Zuniga MD [address] [place] [address] PCP - General Internal Medicine 09/19/17
--- OUTSIDE RECORDS SUMMARY | 2024-06-08 17:07 | XMS_ITS | Clinical Summary ---
Author Organization [facility] Address [address] [place] [address] Care Team Providers Care Radiology Rn Name Role Phone Evelina Zuniga Md, MD Primary Care Provider Unavailable Allergies No known active allergies Medications Medication Sig Dispensed Refills Start Date End Date Status oxyCODONE HCl 10 MG Tab Take by mouth. 0 Active triamcinolone acetonide (KENALOG-40) 40 MG/ML injection Inject 1 mL into the articular space once for 1 dose. 1 mL 0 09/24/2023 Active Active Problems Problem Noted Date Pulmonary mass 12/25/2017 Social History Tobacco Use Types Packs/Day Years Used Date Smoking Tobacco: Every Day Smokeless Tobacco: Never Sex Assigned at Date Recorded Not on file Job Start Date Occupation Industry Not on file Not on file Not on file Last Filed Vital Signs Vital Sign Reading Time Taken Comments Blood Pressure 120/74 12/25/2017 8:41 AM EDT Pulse 80 12/25/2017 8:41 AM EDT Temperature - - Respiratory Rate 15 12/25/2017 8:41 AM EDT Oxygen Saturation 98% 12/25/2017 8:41 AM EDT Inhaled Oxygen Concentration - - Weight 86.6 kg (191 lb) 10/18/2023 9:33 AM EDT Height 172.7 cm (5' 8 ) 10/18/2023 9:33 AM EDT Body Mass Index 29.04 10/18/2023 9:33 AM EDT Plan of Treatment Health Maintenance Due Date Last Done Comments Covid-19 Vaccine (#1) 1968 HEPATITIS C SCREENING 02/26/1986 DTAP/TDAP/TD (1 - Tdap) 02/26/1987 CHOLESTEROL SCREENING 1988 BASELINE HEALTH EXAM 40-64 2008 COLON CANCER SCREENING 02/26/2018 SHINGLES VACCINE (1 of 2) 02/26/2018 TOBACCO CHECK/ADVISE 01/18/2020 01/17/2018, 01/09/2018, 12/26/2017, Additional history exists INFLUENZA (#1) 2023 BMI CHECK/ADVISE 04/08/2024 PNEUMOCOCCAL VACCINE FOR HIG H RISK PATIENTS (#1) 02/26/2033 Care Teams Radiology Rn Relationship Specialty Start Date End Date Evelina Zuniga MD, MD PCP - General Internal Medicine 09/19/17
--- OUTSIDE RECORDS SUMMARY | 2024-06-08 17:07 | XMS_ITS | Continuity of Care Document ---
Author Organization [facility] Address [address] [place] [address]- Care Team Providers Care Software Design Manager Name Role Phone Swapnil Moe NP Primary Care Physician [phone] [place] [facility] [place] Date(s): 04/15/24 - 05/15/24 [facility] [address] [place] [address]- Attending Physician: Eusebio Elaine Admitting Physician: Eusebio Elaine Referring Physician: Eusebio Elaine Encounter Type: Triage Allergies, Adverse Reactions, Alerts No Known Medication [...] Date: 04/15/24 Status: Ordered Repeat number: 1 Patient Care team information Care Team Personnel Name: Swapnil Moe NP Position: Reference Physician Member Role: PCP Address: [address] [place] [address]- Telecom: Care Team Related Persons Name: LO PATELISELA Name: MALCOLM NORMAN Name: BALJIT CRYSTAL Insurance Providers Guarantor name: JERAMIE ESTER Health Plan Information #: 1 Payer: [employer]IME Member Number: NA Policy Number: NA Group Number: [id number]
--- OUTSIDE RECORDS SUMMARY | 2024-06-08 17:07 | XMS_ITS | Encounter Summary ---
Author Organization [facility] Address [facility] [place] [address] Care Team Providers Care Railroad Yard Worker Name Role Phone Evelina Zuniga Md, MD Primary Care Provider Unavailable Encounter Details Date Type Department Care Team Description 12/26/2017 Transfer Records Medical Records [address] [place] [id number] Abstract, Provider Social History Tobacco Use Types Packs/Day Years Used Date Smoking Tobacco: Every Day Smokeless Tobacco: Never Sex Assigned at Date Recorded Not on file Job Start Date Occupation Industry Not on file Not on file Not on file documented as of this encounter Plan of Treatment Not on file documented as of this encounter Visit Diagnoses Not on filedocumented in this encounter Care Teams Railroad Yard Worker Relationship Specialty Start Date End Date Evelina Zuniga MD, MD PCP - General Internal Medicine 09/19/17 documented as of this encounter
--- OUTSIDE RECORDS SUMMARY | 2024-06-08 17:08 | XMS_ITS | Continuity of Care Document ---
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 [facility] refractive error Active Condition [facility] visit for: preoperative exam Active Condition DoD nicotine dependence Active Condition DoD dermatophytosis tinea manuum Active Condition DoD Macules And Papules Inactive Condition DoD Blood Pressure Isolated Elevated Active Condition [facility] visit for: services physical pre-deployment Inactive Condition DoD joint pain, localized in the knee Inactive Condition DoD marital problem Active Condition [facility] Occupational Therapy Inactive Condition DoD sleep disturbances Inactive Condition s leep disturbances DoD insomnia Active Condition DoD no psychiatric diagnosis on axis II Active Condition DoD occupational problem Active Condition DoD partner relational problem Inactive Condition PARTNER RELATIONAL PROBLEM [facility] visit for: ears / hearing exam Active Condition [facility] visit for: services physical Active Condition [facility] Medications Combined list of outpatient medications from Department of Defense and Veterans Affairs facilities.Medications provided include 1) outpatient medications from the last 15 months, and 2) patient-reported medications. Medication Details Route Status Patient Instructions Prescription Expires Prescription Number Last Dispense Date Ordering Provider Order Date Order Qty Source IBUPROFEN (ibuprofen) , 600 MG, TABLET, ORAL, [facility], 500 ea. BOTTLE Active [id number] 2023 30 Pharmac y Data Transac tion Service Facilit y OXYCODONE HCL (oxycodone HCl), 10 MG, TABLET, ORAL, [employer], 100 ea. BOTTLE Active [id number] 05/21/ 2024 20 Pharmac y Data Transac tion Service Facilit y OXYCODONE HCL (oxycodone HCl), 10 MG, TABLET, ORAL, [employer], 100 ea. BOTTLE Active [id number] 2023 20 Pharmac y Data Transac tion Service Facilit y OXYCODONE HCL (oxycodone HCl), 10 MG, TABLET, ORAL, [employer], 100 ea. BOTTLE Active [id number] 2023 20 Pharmac y Data Transac tion Service Facilit y OXYCODONE HCL (oxycodone HCl), 10 MG, TABLET, ORAL, [employer], 100 ea. BOTTLE Active [id number] 2022 20 Pharmac y Data Transac tion Service Facilit y OXYCODONE-A CETAMINOPHE N (OXYCODONE HCL/ACETAMI NOPHEN), 5MG-325MG, TABLET, ORAL, [employer], 500 ea. BOTTLE Active [id number] 2023 12 Pharmac y Data Transac tion Service Facilit y PREDNISONE (PREDNISONE ), 50MG, TABLET, ORAL, [facility] 100 ea. BOTTLE Active [id number] 2022 6 Pharmac y Data Transac [...] Swelling of arm Active 5 Chickenpox vaccine Unknown Organizati on Immunizations Combined list of available immunizations from the Department of Defense and Veterans Affairs facilities. Immunization Series Date Given Administered By Site Reaction Lot Number CVX Code Drug Candy Mixer Status Comments Source influenza, injectable, quadrivalent- pf 2021 [id number] [employer]™ ne complet ed influenza , injectabl e, quadrival ent-pf 02/14/22 Given Ambulat ory Pharmac y COVID Vaccine Moderna 2020 [id number] complet ed COVID Vaccine Moderna 07/16/20 Given Ambulat ory Pharmac y COVID Vaccine Moderna 2020 [id number] complet ed COVID Vaccine Moderna 06/18/20 Given Ambulat ory Pharmac y influenza, injectable, quadrivalent- pf 2019 [id number] 150 Seqirus complet ed influenza , [...] khoa free DoD influenza, seasonal, injectable-pf 2017 [id number] 140 [employer] complet ed influenza , seasonal, injectabl e-pf 01/25/18 Given Ambulat ory Pharmac y influenza, seasonal, injectable-pf 2017 [id number] 140 Se[employer]irus complet ed influenza , seasonal, injectabl e-pf 01/25/18 Given Ambulat ory Pharmac y Influenza, seasonal, injectable, preservative free 1 2017 [id number] 140 Seqirus (SEQ) comple t ed Influenza , seasonal, injectabl e, preservat khoa free DoD influenza, seasonal, injectable-pf 2016 [id number] 140 Se[employer]irus complet ed influenza , seasonal, injectabl e-pf 03/13/17 Given Ambulat ory Pharmac y Influenza, inj, MDCK, quadrivalent- pf 2016 171 complet ed Influenza , inj, MDCK, quadrival ent-pf 03/13/17 Given Ambulat ory Pharmac y Influenza, injectable, MDCK, preservative free, quadrivalent 2016 BOGDASARIAN, () Not Given Influenza , injectabl e, MDCK, preservat khoa free, quadrival ent DoD Influenza, seasonal, injectable, preservative free 1 2016 [id number] 140 Seqirus (SEQ) comple t ed Influenza , seasonal, injectabl e, preservat khoa free DoD influenza, seasonal, injectable 2015 [id number] 141 GlaxoSmithKli ne complet ed influenza , seasonal, injectabl e 01/10/16 Given Ambulat ory Pharmac y influenza, seasonal, injectable 2015 [id number] 141 GlaxoSmithKli ne complet ed influenza , seasonal, injectabl e 01/10/16 Given Ambulat ory Pharmac y Influenza, seasonal, injectable 1 2015 [id number] 141 [employer] Corporationine (SKB) complet ed Influenza , seasonal, injectabl e DoD influenza, seasonal, injectable-pf 2014 [id number] 140 CSL Behring complet ed influenza , seasonal, injectabl e-pf 12/19/14 Given Ambulat ory Pharmac y influenza, seasonal, injectable-pf 2014 [id number] 140 CSL Behring complet ed influenza , seasonal, injectabl e-pf 12/19/14 Given Ambulat ory Pharmac y Influenza, seasonal, injectable, preservative free 1 2014 [id number] 140 CSCel-Fi by [employer] (CSL) complet ed Influenza , seasonal, injectabl e, preservat khoa free DoD varicella virus vaccine 2 2014 UNK 21 Unknown (UNK) Not Given varicella virus vaccine DoD influenza, seasonal, injectable-pf 2013 [id number] 140 GlaxoSmithKli ne complet ed influenza , seasonal, injectabl e-pf 01/05/14 Given Ambulat ory Pharmac y influenza, seasonal, injectable-pf 2013 [id number] 140 GlaxoSmithKli ne complet ed influenza , seasonal, injectabl e-pf 01/05/14 Given Ambulat ory Pharmac y Influenza, seasonal, injectable, preservative free 1 2013 [id number] 140 Smithine (SKB) complet ed Influenza , seasonal, injectabl e, preservat khoa free DoD varicella virus vaccine 2013 [id number] 21 Merck & Company Inc complet ed varicella virus vaccine 06/04/13 Given Ambulat ory Pharmac y varicella virus vaccine 1 2013 [id number] 21 Merck (MSD) complet ed varicella virus vaccine DoD influenza, seasonal, injectable-pf 2012 [id number] 140 Glassy Pro Inc comple t ed influenza , seasonal, injectabl e-pf 02/07/13 Given Ambulat ory Pharmac y influenza, seasonal, injectable-pf 2012 [id number] 140 [employer] Inc comple t ed influenza , seasonal, injectabl e-pf 02/07/13 Given Ambulat ory Pharmac y Influenza, seasonal, injectable, preservative free 1 2012 [id number] 140 Andera, Inc. (MED) complet ed Influenza , seasonal, injectabl e, preservat khoa free DoD influenza, seasonal, injectable-pf 2011 [id number] 140 Unknown complet ed influenza , seasonal, injectabl e-pf 01/24/12 Given Ambulat ory Pharmac y Influenza, seasonal, injectable, preservative free 1 2011 [id number] 140 Unknown (UNK) comple t ed Influenza , seasonal, injectabl e, preservat khoa free DoD influenza, seasonal, injectable 2010 [id number] 141 CSL Behring complet ed influenza , seasonal, injectabl e 02/02/11 Given Ambulat ory Pharmac y tuberculin purified protein derivative 2010 [id number] complet ed tuberculi n purified protein derivativ e 02/02/11 Given Ambulat ory Pharmac y influenza, seasonal, injectable 2010 [id number] [id number] 141 CSL Behring complet ed influenza , seasonal, injectabl e 02/02/11 Given Ambulat ory Pharmac y Influenza, seasonal, injectable 1 2010 [id number] 141 CSCel-Fi by [employer] (CSL) complet ed Influenza , seasonal, injectabl e DoD rabies vaccine, IM 2010 [id number] 175 Novartis Pharmaceutica ls complet ed rabies vaccine, IM 11/25/10 Given Ambulat ory Pharmac y rabies vaccine, IM 2010 [id number] 175 Novartis Pharmaceutica ls complet ed rabies vaccine, IM 11/25/10 Given Ambulat ory Pharmac y rabies vaccine, for intramuscular injection RETIRED CODE 5 2010 [id number] 18 Novartis Pharmaceutica l Kofi. (NOV) complet ed rabies vaccine, for intramusc ular injection RETIRED CODE DoD rabies vaccine, IM 2010 [id number] 175 Novartis Pharmaceutica ls complet ed rabies vaccine, IM 11/04/10 Given Ambulat ory Pharmac y rabies vaccine, IM 2010 [id number] 175 Novartis Pharmaceutica ls complet ed rabies vaccine, IM 11/04/10 Given Ambulat ory Pharmac y rabies vaccine, for intramuscular injection RETIRED CODE 4 2010 [id number] 18 Novartis Pharmaceutica l Kofi. (FEB) complet ed rabies vaccine, for intramusc ular injection RETIRED CODE DoD rabies vaccine, IM 2010 [id number] 175 Novartis Pharmaceutica ls complet ed rabies vaccine, IM 10/28/10 Given Ambulat ory Pharmac y rabies vaccine, for intramuscular injection RETIRED CODE 3 2010 [id number] 18 Novartis Pharmaceutica l Kofi. (FEB) complet ed rabies vaccine, for intramusc ular injection RETIRED CODE DoD anthrax vaccine 2010 [id number] 24 Emergent Biosolutions complet ed anthrax vaccine 09/20/10 Given Ambulat ory Pharmac y anthrax vaccine 2010 [id number] 24 [employer] complet ed anthrax vaccine 09/20/10 Given Ambulat ory Pharmac y anthrax vaccine 3 2010 [id number] 24 [employer] [place] (MIP) complet ed anthrax vaccine DoD rabies vaccine, IM 2010 [id number] 175 complet ed rabies vaccine, IM 06/13/10 Given Ambulat ory Pharmac y rabies vaccine, IM 2010 [id number] 175 complet ed rabies vaccine, IM 06/13/10 Given Ambulat ory Pharmac y rabies vaccine, for intramuscular injection RETIRED CODE 2 2010 [id number] 18 Aviron (ROQUE) complet ed rabies vaccine, for intramusc ular injection RETIRED CODE DoD yellow fever vaccine 2010 [id number] 37 complet ed yellow fever vaccine 06/05/10 Given Ambulat ory Pharmac y rabies vaccine, IM 2010 [id number] 175 Novartis Pharmaceutica ls complet ed rabies vaccine, IM 06/05/10 Given Ambulat ory Pharmac y measles/mumps /rubella virus vaccine 2010 UNK 03 Unknown complet ed measles/m umps/rube lla virus vaccine 06/05/10 Given Ambulat ory Pharmac y yellow fever vaccine 2010 [id number] 37 complet ed yellow fever vaccine 06/05/10 Given Ambulat ory Pharmac y rabies vaccine, IM 2010 [id number] 175 Novartis Pharmaceutica ls complet ed rabies vaccine, IM 06/05/10 Given Ambulat ory Pharmac y measles, mumps and rubella virus vaccine 2 2010 UNK 03 Unknown (UNK) comple t ed measles, mumps and rubella virus vaccine DoD rabies vaccine, for intramuscular injection RETIRED CODE 1 2010 [id number] 18 Novartis Pharmaceutica l Kofi. (NOV) complet ed rabies vaccine, for intramusc ular injection RETIRED CODE DoD yellow fever vaccine 1 2010 [id number] 37 Aviron (ROQUE) complet ed yellow fever vaccine DoD anthrax vaccine 2010 [id number] Emergent Biosolutions complet ed anthrax vaccine 05/01/10 Given Ambulat ory Pharmac y anthrax vaccine 2010 [id number] 24 [employer] complet ed anthrax vaccine 05/01/10 Given Ambulat ory Pharmac y anthrax vaccine 2 2010 [id number] 24 [employer] [place] (MIP) complet ed anthrax vaccine DoD anthrax vaccine 2009 [id number] 24 [employer] complet ed anthrax vaccine 03/21/10 Given Ambulat ory Pharmac y tuberculin purified protein derivative 2009 [id number] complet ed tuberculi n purified protein derivativ e 03/21/10 Given Ambulat ory Pharmac y tetanus, diphtheria, acellular pertu is 2009 [id number] 115 GlaxoSmithKli ne complet ed tetanus, diphtheri a, acellular pertussis 03/21/10 Given Ambulat ory Pharmac y typhoid Vi capsular polysaccharid e vac 2009 [id number] 101 Unknown complet ed typhoid Vi capsular polysacch aride vac 03/21/10 Given Ambulat ory Pharmac y anthrax vaccine 2009 [id number] 24 [employer] complet ed anthrax vaccine 03/21/10 Given Ambulat ory Pharmac y tetanus, diphtheria, acellular pertu is 2009 [id number] 115 GlaxoSmithKli ne complet ed tetanus, diphtheri a, acellular pertussis 03/21/10 Given Ambulat ory Pharmac y typhoid Vi capsular polysaccharid e vac 2009 [id number] 101 Unknown complet ed typhoid Vi capsular polysacch aride vac 03/21/10 Given Ambulat ory Pharmac y anthrax vaccine 1 2009 [id number] 24 [employer] (MIP) complet ed anthrax vaccine DoD typhoid Vi capsular polysaccharid e vaccine 1 2009 [id number] 101 Unknown (UNK) comple t ed typhoid Vi capsular polysacch aride vaccine DoD tetanus toxoid, reduced diphtheria toxoid, and acellular pertu is vaccine, adsorbed 1 2009 [id number] [place] [address] (SKB) complet ed tetanus toxoid, reduced diphtheri a toxoid, and acellular pertussis vaccine, adsorbed DoD influenza virus vaccine,split 2009 [id number] 15 Unknown complet ed influenza virus vaccine,s plit 03/17/10 Given Ambulat ory Pharmac y influenza virus vaccine,split 2009 [id number] 15 Unknown complet ed influenza virus vaccine,s plit 03/17/10 Given Ambulat ory Pharmac y influenza virus vaccine, split virus (incl. purified surface antigen)-reti red CODE 1 2009 [id number] 15 Unknown (UNK) comple t ed influenza virus vaccine, split virus (incl. purified surface antigen)- retired CODE DoD influenza virus vaccine,split 2008 [id number] 15 Unknown complet ed influenza virus vaccine,s plit 03/12/09 Given Ambulat ory Pharmac y influenza virus vaccine, split virus (incl. purified surface antigen)-reti red CODE 1 2008 [id number] 15 Unknown (UNK) complet ed influenza virus vaccine, split virus (incl. purified surface antigen)- retired CODE DoD influenza virus vaccine,split 2008 [id number] [id number] 15 Unknown complet ed influenza virus vaccine,s plit 04/18/08 Given Ambulat ory Pharmac y hepatitis A adult vaccine 2008 [id number] 52 GlaxoSmithKli ne complet ed hepatitis A adult vaccine 04/18/08 Given Ambulat ory Pharmac y influenza virus vaccine,split 2008 [id number] 1A 15 Unknown complet ed influenza virus vaccine,s plit 04/18/08 Given Ambulat ory Pharmac y hepatitis A adult vaccine 2008 [id number] 52 GlaxoSmithKli ne complet ed hepatitis A adult vaccine 04/18/08 Given Ambulat ory Pharmac y influenza virus vaccine, split virus (incl. purified surface antigen)-reti red CODE 1 2008 [id number] 1A 15 Unknown (UNK) complet ed influenza virus vaccine, split virus (incl. purified surface antigen)- retired CODE DoD hepatitis A vaccine, adult dosage 2 2008 [id number] 52 SmithKline (SKB) complet ed hepatitis A vaccine, [...] CODE 0 2001 UNK 15 Sanofi Pasteur ([facility]) complet ed influenza virus vaccine, split virus [...] ed measles and rubella virus vaccine DoD Encounters Combined list of: 1) Encounters from Department of Veterans Affairs facilities going backup to the last 18 months, not all VA inpatient encounters are included; 2) Encounters from the Department of Defense facilities going backup to 280 months. Location Location Details Encounter Type Encounter Number Reason For Visit Attending Provider ADM Date DC Date Status Disposition Source [facility]) OUTPATIENT [id number] ARI Rubio 03/21 Released w/o Limitations [facility](He aring Conserv ation [facility]) [facility](Sharonda gency Room) OUTPATIENT [id number] CATRACHITO CONNER 05/14 Released w/o Limitations [facility](Em ergency Room) Theater Facility OUTPATIENT [id number] 10/31 Released w/o Limitations Theater Facilit y [facility] Facility OUTPATIENT [id number] 11/16 Released w/o Limitations Theater Facilit y Theater Facility OUTPATIENT [id number] 12/01 Released w/o Limitations Theater Facilit y [facility]) OUTPATIENT [id number] MAHSA WHITE-FONJOE KIM 02/02 Released w/o Limitations [facility] ) [facility](Merino scom [facility] Team B) OUTPATIENT [id number] [facility] CARLOS JOHRYN 03/12 Released w/o Limitations [facility](H anscom [facility] Team B) [place] OUTPATIENT [id number] INITIAL BELINDA CHERRY 08/04 [place]ased w/o Limitations [place] [facility] [place] [facility]) OUTPATIENT [id number] BELINDA PARSONS 08/13 Sick at Home/Quarter s [place] [facility] [facility] OUTPATIENT [id number] Notes Entered by: LISS JOLLEY 14 Aug 2012 0727 ------- ------- ------- ------- -- 1 DAY POST-OP BELINDA JUDGE 08/14 [place]ased [place] Limitations [place] [facility] [facility] OUTPATIENT [id number] 1 WEEK BELINDA VASQUEZ 08/21 Released w/o Limitations [place] [facility] [facility] OUTPATIENT [id number] 1 MO BELINDA VASQUEZ 09/09 Released w/o Limitations [place] [facility]) OUTPATIENT [id number] 3 mo POP LASIK OU by DR Judge on 13 AUG 2012 BELINDA JUDGE 11/25 [place]ased w[place]o Limitations [place] [facility] [facility] OUTPATIENT [id number] 5 Mon POP LASIK OU BY DR JUDGE ON 13 AUG 2012 BELINDA JUDGE 01/13 [place]ased w/o Limitations [place] [facility] [facility] Team A) OUTPATIENT [id number] (resche duled) [facility]. Pt will bring current paperwo rk. ALLISON ASHER 05/28 Released w/o Limitations [facility] Team A) [facility] Team A) TELE CONSULT [id number] Notes Entered by: KIAN SANTIAGO 17 Jun 2013 1410 ------- ------- ------- ------- -- Lab Results DAYRON SHIPMAN 06/17 [facility] Team A) [facility] Team A) OUTPATIENT [id number] [facility] PHA 1-22-15 ALLISON ASHER 05/19 Released w/o Limitations [facility] Medical [facility] Team A) [place] M01A [place] T[place] OUTPATIENT [id number] profile needed ROBERT VIVEROS 01/23 Released w/o Limitations [place] M[facility] [place] T[place] [facility](Hea ring Conservat ion) OUTPATIENT [id number] KAVITA Alexandra am 10/29 Released w/o Limitations [facility](H earing Conserv ation) [place]([facility] F02B [facility]) TELE CONSULT [id number] Notes Entered by: JAYLA YARBROUGH 26 Feb 2019 1533 ------- ------- ------- ------- -- TPR Poly-Ph armacy 19.09 Cohort #5 VERONICA FREGOSO 02/26 [place], [place]([facility] F02B [facility]) Ambulator y Pharmacy [facility] [id number] 168 06/27 Ambulat ory Pharmac y No Facility Access History [id number] 06/27 No Facilit y Access Procedures Combined list of: 1) Procedures from Department of Veterans Affairs facilities going back [facility], not all VA non-surgical procedures are included; 2) All procedures from the Department of Defense facilities. Procedure Procedure Type Code Date Perfomer Comments Sourc e No data available for this section Ambul[facility] ry Pharmacy PURE TONE AUDIOMETRY (THRESHOLD), AUTOMATED; AIR ONLY 018 [facility] ELECTROCARDIOGRAM, ROUTINE ECG WITH AT LEAST 12 LEADS; WITH INTERPRETATION AND REPORT 015 [facility] ELECTROCARDIOGRAM, ROUTINE ECG WITH AT LEAST 12 LEADS; WITH INTERPRETATION AND REPORT 012 [facility] AUDIOMETRIC TESTING OF GROUPS 011 DoD SKIN TEST; TUBERCULOSIS, INTRADERMAL 011 DoD COLLECTION OF VENOUS BLOOD BY VENIPUNCTURE 011 DoD RABIES VACCINE, FOR INTRAMUSCULAR USE 011 DoD SKIN TEST; TUBERCULOSIS, INTRADERMAL 011 [facility] SCREENING TEST OF VISUAL ACUITY, QUANTITATIVE, BILATERAL 011 DoD VARICELLA VIRUS VACCINE (DEBBIE), LIVE, FOR SUBCUTANEOUS USE 011 [facility] AUDIOMETRIC TESTING OF GROUPS 010 DoD SKIN TEST; TUBERCULOSIS, INTRADERMAL 010 DoD COLLECTION OF VENOUS BLOOD BY VENIPUNCTURE 010 DoD DETERMINATION OF REFRACTIVE STATE 013 DoD DETERMINATION OF REFRACTIVE STATE 013 DoD POSTOPERATIVE FOLLOW-UP VISIT, NORMALLY INCLUDED IN THE SURGICAL PACKAGE, INDICATE THAT EVALUATION & MANAGEMENT SERVICE WAS PERFORMED DURING A POSTOPERATIVE PERIOD REASON RELATED ORIGINAL PROCEDURE 013 DoD POSTOPERATIVE FOLLOW-UP VISIT, NORMALLY INCLUDED IN THE SURGICAL PACKAGE, INDICATE THAT EVALUATION & MANAGEMENT SERVICE WAS PERFORMED DURING A POSTOPERATIVE PERIOD REASON RELATED ORIGINAL PROCEDURE 013 DoD POSTOPERATIVE FOLLOW-UP VISIT, NORMALLY INCLUDED IN THE SURGICAL PACKAGE, INDICATE THAT EVALUATION & MANAGEMENT SERVICE WAS PERFORMED DURING A POSTOPERATIVE PERIOD REASON RELATED ORIGINAL PROCEDURE 013 Inge LASER IN SITU KERATOMILEUSIS (LASIK) 013 [facility] OPHTHALMIC ULTRASOUND, ECHOGRAPHY, DIAGNOSTIC; CORNEAL PACHYMETRY, UNILATERAL OR BILATERAL (DETERMINATION OF CORNEAL THICKNESS) 013 Inge Threshold Audiogram (Pure Tone) Automated Threshold Audiogram (Pure Tone) Automated [id number] 018 KAVITA NUGENT Electrocardiogram Electrocardiogram [id number] 05/26 015 ALLISON ASHER Determination Of Refractive State Determination Of Refractive State 86346 013 BELINDA JUDGE Ophthalmological Prior Patient Start Comprehensive Care Ophthalmological Prior Patient Start Comprehensive Care 23590 013 BELINDA JUDGE Determination Of Refractive State Determination Of Refractive State 65572 013 BELINDA JUDGE Ophthalmological Prior Patient Start Comprehensive Care Ophthalmological Prior Patient Start Comprehensive Care 76105 013 BELINDA JUDGE Postoperative Visit, Without Charge Postoperative Visit, Without Charge 82862 013 BELINDA JUDGE Postoperative Visit, Without Charge Postoperative Visit, Without Charge 82429 013 BELINDA JUDGE Postoperative Visit, Without Charge Postoperative Visit, Without Charge 35995 013 BELINDA JUDGE Laser in situ keratomileusis (LASIK) 013 BELINDA JUDGE Corneal Pachymetry Both Eyes Corneal Pachymetry Both Eyes 32726 013 BELINDA JUDGE Computerized Corneal Topography Computerized Corneal Topography 74765 013 BELINDA JUDGE Determination Of Refractive State Determination Of Refractive State 14682 013 BELINDA JUDGE Ophthalmological New Patient Start Comprehensive Care Ophthalmological New Patient Start Comprehensive Care 41641 013 BELINDA JUDGE Electrocardiogram Electrocardiogram 11714 03/12 012 CARLOS JO Screening Test Of Visual Acuity, Quantitative, Bilateral Screening Test Of Visual Acuity, Quantitative, Bilateral 05347 012 CARLOS JO Audiometry Group Testing Audiometry Group Testing 16919 011 WHITE-SEYMOUR JOE DARBY Clinical Social Work Individual Outpatient Counseling 30 Minutes Clinical Social Work Individual Outpatient Counseling 30 Minutes 50040 011 Theater Provider [facility] Audiometry Group Testing Audiometry Group Testing 28527 010 ARI SHELL [facility] Social History Combined list of available smoking, tobacco, and other social history from Department of Defense and Veterans Affairs facilities. Social History Type Response Date Comment Sourc e Tobacco smoking status NHIS CURRENT SMOKER 12/12/2011 pack or less a day MD [facility] [place] [facility] This section is an empty social history section. DoD Assessment and Plan Combined list of future care activities from Department of Defense and Veterans Affairs facilities (e.g., assessment and plan notes, appointments, orders, and referrals). Additional future care activities may be listed in the Plan of Care section. Result Assessment and Plan Date Source Assessment and Plan No data available for this section 06/08/2024 Ambulatory Pharmacy Functional Status Combined list of recent functional and cognitive assessments recorded at [employer] (VA).VA Functional Jay Measurement (FIM) Scale: 1 = Total Assistance (Subject = 0% +), 2 = Maximal Assistance (Subject = 25% +), 3 = Moderate Assistance (Subject = 50% +), 4 = Minimal Assistance (Subject = 75% +), 5 = Supervision, 6 = Modified Jay (Device), 7 = Complete Jay (Timely, Safely). Assessment Date/Time Source Assessment Type Assessment Skill Assessment Score Assessment Details No data available for this section
== END 2024-06-08 14:58 | disposition home or self-care (01) ==
LOC: HO.HMCC 14:22
PROVIDERS: PCP Nurse Practitioner Family; Visit Provider Nurse Practitioner Family
DX: Z23 Encounter for immunization (principal)

== ENCOUNTER → 2024-06-08 14:22 | Outpatient (BNVA) | payer OTHER, SELFPAY | PROVIDERS: PCP Nurse Practitioner Family; Visit Provider Nurse Practitioner Family | DX: Z23 Encounter for immunization (principal) | CPT/HCPCS: 90471; 90715 ==

== ENCOUNTER 2024-07-29 07:55 | Outpatient (REF) | payer OTHER, SELFPAY ==
--- OUTSIDE RECORDS SUMMARY | 2024-07-29 08:00 | XMS_ITS | Encounter Summary ---
Author Organization [facility] Address [address] [place] [address] Care Team Providers Care Chemical Production Engineer Name Role Phone Evelina Zuniga Md, MD Primary Care Provider Unavailable Reason for Visit * Reason Onset Date Comments refill request 01/17/2018 Encounter Details Date Type Department Care Team Description 01/17/2018 Refill Pulmonology - [place] [address] [facility] [address] [place] [phone] Lisa Malhotra MD [address] [place] [phone] refill request Social History Tobacco Use Types Packs/Day Years Used Date Smoking Tobacco: Every Day Smokeless Tobacco: Never Sex Assigned at Date Recorded Not on file Job Start Date Occupation Industry Not on file Not on file Not on file documented as of this encounter Miscellaneous Notes * Telephone Encounter - Stacey Briceño M.A. - 01/17/2018 10:31 AM EDT We did this last week 01/09/18 I mail it and also left a mom. * Telephone Encounter - Stacey Briceño M.A. - 01/17/2018 10:30 AM EDT We did this last week already. * Telephone Encounter - Eliza Mallory - 01/17/2018 10:25 AM EDT Patient would like script to be: E-PRESCRIBED/FAXED TO PHARMACY WHEN WAS THE PATIENT'S LAST APPOINTMENT WITH THE PRESCRIBING PROVIDER? 12/25/17 Does patient have an upcoming appointment? No future appt is scheduled at this time (THE MEDICATION REQUESTED IS ON THE MED LIST ABOVE) All of the medications requested were on the CURRENT MEDS list Did you check the Pharmacy information above?: YES Patient wants: 90 -day supply Is this a mail order prescription request ? YES Patients current insurance carrier is: Payor: NICOLE / Plan: [employer] [facility] $0 [id number] / Product Type: PPO [id number] documented in this encounter Plan of Treatment Not on file documented as of this encounter Visit Diagnoses Diagnosis Pulmonary mass Swelling, mass, or lump in chest documented in this encounter Care Teams Chemical Production Engineer Relationship Specialty Start Date End Date Evelina Zuniga MD, MD PCP - General Internal Medicine 09/19/17 documented as of this encounter
--- OUTSIDE RECORDS SUMMARY | 2024-07-29 08:00 | XMS_ITS | Clinical Summary ---
Author Organization [facility] Address [address] [place] [address] Care Team Providers Care Latex Foam Worker Name Role Phone Evelina Zuniga Md, [...] 01/18/2020 01/17/2018, 01/09/2018, 12/26/2017, Additional history exists BMI CHECK/ADVISE 04/08/2024 INFLUENZA (Season Ended) 2024 PNEUMOCOCCAL VACCINE FOR HIG H RISK PATIENTS (#1) 02/26/2033 Care Teams Latex Foam Worker Relationship Specialty Start Date End Date Evelina Zuniga MD, MD PCP - General Internal Medicine 09/19/17
--- OUTSIDE RECORDS SUMMARY | 2024-07-29 08:00 | XMS_ITS | Clinical Summary ---
Author Organization [employer] [facility] [place] [address] Care Team Providers Care Iron Piler Name Role Phone Evelina Zuniga MD Primary Care Provider [phone] Social History Tobacco Use Types Packs/Day Years [...] Vaccine ( - 2023-2 5 season) 2023 Cholesterol Screening (Lipid Panel) 01/16/2024 Colorectal Cancer Screening: Colonoscopy 01/16/2024 Depression Screening 01/16/2024 HIV Screening 01/16/2024 Hepatitis C Screening 01/16/2024 Social Influencers of Health Screening 01/16/2024 Influenza Vaccine (Season Ended) 2024 01/31/2018, 03/13/2017, 01/10/2016 DTaP,Tdap,and Td Vaccines (2 - Td or [...] age to complete this topic Meningococcal B Vaccine Aged Out No l onger eligible based on patient's age to complete [...] age to complete this topic Care Teams Iron Piler Relationship Specialty Start Date End Date Evelina Zuniga MD [address] [place] [address] PCP - General Internal Medicine 09/19/17
--- OUTSIDE RECORDS SUMMARY | 2024-07-29 08:00 | XMS_ITS | Encounter Summary ---
Author Organization [facility] Address [address] [place] [address] Care Team Providers Care Reinforcing Steel Placer Name Role Phone Evelina Zuniga Md, MD Primary Care Provider Unavailable Reason for Visit * Reason Onset Date Comments Faxed Refill 12/26/2017 Encounter Details Date Type Department Care Team Description 12/26/2017 Refill Pulmonology - [place] [address] [facility] [address] [place] [address] Lisa Malhotra MD [address] [place] [address] Faxed Refill Social History Tobacco Use Types Packs/Day Years Used Date Smoking Tobacco: Every Day Smokeless Tobacco: Never Sex Assigned at Date Recorded Not on file Job Start Date Occupation Industry Not on file Not on file Not on file documented as of this encounter Miscellaneous Notes * Telephone Encounter - Mini Mckeon - 12/26/2017 8:38 AM EDT Patient would like script to be: E-PRESCRIBED/FAXED TO PHARMACY WHEN WAS THE PATIENT'S LAST APPOINTMENT WITH THE PRESCRIBING PROVIDER? 12/25/17 Does patient have an upcoming appointment? 1 year f/u- pt on wait list (THE MEDICATION REQUESTED IS ON THE MED LIST ABOVE) All of the medications requested were on the CURRENT MEDS list Did you check the Pharmacy information above?: YES Patient wants: 90 -day supply Is this a mail order prescription request ? NO Patients current insurance carrier is: Payor: / Plan: [employer] [facility] $0 [id number] / Product Type: PPO [id number] documented in this encounter Plan of Treatment Not on file documented as of this encounter Visit Diagnoses Diagnosis Pulmonary mass Swelling, mass, or lump in chest documented in this encounter Care Teams Reinforcing Steel Placer Relationship Specialty Start Date End Date Evelina Zuniga MD, MD PCP - General Internal Medicine 09/19/17 documented as of this encounter
[2024-07-29 10:23] LABS: MANUAL DIFF FLAG NO
[2024-07-29 10:26] LABS: Basophils Absolute Auto 0.1 X10*3/uL (0.0-0.2); Basophils Percent Auto 0.7 % (0-2); Eosinophils Absolute Auto 0.3 X10*3/uL (0.0-0.4); Eosinophils Percent Auto 3.1 % (0-4); Hematocrit 40.2 % (42.0-52.0); Hemoglobin 13.6 g/dl (14.0-18.0); Imm Gran Abs Auto 0.06 X10*3/uL (0.00-0.03); Imm Gran Pct Auto 0.7 % (0.0-0.4); Lymphocytes Absolute Auto 2.5 X10*3/uL (1.2-4.9); Lymphocytes Percent Auto 29.4 % (20-40); Mean Corpuscular HGB Conc 33.8 g/dl (31.0-36.0); Mean Corpuscular Hemoglobin 30.7 pg (27.0-33.0); Mean Corpuscular Volume 90.7 fL (80.0-98.0); Mean Platelet Volume 10.6 fL (9.4-12.4); Monocytes Absolute Auto 0.9 X10*3/uL (0.1-1.2); Monocytes Percent Auto 10.9 % (2-11); Neutrophils Absolute Auto 4.7 x10*3/uL (2.0-8.3); Neutrophils Percent Auto 55.2 % (45-73); Platelet Count 256 X10*3/uL (160-400); Red Blood Count 4.43 X10*6/uL (4.60-5.80); Red Cell Distribution Width 13.1 % (11.0-16.0); White Blood Count 8.5 X10*3/uL (4.8-10.8)
[2024-07-29 10:56] LABS: Appearance Urine Clear; Color Urine Yellow; Glucose Urine UA Negative (Negative); Leukocyte Esterase Urine Negative (Negative); Nitrite Urine Negative (Negative); PH 5.5 (5.0-9.0); Specific Gravity - Urine 1.025 (1.005-1.025); UMIC TRIGGER UACC YES; Urine Blood Trace (Negative); Urine Ketones Negative (Negative); Urine Protein Negative (Neg-Trace)
[2024-07-29 11:03] LABS: Bacteria Urine None Seen (None Seen); Hyaline Casts Urine 0-2 /LPF (0-2); Squamous Epithelial Cell Urine 0-2 /HPF (0-2); WBC Urine 0-5 /HPF (0-5)
[2024-07-29 11:18] LABS: Alanine Aminotransferase 18 U/L (0-40); Alkaline Phosphatase 123 U/L (39-117); Anion Gap 9 (12-20); Aspartate Amino Transferase 19 U/L (5-37); Bilirubin Total 0.5 mg/dL (0.0-1.0); Blood Urea Nitrogen 18 mg/dL (9-16); Carbon Dioxide 29 mmol/L (22-29); Chloride 107 mmol/L (96-108); Cholesterol 155 mg/dL (<200); Estimated Glomerular Filt Rate > 60; Glucose Fasting 94 mg/dL (60-99); HDL Cholesterol 50 mg/dL (>40); Iron 66 mcg/dL (45-160); LDL Cholesterol Calculated 92 mg/dL (<100); Percent Iron Saturation 29 % (15-50); Potassium 3.8 mmol/L (3.3-5.1); Sodium 141 mmol/L (135-145); Total Iron Binding Capacity 224 mcg/dL (228-428); Total Protein 6.8 g/dL (6.5-8.0); Triglycerides 67 mg/dL (<150); Unsaturated Iron Binding 158 ug/dL
[2024-07-29 11:24] LABS: Ferritin 184 ng/mL (20-250); TSH reflex Free T4 1.85 uIU/mL (0.32-4.0)
[2024-08-03 12:24] LABS: Testosterone, Free 23.2 pg/mL (35.0-155.0); Testosterone, Total 208 ng/dL (250-1100)
== END 2024-07-29 07:56 | disposition home or self-care (01) ==
LOC: HO.HMGCLDS 07:55
PROVIDERS: PCP Nurse Practitioner Family; Referring Provider Nurse Practitioner Family; Visit Provider Nurse Practitioner Family
DX: G25.81 Restless legs syndrome (principal); E29.1 Testicular hypofunction; Z12.5 Encounter for screening for malignant neoplasm of prostate
CPT/HCPCS: 36415; 80053; 80061; 81001; 82728; 83540; 84153; 84402; 84403; 84443; 85025

== ENCOUNTER 2024-09-22 09:48 | Outpatient (AMB) | payer OTHER, SELFPAY ==
--- NOTE | 2024-09-22 09:49 | MHC.OFFVIS ---
Intake Visit Reasons: follow up labs(set) Intake Note: Patient presents via telehealth for follow up/labs Urology Medications: none Blood Thinner: none Poultry Buyer Required: No Accompanied by: Self / Same As Patient Allergies No Known Allergies Allergy (Verified 09/22/24 10:08) Medication List - Last Reconciled 09/22/24 by CLIFFORD Wild-LISBET nicotine (Nicoderm CQ) 1 patch transdermal NEEDED PRN testosterone 3 pumps topical DAILY 30 days HPI Comments Details: Quincy is a 54-year-old male patient of Dr. Moe. He has a past medical history of nerve root compression, chronic radicular pain of lower back, and lung mass. He is being followed up on today via video telehealth for his erectile dysfunction and hypogonadism. In discussion with the patient today he reports to be doing and feeling well. He reports to be covering well from his recent lumbar fusion with our spine Center here at [facility]. He reports compliance with testosterone as prescribed. He also reports having since discontinued his oxycodone and feels this has been helpful. He continues to limit his nicotine dependence however is still smoking. Recent labs were reviewed with the patient today as noted and trended below. He does continue to report low libido and erectile dysfunction. We did discussed at length potential causes of these issues and further treatment options and risks and benefits of these treatment options. Labs are as follows: FSH: 03/30 14.6, 06/29 13.7 LH: 03/30 10.4, 06/29 3.7 Prolactin: 06/29 5.1 SHB/24 39 Total testosterone: 11/26 506, 03/30 155, 06/29 233, 09/29 127, 03/31 246, 07/31 208 Free testosterone: 11/26 79.9, 03/30 21.5, 06/29 31.2, 09/29 51.1, 03/31 22.4, 23.2 PSA: 11/26 0.3, 03/30 0.3, 03/31 0.3, 07/31 0.4 Hemoglobin/hematocrit: 03/31 13.4/40.4, 07/31 13.6/40.2 Previous attempt in low-dose Cialis to assist with borderline hypogonadism however patient did not feel any improvement in his erectile dysfunction and or hypogonadism symptoms. We discussed importance of lifestyle modifications to assist with hypogonadism, low libido, and erectile dysfunction. He otherwise denies any bothersome urinary issues or concerns. He denies urinary urgency, urinary frequency, incontinence, nocturia, hematuria, dysuria, foul smelling urine, changes to urinary stream, flank pain, fever, and or chills. He is happy with his current voiding parameters. He discusses having had sleep apnea workup in the past in this was negative. He otherwise denies any other issues or concerns at this time. [facility] Medical History Smoker Arthritis Right arm numbness Bursitis and tendinitis of shoulder region Rotator cuff tear Right shoulder tendonitis Hand arthritis Nerve root compression Chronic radicular pain of lower back Surgical History History of arthroscopic surgery of shoulder History of spinal surgery (12/10/23) Hx of colonoscopy S/P left rotator cuff repair (~2014) History of lumbar discectomy Lung mass (~1976) Family History Father Cancer Mother HTN (hypertension) Social History Household Members: Spouse Housing: House Are you a primary skin care therapist to a significant other at home: No Do you presently have visiting nurse or other home services: No Patient Tobacco Use Status: Current everyday Tobacco user Tobacco use type: Cigarette Cigarettes Per Day: 10 Years Smoked: over 30 years e-Cigarette/Vaping Use: Never Used Second Hand Smoke Exposure: Yes service: Yes Current occupational status: employed Current occupation: rt handed Cognitive needs: No Hearing needs: No Vision needs: Yes (contacts) Review of Systems Const Reports as per HPI Eyes Reports no additional complaints ENT Reports no additional complaints Card Reports no additional complaints Resp Reports as per HPI GI Reports no additional complaints Reports as per HPI Musc Reports as per HPI Neuro Reports no additional complaints Psych Reports no additional complaints Endo Reports no additional complaints Corbin/Lymph Reports no additional complaints Aller/Immun Reports no additional complaints Physical Exam Const General: cooperative, healthy appearing, comfortable, no acute distress, well developed, alert and awake Orientation/consciousness: patient oriented x3 Resp Effort & Inspection: normal respiratory effort and able to speak in complete sentences Neuro General: patient oriented x3 Psych Appearance: grossly normal and well kempt Speech and movement: Clear speech present Affect: normal affect Attitude: cooperative Thought content: Normal thought content present Insight: Fair insight present (Psych) Judgement: Fair judgement present (Psych) Telehealth Telehealth Telehealth Platform: View Medical Location of provider rendering services: practice address Location of patient: address on file Patient Identification confirmed using: Name, : Yes Telehealth method: video Patient verbally consented to treatment: Yes Patient verbally consented to billing insurance company: Yes Patient informed of any privacy concerns related to visit: Yes Minutes spent on Phone/Video with Pt.: 20 Assessment & Plan Assessment & Plan (1) Erectile dysfunction: Code(s): N52.9 - Male erectile dysfunction, unspecified Category: Medical (2) Low testosterone: Code(s): R79.89 - Other specified abnormal findings of blood chemistry Category: Medical (3) Hypogonadism male: Code(s): E29.1 - Testicular hypofunction Category: Medical Plan Recent labs were reviewed with the patient today; as noted above. Will increase testosterone to 3 pumps per day; refill provided. We discussed the importance of limiting/quitting nicotine dependence for overall health and well-being. We also discussed lifestyle modifications to assist with hypogonadism, ED, and low libido. He denies any bothersome urinary issues. He reports be happy with current voiding parameters. Will obtain CBC, PSA, and testosterone in 3 months. Follow-up in 3 months with labs to be completed prior; or sooner with any issues, concerns, and or questions. Orders: Orders Prostate Specific Antigen 3 Months E29.1 - Testicular hypofunction, N52.9 - Male erectile dysfunction, unspecified, R79.89 - Other specified abnormal findings of blood chemistry Testosterone, Free/Total 3 Months E29.1 - Testicular hypofunction, N52.9 - Male erectile dysfunction, unspecified, R79.89 - Other specified abnormal findings of blood chemistry Complete Blood Count no Diff 3 Months E29.1 - Testicular hypofunction Medications: Changed From testosterone apply 2 pumps over max area - alternate shoulders on alternate days 2 pumps topical DAILY 30 days 75 grams 3RF E29.1 - Testicular hypofunction, R79.89 - Other specified abnormal findings of blood chemistry To testosterone apply 3 pumps over max area - alternate shoulders on alternate days; This is an increase in dose 3 pumps topical DAILY 30 days 75 grams 3RF E29.1 - Testicular hypofunction, R79.89 - Other specified abnormal findings of blood chemistry Coding Level of Care Code Tele Est Pt Level 3 (63250) Complex EM visit Add On G2211 Diagnoses Erectile dysfunction N52.9 Low testosterone R79.89 Hypogonadism male E29.1
--- OUTSIDE RECORDS SUMMARY | 2024-09-22 10:53 | XMS_ITS | Clinical Summary ---
Author Organization [facility] [place] [address] Care Team Providers Care Asphalt Screed Operator Name Role Phone Evelina Zuniga MD Primary Care Provider [phone] Social History Tobacco Use Types Packs/Day Years [...] age to complete this topic Care Teams Asphalt Screed Operator Relationship Specialty Start Date End Date Evelina Zuniga MD [address] [place] [address] PCP - General Internal Medicine 09/19/17
== END 2024-09-22 11:47 | disposition home or self-care (01) ==
LOC: HO.HUSH 09:48
PROVIDERS: PCP Nurse Practitioner Family; Visit Provider Nurse Practitioner Family
DX: N52.9 Male erectile dysfunction, unspecified (principal); R79.89 Other specified abnormal findings of blood chemistry; E29.1 Testicular hypofunction
CPT/HCPCS: 99213; G2211

== ENCOUNTER → 2024-09-22 09:48 | Outpatient (BNVA) | payer OTHER, SELFPAY | PROVIDERS: PCP Nurse Practitioner Family; Visit Provider Nurse Practitioner Family | DX: Z13.89 Encounter for screening for other disorder (principal) ==

== ENCOUNTER 2024-09-29 13:58 | Outpatient (AMB) | payer OTHER, SELFPAY ==
--- NOTE | 2024-09-29 14:08 | A.OFFVIS_ITS ---
Vital Signs 09/29/24 14:12 Height 5 ft 8 in Weight 184 lb BMI 28.0 Intake Visit Reasons: OV RT shoulder 02/07/24 Intake Note: Quincy is a 54 year old male who presents with complaints of intermittent discomfort in his right shoulder after undergoing right shoulder arthroscopic surgery on 02/07/2024. The patient denies any fevers or chills. He continues with his home stretching program. The patient also reports numbness in both of his upper extremities and hands. His symptoms have gotten worse over the last few months in spite of continued non operative treatments. He has never had a nerve conduction study. The patient states that he has ?3 bad discs? in his neck. Allergies No Known Allergies Allergy (Verified 09/29/24 14:14) Medication List - Last Reconciled 09/29/24 by Cornell Gonzalez MD nicotine (Nicoderm CQ) 1 patch transdermal NEEDED PRN testosterone 3 pumps topical DAILY 30 days PFS Medical History Smoker Arthritis Right arm numbness Bursitis and tendinitis of shoulder region Rotator cuff tear Right shoulder tendonitis Hand arthritis Nerve root compression Chronic radicular pain of lower back Surgical History History of arthroscopic surgery of shoulder History of spinal surgery (12/10/23) Hx of colonoscopy S/P left rotator cuff repair (~2014) History of lumbar discectomy Lung mass (~1976) Family History Father Cancer Mother HTN (hypertension) Social History Household Members: Spouse Housing: House Are you a primary client care specialist to a significant other at home: No Do you presently have visiting nurse or other home services: No Patient Tobacco Use Status: Current everyday Tobacco user Tobacco use type: Cigarette Cigarettes Per Day: 10 Years Smoked: over 30 years e-Cigarette/Vaping Use: Never Used Second Hand Smoke Exposure: Yes service: Yes Current occupational status: employed Current occupation: rt handed Cognitive needs: No Hearing needs: No Vision needs: Yes (contacts) Physical Exam Vital Signs: BMI result Body Mass Index 28.0 Const Other: Well-nourished well-developed very friendly male awake alert and oriented x3 in no acute distress Extrem Other: Bilateral hand examination shows positive Tinel's test over his carpal tunnels, mild thenar muscle wasting, decreased sensation to light touch along his median nerve distributions Right shoulder examination shows that the surgical incisions are well healed, no erythema, mild discomfort with range of motion, 5/5 strength with supraspinatus testing, no instability Assessment & Plan Assessment & Plan (1) Bilateral carpal tunnel syndrome: Code(s): G56.03 - Carpal tunnel syndrome, bilateral upper limbs Category: Medical (2) Right shoulder pain: Code(s): M25.511 - Pain in right shoulder Category: Medical Plan Mr. David Calderon presents with intermittent shoulder discomfort most likely due to rotator cuff tendinosis. We will hold off on a cortisone injection at this time. He does have symptoms consistent with bilateral carpal tunnel syndrome. Thus, I will send him for EMG/NCV studies for further evaluation. I will contact him by phone once the results are available. If he does have evidence of carpal tunnel syndrome I will refer him to our hand ser vice. The patient can continue activities as tolerated. He is not disabled from a shoulder standpoint. The patient states that he does have degenerative disc disease in his neck. He states that he is trying to avoid neck surgery if possible. Feel free to call me at any time should questions regarding his orthopedic management arise. I spent 20 minutes in reviewing the patient's records and imaging studies, seeing the patient and documenting in the medical record. Orders: Orders NE nerve conduction velocity Today G56.03 - Carpal tunnel syndrome, bilateral upper limbs NE electromyogram (EMG) Today G56.03 - Carpal tunnel syndrome, bilateral upper limbs Medications: New tramadol 50 mg PO Q8H PRN 60 tabs 0RF pain Coding Level of Care Code Est Pt Level 3 (56105) Complex EM visit Add On G2211 Diagnoses Bilateral carpal tunnel syndrome G56.03 Right shoulder pain M25.511
[2024-09-29 14:12] VITALS: BMI 28.0
== END 2024-09-29 14:34 | disposition home or self-care (01) ==
LOC: HO.HOS 13:59
PROVIDERS: PCP Nurse Practitioner Family; Visit Provider Orthopaedic Surgery
DX: G56.03 Carpal tunnel syndrome, bilateral upper limbs (principal); M25.511 Pain in right shoulder
CPT/HCPCS: 99213; G2211

== ENCOUNTER → 2024-09-29 13:58 | Outpatient (BNVA) | payer OTHER, SELFPAY | PROVIDERS: PCP Nurse Practitioner Family; Visit Provider Orthopaedic Surgery | DX: M25.511 Pain in right shoulder (principal); G56.03 Carpal tunnel syndrome, bilateral upper limbs | CPT/HCPCS: 99212 ==

== ENCOUNTER 2024-10-29 12:49 | Outpatient (AMB) | payer OTHER, SELFPAY ==
--- OUTSIDE RECORDS SUMMARY | 2024-10-29 13:01 | XMS_ITS | Continuity of Care Document ---
Author Name [facility] Organization [facility] Care Team Providers Care Finance Vice President Name Role Phone [facility] Unavailable Unavailable Problems Combined list of problems [...] Active Condition DoD tobacco use Active Condition DoD POSTSURGICAL STATE OF EYE AND ADNEXA BOTH Active Condition DoD POSTSURGICAL STATE OF EYE AND ADNEXA Active Condition DoD Aftercare Following Surgery Of Sense Organs Active Condition DoD REFRACTIVE ERROR - HYPERMETROPIA Active Condition [facility] REFRACTIVE ERROR Active Condition [facility] visit for: preoperative exam Active Condition DoD NICOTINE DEPENDENCE Active Condition DoD DERMATOPHYTOSIS TINEA MANUUM Active Condition DoD Macules And Papules Inactive Condition DoD Blood Pressure Isolated Elevated Active Condition [facility] visit for: services physical pre-deployment Inactive Condition DoD joint pain, localized in the knee Inactive Condition DoD MARITAL PROBLEM Active Condition DoD Occupational Therapy Inactive Condition DoD sleep disturbances Inactive Condition s leep disturbances DoD insomnia Active Condition DoD NO PSYCHIATRIC DIAGNOSIS ON AXIS II Active Condition DoD OCCUPATIONAL PROBLEM Active Condition DoD PARTNER RELATIONAL PROBLEM Inactive Condition PARTNER RELATIONAL PROBLEM [facility] visit for: ears / hearing exam Active Condition [facility] visit for: services physical Active Condition [facility] Medications Combined list of outpatient medications from Department of Defense and Veterans Affairs facilities.Medications provided include 1) outpatient medications from the last 15 months, and 2) patient-reported medications. Medication Details Route Status Patient Instructions Prescription Expires Prescription Number Last Dispense Date Ordering Provider Order Date Order Qty Source IBUPROFEN (ibuprofen) , 600 MG, TABLET, ORAL, AUROBINDO PHARM, 500 ea. BOTTLE Active [id number] 2023 30 Pharmac y Data Transac tion Service Facilit y OXYCODONE HCL (oxycodone HCl), 10 MG, TABLET, ORAL, [employer], 100 ea. BOTTLE Active [id number] 2023 20 Pharmac y Data Transac tion Service Facilit y OXYCODONE-A CETAMINOPHE N (OXYCODONE HCL/ACETAMI NOPHEN), 5MG-325MG, TABLET, ORAL, MALLINKRT PHARM, 500 ea. BOTTLE Active [id number] 2023 12 Pharmac y Data Transac [...] Site Reaction Lot Number CVX Code Drug It Application Administrator Status Comments Source influenza, injectable, quadrivalent- pf 2021 [id number] [employer] ne complet ed influenza , injectabl e, quadrival ent-pf 02/14/22 Given Ambulat ory Pharmac y COVID Vaccine Moderna 2020 [id number] complet ed COVID Vaccine Moderna 07/16/20 Given Ambulat ory Pharmac y COVID Vaccine Moderna 2020 [id number] complet ed COVID Vaccine Moderna 06/18/20 Given Ambulat ory Pharmac y influenza, injectable, quadrivalent- pf 2019 [id number] 150 Seqirus complet ed influenza , [...] injectabl e, quadrival ent, preservat khoa free [facility] influenza, seasonal, injectable-pf 2017 [id number] 140 Seqirus complet ed influenza , seasonal, injectabl e-pf 01/25/18 Given Ambulat ory Pharmac y influenza, seasonal, injectable-pf 2017 [id number] 140 Seqirus complet ed influenza , seasonal, injectabl e-pf 01/25/18 Given Ambulat ory Pharmac y Influenza, seasonal, injectable, preservative free 1 2017 [id number] 140 Seqirus (SEQ) comple t ed Influenza , seasonal, injectabl e, preservat khoa free DoD influenza, seasonal, injectable-pf 2016 [id number] Seqirus complet ed influenza , seasonal, injectabl e-pf 03/13/17 Given Ambulat ory Pharmac y Influenza, inj, MDCK, quadrivalent- pf 2016 171 complet ed Influenza , inj, MDCK, quadrival ent-pf 03/13/17 Given Ambulat ory Pharmac y Influenza, injectable, MDCK, preservative free, quadrivalent 2016 HELEN, () Not Given Influenza , injectabl e, MDCK, preservat khoa free, quadrival ent DoD Influenza, seasonal, injectable, preservative free 1 2016 [id number] 140 Seqirus (SEQ) comple t ed Influenza , seasonal, injectabl e, preservat khoa free DoD influenza, seasonal, injectable 2015 [id number] 141 GlaxoSmithKli ne complet ed influenza , seasonal, injectabl e 01/10/16 Given Ambulat ory Pharmac y influenza, seasonal, injectable 2015 [id number] 141 GlaxoSmithKli ne complet ed influenza , seasonal, injectabl e 01/10/16 Given Ambulat ory Pharmac y Influenza, seasonal, injectable 1 2015 [id number] 141 SmithKline (SKB) complet ed Influenza , seasonal, injectabl e DoD influenza, seasonal, injectable-pf 2014 [id number] 140 CSL Behring complet ed influenza , seasonal, injectabl e-pf 12/19/14 Given Ambulat ory Pharmac y influenza, seasonal, injectable-pf 2014 [id number] 140 CSL Behring complet ed influenza , seasonal, injectabl e-pf 12/19/14 Given Ambulat ory Pharmac y Influenza, seasonal, injectable, preservative free 1 2014 [id number] 140 Aplic[employer] EyeEm[employer] Inc. (CSL) complet ed Influenza , seasonal, injectabl e, preservat khoa free DoD varicella virus vaccine 2 2014 UNK 21 Unknown (UNK) Not Given varicella virus vaccine DoD influenza, seasonal, injectable-pf 2013 [id number] GlaxoSmithKli ne complet ed influenza , seasonal, injectabl e-pf 01/05/14 Given Ambulat ory Pharmac y influenza, seasonal, injectable-pf 2013 [id number] 140 GlaxoSmithKli ne complet ed influenza , seasonal, injectabl e-pf 01/05/14 Given Ambulat ory Pharmac y Influenza, seasonal, injectable, preservative free 1 2013 [id number] 140 [facility] (B) complet ed Influenza , seasonal, injectabl e, preservat khoa free DoD varicella virus vaccine 2013 [id number] 21 Merck & Company Inc complet ed varicella virus vaccine 06/04/13 Given Ambulat ory Pharmac y varicella virus vaccine 1 2013 [id number] 21 Merck (MSD) complet ed varicella virus vaccine DoD influenza, seasonal, injectable-pf 2012 [id number] 140 Acesisune Inc comple t ed influenza , seasonal, injectabl e-pf 02/07/13 Given Ambulat ory Pharmac y influenza, seasonal, injectable-pf 2012 [id number] 140 Medimmune Inc comple t ed influenza , seasonal, injectabl e-pf 02/07/13 Given Ambulat ory Pharmac y Influenza, seasonal, injectable, preservative free 1 2012 [id number] 140 Cy[employer] Inc. (MED) complet ed Influenza , seasonal, injectabl e, preservat khoa free DoD influenza, seasonal, injectable-pf 2011 [id number] 140 Unknown complet ed influenza , seasonal, injectabl e-pf 01/24/12 Given Ambulat ory Pharmac y Influenza, seasonal, injectable, preservative free 1 2011 [id number] 140 Unknown (UNK) comple t ed Influenza , seasonal, injectabl e, preservat khoa free DoD influenza, seasonal, injectable 2010 [id number] 141 CSL Behring complet ed influenza , seasonal, injectabl e 02/02/11 Given Ambulat ory Pharmac y tuberculin purified protein derivative 2010 [id number] 96 complet ed tuberculi n purified protein derivativ e 02/02/11 Given Ambulat ory Pharmac y influenza, seasonal, injectable 2010 [id number] 141 CSL Behring complet ed influenza , seasonal, injectabl e 02/02/11 Given Ambulat ory Pharmac y Influenza, seasonal, injectable 1 2010 [id number] 141 [facility] EyeEm[employer] Inc. (CS) complet ed Influenza , seasonal, injectabl e DoD rabies vaccine, IM 2010 [id number] 175 Novartis Pharmaceutica ls complet ed rabies vaccine, IM 11/25/10 Given Ambulat ory Pharmac y rabies vaccine, IM 2010 [id number] 175 Novartis Pharmaceutica ls complet ed rabies vaccine, IM 11/25/10 Given Ambulat ory Pharmac y rabies vaccine, for intramuscular injection RETIRED CODE 5 2010 [id number] 18 Novartis Pharmaceutica l Kofi. (FEB) complet ed rabies vaccine, for intramusc ular injection RETIRED CODE DoD rabies vaccine, IM 2010 [id number] 175 Novartis Pharmaceutica ls complet ed rabies vaccine, IM 11/04/10 Given Ambulat ory Pharmac y rabies vaccine, IM 2010 [id number] 175 Novartis Pharmaceutica ls complet ed rabies vaccine, IM 11/04/10 Given Ambulat ory Pharmac y rabies vaccine, for intramuscular injection RETIRED CODE 4 2010 [id number] 18 Novartis Pharmaceutica l Kofi. (FEB) complet ed rabies vaccine, for intramusc ular injection RETIRED CODE DoD rabies vaccine, IM 2010 [id number] 175 Novartis Pharmaceutica ls complet ed rabies vaccine, IM 10/28/10 Given Ambulat ory Pharmac y rabies vaccine, for intramuscular injection RETIRED CODE 3 2010 [id number] 18 Novartis Pharmaceutica l Kofi. (FEB) complet ed rabies vaccine, for intramusc ular injection RETIRED CODE DoD anthrax vaccine 2010 [id number] Emergent Bios[employer] complet ed anthrax vaccine 09/20/10 Given Ambulat ory Pharmac y anthrax vaccine 2010 [id number] 24 [employer] complet ed anthrax vaccine 09/20/10 Given Ambulat ory Pharmac y anthrax vaccine 3 2010 [id number] 24 [employer] [place] (MIP) complet ed anthrax vaccine DoD rabies vaccine, IM 2010 [id number] 175 complet ed rabies vaccine, IM 06/13/10 Given Ambulat ory Pharmac y rabies vaccine, IM 2010 [id number] 175 complet ed rabies vaccine, IM 06/13/10 Given Ambulat ory Pharmac y rabies vaccine, for intramuscular injection RETIRED CODE 2 2010 [id number] 18 Aviron (ROQUE) complet ed rabies vaccine, for intramusc ular injection RETIRED CODE DoD yellow fever vaccine 2010 [id number] 37 complet ed yellow fever vaccine 06/05/10 Given Ambulat ory Pharmac y rabies vaccine, IM 2010 [id number] 175 Novartis Pharmaceutica ls complet ed rabies vaccine, IM 06/05/10 Given Ambulat ory Pharmac y measles/mumps /rubella virus vaccine 2010 UNK 03 Unknown complet ed measles/m umps/rube lla virus vaccine 06/05/10 Given Ambulat ory Pharmac y yellow fever vaccine 2010 [id number] 37 complet ed yellow fever vaccine 06/05/10 Given Ambulat ory Pharmac y rabies vaccine, IM 2010 [id number] 175 Novartis Pharmaceutica ls complet ed rabies vaccine, IM 06/05/10 Given Ambulat ory Pharmac y measles, mumps and rubella virus vaccine 2 2010 UNK 03 Unknown (UNK) comple t ed measles, mumps and rubella virus vaccine DoD rabies vaccine, for intramuscular injection RETIRED CODE 1 2010 [id number] 18 Novartis Pharmaceutica l Kofi. (NOV) complet ed rabies vaccine, for intramusc ular injection RETIRED CODE DoD yellow fever vaccine 1 2010 [id number] 37 Aviron (ROQUE) complet ed yellow fever vaccine DoD anthrax vaccine 2010 [id number] [employer] complet ed anthrax vaccine 05/01/10 Given Ambulat ory Pharmac y anthrax vaccine 2010 [id number] 24 [employer] complet ed anthrax vaccine 05/01/10 Given Ambulat ory Pharmac y anthrax vaccine 2 2010 [id number] 24 [employer] [place] (MIP) complet ed anthrax vaccine DoD anthrax vaccine 2009 [id number] 24 [employer] complet ed anthrax vaccine 03/21/10 Given Ambulat ory Pharmac y tuberculin purified protein derivative 2009 [id number] 96 complet ed tuberculi n purified protein derivativ e 03/21/10 Given Ambulat ory Pharmac y tetanus, diphtheria, acellular pertu is 2009 [id number] [facility] tetanus, diphtheri a, acellular pertussis 03/21/10 Given Ambulat ory Pharmac y typhoid Vi capsular polysaccharid e vac 2009 [id number] 101 Unknown complet ed typhoid Vi capsular polysacch aride vac 03/21/10 Given Ambulat ory Pharmac y anthrax vaccine 2009 [id number] [employer] complet ed anthrax vaccine 03/21/10 Given Ambulat ory Pharmac y tetanus, diphtheria, acellular pertu is 2009 [id number] 115 [facility] complet ed tetanus, diphtheri a, acellular pertussis 03/21/10 Given Ambulat ory Pharmac y typhoid Vi capsular polysaccharid e vac 2009 [id number] 101 Unknown complet ed typhoid Vi capsular polysacch aride vac 03/21/10 Given Ambulat ory Pharmac y anthrax vaccine 1 2009 [id number] 24 [employer] [place] (MIP) complet ed anthrax vaccine DoD typhoid Vi capsular polysaccharid e vaccine 1 2009 [id number] 101 Unknown (UNK) comple t ed typhoid Vi capsular polysacch aride vaccine DoD tetanus toxoid, reduced diphtheria toxoid, and acellular pertu is vaccine, adsorbed 1 2009 [id number] 115 [facility] (SKB[facility] complet ed tetanus toxoid, reduced diphtheri a toxoid, and acellular pertussis vaccine, adsorbed DoD influenza virus vaccine,split 2009 [id number] 15 Unknown complet ed influenza virus vaccine,s plit 03/17/10 Given Ambulat ory Pharmac y influenza virus vaccine,split 2009 [id number] 15 Unknown complet ed influenza virus vaccine,s plit 03/17/10 Given Ambulat ory Pharmac y influenza virus vaccine, split virus (incl. purified surface antigen)-reti red CODE 1 2009 [id number] 15 Unknown (UNK) comple t ed influenza virus vaccine, split virus (incl. purified surface antigen)- retired CODE DoD influenza virus vaccine,split 2008 [id number] 15 Unknown complet ed influenza virus vaccine,s plit 03/12/09 Given Ambulat ory Pharmac y influenza virus vaccine, split virus (incl. purified surface antigen)-reti red CODE 1 2008 [id number] [id number] 15 Unknown (UNK) complet ed influenza virus vaccine, split virus (incl. purified surface antigen)- retired CODE DoD influenza virus vaccine,split 2008 [id number] 1A 15 Unknown complet ed influenza virus vaccine,s plit 04/18/08 Given Ambulat ory Pharmac y hepatitis A adult vaccine 2008 [id number] 52 GlaxoSmithKli ne complet ed hepatitis A adult vaccine 04/18/08 Given Ambulat ory Pharmac y influenza virus vaccine,split 2008 [id number] 1A 15 Unknown complet ed influenza virus vaccine,s plit 04/18/08 Given Ambulat ory Pharmac y hepatitis A adult vaccine 2008 [id number] 52 GlaxoSmithKli ne complet ed hepatitis A adult vaccine 04/18/08 Given Ambulat ory Pharmac y influenza virus vaccine, split virus (incl. purified surface antigen)-reti red CODE 1 2008 [id number] 1A 15 Unknown (UNK) complet ed influenza virus vaccine, split virus (incl. purified surface antigen)- retired CODE DoD hepatitis A vaccine, adult dosage 2 2008 [id number] 52 [facility] complet ed hepatitis A vaccine, adult [...] CODE 0 2001 UNK 15 Sanofi Pasteur (PMC) complet ed influenza virus vaccine, split virus [...] Date DC Date Status Disposition Source [facility] [place](Hear ing Conservat ion [facility]) OUTPATIENT [id number] ARI Rubio 03/21 Released w/o Limitations [facility] [place](He aring Conserv ation [facility]) [facility] [place](Sharonda gency Room) OUTPATIENT [id number] CATRACHITO CONNER 05/14 Released w/o Limitations [facility] [place](Em ergency Room) [facility] OUTPATIENT [id number] 10/31 Released w/o Limitations [facility] OUTPATIENT [id number] 11/16 Released w/o Limitations [facility] OUTPATIENT [id number] 12/01 Released w/o Limitations Theater Facilit y [facility] [place](SRP Hearing Program) OUTPATIENT [id number] JOE FISH 02/02 Released w/o Limitations [facility] [place](SR P Hearing Program ) [employer] [facility](Merino scom [facility] Team B) OUTPATIENT [id number] [facility] CARLOS WHITE 03/12 Released w/o Limitations [facility](H anscom [facility] Team B) Bipin MICHAEL [place]) OUTPATIENT [id number] INITIAL BELINDA CHERRY 08/04 Released w/o Limitations [place] [facility]) OUTPATIENT [id number] BELINDA PARSONS 08/13 Sick at Home/Quarter s [place] [facility] [facility] OUTPATIENT [id number] Notes Entered by: LISS JOLLEY 14 Aug 2012 0727 ------- ------- ------- ------- -- 1 DAY POST-OP BELINDA JUDGE 08/14 Released w/o Limitations [place] [facility] [facility] OUTPATIENT [id number] 1 WEEK POP BELINDA JUDGE 08/21 Released w/o Limitations [place] [facility] [facility] OUTPATIENT [id number] 1 MO POP BELINDA JUDGE 09/09 Released w/o Limitations [place] [facility] [facility] OUTPATIENT [id number] 3 mo POP LASIK OU by DR Judge on 13 AUG 2012 BELINDA JUDGE 11/25 Released w/o Limitations [place] [facility] [facility] OUTPATIENT [id number] 5 Mon POP LASIK OU BY DR JUDGE ON 13 AUG 2012 BELINDA JUDGE 01/13 Released w/o Limitations [place] [facility]) [facility] Team A) OUTPATIENT [id number] (resche duled) [facility] PHA. Pt will bring current paperwo ALLISON Monterroso 05/28 Released w/o Limitations [employer](H anscom [facility] Team A) [facility] Team A) TELE CONSULT [id number] Notes Entered by: KIAN SANTIAGO Timmy 17 Jun 2013 1410 ------- ------- ------- ------- -- Lab Results DAYRON SHIPMAN 06/17 [employer] [facility] [employer](Wilber hernandezom [facility] Team A) OUTPATIENT [id number] [facility] 04-29- ALLISON ASHER 05/19 Released w/o Limitations [facility] [place] M01A [place] T[place] OUTPATIENT [id number] profile needed ROBERT VIVEROS 01/23 Released w/o Limitations [place]01[place] [facility](Hea ring Conservat ion) OUTPATIENT [id number] audiogr am KAVITA NUGENT 10/29 Released w/o Limitations [address] [place] [address] Group(H earing Conserv ation) [place] F02B [place]) TELE CONSULT [id number] Notes Entered by: JAYLA YARBROUGH 26 Feb 2019 1533 ------- ------- ------- ------- -- TPR Poly-Ph armacy 19.09 Cohort #5 ANTOINETTE FREGOSOMARILU Pathak 02/26 [place] F[facility]B [facility]) Procedures Combined list of: 1) Procedures from Department of Veterans Affairs facilities [facility], not all [facility] non-surgical procedures are included; 2) All procedures from the Department of Defense facilities. Procedure Procedure Type Code Date Perfomer Comments Sourc e No data available for this section Ambulato ry Pharmacy Threshold Audiogram (Pure Tone) Automated Threshold Audiogram (Pure Tone) Automated [id number] KAVITA NUGENT [facility] Electrocardiogram Electrocardiogram 71260 05/26 015 ALLISON ASHER [facility] Determination Of Refractive State Determination Of Refractive State 92008 013 BELINDA JUDGE Ophthalmological Prior Patient Start Comprehensive Care Ophthalmological Prior Patient Start Comprehensive Care 60300 013 BELINDA JUDGE Determination Of Refractive State Determination Of Refractive State 90061 013 BELINDA JUDGE Ophthalmological Prior Patient Start Comprehensive Care Ophthalmological Prior Patient Start Comprehensive Care 48961 013 BELINDA JUDGE Postoperative Visit, Without Charge Postoperative Visit, Without Charge 38991 013 BELINDA JUDGE Postoperative Visit, Without Charge Postoperative Visit, Without Charge 01120 013 BELINDA JUDGE Postoperative Visit, Without Charge Postoperative Visit, Without Charge 45797 013 BELINDA JUDGE Laser in situ keratomileusis (LASIK) 013 BELINDA JUDGE Corneal Pachymetry Both Eyes Corneal Pachymetry Both Eyes 48183 013 BELINDA JUDGE Computerized Corneal Topography Computerized Corneal Topography 07623 013 BELINDA JUDGE Determination Of Refractive State Determination Of Refractive State 91600 013 BELINDA JUDGE Ophthalmological New Patient Start Comprehensive Care Ophthalmological New Patient Start Comprehensive Care 02264 013 BELINDA JUDGE Electrocardiogram Electrocardiogram 35854 03/12 012 CARLOS JO [facility] Screening Test Of Visual Acuity, Quantitative, Bilateral Screening Test Of Visual Acuity, Quantitative, Bilateral 37326 012 CARLOS JO [facility] Audiometry Group Testing Audiometry Group Testing [id number] 011 WHITE-SEYMOUR MEHNAZ, LATORI REBECCA [facility] Social Work Individual Outpatient Counseling 20-30 Minutes Social Work Individual Outpatient Counseling 20-30 Minutes [id number] 011 Theater Provider [facility] Audiometry Group Testing Audiometry Group Testing [id number] 010 ARI SHELL [facility] Social History Combined list of available smoking, tobacco, and other social history from Department of Defense and Veterans Affairs facilities. Social History Type Response Date Comment Sourc e Tobacco smoking status NHIS CURRENT SMOKER 12/12/2011 pack or less a day [facility] [place] [facility] This section is an empty social history section. [facility] Assessment and Plan Combined list of future care activities from Department of Defense and Veterans Affairs facilities (e.g., assessment and plan notes, appointments, orders, and referrals). Additional future care activities may be listed in the Plan of Care section. Result Assessment and Plan Date Source Assessment and Plan No data available for this section 10/29/2024 Ambulatory Pharmacy Functional Status Combined list of recent functional and cognitive assessments recorded at Department of Defense and Veterans Affairs (VA).VA Functional [place] Measurement (FIM) Scale: 1 = Total Assistance (Subject = 0% +), 2 = Maximal Assistance (Subject = 25% +), 3 = Moderate Assistance (Subject = 50% +), 4 = Minimal Assistance (Subject = 75% +), 5 = Supervision, 6 = Modified [place] (Device), 7 = Complete [place] (Timely, Safely). Assessment Date/Time Source Assessment Type Assessment Skill Assessment Score Assessment Details No data available for this section
[2024-10-29 13:02] VITALS: BP 158/70; PULSE 82; O2SAT 97; BMI 28.3
--- NOTE | 2024-10-29 13:02 | A.OFFVIS_ITS ---
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 The patient is a 54-year-old gentleman with a smoking history who quit several months ago he is taking part of the lung cancer screening program. A CT scan demonstrating a mediastinal masslike density that is calcified. When compared to last year's the masslike density has not changed. The patient states that even as a child he was found to have a density his lungs and he has had that for a long time. He has never had biopsy. In addition to the masslike density does have some lymphadenopathy. The lymphadenopathy appears to be new. Is precarinal lymph node measuring 1.5 cm. 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 He did have injuries to the back and to his lower extremities due to work-related injuries. He had multiple surgeries to the back. He has significant pleuritic discomfort in the left hemithorax. Indeed it could be some degree of radiculopathy that which is kind of running in a dermatomal distribution. But based on the discomfort will go ahead and repeat a CT scan at this time. We have to address the lymphadenopathy the mediastinal mass. [facility] Medical History Smoker Arthritis Right arm numbness Bursitis and tendinitis of shoulder region Rotator cuff tear Right shoulder tendonitis Hand arthritis Nerve root compression Chronic radicular pain of lower back Surgical History History of arthroscopic surgery of shoulder History of spinal surgery (12/10/23) Hx of colonoscopy S/P left rotator cuff repair (~2014) History of lumbar discectomy Lung mass (~1976) Family History Father Cancer Mother HTN (hypertension) Social History Household Members: Spouse Housing: House Are you a primary respite care provider to a significant other at home: No Do you presently have visiting nurse or other home services: No Patient Tobacco Use Status: Current someday Tobacco user Tobacco use type: Cigarette Cigarettes Per Day: 10 Years Smoked: over 30 years e-Cigarette/Vaping Use: Never Used Second Hand Smoke Exposure: Yes service: Yes Current occupational status: employed Current occupation: rt handed Cognitive needs: No Hearing needs: No Vision needs: Yes (contacts) Review of Systems Const Reports body aches Eyes Reports no additional complaints ENT Reports nasal congestion Card Denies chest pain and Reports dyspnea on exertion Resp Reports cough, Reports dyspnea on exertion and Reports wheezing GI Reports no additional complaints Musc Reports no additional complaints Skin/Breast Denies rash Neuro Reports no additional complaints Endo Reports no additional complaints Corbin/Lymph Reports no additional complaints Aller/Immun Reports wheezing Physical Exam Vital Signs: Last Vital Signs Pulse 82 10/29/24 13:02 BP 158/70 H 10/29/24 13:02 Pulse Ox 97 10/29/24 13:02 Oxygen Delivery Method Room Air 10/29/24 13:02 BMI result Body Mass Index 28.3 Const General: comfortable HEENT Head: Yes normocephalic Eyes General: appearance normal, both eyes and all related structures Neck Neck: Yes supple Chest Chest palpation & inspection: normal inspection of the chest Resp Effort & Inspection: normal respiratory effort Auscultation: clear to auscultation bilaterally Cardio Heart sounds: S1 normal heart sound present and S2 normal heart sound present GI Palpation (GI): Soft to palpation Skin General skin exam: no rashes or lesions noted Extrem General: Yes no clubbing, cyanosis or edema Assessment & Plan Assessment & Plan (1) Lung mass: Onset Date: ~1976 Comment: No surgical intervention, Doctors monitoring mass. Code(s): R91.8 - Other nonspecific abnormal finding of lung field Category: Surgical (2) Smoker: Code(s): F17.200 - Nicotine dependence, unspecified, uncomplicated Category: Social Hx (3) Lymphadenopathy: Code(s): R59.1 - Generalized enlarged lymph nodes Category: Medical (4) Chest pain: Code(s): R07.9 - Chest pain, unspecified Category: Medical Qualifiers: Chest pain type: intercostal pain Qualified Code(s): R07.82 - Intercostal pain Plan Repeat CT chest at this time smoking cessation; Wellbutrin and nocotine patch F/U 3 months Orders: Orders CT chest wo IV con 4 Weeks R07.9 - Chest pain, unspecified, R59.1 - Generalized enlarged lymph nodes, R91.8 - Other nonspecific abnormal finding of lung field Medications: New bupropion HCl 150 mg (2 x 75 mg) PO BID 120 tabs 6RF 30 days nicotine 1 patch transdermal DAILY 28 ea 3RF 28 days Coding Level of Care Code New Pt Level 4 (81843) Diagnoses Lung mass R91.8 Smoker F17.200 Lymphadenopathy R59.1 Intercostal pain R07.82 Chest pain type: intercostal pain Time Spent (min) 40
--- OUTSIDE RECORDS SUMMARY | 2024-10-29 13:03 | XMS_ITS | Clinical Summary ---
Author Organization [employer] [facility] [place] [address] Care Team Providers Care Assembler Movement Name Role Phone Evelina Zuniga MD Primary Care Provider [phone] Social History Tobacco Use Types Packs/Day Years [...] Panel) 01/16/2024 Colorectal Cancer Screening: Colonoscopy 01/16/2024 HIV Screening 01/16/2024 Hepatitis C Screening 01/16/2024 Social Influencers of Health Screening 01/16/2024 Depression Screening 04/08/2024 Influenza Vaccine (#1) 2024 8, 03/13/2017, 01/10/2016 DTaP,Tdap,and Td Vaccines (2 - [...] age to complete this topic Care Teams Assembler Movement Relationship Specialty Start Date End Date Evelina Zuniga MD [address] [place] [address] PCP - General Internal Medicine 09/19/17
== END 2024-10-29 13:52 | disposition home or self-care (01) ==
LOC: HO.HPS 12:50
PROVIDERS: PCP Nurse Practitioner Family; Referring Provider Nurse Practitioner Family; Visit Provider Hospitalist
DX: R91.8 Other nonspecific abnormal finding of lung field (principal); F17.200 Nicotine dependence, unspecified, uncomplicated; R59.1 Generalized enlarged lymph nodes; R07.82 Intercostal pain
CPT/HCPCS: 99204

== ENCOUNTER → 2024-10-29 12:49 | Outpatient (BNVA) | payer OTHER, SELFPAY | PROVIDERS: PCP Nurse Practitioner Family; Referring Provider Nurse Practitioner Family; Visit Provider Hospitalist | DX: R91.8 Other nonspecific abnormal finding of lung field (principal); F17.210 Nicotine dependence, cigarettes, uncomplicated; R59.1 Generalized enlarged lymph nodes; R07.82 Intercostal pain | CPT/HCPCS: 99202 ==

== ENCOUNTER 2024-11-15 05:43 | Emergency (ER) | payer OTHER, SELFPAY ==
[2024-11-15 05:58] VITALS: BP 154/68; PULSE 68; RESP 16; TEMP 37.1; O2SAT 98; BMI 27.3
--- NOTE | 2024-11-15 07:00 | PC.NURSE ---
patient a&ox3, endorses 11/15 back pain, states last otc medication he took was motrin yesterday 11/14/24, pt awaiting evaluation by provider, [place] tapia within reach, plan of care ongoing
--- NOTE | 2024-11-15 08:48 | ED.BACK ---
HPI - Back Pain/Injury General Chief Complaint: Back Pain/Injury Stated Complaint: lower back pain Time Seen by Provider: 11/15/24 08:31 Source: patient Mode of arrival: ambulatory Limitations: no limitations History of Present Illness HPI Narrative: This is a very pleasant 54 years old the patient with a history of chronic lower back pain status post multiple back surgery presented to the ED complaining of exacerbation of lower back pain. He denies any weakness in the legs, denies any numbness in the lower extremity any urine incontinence any fever. Pain he has been going on for the last couple of days. MD elicited complaint: back pain Pertinent past history: prior back pain Onset (ago): day(s) (2) Timing: constant Severity: moderate Similar Symptoms Previously: Yes Quality: burning and dull Location: lumbar spine Radiation: none Exacerbating factors: movement Relieving factors: none Associated symptoms: denies other symptoms Related Data Home Medications ?Medication ?Instructions ?Recorded ?Confirmed nicotine 7 mg/24 hr daily 1 patch transdermal NEEDED PRN 01/27/24 09/29/24 transdermal patch (Nicoderm CQ) Smoking Cessation Previous Rx's ?Medication ?Instructions ?Recorded testosterone 3 pump topical DAILY 30 days #75 09/22/24 grams tramadol 50 mg tablet 50 mg PO Q8H PRN pain #60 tabs 09/29/24 bupropion HCl 75 mg tablet 150 mg (2 x 75 mg) PO BID 30 days 10/29/24 #120 tabs nicotine 14 mg/24 hr daily 1 patch transdermal DAILY 28 days 10/29/24 transdermal patch #28 ea cyclobenzaprine 10 mg tablet 10 mg PO TID PRN muscle spasm #14 11/15/24 tabs oxycodone 5 mg tablet 5 mg PO Q6H PRN pain #15 tabs 11/15/24 Allergies Allergy/AdvReac Type Severity Reaction Status Date / Time No Known Allergies Allergy Verified 11/15/24 06:09 Review of Systems Constitutional: Constitutional: Reports no additional constitutional complaints Cardiovascular: Cardiovascular: Reports no additional cardiovascular complaints Neurologic: Reports system reviewed and no additional complaints, except as documented [facility] Past Medical History [facility] Narrative: Lower back pain Medical History Chest pain Lymphadenopathy Smoker Arthritis Right arm numbness Bursitis and tendinitis of shoulder region Rotator cuff tear Right shoulder tendonitis Hand arthritis Nerve root compression Chronic radicular pain of lower back Surgical History History of arthroscopic surgery of shoulder History of spinal surgery (12/10/23) Hx of colonoscopy S/P left rotator cuff repair (~2014) History of lumbar discectomy Lung mass (~1976) Family History Family History Father Cancer Mother HTN (hypertension) Social History Social History Household Members: Spouse Housing: House Are you a primary child caregiver to a significant other at home: No Do you presently have visiting nurse or other home services: No Patient Tobacco Use Status: Current someday Tobacco user Tobacco use type: Cigarette Cigarettes Per Day: 10 Years Smoked: over 30 years e-Cigarette/Vaping Use: Never Used Second Hand Smoke Exposure: Yes service: Yes Current occupational status: employed Current occupation: rt handed Cognitive needs: No Hearing needs: No Vision needs: Yes (contacts) Physical Exam Exam: Exam: He looks well is not in distress he is comfortable in the stretcher Vital Signs: Vital Signs: Last Vital Signs Temp 98.2 F 11/15/24 09:15 Pulse 66 11/15/24 09:15 Resp 16 11/15/24 09:15 BP 148/78 H 11/15/24 09:15 Pulse Ox 98 11/15/24 09:15 O2 Del Method Room Air 11/15/24 09:15 BMI result Body Mass Index 27.3 Afebrile normotensive Const: General: cooperative Nutritional Appearance: well nourished Orientation/consciousness: patient oriented x3 Limitations: no limitations HEENT: Head: Yes normal to inspection General nose exam: Normal external nose present Face and sinus: Yes normal facial exam Mouth: Normal oral and palatal mucosa present Neck: Neck: Yes normal visual inspection and Yes full ROM Chest: Chest palpation & inspection: normal inspection of the chest Resp: Effort & Inspection: normal respiratory effort Auscultation: clear to auscultation bilaterally Cardio: Jugular venous distension: no JVD Rate: regular rate Rhythm: regular rhythm GI: Inspection: Yes normal to inspection Palpation (GI): Soft to palpation, not firm and nontender Auscultation: normal bowel sounds Skin: General skin exam: no rashes or lesions noted Lesions: no lesions Rashes: no rashes Wounds: no wounds Neuro: General: patient oriented x3 Cranial nerves: Yes CN's II-XII intact bilaterally Cognition (Neuro): normal cognition Motor exam (neuro): 5/5 motor strength present throughout Medications Administered Discontinued Medications Generic Name Dose Route Start Last Admin Trade Name Freq PRN Reason Stop Dose Admin Oxycodone HCl 10 mg 11/15/24 08:47 11/15/24 09:09 Oxycodone Hcl Immed Release 5 Mg Tablet PO 11/15/24 08:48 10 mg ONCE ONE Administration Medical Decision Making Medical Decision Making MDM Narrative: Patient is here with a chief complaint of lower back pain no red flags no fever no urine incontinence no numbness of the lower extremity. I do not think we need to do any imaging he does have a spine surgeon for follow-up Differential Diagnosis Differential Diagnoses: The differential diagnosis associated with the presentation includes Lower back pain/disc herniation Discharge Plan Discharge Clinical Impression: Back pain Patient Disposition: Home, Self-Care Instructions: Acute Low Back Pain (ED) Prescriptions: New oxycodone 5 mg tablet 5 mg PO Q6H PRN (Reason: pain) Qty: 15 0RF Rx Instructions: partial filing upon pt request; Partial Fill upon patient request. cyclobenzaprine 10 mg tablet 10 mg PO TID PRN (Reason: muscle spasm) Qty: 14 0RF No Action nicotine [Nicoderm CQ] 7 mg/24 hr Patch 24 Hour 1 patch transdermal NEEDED PRN (Reason: Smoking Cessation) tramadol 50 mg tablet 50 mg PO Q8H PRN (Reason: pain) Qty: 60 0RF bupropion HCl 75 mg tablet 150 mg PO BID 30 Days Qty: 120 6RF nicotine 14 mg/24 hr patch 24 hour 1 patch transdermal DAILY 28 Days Qty: 28 3RF testosterone 20.25 mg/1.25 gram (1.62 %) gel in metered-dose pump 3 pump topical DAILY 30 Days Qty: 75 3RF Rx Instructions: apply 3 pumps over max area - alternate shoulders on alternate days; This is an increase in dose Referrals: Mitch Del Rio MD, PhD [Physician, Neuro Spine] - 12/07/24 Interventions: ED Discharge Assessment Last Done: 11/15/24 09:15 Discharge Date/Time: 11/15/24 09:15 Print Language: Tamazight
[2024-11-15] MEDS: oxyCODONE HCl Immed Release 5 MG TABLET 10 MG PO (09:09)
--- NOTE | 2024-11-15 09:14 | PC.NURSE ---
pt medicated for pain, ambulated with steady gait to bathroom, will discharge home
[2024-11-15 09:15] VITALS: BP 148/78; PULSE 66; RESP 16; TEMP 36.8; O2SAT 98
== END 2024-11-15 09:15 | disposition home or self-care (01) ==
PROVIDERS: Emergency Provider Emergency Medicine
DX: M54.50 Low back pain, unspecified (principal)
CPT/HCPCS: 99283; 99284

== ENCOUNTER 2024-11-24 11:08 | Outpatient (AMB) | payer OTHER, SELFPAY ==
--- NOTE | 2024-11-24 11:46 | A.SPINEOV_ITS ---
Intake Visit Reasons: ED f/u Intake Note: Mr. David Calderon is here today for an ED F/u for back pain. Registered Dietetic Technician Required: No Allergies No Known Allergies Allergy (Verified 11/24/24 11:47) Assessment & Plan Assessment & Plan (1) Low back pain: Code(s): M54.50 - Low back pain, unspecified Category: Medical Plan Mr David Calderon is here in follow-up. He underwent an L3-4 oblique lumbar interbody fusion last year. He has been dealing with on and off back pain since surgery as well as a weakness in his right hip flexion. He was lifting some things last week and had a flare-up of pain was in the emergency room. It seems to be a little better now but it is still bothering him. He is slow to move. Strength still shows he has some hip flexion weakness and sensitivity on the thigh to light touch. Reflexes intact at the patella, absent at the Achilles. I think he is dealing with a muscular strain. I offered him the option of x- rays but he said he he would like to see how it goes. I called him in a prescription for methocarbamol. He can follow up with us on an as-needed basis. Total amount of time spent in this visit was 20 minutes in discussion of symptoms, ordering medications and subsequent plan of care Jorje Del Rio MD,PhD [facility] Medications: New methocarbamol 500 mg PO TID 30 tabs 0RF Coding Level of Care Code Est Pt Level 3 (63639) Diagnoses Low back pain M54.50
--- OUTSIDE RECORDS SUMMARY | 2024-11-24 12:39 | XMS_ITS | Continuity of Care Document ---
Author Name [facility] Organization [facility] Care Team Providers Care Manufacturing Sales Representative Name Role Phone [facility] Unavailable Unavailable Problems Combined list of problems [...] DoD REFRACTIVE ERROR - HYPERMETROPIA Active Condition [facility] REFRACTIVE ERROR Active Condition 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 visit for: services physical pre-deployment Inactive Condition DoD joint pain, localized in the knee Inactive Condition DoD MARITAL PROBLEM Active Condition DoD Occupational Therapy Inactive Condition DoD sleep disturbances Inactive Condition s leep disturbances DoD insomnia Active Condition DoD NO PSYCHIATRIC DIAGNOSIS ON AXIS II Active Condition DoD OCCUPATIONAL PROBLEM Active Condition DoD PARTNER RELATIONAL PROBLEM Inactive Condition PARTNER RELATIONAL PROBLEM [facility] visit for: ears / hearing exam Active Condition [facility] visit for: services physical Active Condition [facility] Medications Combined list of outpatient medications from Department of Defense and Veterans Affairs facilities.Medications provided include 1) outpatient medications from the last 15 months, and 2) patient-reported medications. Medication Details Route Status Patient Instructions Prescription Expires Prescription Number Last Dispense Date Ordering Provider Order Date Order Qty Source IBUPROFEN (ibuprofen) , 600 MG, TABLET, ORAL, AUROBINDO PHARM, 500 ea. BOTTLE Active [id number] 2023 30 Pharmac y Data Transac tion Service Facilit y OXYCODONE HCL (oxycodone HCl), 10 MG, TABLET, ORAL, [employer], 100 ea. BOTTLE Active [id number] 2023 20 Pharmac y Data Transac tion Service Facilit y OXYCODONE-A CETAMINOPHE N (OXYCODONE HCL/ACETAMI NOPHEN), 5MG-325MG, TABLET, ORAL, MALLINKRT PHARM, 500 ea. BOTTLE Active [id number] 2023 12 Pharmac y Data Transac [...] Site Reaction Lot Number CVX Code Drug Data Base Administrator Status Comments Source influenza, injectable, quadrivalent- pf 2021 [id number] RegalBoxi ne complet ed influenza , injectabl e, quadrival ent-pf 02/14/22 Given Ambulat ory Pharmac y COVID Vaccine Moderna 2020 [id number] complet ed COVID Vaccine Moderna 07/16/20 Given Ambulat ory Pharmac y COVID Vaccine Moderna 2020 [id number] complet ed COVID Vaccine Moderna 06/18/20 Given Ambulat ory Pharmac y influenza, injectable, quadrivalent- pf 2019 [id number] 150 Seqirus complet ed influenza , [...] injectabl e, quadrival ent, preservat khoa free [facility] influenza, seasonal, injectable-pf 2017 [id number] Seqirus complet ed influenza , seasonal, injectabl e-pf 01/25/18 Given Ambulat ory Pharmac y influenza, seasonal, injectable-pf 2017 [id number] 140 Seqirus complet ed influenza , seasonal, injectabl e-pf 01/25/18 Given Ambulat ory Pharmac y Influenza, seasonal, injectable, preservative free 1 2017 [id number] 140 Seqirus (SEQ) comple t ed Influenza , seasonal, injectabl e, preservat khoa free DoD influenza, seasonal, injectable-pf 2016 [id number] 140 Seqirus complet ed influenza , seasonal, [...] Influenza, seasonal, injectable, preservative free 1 2016 [id number] 140 Seqirus (SEQ) comple t ed Influenza , seasonal, injectabl e, preservat khoa free DoD influenza, seasonal, injectable 2015 [id number] 141 GlaxoSmithKli ne complet ed influenza , seasonal, injectabl e 01/10/16 Given Ambulat ory Pharmac y influenza, seasonal, injectable 2015 [id number] 141 GlaxoSmithKli ne complet ed influenza , seasonal, injectabl e 01/10/16 Given Ambulat ory Pharmac y Influenza, seasonal, injectable 1 2015 [id number] 141 SmithKline (SKB) complet ed Influenza , seasonal, injectabl e DoD influenza, seasonal, injectable-pf 2014 [id number] 140 CSL Behring complet ed influenza , seasonal, injectabl e-pf 12/19/14 Given Ambulat ory Pharmac y influenza, seasonal, injectable-pf 2014 [id number] 140 CSL Behring complet ed influenza , seasonal, injectabl e-pf 12/19/14 Given Ambulat ory Pharmac y Influenza, seasonal, injectable, preservative free 1 2014 [id number] 140 [employer] (CSL) complet ed Influenza , seasonal, injectabl e, preservat khoa free DoD varicella virus vaccine 2 2014 UNK 21 Unknown (UNK) Not Given varicella virus vaccine DoD influenza, seasonal, injectable-pf 2013 [id number] 140 GlaxoSmithKli ne complet ed influenza , seasonal, injectabl e-pf 01/05/14 Given Ambulat ory Pharmac y influenza, seasonal, injectable-pf 2013 [id number] 140 GlaxoSmithKli ne complet ed influenza , seasonal, injectabl e-pf 01/05/14 Given Ambulat ory Pharmac y Influenza, seasonal, injectable, preservative free 1 2013 [id number] 140 [facility] (B) complet ed Influenza , seasonal, injectabl e, preservat khoa free DoD varicella virus vaccine 2013 [id number] 21 Merck & Company Inc complet ed varicella virus vaccine 06/04/13 Given Ambulat ory Pharmac y varicella virus vaccine 1 2013 [id number] 21 Merck (MSD) complet ed varicella virus vaccine DoD influenza, seasonal, injectable-pf 2012 [id number] 140 Medefyune Inc comple t ed influenza , seasonal, injectabl e-pf 02/07/13 Given Ambulat ory Pharmac y influenza, seasonal, injectable-pf 2012 [id number] 140 Medimmune Inc comple t ed influenza , seasonal, injectabl e-pf 02/07/13 Given Ambulat ory Pharmac y Influenza, seasonal, injectable, preservative free 1 2012 [id number] 140 BIOSAFE, Inc. (MED) complet ed Influenza , seasonal, injectabl e, preservat khoa free DoD influenza, seasonal, injectable-pf 2011 [id number] 140 Unknown complet ed influenza , seasonal, injectabl e-pf 01/24/12 Given Ambulat ory Pharmac y Influenza, seasonal, injectable, preservative free 1 2011 [id number] 140 Unknown (UNK) comple t ed Influenza , seasonal, injectabl e, preservat khoa free DoD influenza, seasonal, injectable 2010 [id number] 141 CSL Behring complet ed influenza , seasonal, injectabl e 02/02/11 Given Ambulat ory Pharmac y tuberculin purified protein derivative 2010 [id number] complet ed tuberculi n purified protein derivativ e 02/02/11 Given Ambulat ory Pharmac y influenza, seasonal, injectable 2010 [id number] [id number] 141 CSL Behring complet ed influenza , seasonal, injectabl e 02/02/11 Given Ambulat ory Pharmac y Influenza, seasonal, injectable 1 2010 [id number] 141 [facility] [employer] (CS) complet ed Influenza , seasonal, injectabl e DoD rabies vaccine, IM 2010 [id number] 175 Novartis Pharmaceutica ls complet ed rabies vaccine, IM 11/25/10 Given Ambulat ory Pharmac y rabies vaccine, IM 2010 [id number] 175 Novartis Pharmaceutica ls complet ed rabies vaccine, IM 11/25/10 Given Ambulat ory Pharmac y rabies vaccine, for intramuscular injection RETIRED CODE 5 2010 [id number] 18 Novartis Pharmaceutica l Kofi. (FEB) complet ed rabies vaccine, for intramusc ular injection RETIRED CODE DoD rabies vaccine, IM 2010 [id number] 175 Novartis Pharmaceutica ls complet ed rabies vaccine, IM 11/04/10 Given Ambulat ory Pharmac y rabies vaccine, IM 2010 [id number] 175 Novartis Pharmaceutica ls complet ed rabies vaccine, IM 11/04/10 Given Ambulat ory Pharmac y rabies vaccine, for intramuscular injection RETIRED CODE 4 2010 [id number] 18 Novartis Pharmaceutica l Kofi. (FEB) complet ed rabies vaccine, for intramusc ular injection RETIRED CODE DoD rabies vaccine, IM 2010 [id number] 175 Novartis Pharmaceutica ls complet ed rabies vaccine, IM 10/28/10 Given Ambulat ory Pharmac y rabies vaccine, for intramuscular injection RETIRED CODE 3 2010 [id number] 18 Novartis Pharmaceutica l Kofi. (FEB) complet ed rabies vaccine, for intramusc ular injection RETIRED CODE DoD anthrax vaccine 2010 [id number] 24 Emergent [employer] complet ed anthrax vaccine 09/20/10 Given Ambulat ory Pharmac y anthrax vaccine 2010 [id number] 24 [employer] complet ed anthrax vaccine 09/20/10 Given Ambulat ory Pharmac y anthrax vaccine 3 2010 [id number] 24 [employer] [place] (MIP) complet ed anthrax vaccine DoD rabies vaccine, IM 2010 [id number] 175 complet ed rabies vaccine, IM 06/13/10 Given Ambulat ory Pharmac y rabies vaccine, IM 2010 [id number] 175 complet ed rabies vaccine, IM 06/13/10 Given Ambulat ory Pharmac y rabies vaccine, for intramuscular injection RETIRED CODE 2 2010 [id number] 18 Aviron (ROQUE) complet ed rabies vaccine, for intramusc ular injection RETIRED CODE DoD yellow fever vaccine 2010 [id number] 37 complet ed yellow fever vaccine 06/05/10 Given Ambulat ory Pharmac y rabies vaccine, IM 2010 [id number] 175 Novartis Pharmaceutica ls complet ed rabies vaccine, IM 06/05/10 Given Ambulat ory Pharmac y measles/mumps /rubella virus vaccine 2010 UNK 03 Unknown complet ed measles/m umps/rube lla virus vaccine 06/05/10 Given Ambulat ory Pharmac y yellow fever vaccine 2010 [id number] 37 complet ed yellow fever vaccine 06/05/10 Given Ambulat ory Pharmac y rabies vaccine, IM 2010 [id number] 175 Novartis Pharmaceutica ls complet ed rabies vaccine, IM 06/05/10 Given Ambulat ory Pharmac y measles, mumps and rubella virus vaccine 2 2010 UNK 03 Unknown (UNK) comple t ed measles, mumps and rubella virus vaccine DoD rabies vaccine, for intramuscular injection RETIRED CODE 1 2010 [id number] 18 Novartis Pharmaceutica l Kofi. (NOV) complet ed rabies vaccine, for intramusc ular injection RETIRED CODE DoD yellow fever vaccine 1 2010 [id number] 37 Aviron (ROQUE) complet ed yellow fever vaccine DoD anthrax vaccine 2010 [id number] 24 [employer] complet ed anthrax vaccine 05/01/10 Given Ambulat ory Pharmac y anthrax vaccine 2010 [id number] 24 [employer] complet ed anthrax vaccine 05/01/10 Given Ambulat ory Pharmac y anthrax vaccine 2 2010 [id number] 24 [employer] [place] (MIP) complet ed anthrax vaccine DoD anthrax vaccine 2009 [id number] 24 [employer] complet ed anthrax vaccine 03/21/10 Given Ambulat ory Pharmac y tuberculin purified protein derivative 2009 [id number] 96 complet ed tuberculi n purified protein derivativ e 03/21/10 Given Ambulat ory Pharmac y tetanus, diphtheria, acellular pertu is 2009 [id number] 115 [facility] tetanus, diphtheri a, acellular pertussis 03/21/10 Given Ambulat ory Pharmac y typhoid Vi capsular polysaccharid e vac 2009 [id number] 101 Unknown complet ed typhoid Vi capsular polysacch aride vac 03/21/10 Given Ambulat ory Pharmac y anthrax vaccine 2009 [id number] 24 [employer] complet ed anthrax vaccine 03/21/10 Given Ambulat ory Pharmac y tetanus, diphtheria, acellular pertu is 2009 [id number] 115 [facility] complet ed tetanus, diphtheri a, acellular pertussis 03/21/10 Given Ambulat ory Pharmac y typhoid Vi capsular polysaccharid e vac 2009 [id number] 101 Unknown complet ed typhoid Vi capsular polysacch aride vac 03/21/10 Given Ambulat ory Pharmac y anthrax vaccine 1 2009 [id number] 24 [employer] [place] (MIP) complet ed anthrax vaccine DoD typhoid Vi capsular polysaccharid e vaccine 1 2009 [id number] 101 Unknown (UNK) comple t ed typhoid Vi capsular polysacch aride vaccine DoD tetanus toxoid, reduced diphtheria toxoid, and acellular pertu is vaccine, adsorbed 1 2009 [id number] 115 [facility] (SKB) complet ed tetanus toxoid, reduced diphtheri a toxoid, and acellular pertussis vaccine, adsorbed DoD influenza virus vaccine,split 2009 [id number] 15 Unknown complet ed influenza virus vaccine,s plit 03/17/10 Given Ambulat ory Pharmac y influenza virus vaccine,split 2009 [id number] 15 Unknown complet ed influenza virus vaccine,s plit 03/17/10 Given Ambulat ory Pharmac y influenza virus vaccine, split virus (incl. purified surface antigen)-reti red CODE 1 2009 [id number] 15 Unknown (UNK) comple t ed influenza virus vaccine, split virus (incl. purified surface antigen)- retired CODE DoD influenza virus vaccine,split 2008 [id number] 15 Unknown complet ed influenza virus vaccine,s plit 03/12/09 Given Ambulat ory Pharmac y influenza virus vaccine, split virus (incl. purified surface antigen)-reti red CODE 1 2008 [id number] 15 Unknown (UNK) complet ed influenza virus vaccine, split virus (incl. purified surface antigen)- retired CODE DoD influenza virus vaccine,split 2008 [id number] 1A 15 Unknown complet ed influenza virus vaccine,s plit 04/18/08 Given Ambulat ory Pharmac y hepatitis A adult vaccine 2008 [id number] 52 GlaxoSmithKli ne complet ed hepatitis A adult vaccine 04/18/08 Given Ambulat ory Pharmac y influenza virus vaccine,split 2008 [id number] 1A 15 Unknown complet ed influenza virus vaccine,s plit 04/18/08 Given Ambulat ory Pharmac y hepatitis A adult vaccine 2008 [id number] 52 GlaxoSmithKli ne complet ed hepatitis A adult vaccine 04/18/08 Given Ambulat ory Pharmac y influenza virus vaccine, split virus (incl. purified surface antigen)-reti red CODE 1 2008 [id number] 1A 15 Unknown (UNK) complet ed influenza virus vaccine, split virus (incl. purified surface antigen)- retired CODE DoD hepatitis A vaccine, adult dosage 2 2008 [id number] 52 [facility] ([facility] complet ed hepatitis A vaccine, adult [...] Date DC Date Status Disposition Source [facility] [place](Hear ing Conservat ion [facility]) OUTPATIENT [id number] ARI Rubio 03/21 Released w/o Limitations [facility] [place](He aring Conserv ation [facility]) [facility] [place](Sharonda gency Room) OUTPATIENT [id number] CATRACHITO CONNER 05/14 Released w/o Limitations [facility] [place](Em ergency Room) [facility] OUTPATIENT [id number] 10/31 Released w/o Limitations [facility] OUTPATIENT [id number] 11/16 Released w/o Limitations [facility] OUTPATIENT [id number] 12/01 Released w/o Limitations Theater Facilit y [facility] [place]([facility] Hearing Program) OUTPATIENT [id number] JOE FISH 02/02 Released w/o Limitations [facility] [place](SR P Hearing Program ) [employer](Merino scom [facility] Team B) OUTPATIENT [id number] [facility] CARLOS WHITE 03/12 Released w/o Limitations [facility](H anscom [facility] Team B) [place] MICHAEL [place] OUTPATIENT [id number] INITIAL BELINDA CHERRY 08/04 Released w/o Limitations [place] [facility]) OUTPATIENT [id number] BELINDA PARSONS 08/13 Sick at Home/Quarter [place] [facility] [facility] [id number] Notes Entered by: LISS JOLLEY 14 Aug 2012 0727 ------- ------- ------- ------- -- 1 DAY POST-OP BELINDA JUDGE 08/14 [place] w[place]o Limitations [place] [facility] [facility] [id number] 1 WEEK POP BELINDA JUDGE 08/21 [place] Limitations [place] [facility] [facility] [id number] 1 MO POP BELINDA JUDGE 09/09 [place] w[place] Limitations [place] [facility] [facility]) [place] [id number] 3 mo POP LASIK OU by DR Judge on 13 AUG 2012 BELINDA JUDGE 11/25 [place]ased w/o Limitations [place] [facility] [facility]) OUT[place]IENT [id number] 5 Mon POP LASIK OU BY DR JUDGE ON 13 AUG 2012 BELINDA JUDGE 01/13 [place]ased w/o Limitations [place] [facility] [facility] Team A) OUTPATIENT [id number] (resche duled) [facility] PHA. Pt will bring current paperwo ALLISON Monterroso 05/28 Released w/o Limitations [employer](H anscom [facility] Team A) [facility] Team A) TELE CONSULT [id number] Notes Entered by: KIAN SANTIAGO Timmy 17 Jun 2013 1410 ------- ------- ------- ------- -- Lab Results DAYRON SHIPMAN 06/17 [employer] [facility] [employer](Wilber hernandezom [facility] Team A) OUTPATIENT [id number] [facility] 04-29- ALLISON ASHER 05/19 Released w/o Limitations [facility] [place] M[facility] [place] OUTPATIENT [id number] profile needed ROBERT VIVEROS 01/23 Released w/o Limitations [place] [place] T[place] [facility](Hea ring Conservat ion) OUTPATIENT [id number] audiogr am KAVITA NUGENT 10/29 Released w/o Limitations [address] [place] [address] Group(H earing Conserv ation) [place]([facility] F02B [place]) TELE CONSULT [id number] Notes Entered by: JAYLA YARBROUGH 26 Feb 2019 1533 ------- ------- ------- ------- -- TPR Poly-Ph armacy 19.09 Cohort #5 ANTOINETTE FREGOSOMARILU Pathak 02/26 [place]([facility] F02B [facility]) Procedures Combined list of: 1) Procedures from Department of Veterans Affairs facilities [facility], not all [facility] non-surgical procedures are included; 2) All procedures from the Department of Defense facilities. Procedure Procedure Type Code Date Perfomer Comments Sourc e No data available for this section Ambulato ry Pharmacy Threshold Audiogram (Pure Tone) Automated Threshold Audiogram (Pure Tone) Automated [id number] [facility] Electrocardiogram Electrocardiogram 82967 05/[address] [facility] Determination Of Refractive State Determination Of Refractive State [id number] 013 BELINDA JUDGE Ophthalmological Prior Patient Start Comprehensive Care Ophthalmological Prior Patient Start Comprehensive Care 51308 013 BELINDA JUDGE Determination Of Refractive State Determination Of Refractive State 21384 013 BELINDA JUDGE Ophthalmological Prior Patient Start Comprehensive Care Ophthalmological Prior Patient Start Comprehensive Care 62078 013 BELINDA JUDGE Postoperative Visit, Without Charge Postoperative Visit, Without Charge 99470 013 BELINDA JUDGE Postoperative Visit, Without Charge Postoperative Visit, Without Charge 07951 013 BELINDA JUDGE Postoperative Visit, Without Charge Postoperative Visit, Without Charge 16086 013 BELINDA JUDGE Laser in situ keratomileusis (LASIK) 013 BELINDA JUDGE Corneal Pachymetry Both Eyes Corneal Pachymetry Both Eyes 83897 013 BELINDA JUDGE Computerized Corneal Topography Computerized Corneal Topography 58009 013 BELINDA JUDGE Determination Of Refractive State Determination Of Refractive State 03552 013 BELINDA JUDGE Ophthalmological New Patient Start Comprehensive Care Ophthalmological New Patient Start Comprehensive Care 66191 013 BELINDA JUDGE Electrocardiogram Electrocardiogram 67834 03/[address] [facility] Screening Test Of Visual Acuity, Quantitative, Bilateral Screening Test Of Visual Acuity, Quantitative, Bilateral [address] [facility] Audiometry Group Testing Audiometry Group Testing 37985 011 WHITE-SEYMOUR MEHNAZ, LATORI REBECCA [facility] Social Work Individual Outpatient Counseling 20-30 Minutes Social Work Individual Outpatient Counseling 20-30 Minutes [address] [facility] Audiometry Group Testing Audiometry Group Testing [address] [facility] Social History Combined list of available smoking, tobacco, and other social history from Department of Defense and Veterans Affairs facilities. Social History Type Response Date Comment Sourc e Tobacco smoking status NHIS CURRENT SMOKER 12/12/2011 pack or less a day [facility] [place] [facility] This section is an empty social history section. [facility] Assessment and Plan Combined list of future care activities from Department of Defense and Veterans Affairs facilities (e.g., assessment and plan notes, appointments, orders, and referrals). Additional future care activities may be listed in the Plan of Care section. Result Assessment and Plan Date Source Assessment and Plan No data available for this section 11/24/2024 Ambulatory Pharmacy Functional Status Combined list of recent functional and cognitive assessments recorded at Department of Defense and Veterans Affairs (VA).VA Functional [place] Measurement (FIM) Scale: 1 = Total Assistance (Subject = 0% +), 2 = Maximal Assistance (Subject = 25% +), 3 = Moderate Assistance (Subject = 50% +), 4 = Minimal Assistance (Subject = 75% +), 5 = Supervision, 6 = Modified [place] (Device), 7 = Complete [place] (Timely, Safely). Assessment Date/Time Source Assessment Type Assessment Skill Assessment Score Assessment Details No data available for this section
--- OUTSIDE RECORDS SUMMARY | 2024-11-24 12:40 | XMS_ITS | Clinical Summary ---
Author Organization [facility] [place] [address] Care Team Providers Care Doper Operator Name Role Phone Evelina Zuniga MD [...] age to complete this topic Care Teams Doper Operator Relationship Specialty Start Date End Date Evelina Zuniga MD [address] [place] [address] PCP - General Internal Medicine 09/19/17
== END 2024-11-24 11:58 | disposition home or self-care (01) ==
LOC: HO.HNS 11:09
PROVIDERS: PCP Nurse Practitioner Family; Visit Provider Physician Assistant
DX: M54.50 Low back pain, unspecified (principal)
CPT/HCPCS: 99213

== ENCOUNTER → 2024-11-24 11:08 | Outpatient (BNVA) | payer OTHER, SELFPAY | PROVIDERS: PCP Nurse Practitioner Family; Visit Provider Physician Assistant | DX: M54.50 Low back pain, unspecified (principal); Z98.890 Other specified postprocedural states | CPT/HCPCS: 99212 ==

== ENCOUNTER 2024-12-02 13:15 | Outpatient (REF) | payer OTHER, SELFPAY ==
--- NOTE | 2024-12-02 13:19 | EMG_ITS ---
Chief complaint: Numbness arm/hand, left worse than right Reason for referral: Evaluate for Carpal Tunnel Syndrome Referred by: Dr. Gonzalez Procedure done: Bilateral upper extremities NCS/EMG Precautions and/or limitations: None The limb temperature was monitored continuously and remained between 32-36 degrees C during the performance of the NCS. Nerve Conduction Studies Anti Sensory Summary Table ?Stim Site NR Onset (ms) Norm Onset (ms) Peak (ms) Norm Peak (ms) O-P Amp (?V) Norm O-P Amp Site1 Site2 Delta-0 (ms) Dist (cm) Anish (m/s) Norm Anish (m/s) Left Median Anti Sensory (2nd Digit) Wrist ? 3.2 4.0 <3.6 22.4 >10 Wrist 2nd Digit 3.2 14.0 44 Right Median Anti Sensory (2nd Digit) Wrist ? 2.8 3.6 <3.6 14.4 >10 Wrist 2nd Digit 2.8 14.0 50 Left Radial Anti Sensory (Thumb) Forearm ? 1.8 2.2 <3.1 24.1 Forearm Thumb 1.8 0.0 Left Ulnar Anti Sensory (5th Digit) Wrist ? 2.2 3.2 <3.7 13.1 >15.0 Wrist 5th Digit 2.2 14.0 64 Right Ulnar Anti Sensory (5th Digit) Wrist ? 1.1 3.3 <3.7 19.9 >15.0 Wrist 5th Digit 1.1 14.0 127 Motor Summary Table ?Stim Site NR Onset (ms) Norm Onset (ms) O-P Amp (mV) Norm O-P Amp iAmp (mV) Amp (1st) (%) Site1 Site2 Delta-0 (ms) Dist (cm) Anish (m/s) Norm Anish (m/s) Left Median Motor (Abd Poll Brev) Wrist ? 4.8 <3.9 7.0 >4.5 7.7 100.0 Elbow Wrist 4.4 22.5 51 >45 Elbow ? 9.2 6.5 7.3 92.9 Right Median Motor (Abd Poll Brev) Wrist ? 3.4 <3.9 12.9 >4.5 14.6 100.0 Elbow Wrist 4.4 21.5 49 >45 Elbow ? 7.8 11.6 13.3 89.9 Left Ulnar Motor (Abd Dig Minimi) Wrist ? 2.5 <3.0 8.2 >5 9.9 100.0 B Elbow Wrist 3.6 19.0 53 >45 B Elbow ? 6.1 7.7 9.4 93.9 A Elbow B Elbow 1.7 10.0 59 >45 A Elbow ? 7.8 7.3 9.2 89.0 Right Ulnar Motor (Abd Dig Minimi) Wrist ? 2.5 <3.0 9.8 >5 11.4 100.0 B Elbow Wrist 3.7 20.0 54 >45 B Elbow ? 6.2 9.4 11.3 95.9 A Elbow B Elbow 1.5 10.0 67 >45 A Elbow ? 7.7 8.9 10.7 90.8 Comparison Summary Table ?Stim Site NR Peak (ms) Norm Peak (ms) P-T Amp (?V) Site1 Site2 Delta-P (ms) Norm Delta (ms) Right Median/Radial Dig I Comparison (Digit 1 - 10cm) Median ? 3.3 <2.9 198.8 Median Radial 0.5 Radial ? 2.8 <2.8 7.6 EMG ?Side Muscle Nerve Root Ins Act Fibs Psw Amp Dur Poly Recrt Int Pat Comment Right 1stDorInt Ulnar C8-T1 Nml Nml Nml Nml Nml 0 Nml Complete Right FlexCarRad Median C6-7 Nml Nml Nml Nml Nml 0 Nml Complete Right FlexCarpiUln Ulnar C8,T1 Nml Nml Nml Nml Nml 0 Nml Complete Right Biceps Musculocut C5-6 Nml Nml Nml Nml Nml 0 Nml Complete Right Triceps Radial C6-7-8 Nml Nml Nml Nml Nml 0 Nml Complete Right Deltoid Axillary C5-6 Nml Nml Nml Nml Nml 0 Nml Complete Left 1stDorInt Ulnar C8-T1 Nml Nml Nml Nml Nml 0 Nml Complete Left FlexCarRad Median C6-7 Nml Nml Nml Nml Nml 0 Nml Complete Left FlexCarpiUln Ulnar C8,T1 Nml Nml Nml Nml Nml 0 Nml Complete Left Biceps Musculocut C5-6 Nml Nml Nml Nml Nml 0 Nml Complete Left Triceps Radial C6-7-8 Nml Nml Nml Nml Nml 0 Nml Complete Left Deltoid Axillary C5-6 Nml Nml Nml Nml Nml 0 Nml Complete FINDINGS: Left median motor nerve showed prolonged distal latency, normal amplitude and normal conduction velocity. Left median sensory nerve showed prolonged peak latency. Interlatency difference between right median radial sensory nerves 0.5. All other nerves tested were within normal. Concentric needle EMG was performed in selected muscles of the bilateral upper extremities. Study did not reveal signs of electric abnormalities as shown in the table above. IMPRESSION: 1. This is an abnormal study. 2. There is electrodiagnostic evidence for left moderate-severe median neuropathy at the wrist, consistent with carpal tunnel syndrome. 3. There is no electrodiagnostic evidence for ulnar neuropathy, brachial plexopathy, or cervical radiculopathy. CLINICAL COMMENT: Left CTS moderate-severe but only borderline on right side. Thank you for your kind referral. Cecilia Hayes MD, SMITH Board Certified, [place] [employer] and [employer] (ABPMR) Board Certified, [place] [employer] Electro[employer]ostic [employer] (ABEM) CODIN [phone] x [phone] MTDD
--- OUTSIDE RECORDS SUMMARY | 2024-12-02 13:29 | XMS_ITS | Continuity of Care Document ---
Author Name [facility] Organization [facility] Care Team Providers Care Skin Care Therapist Name Role Phone [facility] Unavailable Unavailable Problems Combined list of problems from Department of Defense and Veterans Affairs facilities. It does not include entries that were removed or entered in error. 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 [facility] refractive error - hypermetropia Active Condition [facility] refractive error Active Condition [facility] visit for: preoperative exam Active Condition DoD nicotine dependence Active Condition DoD dermatophytosis tinea manuum Active Condition DoD Macules And Papules Inactive Condition DoD Blood Pressure Isolated Elevated Active Condition [facility] visit for: services physical pre-deployment Inactive Condition DoD joint pain, localized in the knee Inactive Condition DoD marital problem Active Condition [facility] Occupational Therapy Inactive Condition DoD sleep disturbances Inactive Condition s leep disturbances DoD insomnia Active Condition [facility] no psychiatric diagnosis on axis II Active Condition DoD occupational problem Active Condition DoD partner relational problem Inactive Condition PARTNER RELATIONAL PROBLEM [facility] visit for: ears / hearing exam Active Condition [facility] visit for: services physical Active Condition [facility] Medications Combined list of outpatient medications from Department of Defense and Veterans Affairs facilities.Medications provided include 1) outpatient medications from the last 15 months, and 2) patient-reported medications. Medication Details Route Status Patient Instructions Prescription Expires Prescription Number Last Dispense Date Ordering Provider Order Date Order Qty Source IBUPROFEN (ibuprofen) , 600 MG, TABLET, ORAL, AUROBINDO PHARM, 500 ea. BOTTLE Active [id number] 2023 30 Pharmac y Data Transac tion Service Facilit y OXYCODONE-A CETAMINOPHE N (OXYCODONE HCL/ACETAMI NOPHEN), 5MG-325MG, TABLET, ORAL, MALLINKRT PHARM, 500 ea. BOTTLE Active [id number] 2023 12 Pharmac y Data Transac [...] Site Reaction Lot Number CVX Code Drug Manager Sports Status Comments Source influenza, injectable, quadrivalent- pf 2021 [id number] Total-traxi ne complet ed influenza , injectabl e, quadrival ent-pf 02/14/22 Given Ambulat ory Pharmac y COVID Vaccine Moderna 2020 [id number] complet ed COVID Vaccine Moderna 07/16/20 Given Ambulat ory Pharmac y COVID Vaccine Moderna 2020 [id number] complet ed COVID Vaccine Moderna 06/18/20 Given Ambulat ory Pharmac y influenza, injectable, quadrivalent- pf 2019 [id number] 150 Seqirus complet ed influenza , [...] khoa free DoD influenza, seasonal, injectable-pf 2017 [id number] 140 Seqirus complet ed influenza , seasonal, injectabl e-pf 01/25/18 Given Ambulat ory Pharmac y influenza, seasonal, injectable-pf 2017 [id number] 140 Seqirus complet ed influenza , seasonal, injectabl e-pf 01/25/18 Given Ambulat ory Pharmac y Influenza, seasonal, injectable, preservative free 1 2017 [id number] 140 Seqirus (SEQ) comple t ed Influenza , seasonal, injectabl e, preservat khoa free DoD influenza, seasonal, injectable-pf 2016 [id number] 140 Seqirus complet ed influenza , seasonal, [...] Influenza, seasonal, injectable, preservative free 1 2016 [id number] 140 Seqirus (SEQ) comple t ed Influenza , seasonal, injectabl e, preservat khoa free DoD influenza, seasonal, injectable 2015 [id number] 141 GlaxoSmithKli ne complet ed influenza , seasonal, injectabl e 01/10/16 Given Ambulat ory Pharmac y influenza, seasonal, injectable 2015 [id number] 141 GlaxoSmithKli ne complet ed influenza , seasonal, injectabl e 01/10/16 Given Ambulat ory Pharmac y Influenza, seasonal, injectable 1 2015 [id number] 141 Smithine (SKB) complet ed Influenza , seasonal, injectabl e DoD influenza, seasonal, injectable-pf 2014 [id number] 140 CSL Behring complet ed influenza , seasonal, injectabl e-pf 12/19/14 Given Ambulat ory Pharmac y influenza, seasonal, injectable-pf 2014 [id number] 140 CSL Behring complet ed influenza , seasonal, injectabl e-pf 12/19/14 Given Ambulat ory Pharmac y Influenza, seasonal, injectable, preservative free 1 2014 [id number] 140 CSL [employer] (CSL) complet ed Influenza , seasonal, injectabl e, preservat khoa free DoD varicella virus vaccine 2 2014 UNK 21 Unknown (UNK) Not Given varicella virus vaccine DoD influenza, seasonal, injectable-pf 2013 [id number] 140 GlaxoSmithKli ne complet ed influenza , seasonal, injectabl e-pf 01/05/14 Given Ambulat ory Pharmac y influenza, seasonal, injectable-pf 2013 [id number] 140 GlaxoSmithKli ne complet ed influenza , seasonal, injectabl e-pf 01/05/14 Given Ambulat ory Pharmac y Influenza, seasonal, injectable, preservative free 1 2013 [id number] 140 [employer] (SKB) complet ed Influenza , seasonal, injectabl e, preservat khoa free DoD varicella virus vaccine 2013 [id number] 21 Merck & Company Inc complet ed varicella virus vaccine 06/04/13 Given Ambulat ory Pharmac y varicella virus vaccine 1 2013 [id number] 21 Merck (MSD) complet ed varicella virus vaccine DoD influenza, seasonal, injectable-pf 2012 [id number] 140 [employer] comple t ed influenza , seasonal, injectabl e-pf 02/07/13 Given Ambulat ory Pharmac y influenza, seasonal, injectable-pf 2012 [id number] 140 [employer] comple t ed influenza , seasonal, injectabl e-pf 02/07/13 Given Ambulat ory Pharmac y Influenza, seasonal, injectable, preservative free 1 2012 [id number] 140 [employer]. (MED) complet ed Influenza , seasonal, injectabl e, preservat khoa free DoD influenza, seasonal, injectable-pf 2011 [id number] 140 Unknown complet ed influenza , seasonal, injectabl e-pf 01/24/12 Given Ambulat ory Pharmac y Influenza, seasonal, injectable, preservative free 1 2011 [id number] 140 Unknown (UNK) comple t ed Influenza , seasonal, injectabl e, preservat khoa free DoD influenza, seasonal, injectable 2010 [id number] 141 CSL Behring complet ed influenza , seasonal, injectabl e 02/02/11 Given Ambulat ory Pharmac y tuberculin purified protein derivative 2010 [id number] complet ed tuberculi n purified protein derivativ e 02/02/11 Given Ambulat ory Pharmac y influenza, seasonal, injectable 2010 [id number] 141 CSL Behring complet ed influenza , seasonal, injectabl e 02/02/11 Given Ambulat ory Pharmac y Influenza, seasonal, injectable 1 2010 [id number] 141 CS [employer] (CSL) complet ed Influenza , seasonal, injectabl e DoD rabies vaccine, IM 2010 [id number] 175 Novartis Pharmaceutica ls complet ed rabies vaccine, IM 11/25/10 Given Ambulat ory Pharmac y rabies vaccine, IM 2010 [id number] 175 Novartis Pharmaceutica ls complet ed rabies vaccine, IM 11/25/10 Given Ambulat ory Pharmac y rabies vaccine, for intramuscular injection RETIRED CODE 5 2010 [id number] 18 Novartis Pharmaceutica l Kofi. (NOV) complet ed rabies vaccine, for intramusc ular injection RETIRED CODE DoD rabies vaccine, IM 2010 [id number] 175 Novartis Pharmaceutica ls complet ed rabies vaccine, IM 11/04/10 Given Ambulat ory Pharmac y rabies vaccine, IM 2010 [id number] 175 Novartis Pharmaceutica ls complet ed rabies vaccine, IM 11/04/10 Given Ambulat ory Pharmac y rabies vaccine, for intramuscular injection RETIRED CODE 4 2010 [id number] 18 Novartis Pharmaceutica l Kofi. (FEB) complet ed rabies vaccine, for intramusc ular injection RETIRED CODE DoD rabies vaccine, IM 2010 [id number] 175 Novartis Pharmaceutica ls complet ed rabies vaccine, IM 10/28/10 Given Ambulat ory Pharmac y rabies vaccine, for intramuscular injection RETIRED CODE 3 2010 [id number] 18 Novartis Pharmaceutica l Kofi. (FEB) complet ed rabies vaccine, for intramusc ular injection RETIRED CODE DoD anthrax vaccine 2010 [id number] 24 Emer[employer] complet ed anthrax vaccine 09/20/10 Given Ambulat ory Pharmac y anthrax vaccine 2010 [id number] 24 [employer] complet ed anthrax vaccine 09/20/10 Given Ambulat ory Pharmac y anthrax vaccine 3 2010 [id number] 24 [employer] [place] (MIP) complet ed anthrax vaccine DoD rabies vaccine, IM 2010 [id number] 175 complet ed rabies vaccine, IM 06/13/10 Given Ambulat ory Pharmac y rabies vaccine, IM 2010 [id number] 175 complet ed rabies vaccine, IM 06/13/10 Given Ambulat ory Pharmac y rabies vaccine, for intramuscular injection RETIRED CODE 2 2010 [id number] 18 Aviron (ROQUE) complet ed rabies vaccine, for intramusc ular injection RETIRED CODE DoD yellow fever vaccine 2010 [id number] 37 complet ed yellow fever vaccine 06/05/10 Given Ambulat ory Pharmac y rabies vaccine, IM 2010 [id number] 175 Novartis Pharmaceutica ls complet ed rabies vaccine, IM 06/05/10 Given Ambulat ory Pharmac y measles/mumps /rubella virus vaccine 2010 UNK 03 Unknown complet ed measles/m umps/rube lla virus vaccine 06/05/10 Given Ambulat ory Pharmac y yellow fever vaccine 2010 [id number] 37 complet ed yellow fever vaccine 06/05/10 Given Ambulat ory Pharmac y rabies vaccine, IM 2010 [id number] 175 Novartis Pharmaceutica ls complet ed rabies vaccine, IM 06/05/10 Given Ambulat ory Pharmac y measles, mumps and rubella virus vaccine 2 2010 UNK 03 Unknown (UNK) comple t ed measles, mumps and rubella virus vaccine DoD rabies vaccine, for intramuscular injection RETIRED CODE 1 2010 [id number] 18 Novartis Pharmaceutica l Kofi. (NOV) complet ed rabies vaccine, for intramusc ular injection RETIRED CODE DoD yellow fever vaccine 1 2010 [id number] 37 Aviron (ROQUE) complet ed yellow fever vaccine DoD anthrax vaccine 2010 [id number] 24 [employer] complet ed anthrax vaccine 05/01/10 Given Ambulat ory Pharmac y anthrax vaccine 2010 [id number] 24 [employer] complet ed anthrax vaccine 05/01/10 Given Ambulat ory Pharmac y anthrax vaccine 2 2010 [id number] 24 [employer] [place] ([facility]) complet ed anthrax vaccine DoD anthrax vaccine 2009 [id number] 24 [employer] complet ed anthrax vaccine 03/21/10 Given Ambulat ory Pharmac y tuberculin purified protein derivative 2009 [id number] 96 complet ed tuberculi n purified protein derivativ e 03/21/10 Given Ambulat ory Pharmac y tetanus, diphtheria, acellular pertu is 2009 [id number] 115 [facility] complet ed tetanus, diphtheri a, acellular pertussis 03/21/10 Given Ambulat ory Pharmac y typhoid Vi capsular polysaccharid e vac 2009 [id number] 101 Unknown complet ed typhoid Vi capsular polysacch aride vac 03/21/10 Given Ambulat ory Pharmac y anthrax vaccine 2009 [id number] 24 [employer] complet ed anthrax vaccine 03/21/10 Given Ambulat ory Pharmac y tetanus, diphtheria, acellular pertu is 2009 [id number] 115 [facility] ne complet ed tetanus, diphtheri a, acellular pertussis 03/21/10 Given Ambulat ory Pharmac y typhoid Vi capsular polysaccharid e vac 2009 [id number] 101 Unknown complet ed typhoid Vi capsular polysacch aride vac 03/21/10 Given Ambulat ory Pharmac y anthrax vaccine 1 2009 [id number] 24 [employer] [place] (MIP) complet ed anthrax vaccine DoD typhoid Vi capsular polysaccharid e vaccine 1 2009 [id number] 101 Unknown (UNK) comple t ed typhoid Vi capsular polysacch aride vaccine DoD tetanus toxoid, reduced diphtheria toxoid, and acellular pertu is vaccine, adsorbed 1 2009 [id number] 115 [facility] (SKB) complet ed tetanus toxoid, reduced diphtheri a toxoid, and acellular pertussis vaccine, adsorbed DoD influenza virus vaccine,split 2009 [id number] 15 Unknown complet ed influenza virus vaccine,s plit 03/17/10 Given Ambulat ory Pharmac y influenza virus vaccine,split 2009 [id number] 15 Unknown complet ed influenza virus vaccine,s plit 03/17/10 Given Ambulat ory Pharmac y influenza virus vaccine, split virus (incl. purified surface antigen)-reti red CODE 1 2009 [id number] 15 Unknown (UNK) comple t ed influenza virus vaccine, split virus (incl. purified surface antigen)- retired CODE DoD influenza virus vaccine,split 2008 [id number] 15 Unknown complet ed influenza virus vaccine,s plit 03/12/09 Given Ambulat ory Pharmac y influenza virus vaccine, split virus (incl. purified surface antigen)-reti red CODE 1 2008 [id number] 1A 15 Unknown (UNK) complet ed influenza virus vaccine, split virus (incl. purified surface antigen)- retired CODE DoD influenza virus vaccine,split 2008 [id number] 1A 15 Unknown complet ed influenza virus vaccine,s plit 04/18/08 Given Ambulat ory Pharmac y hepatitis A adult vaccine 2008 [id number] 52 GlaxoSmithKli ne complet ed hepatitis A adult vaccine 04/18/08 Given Ambulat ory Pharmac y influenza virus vaccine,split 2008 [id number] 1A 15 Unknown complet ed influenza virus vaccine,s plit 04/18/08 Given Ambulat ory Pharmac y hepatitis A adult vaccine 2008 [id number] 52 GlaxoSmithKli ne complet ed hepatitis A adult vaccine 04/18/08 Given Ambulat ory Pharmac y influenza virus vaccine, split virus (incl. purified surface antigen)-reti red CODE 1 2008 [id number] 1A 15 Unknown (UNK) complet ed influenza [...] Date DC Date Status Disposition Source [facility] [place](Hear ing Conservat ion [facility]) OUTPATIENT [id number] ARI Rubio 03/21 Released w/o Limitations [facility] [place](He aring Conserv ation [facility]) [facility] [place](Sharonda gency Room) OUTPATIENT [id number] CATRACHITO CONNER 05/14 Released w/o Limitations [facility] [place](Em ergency Room) [facility] OUTPATIENT [id number] 10/31 Released w/o Limitations [facility] OUTPATIENT [id number] 11/16 Released w/o Limitations [facility] OUTPATIENT [id number] 12/01 Released w/o Limitations Theater Facilit y [facility] [place]([facility] Hearing Program) OUTPATIENT [id number] MAHSA WHITE-FONT JOE BISWAS 02/02 Released w/o Limitations [facility] [place](SR P Hearing Program ) [employer](Merino scom [facility] Team B) OUTPATIENT [id number] [facility] CARLOS WHITE 03/12 Released w/o Limitations [facility](H anscom [facility] Team B) [place] OUTPATIENT [id number] INITIAL BELINDA CHERRY 08/04 [place]o Limitations [place] [facility]) OUT[place]IENT [id number] BELINDA PARSONS 08/13 Sick at Home/Quarter s [place] [facility] [facility] [place] OUTPATIENT [id number] Notes Entered by: LISS JOLLEY 14 Aug 2012 0727 ------- ------- ------- ------- -- 1 DAY POST-OP BELINDA JUDGE 08/14 [place] Limitations [place] [facility] [facility] [place] OUT[place]IENT [id number] 1 WEEK POP BELINDA JUDGE 08/21 [place] Lim[place] [facility] [facility] [place] [id number] 1 MO POP BELINDA JUDGE 09/09 [place] Lim[place] [facility] [facility] [place] OUT[place]IENT [id number] 3 mo POP LASIK OU by DR Jugde on 13 AUG 2012 BELINDA JUDGE 11/25 [place] Limitations [place] [facility] [facility] [place] OUT[place]IENT [id number] 5 Mon POP LASIK OU BY DR JUDGE ON 13 AUG 2012 BELINDA JUDGE 01/13 [place]ased w/o Limitations [place] [facility] [place] [facility] Team A) OUTPATIENT [id number] (resche duled) [facility] PHA. Pt will bring current paperwo ALLISON Monterroso 05/28 Released w/o Limitations [facility] Team A) [facility] Team A) TELE CONSULT [id number] Notes Entered by: KIAN SANTIAGO 17 Jun 2013 1410 ------- ------- ------- ------- -- Lab Results DAYRON SHIPMAN 06/17 [employer](H anscom [facility] Team A) [employer](Wilber hernandezom [facility] Team A[facility] OUTPATIENT [id number] [facility] 1-22-15 ALLISON ASHER 05/19 Released w/o Limitations [facility] [place] M01A [place] T[place] OUTPATIENT [id number] profile needed ROBERT VIVEROS 01/23 Released w/o Limitations [place] M01[place] Red T[place] [facility](Hea ring Conservat ion) OUTPATIENT [id number] audiogr am KAVITA NUGENT 10/29 Released w/o Limitations [facility](H earing Conserv ation) [place] F[facility]) TELE CONSULT [id number] 4 Notes Entered by: JAYLA YARBROUGH 26 Feb 2019 1533 ------- ------- ------- ------- -- TPR Poly-Ph armacy 19.09 Cohort #5 FREGOSO, VERONICA Pathak 02/26 [place] F02B [facility]) Procedures Combined list of: 1) Procedures from Department of Veterans Affairs facilities going back up to thelast 18 months, not all VA non-surgical procedures are included; 2) All procedures from the Department of Defense facilities. Procedure Procedure Type Code Date Perfomer Comments Sourc e No data available for this section [facility] PURE TONE AUDIOMETRY (THRESHOLD), AUTOMATED; AIR ONLY 018 DoD ELECTROCARDIOGRAM, ROUTINE ECG WITH AT LEAST 12 LEADS; WITH INTERPRETATION AND REPORT 015 DoD ELECTROCARDIOGRAM, ROUTINE ECG WITH AT LEAST 12 LEADS; WITH INTERPRETATION AND REPORT 012 DoD DETERMINATION OF REFRACTIVE STATE 013 DoD [...] A POSTOPERATIVE PERIOD REASON RELATED ORIGINAL PROCEDURE [facility] POSTOPERATIVE FOLLOW-UP VISIT, NORMALLY INCLUDED IN THE SURGICAL PACKAGE, INDICATE THAT EVALUATION & MANAGEMENT SERVICE WAS PERFORMED DURING A POSTOPERATIVE PERIOD REASON RELATED ORIGINAL PROCEDURE [facility] LASER IN SITU KERATOMILEUSIS (LASIK) [facility] OPHTHALMIC ULTRASOUND, ECHOGRAPHY, DIAGNOSTIC; CORNEAL PACHYMETRY, UNILATERAL OR BILATERAL (DETERMINATION OF CORNEAL THICKNESS) [facility] AUDIOMETRIC TESTING OF GROUPS 011 [facility] SKIN TEST; TUBERCULOSIS, INTRADERMAL 011 [facility] COLLECTION OF VENOUS BLOOD BY VENIPUNCTURE DoD RABIES VACCINE, FOR INTRAMUSCULAR USE 011 DoD SKIN TEST; TUBERCULOSIS, INTRADERMAL 011 [facility] SCREENING TEST OF VISUAL ACUITY, QUANTITATIVE, BILATERAL DoD VARICELLA VIRUS VACCINE (DEBBIE), LIVE, FOR SUBCUTANEOUS USE 011 [facility] AUDIOMETRIC TESTING OF GROUPS 010 [facility] SKIN TEST; TUBERCULOSIS, INTRADERMAL DoD COLLECTION OF VENOUS BLOOD BY VENIPUNCTURE 010 [facility] Threshold Audiogram (Pure Tone) Automated Threshold Audiogram (Pure Tone) Automated [id number] 018 KAVITA NUGENT [facility] Electrocardiogram Electrocardiogram 38844 05/26 015 ALLISON ASHER [facility] Determination Of Refractive State Determination Of Refractive State 013 BELINDA JUDGE Ophthalmological Prior Patient Start Comprehensive Care Ophthalmological Prior Patient Start Comprehensive Care [id number] BELINDA JUDGE Determination Of Refractive State Determination Of Refractive State 013 BELINDA JUDGE Ophthalmological Prior Patient Start Comprehensive Care Ophthalmological Prior Patient Start Comprehensive Care [id number] BELINDA JUDGE Postoperative Visit, Without Charge Postoperative Visit, Without Charge [phone] BELINDA JUDGE Postoperative Visit, Without Charge Postoperative Visit, Without Charge [id number] BELINDA JUDGE Postoperative Visit, Without Charge Postoperative Visit, Without Charge [phone] BELINDA JUDGE Laser in situ keratomileusis (LASIK) BELINDA JUDGE Corneal Pachymetry Both Eyes Corneal Pachymetry Both Eyes 30466 013 BELINDA JUDGE [facility] Computerized Corneal Topography Computerized Corneal Topography 47110 013 BELINDA JUDGE [facility] Determination Of Refractive State Determination Of Refractive State 89266 013 BELINDA JUDGE [facility] Ophthalmological New Patient Start Comprehensive Care Ophthalmological New Patient Start Comprehensive Care [phone] BELINDA JUDGE [facility] Electrocardiogram Electrocardiogram 00389 03/12 012 CARLOS JO [facility] Screening Test Of Visual Acuity, Quantitative, Bilateral Screening Test Of Visual Acuity, Quantitative, Bilateral [id number] 012 CARLOS JO [facility] Audiometry Group Testing Audiometry Group Testing 44826 [phone] WHITE-SEYMOUR MEHNAZJOE [facility] Clinical Social Work Individual Outpatient Counseling 30 Minutes Clinical Social Work Individual Outpatient Counseling 30 Minutes [id number] Theater Provider [facility] Audiometry Group Testing Audiometry Group Testing [phone] ARI SHELL [facility] Social History Combined list of available smoking, tobacco, and other social history from Department of Defense and Veterans Affairs facilities. Social History Type Response Date Comment Sourc e Tobacco smoking status NHIS CURRENT SMOKER 12/12/2011 pack or less a day [facility] [place] [facility] This section is an empty social history section. [facility] Assessment and Plan Combined list of future care activities from Department of Defense and Veterans Affairs facilities (e.g., assessment and plan notes, appointments, orders, and referrals). Additional future care activities may be listed in the Plan of Care section. Result Assessment and Plan Date Source Assessment and Plan No data available for this section 12/02/2024 Ambulatory Pharmacy Functional Status Combined list of recent functional and cognitive assessments recorded at Department of Defense and Veterans Affairs (VA).VA Functional Soldier Measurement (FIM) Scale: 1 = Total Assistance (Subject = 0% +), 2 = Maximal Assistance (Subject = 25% +), 3 = Moderate Assistance (Subject = 50% +), 4 = Minimal Assistance (Subject = 75% +), 5 = Supervision, 6 = Modified Soldier (Device), 7 = Complete Soldier (Timely, Safely). Assessment Date/Time Source Assessment Type Assessment Skill Assessment Score Assessment Details No data available for this section
--- OUTSIDE RECORDS SUMMARY | 2024-12-02 13:57 | XMS_ITS | Encounter Summary ---
Author Organization [facility] Address [address] [place] [address] Care Team Providers Care Neon Light Installer Name Role Phone Evelina Zuniga Md, MD Primary Care Provider Unavailable Reason for Visit * Reason Onset Date Comments Faxed Refill 12/26/2017 Encounter Details Date Type Department Care Team Description 12/26/2017 Refill Pulmonology - [place] [address] [facility] [address] [place] [address] Lisa Malhotra MD [address] [place] [address] Faxed Refill Social History Tobacco [...] current insurance carrier is: Payor: / Plan: [facility] $0 [id number] / Product Type: PPO [id number] documented in this encounter Plan of Treatment Not on file documented as of this encounter Visit Diagnoses Diagnosis Pulmonary mass Swelling, mass, or lump in chest documented in this encounter Care Teams Neon Light Installer Relationship Specialty Start Date End Date Evelina Zuniga MD, MD PCP - General Internal Medicine 09/19/17 documented as of this encounter
--- OUTSIDE RECORDS SUMMARY | 2024-12-02 13:57 | XMS_ITS | Clinical Summary ---
Author Organization [employer] [facility] [place] [address] Care Team Providers Care Crystalizer Operator Name Role Phone Evelina Zuniga MD [...] age to complete this topic Care Teams Crystalizer Operator Relationship Specialty Start Date End Date Evelina Zuniga MD [address] [place] [address] PCP - General Internal Medicine 09/19/17
--- OUTSIDE RECORDS SUMMARY | 2024-12-02 13:57 | XMS_ITS | Encounter Summary ---
Author Organization [facility] Address [facility] [place] [address] Care Team Providers Care Desktop Support Engineer Name Role Phone Evelina Zuniga Md, MD Primary Care Provider Unavailable Encounter Details Date Type Department Care Team Description 01/02/2018 Release of Information Medical Records [address] [place] [id number] Abstract, Provider Social History Tobacco Use Types [...] on filedocumented in this encounter Care Teams Desktop Support Engineer Relationship Specialty Start Date End Date Evelina Zuniga MD, MD PCP - General Internal Medicine 09/19/17 documented as of this encounter
== END 2024-12-02 13:16 | disposition home or self-care (01) ==
LOC: HO.NEURO 13:15
PROVIDERS: PCP Nurse Practitioner Family; Visit Provider Orthopaedic Surgery
DX: G56.03 Carpal tunnel syndrome, bilateral upper limbs (principal)
CPT/HCPCS: 95886; 95911

== ENCOUNTER → 2024-12-02 13:19 | Outpatient (BNV) | payer OTHER, SELFPAY | PROVIDERS: PCP Nurse Practitioner Family; Visit Provider Physical Medicine & Rehabilitation | DX: G62.89 Other specified polyneuropathies (principal) | CPT/HCPCS: 95886; 95911 ==

== ENCOUNTER 2024-12-02 16:22 | Outpatient (REF) | payer OTHER, SELFPAY ==
--- NOTE | ~2024-12-02 | CT_ITS ---
EXAMINATION: CT CHEST WITHOUT CONTRAST CLINICAL INFORMATION: R91.8 - Other nonspecific abnormal finding of lung field COMPARISON: January 24, 2024 and May 31, 2023 TECHNIQUE: Multidetector volumetric CT imaging of the chest was done. Axial MIP volume rendering provided. Sagittal and coronal reformatted images were obtained. This CT examination was performed using dose optimization techniques as appropriate, variously including the following: *Automated exposure control *Adjustment of mA and/or kV according to patient size (this includes techniques or standardized protocols for targeted exams where dose is matched to indication/reason for exam; i.e. extremities or head) *Use of iterative reconstruction technique DLP: 167 mGY*cm FINDINGS: LUNGS: Seen is a lobulated mass in the medial left apex abutting the anterior mediastinum measuring 3.0 x 3.5 cm previously 2.9 x 3.2 cm. The mass abuts the left subclavian artery and subclavian vein. It contains coarse calcifications and soft tissue density. There are also very small areas of low attenuation, measuring as low as -24 Hounsfield units likely representing gross fat. Paraseptal emphysema is noted in the bilateral lung apexes. MEDIASTINUM: Again seen are shotty pericarinal lymph nodes. CORONARY ARTERY CALCIFICATION: None PLEURA: Medium size layering pleural effusion is new on the left. AXILLA: No lymphadenopathy. UPPER ABDOMEN: There is a simple renal cyst in the superior pole right kidney. OSSEOUS STRUCTURES: Unremarkable aside from minimal degenerative changes. CT/CT chest wo IV con IMPRESSION: Again seen is a left apical lobular mass abutting the anterior mediastinum and adjacent vascular structures. The mass contains coarse calcifications and is heterogeneous in density. There appear to be very small areas of gross fat density within the mass suggesting a hamartoma. Lack of growth in greater than one year also suggests a nonaggressive underlying etiology. Correlate clinically. There is a new medium sized layering left pleural effusion. Fleischner guidelines were followed. Electronically signed by: Mahendra Ballard MD 12/02/2024 05:46 PM EDT
== END 2024-12-02 16:23 | disposition home or self-care (01) ==
LOC: HO.CT 16:22
PROVIDERS: PCP Nurse Practitioner Family; Visit Provider Hospitalist
DX: R91.8 Other nonspecific abnormal finding of lung field (principal); R59.1 Generalized enlarged lymph nodes; R07.9 Chest pain, unspecified
CPT/HCPCS: 71250

== ENCOUNTER → 2024-12-02 16:24 | Outpatient (BNV) | payer OTHER, SELFPAY | PROVIDERS: PCP Nurse Practitioner Family; Visit Provider Radiology Diagnostic Radiology | DX: J90 Pleural effusion, not elsewhere classified (principal) | CPT/HCPCS: 71250 ==

== ENCOUNTER 2024-12-18 11:34 | Outpatient (REF) | payer OTHER, SELFPAY ==
[2024-12-18 13:34] LABS: Hematocrit 40.0 % (42.0-52.0); Hemoglobin 13.8 g/dl (14.0-18.0); Mean Corpuscular HGB Conc 34.5 g/dl (31.0-36.0); Mean Corpuscular Hemoglobin 30.4 pg (27.0-33.0); Mean Corpuscular Volume 88.1 fL (80.0-98.0); NRBC Abs Auto 0.000 X10*3/uL (0.0-0.012); NRBC Pct Auto 0.0 /100WBC (0.0-0.2); Platelet Count 273 X10*3/uL (160-400); Red Blood Count 4.54 X10*6/uL (4.60-5.80); White Blood Count 7.8 X10*3/uL (4.8-10.8)
[2024-12-18 14:15] LABS: Prostate Specific Antigen 0.58 ng/mL (<0.05-4.0)
[2024-12-24 16:02] LABS: Testosterone, Free 30.4 pg/mL (35.0-155.0)
== END 2024-12-18 11:35 | disposition home or self-care (01) ==
LOC: HO.HMGCLDS 11:34
PROVIDERS: PCP Nurse Practitioner Family; Visit Provider Nurse Practitioner Family
DX: Z12.5 Encounter for screening for malignant neoplasm of prostate (principal); N52.9 Male erectile dysfunction, unspecified; E29.1 Testicular hypofunction; R79.89 Other specified abnormal findings of blood chemistry
CPT/HCPCS: 36415; 84153; 84402; 84403; 85027

== ENCOUNTER 2024-12-23 15:42 | Outpatient (REF) | payer OTHER, SELFPAY | END 2024-12-23 15:43 | disposition home or self-care (01) | LOC: HO.LAB 15:42 | PROVIDERS: PCP Nurse Practitioner Family; Visit Provider Nurse Practitioner Family | DX: E29.1 Testicular hypofunction (principal); N52.9 Male erectile dysfunction, unspecified; R79.89 Other specified abnormal findings of blood chemistry; R31.29 Other microscopic hematuria | CPT/HCPCS: 81003; 88112; 99212 ==

== ENCOUNTER 2024-12-23 15:42 | Outpatient (AMB) | payer OTHER, SELFPAY ==
--- NOTE | 2024-12-23 15:51 | A.OFFVIS_ITS ---
Intake Visit Reasons: 3M follow up/ labs Intake Note: Patient is present for 3M/LABS Urology Medication:TESTOSTERONE Antibiotic Allergy:NONE Blood Thinner:NONE Deckhand Shrimp Boat Required: No Allergies No Known Allergies Allergy (Verified 12/23/24 20:40) Medication List - Last Reconciled 12/23/24 by FRANKIE Wild bupropion HCl 150 mg (2 x 75 mg) PO BID 30 days cyclobenzaprine 10 mg PO TID PRN oxycodone 5 mg PO Q6H PRN testosterone 3 pumps topical DAILY 30 days HPI Comments Details: Quincy is a 54-year-old male patient of Dr. Moe. He has a past medical history of nerve root compression, chronic radicular pain of lower back, and lung mass. He presents to the office today for follow-up of his hypogonadism and erectile dysfunction. In discussion with the patient today he reports to be doing and feeling well however he does continue to report episodes of fatigue. He does report compliance with testosterone as prescribed. Recent labs were reviewed with the patient today as noted and trended below: FSH: 03/30 14.6, 06/29 13.7 LH: 03/30 10.4, 06/29 3.7 Prolactin: 06/29 5.1 SHB/24 39 Total testosterone: 11/26 506, 03/30 155, 06/29 233, 09/29 127, 03/31 246, 07/31 208, 12/31 Free testosterone: 11/26 79.9, 03/30 21.5, 06/29 31.2, 09/29 51.1, 03/31 22.4, 23.2, 12/31 PSA: 11/26 0.3, 03/30 0.3, 03/31 0.3, 07/31 0.4, 12/31 0.6 Hemoglobin/hematocrit: 03/31 13.4/40.4, 07/31 13.6/40.2, 12/31 13.8/40.0 Previous attempt in low-dose Cialis to assist with borderline hypogonadism however patient did not feel any improvement in his erectile dysfunction and or hypogonadism symptoms. We discussed importance of lifestyle modifications to assist with hypogonadism, low libido, and erectile dysfunction. He does report having started Wellbutrin and has been able to quit smoking. He also reports he has been utilizing p.r.n. oxycodone less frequently. He discusses his upcoming senior care in the . He otherwise denies any bothersome urinary issues or concerns. He denies urinary urgency, urinary frequency, incontinence, nocturia, hematuria, dysuria, foul smelling urine, changes to urinary stream, flank pain, fever, and or chills. He is happy with his current voiding parameters. In office urinalysis results reviewed with the patient today. All questions were answered. He discusses having had sleep apnea workup in the past in this was negative. He otherwise denies any other issues or concerns at this time. [facility] Medical History Chest pain Lymphadenopathy Smoker Arthritis Right arm numbness Bursitis and tendinitis of shoulder region Rotator cuff tear Right shoulder tendonitis Hand arthritis Nerve root compression Chronic radicular pain of lower back Surgical History History of arthroscopic surgery of shoulder History of spinal surgery (12/10/23) Hx of colonoscopy S/P left rotator cuff repair (~2014) History of lumbar discectomy Lung mass (~1976) Family History Father Cancer Mother HTN (hypertension) Social History Household Members: Spouse Housing: House Are you a primary health care analyst to a significant other at home: No Do you presently have visiting nurse or other home services: No Patient Tobacco Use Status: Current someday Tobacco user Tobacco use type: Cigarette Cigarettes Per Day: 10 Years Smoked: over 30 years e-Cigarette/Vaping Use: Never Used Second Hand Smoke Exposure: Yes service: Yes Current occupational status: employed Current occupation: rt handed Cognitive needs: No Hearing needs: No Vision needs: Yes (contacts) Review of Systems Const Reports as per HPI Eyes Reports no additional complaints ENT Reports no additional complaints Card Reports no additional complaints Resp Reports as per HPI GI Reports no additional complaints Reports as per HPI Musc Reports as per HPI Neuro Reports no additional complaints Psych Reports no additional complaints Endo Reports no additional complaints Corbin/Lymph Reports no additional complaints Aller/Immun Reports no additional complaints Physical Exam Const General: cooperative, healthy appearing, comfortable, no acute distress, well developed, alert and awake Orientation/consciousness: patient oriented x3 Limitations: no limitations HEENT Head: Yes normal to inspection, Yes normocephalic and Yes atraumatic Ears: hearing grossly normal bilaterally Eyes General: appearance normal, both eyes and all related structures Neck Neck: Yes normal visual inspection and Yes trachea midline Chest Chest palpation & inspection: normal inspection of the chest Resp Effort & Inspection: normal respiratory effort and able to speak in complete sentences Cardio Rate: regular rate GI Inspection: Yes normal to inspection General: Yes no CVA tenderness Back/Spine/Pelvis Back: no CVA tenderness Skin General skin exam: no rashes or lesions noted Neuro General: patient oriented x3 Extrem General: Yes normal to inspection Psych Appearance: grossly normal and well kempt Mental Status: mental status grossly normal Speech and movement: Normal speech and movement present and Clear speech present Affect: normal affect Attitude: cooperative Thought process: Normal thought process present Thought content: Normal thought content present Insight: Fair insight present (Psych) Judgement: Fair judgement present (Psych) Results AMB Urinalysis, Automated UA Leukoctes 0 Tha/uL Last Edit by ABIDA Pacheco on 12/23/24 16:36 UA Nitrite Negative Last Edit by ABIDA Pacheco on 12/23/24 16:36 UA Urobilinogen 0.2 mg/dL Last Edit by ABIDA Pacheco on 12/23/24 16:3 6 UA Protein 0 mg/dL Last Edit by Devora Aly CCM on 12/23/24 16:36 UA pH 6.0 Last Edit by Devora Aly CCM on 12/23/24 16:36 UA Blood 25 Juan Antonio/uL Last Edit by Devora Aly CCM on 12/23/24 16:36 UA Specific [place] 1.030 Last Edit by ABIDA Pacheco on 12/23/24 16: 36 UA Ketone Negative Last Edit by ABIDA Pacheco on 12/23/24 16:36 UA Bilirubin 0 mg/dL Last Edit by Devora Aly CCM on 12/23/24 16:36 UA Glucose 0 mg/dL Last Edit by Devora Aly CCM on 12/23/24 16:36 Results Reviewed Results Reviewed: Laboratory Last Values Urine pH (Auto) 6.0 12/23/24 16:35 Specific [place] (Auto) 1.030 12/23/24 16:35 Urine Protein (Auto) 0 mg/dL 12/23/24 16:35 Glucose (UA)(Auto) 0 mg/dL 12/23/24 16:35 Urine Ketones (Auto) Negative 12/23/24 16:35 Urine Blood (Auto) 25 Juan Antonio/uL 12/23/24 16:35 Urine Nitrite (Auto) Negative 12/23/24 16:35 Urine Bilirubin (Auto) 0 mg/dL 12/23/24 16:35 Urine Urobilinogen (Auto) 0.2 mg/dL 12/23/24 16:35 Leukocyte Esterase (Auto) 0 Tha/uL 12/23/24 16:35 Assessment & Plan Assessment & Plan (1) Low testosterone: Code(s): R79.89 - Other specified abnormal findings of blood chemistry Category: Medical (2) Hypogonadism male: Code(s): E29.1 - Testicular hypofunction Category: Medical (3) Erectile dysfunction: Code(s): N52.9 - Male erectile dysfunction, unspecified Category: Medical (4) Hematuria, microscopic: Code(s): R31.29 - Other microscopic hematuria Category: Medical (5) Low libido: Code(s): R68.82 - Decreased libido Category: Medical Plan In office urinalysis results reviewed with the patient today; as noted above. Recent labs reviewed with the patient today; as noted above. We discussed continuing with lifestyle modifications to assist with hypogonadism and erectile dysfunction. He currently denies any bothersome urinary issues or concerns. He reports be happy with current voiding parameters. Will obtain CBC, PSA, and testosterone free and total in 3 months. Follow-up in 3 months with labs to be completed prior; or sooner with any issues, concerns, and or questions. Orders: Orders Urine Cytology Today R31.29 - Other microscopic hematuria Testosterone, Free/Total 3 Months E29.1 - Testicular hypofunction, N52.9 - Male erectile dysfunction, unspecified, R79.89 - Other specified abnormal findings of blood chemistry Prostate Specific Antigen 3 Months E29.1 - Testicular hypofunction, R79.89 - Other specified abnormal findings of blood chemistry Complete Blood Count no Diff 3 Months E29.1 - Testicular hypofunction AMB Urinalysis Automated Today Z13.9 - Encounter for screening, unspecified Patient Instructions: The patient had an opportunity to ask questions regarding the treatment plan. All questions were answered. Physical exam, labs, and imaging were discussed and reviewed in detail. As well as risks, benefits, and discussion of treatment choices. No major barriers to understanding were identified. The patient expressed understanding and agreement with the above treatment plan. The patient was made aware they should contact our office by phone for worsening of their current condition, the appearance of new symptoms, or with any questions or concerns. Compliance is encouraged with any medications and follow up testing that is ordered. It is a privilege to be allowed the opportunity to participate in? your urological care.? Again, if you have any questions or concerns If you have any questions or concerns please do not hesitate to contact me. The office is [phone]. This note is constructed using voice recognition software. While every effort has been made to ensure accuracy electrical engineering draftsperson errors may have been included. Yours sincerely, FRANKIE Wild Coding Diagnoses Low testosterone R79.89 Hypogonadism male E29.1 Erectile dysfunction N52.9 Hematuria, microscopic R31.29 Low libido R68.82
== END 2024-12-23 16:24 | disposition home or self-care (01) ==
LOC: HO.HUSH 15:43
PROVIDERS: PCP Nurse Practitioner Family; Visit Provider Nurse Practitioner Family
DX: Z13.9 Encounter for screening, unspecified (principal)

== ENCOUNTER 2025-01-26 13:15 | Outpatient (AMB) | payer OTHER, SELFPAY ==
--- NOTE | 2025-01-26 13:19 | A.OFFVIS_ITS ---
Vital Signs 01/26/25 13:22 Height 5 ft 8 in Weight 192 lb BMI 29.2 Intake Visit Reasons: Newprob- Bilateral upper extremities EMG-F/U Intake Note: Quincy is a 54 year old right hand dominant male who presents today for a New Problem Visit for evaluation of Bilateral Hand Numbness & Tingling. Patient primarily complains of left thumb, index, and middle finger numbness and tingling with some sleep disturbance. Patient reports symptoms are daily and intermittent making it difficult to hearing aid mechanic, squeeze, and open and close lids. He feels like carrying his exacerbates the pain. Denies finger locking. Has has not had any forms of treatment such as braces, steroid injections, OT, or any pain medications. Denies any prior injuries or surgeries to the left hand. IMPRESSION 12/02/24: 1. This is an abnormal study. 2. There is electrodiagnostic evidence for left moderate-severe median neuropathy at the wrist, consistent with carpal tunnel syndrome. 3. There is no electrodiagnostic evidence for ulnar neuropathy, brachial plexopathy, or cervical radiculopathy. Allergies No Known Allergies Allergy (Verified 02/01/25 14:37) HPI HPI Newprob- Bilateral upper extremities EMG-F/U: Details: Quincy is a 54 year old right hand dominant male who presents today for a New Problem Visit for evaluation of Bilateral Hand Numbness & Tingling. Patient primarily complains of left thumb, index, and middle finger numbness and tingling with some sleep disturbance. Patient reports symptoms are daily and intermittent making it difficult to hearing aid mechanic, squeeze, and open and close lids. He feels like carrying his exacerbates the pain. Denies finger locking. Has has not had any forms of treatment such as braces, steroid injections, OT, or any pain medications. Denies any prior injuries or surgeries to the left hand. IMPRESSION 12/02/24: 1. This is an abnormal study. 2. There is electrodiagnostic evidence for left moderate-severe median neuropathy at the wrist, consistent with carpal tunnel syndrome. 3. There is no electrodiagnostic evidence for ulnar neuropathy, brachial plexopathy, or cervical radiculopathy. [facility] Medical History (Updated 02/01/25 @ 14:48 by aJret Calderon MD) Pleural effusion Chest pain Lymphadenopathy Smoker Arthritis Right arm numbness Bursitis and tendinitis of shoulder region Rotator cuff tear Right shoulder tendonitis Hand arthritis Nerve root compression Chronic radicular pain of lower back Surgical History History of arthroscopic surgery of shoulder History of spinal surgery (12/10/23) Hx of colonoscopy S/P left rotator cuff repair (~2014) History of lumbar discectomy Lung mass (~1976) Family History Father Cancer Mother HTN (hypertension) Social History Household Members: Spouse Housing: House Are you a primary adult live in caregiver to a significant other at home: No Do you presently have visiting nurse or other home services: No Patient Tobacco Use Status: Current someday Tobacco user Tobacco use type: Cigarette Cigarettes Per Day: 10 Years Smoked: over 30 years e-Cigarette/Vaping Use: Never Used Second Hand Smoke Exposure: Yes service: Yes Current occupational status: employed Current occupation: rt handed Cognitive needs: No Hearing needs: No Vision needs: Yes (contacts) Review of Systems Const All systems reviewed & are unremarkable except as noted in HPI and below Physical Exam Vital Signs: BMI result Body Mass Index 29.2 Extrem Other: Neuro: Decreased sensation in the median nerve distribution of bilateral hands. Normal sensation to all other digits in the bilateral hand today. No thenar or intrinsic wasting. Good APB muscle firing and good finger cross. Vascular: Capillary refill brisk. ROM: Patient can make a fist and extend all their digits. Skin: No lacerations or abrasions noted. General: No ecchymosis. No erythema or evidence of infection. Assessment & Plan Assessment & Plan (1) Bilateral carpal tunnel syndrome: Code(s): G56.03 - Carpal tunnel syndrome, bilateral upper limbs Category: Medical Plan 1. Left carpal tunnel syndrome Symptoms constant, daily, worse at night I educated the patient about the condition. I discussed both operative and nonoperative treatment options. The patient would like to proceed with surgery. The risks and benefits of operative treatment were discussed with the patient and the patient wishes to proceed with surgery. These risks include, but are not limited to, risk of damage to blood vessels, nerves, tendons, infection, recurrence, incomplete relief of preoperative symptoms, persistent pain, poss ible need for further surgery, and the risks associated with regional blocks and/or anesthesia. Plan is to take the patient to the operating room at some point in the next few weeks for the following procedures: 1. Left carpal tunnel release under local All of the preoperative paperwork including the consent was discussed today. All of the patient's questions were answered in the clinic today. The patient understands that they will be in contact with our certified surgical tech/first assistant to discuss scheduling their procedure. Patient denies diabetes, blood thinners, asthma, heart issues, lung issues, kidn ey issues, or current smoking. Coding Level of Care Code Est Pt Level 4 (32469) Diagnoses Bilateral carpal tunnel syndrome G56.03
[2025-01-26 13:22] VITALS: BMI 29.2
--- OUTSIDE RECORDS SUMMARY | 2025-01-26 17:22 | XMS_ITS | Clinical Summary ---
Author Organization [facility] [place] [address] Care Team Providers Care Brusher Tender Name Role Phone Evelina Zuniga MD Primary [...] Health Maintenance Due Date Last Done Comments Colorectal Cancer Screening: Colonoscopy 1968 Hepatitis B Vaccines (1 of 3 - 19+ 3-dose series) 02/26/1987 Pneumococcal Vaccine: 50+ Years (1 of 1 - PCV) 02/26/2018 Zoster Vaccines (1 of 2) 02/26/2018 Cholesterol Screening (Lipid Panel) 01/16/2024 HIV Screening 01/16/2024 Hepatitis C Screening 01/16/2024 Social Influencers of Health Screening 01/16/2024 Depression Screening 04/08/2024 COVID-19 Vaccine ( - 2023-2 5 season) 2024 Influenza Vaccine (#1) 2024 8, 03/13/2017, 01/10/2016 DTaP,Tdap,and Td Vaccines (2 - Td or Tdap) 09/19/2025 09/20/2015 RSV Immunization Adult Patients (1 - 1-dose 75+ series) 02/26/2043 HIB Vaccines Aged Out No longer eligi [...] age to complete this topic Care Teams Brusher Tender Relationship Specialty Start Date End Date Evelina Zuniga MD [address] [place] [address] PCP - General Internal Medicine 09/19/17
== END 2025-01-26 14:04 | disposition home or self-care (01) ==
LOC: HO.HOS 13:17
PROVIDERS: PCP Nurse Practitioner Family
DX: G56.03 Carpal tunnel syndrome, bilateral upper limbs (principal)
CPT/HCPCS: 99214

== ENCOUNTER → 2025-01-26 13:15 | Outpatient (BNVA) | payer OTHER, SELFPAY | PROVIDERS: PCP Nurse Practitioner Family | DX: G56.03 Carpal tunnel syndrome, bilateral upper limbs (principal) | CPT/HCPCS: 99212 ==

== ENCOUNTER 2025-02-01 14:29 | Outpatient (AMB) | payer OTHER, SELFPAY ==
[2025-02-01 14:34] VITALS: BP 150/70; PULSE 91; O2SAT 96; BMI 29.0
--- NOTE | 2025-02-01 14:34 | MHC.OFFVIS ---
Vital Signs 02/01/25 14:34 Height 5 ft 8 in Weight 190 lb 11.198 oz BMI 29.0 BP 150/70 H Blood Pressure Location Lt brachial Position Sitting Pulse 91 Pulse Source Pulse Oximeter Pulse Oximetry (%) 96 Oxygen Delivery Method Room Air Intake Visit Reasons: Abnormal CT scan Pattern Keeper Required: No Accompanied by: Self / Same As Patient Allergies No Known Allergies Allergy (Verified 02/01/25 14:37) HPI Comments Details: The patient is a 54-year-old gentleman with a smoking history who quit several months ago he is taking part of the lung cancer screening program. A CT scan demonstrating a mediastinal masslike density that is calcified. When compared to last year's the masslike density has not changed. The patient states that even as a child he was found to have a density his lungs and he has had that for a long time. He has never had biopsy. In addition to the masslike density does have some lymphadenopathy. The lymphadenopathy appears to be new. Is precarinal lymph node measuring 1.5 cm. 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 He did have injuries to the back and to his lower extremities due to work-related injuries. He had multiple surgeries to the back. He has significant pleuritic discomfort in the left hemithorax. Indeed it could be some degree of radiculopathy that which is kind of running in a dermatomal distribution. But based on the discomfort will go ahead and repeat a CT scan at this time. We have to address the lymphadenopathy the mediastinal mass. 02/01/2025 the patient is here for pulmonary follow-up visit. Since we last spoke he seems to be doing okay although he does complaint of left-sided discomfort. Has a hard time breathing in specially when he is laying down the left side. Moderate severity. Feels like can not take a deep breath in his specially on the left side. Denies any pleuritic chest pain. He did undergo a CT scan of the chest the end of November which we personally reviewed. Seems like the left-sided mass is unchanged in size. Although there appears that he has a [id number] left-sided pleural effusion. On exam very diminished and some dullness to percussion. Therefore I do appreciate about a moderate degree of a pleural effusion there. Will go ahead and request an urgent thoracentesis specially for both diagnostic and therapeutic purposes. The patient afterwards will undergo a carpal tunnel surgery that is scheduled for March 01. Will follow-up sometime after that in order for us to follow-up the pleural effusion and also to follow-up with the Pulmonary mass. [facility] Medical History (Updated 02/01/25 @ 14:48 by Jaret Calderon MD) Pleural effusion Chest pain Lymphadenopathy Smoker Arthritis Right arm numbness Bursitis and tendinitis of shoulder region Rotator cuff tear Right shoulder tendonitis Hand arthritis Nerve root compression Chronic radicular pain of lower back Surgical History History of arthroscopic surgery of shoulder History of spinal surgery (12/10/23) Hx of colonoscopy S/P left rotator cuff repair (~2014) History of lumbar discectomy Lung mass (~1976) Family History Father Cancer Mother HTN (hypertension) Social History Household Members: Spouse Housing: House Are you a primary career and transition teacher to a significant other at home: No Do you presently have visiting nurse or other home services: No Patient Tobacco Use Status: Current someday Tobacco user Tobacco use type: Cigarette Cigarettes Per Day: 10 Years Smoked: over 30 years e-Cigarette/Vaping Use: Never Used Second Hand Smoke Exposure: Yes service: Yes Current occupational status: employed Current occupation: rt handed Cognitive needs: No Hearing needs: No Vision needs: Yes (contacts) Review of Systems Const Reports body aches Eyes Reports no additional complaints ENT Reports nasal congestion Card Reports chest pain, Reports dyspnea and Reports dyspnea on exertion Resp Reports cough, Reports dyspnea, Reports dyspnea on exertion and Reports wheezing GI Reports no additional complaints Musc Reports no additional complaints Skin/Breast Denies rash Neuro Reports no additional complaints Endo Reports no additional complaints Corbin/Lymph Reports no additional complaints Aller/Immun Reports wheezing Physical Exam Vital Signs: Last Vital Signs Pulse 91 02/01/25 14:34 BP 150/70 H 02/01/25 14:34 Pulse Ox 96 02/01/25 14:34 Oxygen Delivery Method Room Air 02/01/25 14:34 BMI result Body Mass Index 29.0 Const General: comfortable HEENT Head: Yes normocephalic Eyes General: appearance normal, both eyes and all related structures Neck Neck: Yes supple Chest Chest palpation & inspection: normal inspection of the chest Resp Effort & Inspection: normal respiratory effort Auscultation: diminished lung sounds Percussion: dullness Upper: left Cardio Heart sounds: S1 normal heart sound present and S2 normal heart sound present GI Palpation (GI): Soft to palpation Skin General skin exam: no rashes or lesions noted Extrem General: Yes no clubbing, cyanosis or edema Assessment & Plan Assessment & Plan (1) Lung mass: Onset Date: ~1976 Comment: No surgical intervention, Doctors monitoring mass. Code(s): R91.8 - Other nonspecific abnormal finding of lung field Category: Surgical (2) Smoker: Code(s): F17.200 - Nicotine dependence, unspecified, uncomplicated Category: Social Hx (3) Lymphadenopathy: Code(s): R59.1 - Generalized enlarged lymph nodes Category: Medical (4) Chest pain: Code(s): R07.9 - Chest pain, unspecified Category: Medical Qualifiers: Chest pain type: intercostal pain Qualified Code(s): R07.82 - Intercostal pain (5) Pleural effusion: Code(s): J90 - Pleural effusion, not elsewhere classified Category: Medical Plan US guided left sided Thoracentesis smoking cessation; Wellbutrin and nocotine patch F/U 2-3 months Orders: Orders US drain thoracentesis w image Today J90 - Pleural effusion, not elsewhere classified Other Ref Test - Misc Today J90 - Pleural effusion, not elsewhere classified Cell Count w Diff Pleural Fld Today J90 - Pleural effusion, not elsewhere classified LDH Pleural Fluid Today J90 - Pleural effusion, not elsewhere classified pH Pleural Fluid Today J90 - Pleural effusion, not elsewhere classified Routine Culture w Gram Stain Today J90 - Pleural effusion, not elsewhere classified Coding Level of Care Code Est Pt Level 5 (03939) Diagnoses Lung mass R91.8 Smoker F17.200 Lymphadenopathy R59.1 Intercostal pain R07.82 Chest pain type: intercostal pain Pleural effusion J90 Time Spent (min) 45
--- OUTSIDE RECORDS SUMMARY | 2025-02-01 18:06 | XMS_ITS | Clinical Summary ---
Author Organization [facility] [place] [address] Care Team Providers Care Peoplesoft Hcm Consultant Name Role Phone Evelina Zuniga MD Primary [...] age to complete this topic Care Teams Peoplesoft Hcm Consultant Relationship Specialty Start Date End Date Evelina Znuiga MD [address] [place] [address] PCP - General Internal Medicine 09/19/17
== END 2025-02-01 14:55 | disposition home or self-care (01) ==
LOC: HO.HPS 14:30
PROVIDERS: PCP Nurse Practitioner Family; Visit Provider Hospitalist
DX: R91.8 Other nonspecific abnormal finding of lung field (principal); F17.200 Nicotine dependence, unspecified, uncomplicated; R59.1 Generalized enlarged lymph nodes; R07.82 Intercostal pain; J90 Pleural effusion, not elsewhere classified
CPT/HCPCS: 99215

== ENCOUNTER → 2025-02-01 14:29 | Outpatient (BNVA) | payer OTHER, SELFPAY | PROVIDERS: PCP Nurse Practitioner Family; Visit Provider Hospitalist | DX: R91.8 Other nonspecific abnormal finding of lung field (principal); R59.1 Generalized enlarged lymph nodes; R07.82 Intercostal pain; J90 Pleural effusion, not elsewhere classified; F17.200 Nicotine dependence, unspecified, uncomplicated | CPT/HCPCS: 99212 ==

== ENCOUNTER 2025-02-22 06:46 | Day surgery (SDC) | payer OTHER, SELFPAY ==
--- OUTSIDE RECORDS SUMMARY | 2025-02-19 09:18 | XMS_ITS | Clinical Summary ---
Author Organization [facility] [place] [address] Care Team Providers Care Education Spec Name Role Phone Evelina Zuniga MD Primary [...] Depression Screening 04/08/2024 COVID-19 Vaccine ( - 2024-2 6 season) 2024 Influenza Vaccine (#1) 2024 8, [...] age to complete this topic Care Teams Education Spec Relationship Specialty Start Date End Date Evelina Zuniga MD [address] [place] [address] PCP - General Internal Medicine 09/19/17
[2025-02-22] VITALS (11 sets, daily range): BP systolic 131–148; BP diastolic 60–94; PULSE 65–84; RESP 11–17; TEMP 36.1–36.6; O2SAT 96–98; BMI 29.7
--- NOTE | ~2025-02-22 | XR_ITS ---
EXAMINATION: XR CHEST CLINICAL INFORMATION: s/p L thoracentesis COMPARISON: Correlation made with CT chest 12/02/2024. TECHNIQUE: AP inspiration and expiration views of the chest. FINDINGS: Cardiac size is top normal. Mediastinal contours demonstrate an amorphous soft tissue mass superolateral to the aortic arch consistent with the known 4 cm pulmonary nodule. The hilar structures are normal. There is no perceptible pneumothorax. There is a tiny residual left pleural effusion present with basilar opacity, likely passive atelectasis. There is underlying COPD. There is no definite right effusion. There is no focal osseous or soft tissue abnormality. There are degenerative changes of the spine. There has been a probable left subacromial decompression. XR/XR chest 2V IMPRESSION: 1. There is no evidence of pneumothorax post left thoracentesis. 2. There is a trace left residual effusion with associated passive basilar atelectasis. 3. Additional stable findings as described above. Electronically signed by: Srinivas Bee MD 02/22/2025 09:19 AM [facility]
--- NOTE | ~2025-02-22 | US_ITS ---
EXAMINATION: ULTRASOUND-GUIDED LEFT THORACENTESIS CLINICAL INFORMATION: Left pleural effusion. COMPARISON: CT chest 12/02/2024 TECHNIQUE: Following explaining ultrasound-guided left thoracentesis procedure, benefits and risk, a written consent was obtained. Patient was placed upright and preliminary ultrasound imaging was obtained through the left posterior chest. Site was selected and marked along the inferior scapular line approximately 10th interspace. The marked site was cleaned and draped in usual sterile manner. 1% lidocaine was injected puncture site. Through a small skin incision a 5 [employer] catheter was advanced from the skin into the pleural space. After observing fluid return, stylet was withdrawn and catheter connected to vacuum bottle via connecting cannula. After obtaining all fluid and observing normal fluid remaining, catheter was removed and complete hemostasis achieved at puncture site. Sterile dressing applied post procedure. Patient tolerated procedure extremely well. Patient was monitored by IR nurse and physician during exam. FINDINGS: Preliminary ultrasound imaging there is moderate left pleural effusion noted. Approximately 9 mL of clear yellowish fluid was drained. Part of this fluid was sent to lab as per referring physician's orders. A chest x-ray was obtained subsequently. US/US drain thoracentesis w image IMPRESSION: Successful fluoroscopy-guided diagnostic and therapeutic left thoracentesis performed. Electronically signed by: Ricardo Gonzalez MD 02/22/2025 03:27 PM [facility]
[2025-02-22 07:19] LABS: MANUAL DIFF FLAG NO
[2025-02-22 07:24] LABS: Hematocrit 43.1 % (42.0-52.0); Hemoglobin 14.0 g/dl (14.0-18.0); Imm Gran Abs Auto 0.03 X10*3/uL (0.00-0.03); Imm Gran Pct Auto 0.3 % (0.0-0.4); Lymphocytes Absolute Auto 1.7 X10*3/uL (1.2-4.9); Mean Corpuscular HGB Conc 32.5 g/dl (31.0-36.0); Mean Corpuscular Hemoglobin 30.4 pg (27.0-33.0); Mean Corpuscular Volume 93.5 fL (80.0-98.0); NRBC Abs Auto 0.000 X10*3/uL (0.0-0.012); NRBC Pct Auto 0.0 /100WBC (0.0-0.2); Platelet Count 295 X10*3/uL (160-400); Red Blood Count 4.61 X10*6/uL (4.60-5.80); White Blood Count 8.8 X10*3/uL (4.8-10.8)
[2025-02-22 07:29] LABS: INTERNATIONAL NORM RATIO 1.0 (0.9-1.1); Prothrombin Time 12.1 SEC (11.2-13.5)
[2025-02-22 07:37] LABS: Anion Gap 11 (12-20); Blood Urea Nitrogen 23 mg/dL (9-16); Calcium 9.6 mg/dL (8.4-10.2); Carbon Dioxide 24 mmol/L (22-29); Chloride 108 mmol/L (96-108); Creatinine Clr Calc Pharmacy 100.2; Estimated Glomerular Filt Rate > 60; Potassium 4.2 mmol/L (3.3-5.1); Sodium 139 mmol/L (135-145)
--- NOTE | 2025-02-22 08:55 | PC.NURSE ---
900 ML clear yellow pleural fluid out with thoracentesis; samples sent to lab per orders; pt tolerated well; vss
[2025-02-22 09:50] LABS: MN% 95.3 %; PMN% 4.7 %; WBC Pleural Fluid 1.149 X10*3/uL
[2025-02-22 11:18] LABS: BF Shift QC OK YES; Basophils Pleural Fluid 2 %; Eosinophils Pleural Fluid 5 %; Lymphocytes Pleural Fluid 87 %; Man Diluent Bkgrd OK YES; Other Cells Plerual Fl 6 %
== END 2025-02-22 11:06 | disposition home or self-care (01) ==
PROVIDERS: Radiology Diagnostic Radiology; PCP Nurse Practitioner Family; Visit Provider Hospitalist
DX: J90 Pleural effusion, not elsewhere classified (principal); R84.6 Abnormal cytological findings in specimens from respiratory organs and thorax; R91.8 Other nonspecific abnormal finding of lung field; R59.0 Localized enlarged lymph nodes; Z87.891 Personal history of nicotine dependence
CPT/HCPCS: 32557; 36415; 71046; 80048; 83615; 83986; 85025; 85610; 87070; 87073; 87205; 88112; 88305; 88341; 88342; 89051; J2003

== ENCOUNTER → 2025-02-22 08:53 | Outpatient (BNV) | payer OTHER, SELFPAY | PROVIDERS: PCP Nurse Practitioner Family; Visit Provider Radiology Diagnostic Radiology | DX: J90 Pleural effusion, not elsewhere classified (principal); J98.11 Atelectasis | CPT/HCPCS: 32557; 71046 ==

== ENCOUNTER 2025-03-01 11:02 | Day surgery (SDC) | payer OTHER, SELFPAY ==
--- OUTSIDE RECORDS SUMMARY | 2025-01-27 08:03 | XMS_ITS | Clinical Summary ---
Author Organization [facility] [employer] [facility] [place] [address] Care Team Providers Care Squaring Machine Operator Name Role Phone Evelina Zuniga MD [...] age to complete this topic Care Teams Squaring Machine Operator Relationship Specialty Start Date End Date Evelina Zuniga MD [address] [place] [address] PCP - General Internal Medicine 09/19/17
--- OUTSIDE RECORDS SUMMARY | 2025-01-27 08:03 | XMS_ITS | Encounter Summary ---
Author Organization [facility] Address [facility] [place] [address] Care Team Providers Care Family Service Assistant Name Role Phone Evelina Zuniga Md, MD Primary Care Provider Unavailable Encounter Details Date Type Department Care Team Description 01/02/2018 Release of Information Medical Records [address] [place] [id number] Abstract, Provider Social History Tobacco Use Types [...] on filedocumented in this encounter Care Teams Family Service Assistant Relationship Specialty Start Date End Date Evelina Zuniga MD, MD PCP - General Internal Medicine 09/19/17 documented as of this encounter
--- OUTSIDE RECORDS SUMMARY | 2025-01-27 08:03 | XMS_ITS | Clinical Summary ---
Author Organization [facility] Address [address] [place] [address] Care Team Providers Care Manager Meeting Name Role Phone Evelina Zuniga Md, MD [...] Additional history exists BMI CHECK/ADVISE 04/08/2024 INFLUENZA (#1) 2024 PNEUMOCOCCAL VACCINE FOR HIG H RISK PATIENTS (#1) 02/26/2033 Care Teams Manager Meeting Relationship Specialty Start Date End Date Evelina Zuniga MD, MD PCP - General Internal Medicine 09/19/17
--- OUTSIDE RECORDS SUMMARY | 2025-01-27 08:03 | XMS_ITS | Encounter Summary ---
Author Organization [facility] Address [facility] [place] [address] Care Team Providers Care Solid Tire Tuber Machine Operator Name Role Phone Evelina Zuniga Md, MD Primary Care Provider Unavailable Encounter Details Date Type Department Care Team Description 12/26/2017 Transfer Records Medical Records [address] [place] [id number] Abstract, Provider Social History Tobacco Use Types [...] on filedocumented in this encounter Care Teams Solid Tire Tuber Machine Operator Relationship Specialty Start Date End Date Evelina Zuniga MD, MD PCP - General Internal Medicine 09/19/17 documented as of this encounter
--- NOTE | 2025-03-01 10:46 | P.OP_ITS ---
Operative Note Operative Note Date of Service: 03/01/25 Narrative: Preop diagnosis: 1. Left Carpal tunnel syndrome Postop diagnosis: same Procedure: 1. Left Carpal tunnel release Surgeon: Virginia Beaulieu MD Slot Operations Manager: None Anesthesia: local block using 1% lidocaine with epinephrine Findings: Thickened transverse carpal ligament. EBL: Less than 5 mL Specimens: None Complications: None Disposition: Brought to recovery room in stable condition Plan: Follow-up for 10-14 days for wound check and suture removal Indications: The patient is 55 years old, with left carpal tunnel syndrome that has been unresponsive to nonoperative management. The risks and benefits of operative treatment including but not limited to risk of damage to blood vessels, nerves, tendons, infection, persistent pain, persistent symptoms, or possible need for additional surgery were discussed with the patient and the patient wishes to proceed with surgery. Procedure: Once consent was obtained a local block was performed using a combination of 1% lidocaine with epinephrine. The patient was then brought back to the operating suite and placed on the operative table in supine position. The left upper extremity was prepped and draped in a standard surgical fashion. Once assured that we had a good block, a 2.0 cm longitudinal incision was made centered over the carpal tunnel. The incision was made through the skin to the subcutaneous tissues using a #15 blade. Dissection was made down to the level of the transverse carpal ligament with care being taken to protect the palmar cutaneous nerve. Once the transverse carpal ligament was clearly visualized, a longitudinal incision was made in the transverse carpal ligament 1st using a #15 blade, then using tenotomy scissors under direct visualization. Care was taken to look for and protect the motor branch of the median nerve when seen in this area. Once satisfied with our carpal tunnel release the wound was copiously irrigated with normal saline and hemostasis was obtained with a brief period of local pressure. The skin edges were reapproximated with some 5.0 nylon suture material and a sterile dressing was applied. The patient appears to have tolerated the procedure well and with no complicatio ns. All digits were well vascularized at the conclusion of the case.
--- NOTE | 2025-03-01 10:46 | MHC.SHP ---
Pre-Procedural Eval Section A - 24 Hr Update-Section A only Date of Service: 03/01/25 The patient is an INPATIENT: No Changes since office visit: No Cold of Flu in the past 2 weeks, No New Medical Problems, No Changes in Medication and No Patient answered all questions The patient has been examined within 24 hours of the surgical procedure. The History & Physical has been completed within 30 days and I have reviewed it.: Yes Section B - Complete if H&P > 30 days Chief Complaint: Carpal tunnel syndrome, left upper limb Allergies: Allergies Allergy/AdvReac Type Severity Reaction Status Date / Time No Known Allergies Allergy Verified 02/01/25 14:37 Plan Diagnosis/Plan: Unchanged I have reviewed the history and physical and performed a pertinent physical examination on my patient. No changes have occurred unless specified. Time Spent With Patient Time: Total time managing care of this patient today ____ minutes.
[2025-03-01 11:27] VITALS: BMI 29.2
[2025-03-01 11:29] VITALS: BP 132/79; PULSE 83; RESP 18; TEMP 36.6; O2SAT 97
[2025-03-01 14:06] VITALS: BP 132/72; PULSE 74; RESP 18; O2SAT 97
== END 2025-03-01 14:09 | disposition home or self-care (01) ==
PROVIDERS: PCP Nurse Practitioner Family; Visit Provider Orthopaedic Surgery
PROC: (CPT 64721; principal; 2025-03-01 12:50)
DX: G56.02 Carpal tunnel syndrome, left upper limb (principal); R20.0 Anesthesia of skin; R20.2 Paresthesia of skin; M19.049 Primary osteoarthritis, unspecified hand; J90 Pleural effusion, not elsewhere classified; R07.9 Chest pain, unspecified; R59.1 Generalized enlarged lymph nodes; G89.29 Other chronic pain; Z98.890 Other specified postprocedural states; F17.210 Nicotine dependence, cigarettes, uncomplicated
CPT/HCPCS: 64721; J0165; J2003; J2004

== ENCOUNTER → 2025-03-01 11:02 | Outpatient (BNV) | payer OTHER, SELFPAY | PROVIDERS: PCP Nurse Practitioner Family; Visit Provider Orthopaedic Surgery | DX: G56.02 Carpal tunnel syndrome, left upper limb (principal) | CPT/HCPCS: 64721 ==

== ENCOUNTER 2025-03-08 09:15 | Outpatient (REF) | payer OTHER, SELFPAY ==
--- OUTSIDE RECORDS SUMMARY | 2025-03-08 10:57 | XMS_ITS | Clinical Summary ---
Author Organization [facility] [place] [address] Care Team Providers Care Wood Lather Name Role Phone Evelina Zuniga MD Primary [...] age to complete this topic Care Teams Wood Lather Relationship Specialty Start Date End Date Evelina Zuniga MD [address] [place] [address] PCP - General Internal Medicine 09/19/17
[2025-03-08 13:38] LABS: Hematocrit 41.3 % (42.0-52.0); Hemoglobin 13.6 g/dl (14.0-18.0); Mean Corpuscular HGB Conc 32.9 g/dl (31.0-36.0); Mean Corpuscular Hemoglobin 29.9 pg (27.0-33.0); Mean Corpuscular Volume 90.8 fL (80.0-98.0); NRBC Abs Auto 0.000 X10*3/uL (0.0-0.012); NRBC Pct Auto 0.0 /100WBC (0.0-0.2); Platelet Count 343 X10*3/uL (160-400); Red Blood Count 4.55 X10*6/uL (4.60-5.80); White Blood Count 8.9 X10*3/uL (4.8-10.8)
[2025-03-08 14:08] LABS: Prostate Specific Antigen 0.76 ng/mL (<0.05-4.0)
[2025-03-12 13:48] LABS: Testosterone, Free 31.6 pg/mL (35.0-155.0)
== END 2025-03-08 09:16 | disposition home or self-care (01) ==
LOC: HO.HMGCLDS 09:15
PROVIDERS: PCP Nurse Practitioner Family; Visit Provider Nurse Practitioner Family
DX: E29.1 Testicular hypofunction (principal); R79.89 Other specified abnormal findings of blood chemistry; N52.9 Male erectile dysfunction, unspecified; Z12.5 Encounter for screening for malignant neoplasm of prostate
CPT/HCPCS: 36415; 84153; 84402; 84403; 85027

== ENCOUNTER 2025-03-16 12:46 | Outpatient (AMB) | payer OTHER, SELFPAY ==
[2025-03-16 12:52] VITALS: BMI 29.2
--- NOTE | 2025-03-16 12:52 | MHC.OFFVIS ---
Vital Signs 03/16/25 12:52 Height 5 ft 8 in Weight 192 lb BMI 29.2 Intake Visit Reasons: PO LT CTR 03/01/25 AR Intake Note: Quincy is a 54 year old right hand dominant male who presents today for a Post-Operative Visit status post Left Carpal Tunnel Release. DOS: 03/01/[address] Beaulieu. Patient reports he is doing well. Denies numbness, tingling, finger locking. Patient is not taking any pain medications at this time. Sutures removed and steri strips applied. Allergies No Known Allergies Allergy (Verified 03/16/25 13:01) HPI HPI PO LT CTR 03/01/25 AR: Details: Quincy is a 54 year old right hand dominant male who presents today for a Post-Operative Visit status post Left Carpal Tunnel Release. DOS: 03/01/[address] Beaulieu. Patient reports he is doing well. Denies numbness, tingling, finger locking. Patient is not taking any pain medications at this time. Sutures removed and steri strips applied. No other acute complaints or concerns at this time [facility] Medical History Pleural effusion Chest pain Lymphadenopathy Smoker Arthritis Right arm numbness Bursitis and tendinitis of shoulder region Rotator cuff tear Right shoulder tendonitis Hand arthritis Nerve root compression Chronic radicular pain of lower back Surgical History Hx of LASIK History of arthroscopic surgery of shoulder History of spinal surgery (12/10/23) Hx of colonoscopy S/P left rotator cuff repair (~2014) History of lumbar discectomy Lung mass (~1976) Family History Father Cancer Mother HTN (hypertension) Social History Household Members: Spouse Housing: House Are you a primary intensive care specialist to a significant other at home: No Do you presently have visiting nurse or other home services: No Patient Tobacco Use Status: Former Tobacco user Tobacco use type: Cigarette Cigarettes Per Day: 10 Years Smoked: over 30 years e-Cigarette/Vaping Use: Never Used Second Hand Smoke Exposure: Yes service: Yes Current occupational status: employed Current occupation: rt handed Cognitive needs: No Hearing needs: No Vision needs: Yes (contacts) Review of Systems Const All systems reviewed & are unremarkable except as noted in HPI and below Physical Exam Vital Signs: BMI result Body Mass Index 29.2 Extrem Other: Patient is alert, oriented, and in no acute distress. Neuro: Normal sensation of the tips of all digits of the left hand at this time Vascular: Cap refill brisk Pain: No tenderness to palpation about the incision site over volar left wrist No pain with range of motion of the left hand ROM: Patient is able to make a closed fist and extend all digits of the left hand fully and without difficulty Skin: Well approximated and well healing incision site noted on the volar left wrist No lacerations or abrasions. General: No ecchymosis, erythema, or evidence of infection. Psych: Appears grossly normal Affect normal Attitude cooperative Assessment & Plan Assessment & Plan (1) Bilateral carpal tunnel syndrome: Code(s): G56.03 - Carpal tunnel syndrome, bilateral upper limbs Category: Medical Plan 1. Status post left carpal tunnel release DOS 03/01/2025 With good symptomatic resolution postoperatively Patient appears to be recovering well postoperatively Patient is educated about the typical recovery course No under water times one-week, 2 lb weight limit x2 weeks Patient appears to be recovering very well, and requires no further acute follow-up with us postoperatively Patient is educated and worrisome signs and symptoms, and should call us if they experience any of these, including but not limited to redness, swelling, increased pain, and discharge Patient understands this and is amenable to this plan We will hold off on operative intervention on the right side at this time, as the patient states that his symptoms are not particularly bothersome and he would like to give his hand the chance to recover fully prior to pursuing any further surgical intervention Coding Level of Care Code Global (37856) Diagnoses Bilateral carpal tunnel syndrome G56.03
== END 2025-03-16 13:16 | disposition home or self-care (01) ==
LOC: HO.HOS 12:47
PROVIDERS: PCP Nurse Practitioner Family
DX: G56.03 Carpal tunnel syndrome, bilateral upper limbs (principal)
CPT/HCPCS: 99024

== ENCOUNTER → 2025-03-16 12:46 | Outpatient (BNVA) | payer OTHER, SELFPAY | PROVIDERS: PCP Nurse Practitioner Family | DX: G56.03 Carpal tunnel syndrome, bilateral upper limbs (principal) | CPT/HCPCS: 99212 ==

== ENCOUNTER 2025-03-22 10:48 | Outpatient (AMB) | payer OTHER, SELFPAY ==
--- NOTE | 2025-03-22 10:55 | A.OFFPC_ITS ---
Vital Signs 03/22/25 10:58 Height 5 ft 8 in Weight 192 lb BMI 29.2 BP 140/78 H Blood Pressure Location Lt brachial Position Sitting Respiration 16 Pulse 76 Pulse Source Pulse Oximeter Pulse Oximetry (%) 98 Oxygen Delivery Method Room Air Intake Visit Reasons: annual PE Subway Train Driver Required: No Accompanied by: Self / Same As Patient Allergies No Known Allergies Allergy (Verified 03/22/25 12:06) Medication List - Last Reconciled 03/22/25 by CLIFFORD Fowler- bupropion HCl 150 mg (2 x 75 mg) PO BID 30 days cyclobenzaprine 10 mg PO TID PRN testosterone 4 pumps topical DAILY 30 days Tobacco use date assessed: 03/22/25 Dental Screening Dental Screen Date: 03/22/25 Did you have a dental visit in the last 12 months?: Yes Did you have a dental problem in the last 6 months where you did not have access to dental care?: No Was dental information given to patient?: Patient has dentist HPI annual PE HPI Details History of Present Illness The patient is a 55 year old male presenting with a physical exam. He has a history of severe back pain and multiple issues over 37 years. He is followed by the spine center for his ongoing pain. He has a history of microscopic hematuria which was previously worked up including a cystoscopy. The patient is followed by a colored liquid plastic applier for ongoing pulmonary nodules and a mass that is being monitored. He has ongoing low testosterone and is followed by urology. He is due for a repeat colon screening. Health Maintenance - A referral for a repeat colon screenin g will be placed. - He is due for fasting labs in the near future. Social History - Employment: The patient is planning to retire from the in the near future. - Disability: He has a 100% disability r ating. Review of Systems - Constitutional: Denies chest pain. - Respiratory: Denies increased shortnes s of breath. - Gastrointestinal: Denies abdominal chance n, hematochezia, constipation, and diarrhea. - Musculoskeletal: Reports severe back p ain. - Psychiatric: Denies suicidal or homici kalyan ideation. -denies dizziness, HAYES Physical Exam General: Cooperative, healthy appearing, comfortable, no acute distress and well developed Orientation: Patient oriented x3 Limitations: No limitations Head: Normal to inspection Ears: Hearing grossly normal bilaterally Nose: Normal external nose present Face and sinus: Normal facial exam Eyes: Appearance normal, both eyes and all related structures Neck: Normal visual inspection and Yes full ROM Respiratory: Normal respiratory effort and able to speak in complete sentences. Clear/slightly dim bilat Cardiovascular: Regular rate and rhythm. Normal S1 and S2 GI: Normal to inspection. Soft to palpation and nontender : Testicles without masses/lesions and no hernias appreciated Skin: No rashes or lesions noted Neuro: Patient oriented x3 Extremities: Normal to inspection Results Plan 1. Severe Back Pain He has ongoing severe back pain and is followed by the spine center. A short- term course of Oxycodone will be prescribed. 2. Microscopic Hematuria The patient has a history of microscopic hematuria that was previously worked up with a cystoscopy. A repeat urine cytology will be ordered with his physical exam labs. 3. Pulmonary Nodules He is followed by a colored liquid plastic applier for ongoing pulmonary nodules and a mass which are being monitored. 4. Low Testosterone The patient has a history of low testosterone and is followed by urology. 5. Preventative Care: Colon Cancer Scree rachel He is due for a colon screening and a referral will be placed. 6. physcial exam with abnormal findings 7. HTN: will have him take his BP at h ome, and drop off values in a couple of weeks Discussion Notes I discussed with the patient that I will prescribe a short duration of Oxycodone for his back pain. 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 I will also place a referral for a repeat colon screening and order a urine cytology with his physical exam labs. Patient Instructions - Do not share your pain medication, Oxy codone, with anyone else. - You will get a referral for a repeat c olon cancer screening. - You need to complete your physical exa m labs, which will include a urine test to check for blood. - You are being given a short-term presc ription for pain medication and it will not be refilled long-term. [facility] Medical History Pleural effusion Chest pain Lymphadenopathy Smoker Arthritis Right arm numbness Bursitis and tendinitis of shoulder region Rotator cuff tear Right shoulder tendonitis Hand arthritis Nerve root compression Chronic radicular pain of lower back Surgical History Hx of LASIK History of arthroscopic surgery of shoulder History of spinal surgery (12/10/23) Hx of colonoscopy S/P left rotator cuff repair (~2014) History of lumbar discectomy Lung mass (~1976) Family History Father Cancer Mother HTN (hypertension) Social History Household Members: Spouse Housing: House Are you a primary primary care provider to a significant other at home: No Do you presently have visiting nurse or other home services: No Patient Tobacco Use Status: Current someday Tobacco user Tobacco use type: Cigarette Cigarettes Per Day: 10 Years Smoked: over 30 years e-Cigarette/Vaping Use: Never Used Second Hand Smoke Exposure: Yes service: Yes Current occupational status: employed Current occupation: rt handed Cognitive needs: No Hearing needs: No Vision needs: Yes (contacts) Questionnaire PHQ-9 Over the last 2 weeks, how often have you been bothered by any of the following problems? 1. Little interest or pleasure in doing things: not at all 2. Feeling down, depressed, or hopeless: not at all 3. Trouble falling or staying asleep, or sleeping too much: more than half the days 4. Feeling tired or having little energy: more than half the days 5. Poor appetite or overeating: not at all 6. Feeling bad about yourself - or that you are a failure or have let yourself or your family down: not at all 7. Trouble concentrating on things, such as reading the newspaper or watching television: not at all 8. Moving or speaking so slowly that other people could have noticed. Or the opposite - being so fidgety or restless that you have been moving around a lot more than usual: not at all 9. Thoughts that you would be better off or of hurting yourself in some way: not at all Total score: 4 Depression Screening Interpretation: Negative Depression Screening Done: Yes 10325 - PHQ-9 Billing: Yes Source: Developed by Drs. Carlos Rizzo, Joycelyn Black, Ben Duarte and colleagues, with an educational essence from [employer]. Thrive Questionnaire Date Thrive assessed: 03/15/25 I am a: Patient What is your living situation today?: I have a steady place to live Within the past 12 months, did the food you bought not last and you didn't have the money to get more?: Never true Within the past 12 months, did you worry whether your food would run out before you got money to buy more?: Never true Do you have trouble paying for medicines?: No Do you have trouble getting transportation to medical appointments?: No Do you have trouble paying your heating and electricity bill?: No Do you have trouble taking care of your child, family member or friend?: No Do you have trouble with day-to-day activities such as bathing, preparing meals, shopping, managing finances, etc.?: No Are you currently unemployed and looking for a job?: No Are you interested in more education?: No Please select the resources that you would like help with: None Currently or been in a relationship where the following occur: No concerns reported THRIVE Score: 0 AUDIT C Alcohol Use Questionnaire (AUDIT-C) 1. How often do you have a drink containing alcohol?: Never Total Score: 0 STEVE-7 AMB Questionnaire STEVE-7 Date STEVE - 7 assessed: 03/22/25 Feeling nervous, anxious, or on edge: 1 = Several days Not being able to stop or control worryin = Several days Worrying too much about different things: 2 = More than half the days Trouble relaxin = Several days Being so restless that it is hard to sit still: 1 = Several days Becoming easily annoyed or irritable: 2 = More than half the days Feeling afraid as if something awful might happen: 2 = More than half the days Total STEVE-7 score (0-4 normal; 5-9 mild; 10-14 moderate; 15-21 severe): 10 Source: Developed by Drs. Carlos Rizzo, Joycelyn Black, Ben Duarte and colleagues, with an educational essence from [employer]. STEVE-7 Assessment Billing STEVE-7 Assessment Tool: STEVE-7 Assessment 74974 Physical exam (Primary Care) Vital Signs: Last Vital Signs Pulse 76 03/22/25 10:58 Resp 16 03/22/25 10:58 BP 140/78 H 03/22/25 10:58 Pulse Ox 98 03/22/25 10:58 Oxygen Delivery Method Room Air 03/22/25 10:58 BMI result Body Mass Index 29.2 Tobacco/Smoking Status: Tobacco use Status Tobacco use date assessed 03/22/25 03/22/25 11:02 Patient Tobacco Use Status Current someday Tobacco 03/22/25 11:02 Tobacco use type Cigarette 03/22/25 10:56 e-Cigarette/Vaping Use Never Used 03/22/25 10:56 PHQ-9: PHQ-9 Score PHQ-9: Total score 4 03/22/25 11:02 Depression Screening Interpretation: Negative Thrive Assessment: Date of Thrive Assessment Date Thrive assessed 03/15/25 03/22/25 10:56 Currently or been in a relationship where the following occur: No concerns reported Coding Level of Care Code Est Pt Level 3 (87559) Est Pt Prev Care 40-64y(41516) Diagnoses Encounter for routine adult physical exam with abnormal findings Z00. Screening for colon cancer Z12.11 Hematuria, microscopic R31.29 HTN (hypertension) I10 Additional Codes SETVE-7 Assessment Billing - STEVE-7 Assessment Tool: STEVE-7 Assessment 40674 ([id number]) PHQ-9 - 03661 - PHQ-9 Billing: Yes ([id number]) Assessment & Plan Assessment & Plan (1) Encounter for routine adult physical exam with abnormal findings: Code(s): Z00.01 - Encounter for general adult medical examination with abnormal findings Category: Medical (2) Screening for colon cancer: Code(s): Z12.11 - Encounter for screening for malignant neoplasm of colon Category: Medical (3) Hematuria, microscopic: Code(s): R31.29 - Other microscopic hematuria Category: Medical (4) HTN (hypertension): Code(s): I10 - Essential (primary) hypertension Category: Medical Plan . Orders: Orders Complete Blood Count Auto Diff Today Z00.01 - Encounter for general adult medical examination with abnormal findings UA CC w/rflx Micro + Cult Today Z00.01 - Encounter for general adult medical examination with abnormal findings Lipid Panel Today Z00.01 - Encounter for general adult medical examination with abnormal findings Urine Cytology Today R31.29 - Other microscopic hematuria Urine Culture Today R31.29 - Other microscopic hematuria Comprehensive M[place]. Panel Fast Today Z00.01 - Encounter for general adult medical examination with abnormal findings TSH reflex Free T4 Today Z00.01 - Encounter for general adult medical examination with abnormal findings Influenza [id number] Immunization Today Z23 - Encounter for immunization Referrals Gastroenterology Referral Z12.11 - Encounter for screening for malignant neoplasm of colon Medications: New Fluarix [id number] (PF) 0.5 mL IM ONCE 0.5 mL 0RF NS Z23 - Encounter for immunization
[2025-03-22 10:58] VITALS: BP 140/78; PULSE 76; RESP 16; O2SAT 98; BMI 29.2
== END 2025-03-22 12:15 | disposition home or self-care (01) ==
LOC: HO.HMCC 10:49
PROVIDERS: PCP Nurse Practitioner Family; Visit Provider Nurse Practitioner Family
DX: Z00.01 Encounter for general adult medical examination with abnormal findings (principal); I10 Essential (primary) hypertension; R31.29 Other microscopic hematuria; Z23 Encounter for immunization

== ENCOUNTER 2025-03-24 15:34 | Outpatient (REF) | payer OTHER, SELFPAY | END 2025-03-24 15:35 | disposition home or self-care (01) | LOC: HO.LAB 15:34 | PROVIDERS: PCP Nurse Practitioner Family; Visit Provider Nurse Practitioner Family | DX: E29.1 Testicular hypofunction (principal); R79.89 Other specified abnormal findings of blood chemistry; R31.29 Other microscopic hematuria; R68.82 Decreased libido; N52.9 Male erectile dysfunction, unspecified | CPT/HCPCS: 81003; 88112; 99212 ==

== ENCOUNTER 2025-03-24 15:34 | Outpatient (AMB) | payer OTHER, SELFPAY ==
--- NOTE | 2025-03-24 15:41 | A.OFFVIS_ITS ---
Intake Visit Reasons: 3m/labs/UA Intake Note: Patient is present for 3M/LAB/UA Urology Medication:TESTOSTERONE Antibiotic Allergy:NONE Blood Thinner:NONE Stencil Cutter Machine Required: No Allergies No Known Allergies Allergy (Verified 03/24/25 21:04) Medication List - Last Reconciled 03/24/25 by CLIFFORD Wild-LISBET bupropion HCl 150 mg (2 x 75 mg) PO BID 30 days cyclobenzaprine 10 mg PO TID PRN oxycodone 10 mg PO BID PRN 10 days testosterone enanthate (Xyosted) 50 mg (0.5 mL) subcut QWEEK 30 days HPI Comments Details: Quincy is a 55-year-old male patient of Dr. Moe. He has a past medical history of nerve root compression, chronic radicular pain of lower back, and lung mass. He presents to the office today for follow-up of his hypogonadism and erectile dysfunction. In discussion with the patient today he reports to be doing and feeling well however he does continue to report episodes of fatigue. He does report compliance with testosterone as prescribed. Recent labs were reviewed with the patient today as noted and trended below: FSH: 03/30 14.6, 06/29 13.7 LH: 03/30 10.4, 06/29 3.7 Prolactin: 06/29 5.1 SHB/24 39 Total testosterone: 11/26 506, 03/30 155, 06/29 233, 09/29 127, 03/31 246, 07/31 208, 12/31 236, 04/01 253 Free testosterone: 11/26 79.9, 03/30 21.5, 06/29 31.2, 09/29 51.1, 03/31 22.4, 23.2, 12/31 30.4, 04/01 31.6 PSA: 11/26 0.3, 03/30 0.3, 03/31 0.3, 07/31 0.4, 12/31 0.6, 04/01 0.8 Hemoglobin/hematocrit: 03/31 13.4/40.4, 07/31 13.6/40.2, 12/31 13.8/40.0, 04/01 13.6/41.3 Previous attempt in low-dose Cialis to assist with borderline hypogonadism however patient did not feel any improvement in his erectile dysfunction and or hypogonadism symptoms. We discussed testosterone levels remain on the lower end of normal despite increasing dosage of testosterone replacement. We did discuss further treatment options and risks and benefits of these treatment options. We discussed importance of lifestyle modifications to assist with hypogonadism, low libido, and erectile dysfunction. He does report having started Wellbutrin and has been able to quit smoking. He otherwise denies any bothersome urinary issues or concerns. He denies urinary urgency, urinary frequency, incontinence, nocturia, hematuria, dysuria, foul smelling urine, changes to urinary stream, flank pain, fever, and or chills. He is happy with his current voiding parameters. In office urinalysis results reviewed with the patient today. All questions were answered. He discusses having had sleep apnea workup in the past in this was negative. He otherwise denies any other issues or concerns at this time. Urine Cytology: 12/27, 06/01, and 12/31 Negative for high grade urothelial carcinoma. [facility] Medical History Pleural effusion Chest pain Lymphadenopathy Smoker Arthritis Right arm numbness Bursitis and tendinitis of shoulder region Rotator cuff tear Right shoulder tendonitis Hand arthritis Nerve root compression Chronic radicular pain of lower back Surgical History Hx of LASIK History of arthroscopic surgery of shoulder History of spinal surgery (12/10/23) Hx of colonoscopy S/P left rotator cuff repair (~2014) History of lumbar discectomy Lung mass (~1976) Family History Father Cancer Mother HTN (hypertension) Social History Household Members: Spouse Housing: House Are you a primary wound care physician to a significant other at home: No Do you presently have visiting nurse or other home services: No Patient Tobacco Use Status: Current someday Tobacco user Tobacco use type: Cigarette Cigarettes Per Day: 10 Years Smoked: over 30 years e-Cigarette/Vaping Use: Never Used Second Hand Smoke Exposure: Yes service: Yes Current occupational status: employed Current occupation: rt handed Cognitive needs: No Hearing needs: No Vision needs: Yes (contacts) Review of Systems Const Reports as per [facility] Eyes Reports no additional complaints ENT Reports no additional complaints Card Reports no additional complaints Resp Reports as per HPI GI Reports no additional complaints Reports as per HPI Musc Reports as per HPI Neuro Reports no additional complaints Psych Reports no additional complaints Endo Reports no additional complaints Corbin/Lymph Reports no additional complaints Aller/Immun Reports no additional complaints Physical Exam Const General: cooperative, healthy appearing, comfortable, no acute distress, well developed, alert and awake Orientation/consciousness: patient oriented x3 Limitations: no limitations HEENT Head: Yes normal to inspection, Yes normocephalic and Yes atraumatic Ears: hearing grossly normal bilaterally Eyes General: appearance normal, both eyes and all related structures Neck Neck: Yes normal visual inspection and Yes trachea midline Chest Chest palpation & inspection: normal inspection of the chest Resp Effort & Inspection: normal respiratory effort and able to speak in complete sentences Cardio Rate: regular rate GI Inspection: Yes normal to inspection General: Yes no CVA tenderness Back/Spine/Pelvis Back: no CVA tenderness Skin General skin exam: no rashes or lesions noted Neuro General: patient oriented x3 Extrem General: Yes normal to inspection Psych Appearance: grossly normal and well kempt Mental Status: mental status grossly normal Speech and movement: Normal speech and movement present and Clear speech present Affect: normal affect Attitude: cooperative Thought process: Normal thought process present Thought content: Normal thought content present Insight: Fair insight present (Psych) Judgement: Fair judgement present (Psych) Results AMB Urinalysis, Automated UA Leukoctes 0 Tha/uL Last Edit by ABIDA Pacheco on 03/24/25 15:53 UA Nitrite Negative Last Edit by ABIDA Pacheco on 03/24/25 15:53 UA Urobilinogen 0.2 mg/dL Last Edit by ABIDA Pacheco on 03/24/25 15:5 3 UA Protein 15 mg/dL Last Edit by ABIDA Pacheco on 03/24/25 15:53 UA pH 7.0 Last Edit by ABIDA Pacheco on 03/24/25 15:53 UA Blood 80 Juan Antonio/uL Last Edit by ABIDA Pacheco on 03/24/25 15:53 UA Specific [place] 1.015 Last Edit by ABIDA Pacheco on 03/24/25 15: 53 UA Ketone Negative Last Edit by ABIDA Pacheco on 03/24/25 15:53 UA Bilirubin 0 mg/dL Last Edit by ABIDA Pacheco on 03/24/25 15:53 UA Glucose 0 mg/dL Last Edit by ABIDA Pacheco on 03/24/25 15:53 Results Reviewed Results Reviewed: Laboratory Last Values Urine pH (Auto) 7.0 03/24/25 15:46 Specific [place] (Auto) 1.015 03/24/25 15:46 Urine Protein (Auto) 15 mg/dL 03/24/25 15:46 Glucose (UA)(Auto) 0 mg/dL 03/24/25 15:46 Urine Ketones (Auto) Negative 03/24/25 15:46 Urine Blood (Auto) 80 Juan Antonio/uL 03/24/25 15:46 Urine Nitrite (Auto) Negative 03/24/25 15:46 Urine Bilirubin (Auto) 0 mg/dL 03/24/25 15:46 Urine Urobilinogen (Auto) 0.2 mg/dL 03/24/25 15:46 Leukocyte Esterase (Auto) 0 Tha/uL 03/24/25 15:46 Assessment & Plan Assessment & Plan (1) Hypogonadism male: Code(s): E29.1 - Testicular hypofunction Category: Medical (2) Low testosterone: Code(s): R79.89 - Other specified abnormal findings of blood chemistry Category: Medical (3) Hematuria, microscopic: Code(s): R31.29 - Other microscopic hematuria Category: Medical (4) Low libido: Code(s): R68.82 - Decreased libido Category: Medical (5) Erectile dysfunction: Code(s): N52.9 - Male erectile dysfunction, unspecified Category: Medical Plan In office urinalysis results reviewed with the patient today; as noted above. Recent labs reviewed with the patient today; as noted above. We discussed continuing with lifestyle modifications to assist with hypogonadism and erectile dysfunction. He currently denies any bothersome urinary issues or concerns. He reports be happy with current voiding parameters. Stopped topical testosterone replacement Start Xyosted as discussed and prescribed We did discuss further treatment options of hypogonadism and risks and benefits of these treatment options. All questions were answered. Will obtain CBC, PSA, and testosterone free and total in 3 months. Follow-up in 3 months with labs to be completed prior; or sooner with any issues, concerns, and or questions. Orders: Orders Prostate Specific Antigen 3 Months E29.1 - Testicular hypofunction Testosterone, Free/Total 3 Months E29.1 - Testicular hypofunction AMB Urinalysis Automated Today Z13.9 - Encounter for screening, unspecified Urine Cytology Today R31.29 - Other microscopic hematuria Complete Blood Count no Diff 3 Months E29.1 - Testicular hypofunction Medications: New testosterone enanthate (Xyosted) 50 mg (0.5 mL) subcut QWEEK 30 days 2.5 mL 3RF testosterone enanthate (Xyosted) 50 mg (0.5 mL) subcut QWEEK 2.5 mL 3RF 30 days Discontinued testosterone apply 3 pumps over max area - alternate shoulders on alternate days; This is an increase in dose Discontinued Reason: Doctor's Order 4 pumps topical DAILY 30 days 75 grams 3RF E29.1 - Testicular hypofunction, R79.89 - Other specified abnormal findings of blood chemistry Patient Instructions: The patient had an opportunity to ask questions regarding the treatment plan. All questions were answered. Physical exam, labs, and imaging were discussed and reviewed in detail. As well as risks, benefits, and discussion of treatment choices. No major barriers to understanding were identified. The patient expressed understanding and agreement with the above treatment plan. The patient was made aware they should contact our office by phone for worsening of their current condition, the appearance of new symptoms, or with any questions or concerns. Compliance is encouraged with any medications and follow up testing that is ordered. It is a privilege to be allowed the opportunity to participate in? your urological care.? Again, if you have any questions or concerns If you have any questions or concerns please do not hesitate to contact me. The office is [phone]. This note is constructed using voice recognition software. While every effort has been made to ensure accuracy buyer assistant errors may have been included. Yours sincerely, FRANKIE Wild Coding Level of Care Code Est Pt Level 4 (31697) Add On Problem Visit Only Diagnoses Hypogonadism male E29.1 Low testosterone R79.89 Hematuria, microscopic R31.29 Low libido R68.82 Erectile dysfunction N52.9
--- OUTSIDE RECORDS SUMMARY | 2025-03-24 20:26 | XMS_ITS | Clinical Summary ---
Author Organization [facility] [place] [address] Care Team Providers Care Cook Pie Name Role Phone Evelina Zuniga MD Primary [...] age to complete this topic Care Teams Cook Pie Relationship Specialty Start Date End Date Evelina Zuniga MD [address] [place] [address] PCP - General Internal Medicine 09/19/17
== END 2025-03-24 16:12 | disposition home or self-care (01) ==
LOC: HO.HUSH 15:35
PROVIDERS: PCP Nurse Practitioner Family; Visit Provider Nurse Practitioner Family
DX: E29.1 Testicular hypofunction (principal); R79.89 Other specified abnormal findings of blood chemistry; R31.29 Other microscopic hematuria; R68.82 Decreased libido; N52.9 Male erectile dysfunction, unspecified; Z13.9 Encounter for screening, unspecified
CPT/HCPCS: 99214; G2211